=== PATIENT | male | born 1970 | race African-American/Black ===

== ENCOUNTER 2018-12-09 00:30 | Inpatient (IN) | payer SELFPAY ==
[2018-12-09] VITALS (27 sets, daily range): BP systolic 136–217; BP diastolic 61–108
[~2018-12-09] VITALS: Ht 177.8 cm; Wt 108.0 kg
[~2018-12-09 00:30] MED LIST: AMLO10TA8 PO; ASPI325T8 PO; ATOR40TA59 PO; CARV6.25 PO; GABA300C18 PO; HYDR12.575 PO; INSU100C4 SQ; INSU100I13 SQ; INSU100V13 SQ; INSU100V31 SQ; LISI-334 PO; LISI-338 PO; PRED50TA PO; SULF1TAB24 PO
[2018-12-09] MEDS ORDERED: MORPHINE SULFATE 2 MG/ML VIAL. IV PRN (00:45)
--- NOTE | 2018-12-09 00:48 | PHYS DOC ---
Past Medical History Past Medical History: Diabetes-Type II, Hypertension Past Surgical History: No Surgical History Alcohol Use: None Drug Use: None Adult General HPI HPI Patient is a 48 year old male presenting with fatigue for the last several months worse today went to local ER blood pressure was super high in the 230s for the most part was given pushes of IV hydralazine blood pressure remained elevated was transferred here for higher level of care Review of Systems Review of Systems Constitutional: Fatigue Eyes: Denies change in visual acuity, redness, or eye pain [] HENT: Denies nasal congestion or sore throat [] Respiratory: Mild shortness of breath GI: Denies abdominal pain, nausea, vomiting, bloody stools or diarrhea [] : Denies dysuria or hematuria [] Musculoskeletal: All other systems were reviewed and found to be within normal limits, except as documented in this note. Allergies Allergies Allergies Coded Allergies Type Severity Reaction Last Updated Verified No Known Drug Allergies 06/10/13 No Physical Exam Physical Exam Constitutional: Well developed, well nourished, no acute distress, non-toxic appearance. [] HENT: Normocephalic, atraumatic, bilateral external ears normal, oropharynx moist, no oral exudates, nose normal. [] Eyes: PERRLA, EOMI, conjunctiva normal, no discharge. [] Neck: Normal range of motion, no tenderness, supple, no stridor. [] Cardiovascular:Heart rate regular rhythm, no murmur [] Lungs & Thorax: Bilateral breath sounds clear to auscultation [] Abdomen: Bowel sounds normal, soft, no tenderness, no masses, no pulsatile masses. [] Skin: Warm, dry, no erythema, no rash. [] Back: No tenderness, no CVA tenderness. [] Extremities: No tenderness, no cyanosis, no clubbing, ROM intact, no edema. [] Neurologic: Alert and oriented X 3, normal motor function, normal sensory function, no focal deficits noted. [] Psychologic: Affect normal, judgement normal, mood normal. [] EKG EKG [] Radiology/Procedures Radiology/Procedures [] Course & Med Decision Making Course & Med Decision Making Pertinent Labs and Imaging studies reviewed. (See chart for details) []History of a prior stroke not on any medication he does not have follow-up who is referred from the local freestanding emergency department for higher level of care. Also patient wanted to come to [facility]. We are the closest facility that has that level of care, therefore accepted the patient in transfer ER to ER, BP in the 220s systolic for the paramedics patient is not stable for transfer to a further facility in my opinion. In summary this is a 48-year-old male with hypertension diabetes prior stroke last year which is untreated who was seen at an outside emergency Department freestanding here with blood pressures as high as 240's. He was given nitro paste clonidine hydralazine blood pressure remained elevated chest x-ray showed perihilar and infrahilar mild interstitial prominence minimal left basilar opacification and small left pleural effusion Labs at the outside facility showed a urinalysis with greater than 300 protein otherwise negative labs done at 10 PM on December 08 showed a sodium of 145 potassium of 3.8 chloride of 107 bicarbonate of 27 anion gap of 11 glucose of 92 albumin of 2.8 alkaline phosphatase of 74 calcium of 8.1 AST 19 catherine T12 BUN 41 creatinine 4.7 white blood cell count was 7.6 hemoglobin 10.7 platelets of 268 troponin less than 0.05 at 10:15 PM on December 08 BNP was 978 EKG interpreted by me from seeing the hospital recorded at 10:27 PM on December 08 showed a normal sinus rhythm with a rate of 80 nonspecific changes inferiorly but no acute ST elevation was noted urine drug screen was done and negative Patient be admitted to the service of Dr. Nixon. Place the patient on nitroglycerin drip as well as when necessary labetalol pushes for high blood pressure did order some Lasix as well as put in the routine consults typical for this problem a patient with ICU for careful monitoring. BP 220'S SEE NURSES NOTE FOR FULL RECORDS. Critical care time was 35 minutes exclusive of procedures. Dragon Disclaimer Dragon Disclaimer This electronic medical record was generated, in whole or in part, using a voice recognition dictation system. Departure Departure Impression: Primary Impression: Hypertensive emergency Disposition: 09 ADMITTED INPATIENT Admitting Physician: ABHISHEK Condition: GUARDED Referrals: NO PCP (PCP) GA SYKES MD Dec 09, 2018 00:48
[2018-12-09] MEDS ORDERED: FUROSEMIDE 40 MG/4 ML VIAL. IVP ONE (01:00)
[2018-12-09] MEDS ORDERED: POTASSIUM CHLORIDE 20 MEQ TABLET.ER. PO ONE (01:00)
[2018-12-09] MEDS ORDERED: NITROGLYCERIN PREMIX 250 ML IV ONE (01:00)
[2018-12-09] MEDS ORDERED: ASPIRIN CHEWABLE 81 MG TABLET. PO ONE (01:00)
[2018-12-09] MEDS: LABETALOL 20 MG/4 ML DISP.SYRIN. IVP PRN (01:25)
--- NOTE | 2018-12-09 02:30 | NUR ---
Patient admitted to room 112 via cart at 0210, accompanied by ED RN; ED RN stated she had increased Nitro gtt to 20MCG/MIN on the way to ICU. Patient alert/oriented x4, cooperative, and complaining of feeling hungry and he hadn't eaten since yesterday afternoon; explained NPO status for possible further testing after physicians assessment this am, patient verbalized understanding. Patient educated on ICU routine, Nursing call light, TV/Bed controls, Numeric pain scale, activity (BR), diet, non smoking campus, and POC. Dr Mujica (ED MD) called at 0220, notified patient's BP remains elevated with Nitro gtt at 20MCG/MIN, discussed changing antihypertensive to Cardene for better control, also notified him patient has not had any urine output since Lasix given in ED and discussed CXR results. Dr Mujica stated he would DC Nitro gtt and order Julian gtt--see orders. Also see Admission Information and Admission Assessment.
[2018-12-09] MEDS: NICOTINE 21MG PATCH. TD SCH ×2 (02:44→09:40)
[2018-12-09] MEDS ORDERED: GABA-585 PO (03:47)
--- NOTE | 2018-12-09 05:48 | RAD ---
PORTABLE CHEST 1V Clinical Indication: Shortness of breath Comparison: AP chest, October 24, 2017. Findings: The cardiomediastinal silhouette is normal. There is left basilar retrocardiac airspace disease. There is mild medial right basilar airspace disease. There is no pneumothorax. No pleural effusion is appreciated. No acute bone abnormality. IMPRESSION: Left basilar retrocardiac airspace disease. Electronically signed by: Ian Proctor MD (12/09/2018 5:44 AM) [facility]
[2018-12-09 06:47] LABS: CALCIUM 7.7 mg/dL (8.5-10.1); CREATININE 5.1 mg/dL (0.7-1.3); GFR 14.6; POTASSIUM 3.6 mmol/L (3.5-5.1)
--- NOTE | 2018-12-09 07:30 | NUR ---
Elevated Troponin 0.061 called by lab at 0701;Dr Tobias barnes, Dr Collado returned page, notified of consult, Troponin results, blood pressures with Cardene gtt at 15MG/HR, meds given in ED, telemetry SR 90's, and patient has not complained of any chest pain. No new orders at this time, will continues POC. Addendum: 12/09/18 at 0740 by ABELARDO RIVERA RN Amended: Links added.
[2018-12-09] MEDS: GABAPENTIN 100 MG CAPSULE. PO SCH ×2 (09:39→20:30)
[2018-12-09] MEDS: ASPIRIN 325 MG TABLET PO SCH (09:39)
[2018-12-09] MEDS: amLODIPine BESYLATE 10 MG TABLET PO SCH (09:40)
[2018-12-09] MEDS: CARVEDILOL 6.25 MG TABLET. PO SCH ×2 (09:40→17:22)
[2018-12-09 09:51] LABS: BILIRUBIN,URINE NEGATIVE (NEG); CLARITY,URINE CLOUDY; COLOR,URINE YELLOW; NITRITE,URINE NEGATIVE (NEG); PH,URINE 5.5; PROTEIN,URINE >=300 mg/dL (NEG-TRACE); UROBILINOGEN,URINE 0.2 mg/dL (0.2 mg/dL)
[2018-12-09 10:10] LABS: BACTERIA,URINE 0 /HPF (0-FEW); SQUAMOUS EPITHELIAL CELL,UR FEW /LPF
--- NOTE | 2018-12-09 10:10 | PDOC2 ---
CONSULT Date of Consult Date of Consult DATE: 12/09/18 TIME: 10:05 Reason for Consult Reason for Consult: RENAL FAILURE AND HTN Referring Physician Referring Physician: JEANA Identification/Chief Complaint Chief Complaint FATIGUE History of Present Illness Reason for Visit: THIS IS A 48 YR OLD WITH FATIGUE FOR SEVERAL MONTHS. ON EVALUATION HE IS NOTED TO HAVE HYPERTENSIVE URGENCY/EMERGENCY. HAS HX OF HTN AND DM II BUT STATES THAT HE HAS NOT BEEN TAKING ANY OF HIS MEDS. HIS CR WAS ALSO WNL IN OCTOBER OF LAST YEAR BUT HAS NOT SEEN ANYONE SINCE THEN. CR TODAY IS 5. DENIED ANY HX AND ANY PROBLEMS WITH EMPTYING HIS BLADDER Past Medical History Cardiovascular: HTN Endocrine: Diabetes Past Surgical History Past Surgical History: No pertinent history Social History No ALCOHOL: rare Drugs: Marijuana Lives: with Family Current Problem List Problem List Problems Medical Problems: (1) Hypertensive emergency Status: Acute Current Medications Current Medications Current Medications Morphine Sulfate (Morphine Sulfate) 2 mg PRN Q2HR PRN IV SEVERE PAIN 7-10; Start 12/09/18 at 00:45; Stop 12/10/18 at 00:44 Nitroglycerin/ Dextrose 250 ml @ 0 mls/hr 1X ONCE IV Last administered on 12/09/18at 01:39; Start 12/09/18 at 01:00; Stop 12/09/18 at 02:27; Status DC Labetalol HCl (Normodyne Iv Push) 20 mg PRN Q2HR PRN IVP ELEVATED BP, SEE COMMENTS Last administered on 12/09/18at 01:25; Start 12/09/18 at 00:45 Aspirin (Children'S Aspirin) 324 mg 1X ONCE PO Last administered on 12/09/18at 01:27; Start 12/09/18 at 01:00; Stop 12/09/18 at 01:01; Status DC Furosemide (Lasix) 40 mg 1X ONCE IVP Last administered on 12/09/18at 01:33; Start 12/09/18 at 01:00; Stop 12/09/18 at 01:01; Status DC Potassium Chloride (Klor-Con) 40 meq 1X ONCE PO Last administered on 12/09/18at 01:27; Start 12/09/18 at 01:00; Stop 12/09/18 at 01:01; Status DC Nicotine (Nicoderm Cq 21mg) 1 patch DAILY TD Last administered on 12/09/18at 09:40; Start 12/09/18 at 02:00 Nicardipine HCl 50 mg/Sodium Chloride 250 ml @ 25 mls/hr CONT PRN IV SEE I/O RECORD Last administered on 12/09/18at 06:47; Start 12/09/18 at 02:30 Amlodipine Besylate (Norvasc) 10 mg DAILY PO Last administered on 12/09/18 09:40; Start 12/09/18 at 09:00 Aspirin (Arjun Aspirin) 325 mg DAILY PO Last administered on 12/09/18 09:39; Start 12/09/18 at 09:00 Atorvastatin Calcium (Lipitor) 40 mg HS PO ; Start 12/09/18 at 21:00 Carvedilol (Coreg) 6.25 mg BIDWMEALS PO Last administered on 12/09/18 09:40; Start 12/09/18 at 09:00 Gabapentin (Neurontin) 100 mg BID PO Last administered on 12/09/18at 09:39; S tart 12/09/18 at 09:00 Insulin Glargine (Lantus) 20 units QHS SQ ; Start 12/09/18 at 21:00 Insulin Human Lispro (HumaLOG) 10 units TIDWMEALS SQ ; Start 12/09/18 at 12:00 Active Scripts Active Reported Gabapentin (Gabapentin) 100 Mg Capsule 100 Mg PO BID Novolog (Insulin Aspart) 100 Unit/1 Ml Cartridge 10 Unit SQ TIDAC Lantus Solostar (Insulin Glargine,Hum.rec.anlog) 100 Unit/1 Ml Insuln.pen 20 Unit SQ QHS Amlodipine Besylate 10 Mg Tablet 10 Mg PO DAILY Lisinopril 5 Mg Tablet 5 Mg PO DAILY Coreg (Carvedilol) 6.25 Mg Tablet 6.25 Mg PO BIDWMEALS Aspirin 325 Mg Tablet 325 Mg PO DAILY Atorvastatin Calcium 40 Mg Tablet 40 Mg PO HS Allergies Allergies: Coded Allergies: No Known Drug Allergies (Unverified , 06/10/13) ROS General: YES: Fatigue, Malaise, Appetite PSYCHOLOGICAL ROS: YES: Anxiety, Depression Eyes: Yes Blurry vision, Yes Decreased vision HEENT: YES: [place] Respiratory: YES: Cough Cardiovascular: yes Lt Headedness Gastrointestinal: Yes Nausea, Yes Constipation Genitourinary: YES Other (NOCTURIA) Musculoskeletal: Yes Muscular Weakness Neurological: Yes Weakness Skin: Yes Dry Skin Physical Exam General: Alert, Oriented X3, Cooperative, No acute distress HEENT: Atraumatic, PERRLA, EOMI, Mucous membr. moist/pink Lungs: Clear to auscultation, Normal air movement Heart: Regular rate, Normal S1, Normal S2 Abdomen: Normal bowel sounds, Soft, No tenderness Extremities: No clubbing, No cyanosis Skin: No breakdown Neuro: Normal speech, Sensation intact, Cranial nerves 3-12 NL Psych/Mental Status: Mental status NL, Mood NL MUSCULOSKELETAL: No joint tenderness, No deformity, No swelling Vitals VITALS Vital Signs Date Time Temp Pulse Resp B/P (MAP) Pulse Ox O2 Delivery O2 Flow Rate FiO2 12/09/18 09:40 92 163/79 12/09/18 09:00 22 94 Room Air 12/09/18 08:00 98.3 98.3 Labs Labs Laboratory Tests Test 12/09/18 01:22 12/09/18 06:32 Troponin I Quantitative 0.036 ng/mL (0.000-0.055) 0.061 ng/mL (0.000-0.055) Sodium Level 142 mmol/L (136-145) Potassium Level 3.6 mmol/L (3.5-5.1) Chloride Level 107 mmol/L (98-107) Carbon Dioxide Level 24 mmol/L (21-32) Anion Gap 11 (6-14) Blood Urea Nitrogen 47 mg/dL (8-26) Creatinine 5.1 mg/dL (0.7-1.3) Estimated GFR (Cockcroft-Gault) 14.6 Glucose Level 123 mg/dL (70-99) Calcium Level 7.7 mg/dL (8.5-10.1) Laboratory Tests Test 12/09/18 01:22 12/09/18 06:32 Troponin I Quantitative 0.036 ng/mL (0.000-0.055) 0.061 ng/mL (0.000-0.055) Sodium Level 142 mmol/L (136-145) Potassium Level 3.6 mmol/L (3.5-5.1) Chloride Level 107 mmol/L (98-107) Carbon Dioxide Level 24 mmol/L (21-32) Anion Gap 11 (6-14) Blood Urea Nitrogen 47 mg/dL (8-26) Creatinine 5.1 mg/dL (0.7-1.3) Estimated GFR (Cockcroft-Gault) 14.6 Glucose Level 123 mg/dL (70-99) Calcium Level 7.7 mg/dL (8.5-10.1) Assessment/Plan Assessment/Plan IMP RENAL FAILURE-SYEDA VS CKD HTN URGENCY NON COMPLIANCE DM II PLAN HYDRATION IV CARDENE START PO ANTIHYPERTENSIVES UA WITH MICRO-RULE OUT NEPHRITIS RENAL SONOGRAM ENC COMPLIANCE KENDY GOMEZ MD Dec 09, 2018 10:10
--- NOTE | 2018-12-09 12:30 | RAD ---
Indication: Renal failure TECHNIQUE: Grayscale, color Doppler images of the kidneys COMPARISON: None FINDINGS: The right kidney measures 10.8 x 6.7 x 5.1 cm without hydronephrosis. Left kidney measures 10.9 x 6.4 x 4.4 cm without hydronephrosis. Bilateral kidneys demonstrate increased parenchymal echogenicity. Bladder is within normal limits. IMPRESSION: 1. No hydronephrosis. 2. Findings of chronic medical renal disease. Electronically signed by: Dillon Peck DO (12/09/2018 12:27 PM) [facility]
--- NOTE | 2018-12-09 12:52 | PDOC1 ---
History and Physical Date of Admission Date of Admission DATE: 12/09/18 TIME: 12:49 Source Source: Chart review, Patient History of Present Illness History of Present Illness Mr. Garcia, is a 48 year old male admit with weakness with fatigue. he has been out of BP meds for 6 months, BP reading in Er was 230 systolic he had been to an urgent care center the day before, and sent to our ER for tr eatment in ER, was given pushes of IV hydralazine blood pressure re Past Medical History Cardiovascular: HTN Psych: No pertinent hx Rheumatologic: No pertinent hx Endocrine: Diabetes Past Surgical History Past Surgical History: No pertinent history Social History Smoke: No ALCOHOL: rare Drugs: Marijuana Current Problem List Problem List Problems Medical Problems: (1) Hypertensive emergency Status: Acute Current Medications Current Medications Current Medications Morphine Sulfate (Morphine Sulfate) 2 mg PRN Q2HR PRN IV SEVERE PAIN 7-10; Start 12/09/18 at 00:45; Stop 12/10/18 at 00:44 Nitroglycerin/ Dextrose 250 ml @ 0 mls/hr 1X ONCE IV Last administered on 12/09/18at 01:39; Start 12/09/18 at 01:00; Stop 12/09/18 at 02:27; Status DC Labetalol HCl (Normodyne Iv Push) 20 mg PRN Q2HR PRN IVP ELEVATED BP, SEE COMMENTS Last administered on 12/09/18at 01:25; Start 12/09/18 at 00:45 Aspirin (Children'S Aspirin) 324 mg 1X ONCE PO Last administered on 12/09/18at 01:27; Start 12/09/18 at 01:00; Stop 12/09/18 at 01:01; Status DC Furosemide (Lasix) 40 mg 1X ONCE IVP Last administered on 12/09/18at 01:33; Start 12/09/18 at 01:00; Stop 12/09/18 at 01:01; Status DC Potassium Chloride (Klor-Con) 40 meq 1X ONCE PO Last administered on 12/09/18at 01:27; Start 12/09/18 at 01:00; Stop 12/09/18 at 01:01; Status DC Nicotine (Nicoderm Cq 21mg) 1 patch DAILY TD Last administered on 12/09/18at 09:40; Start 12/09/18 at 02:00 Nicardipine HCl 50 mg/Sodium Chloride 250 ml @ 25 mls/hr CONT PRN IV SEE I/O RECORD Last administered on 12/09/18at 10:40; Start 12/09/18 at 02:30 Amlodipine Besylate (Norvasc) 10 mg DAILY PO Last administered on 12/09/18at 09:40; Start 12/09/18 at 09:00 Aspirin (Arjun Aspirin) 325 mg DAILY PO Last administered on 12/09/18at 09:39; Start 12/09/18 at 09:00 Atorvastatin Calcium (Lipitor) 40 mg HS PO ; Start 12/09/18 at 21:00 Carvedilol (Coreg) 6.25 mg BIDWMEALS PO Last administered on 12/09/18at 09:40; Start 12/09/18 at 09:00 Gabapentin (Neurontin) 100 mg BID PO Last administered on 12/09/18at 09:39; Start 12/09/18 at 09:00 Insulin Glargine (Lantus) 20 units QHS SQ ; Start 12/09/18 at 21:00 Insulin Human Lispro (HumaLOG) 10 units TIDWMEALS SQ ; Start 12/09/18 at 12:00 Active Scripts Active Reported Gabapentin (Gabapentin) 100 Mg Capsule 100 Mg PO BID Novolog (Insulin Aspart) 100 Unit/1 Ml Cartridge 10 Unit SQ TIDAC Lantus Solostar (Insulin Glargine,Hum.rec.anlog) 100 Unit/1 Ml Insuln.pen 20 Unit SQ QHS Amlodipine Besylate 10 Mg Tablet 10 Mg PO DAILY Lisinopril 5 Mg Tablet 5 Mg PO DAILY Coreg (Carvedilol) 6.25 Mg Tablet 6.25 Mg PO BIDWMEALS Aspirin 325 Mg Tablet 325 Mg PO DAILY Atorvastatin Calcium 40 Mg Tablet 40 Mg PO HS Allergies Allergies: Coded Allergies: No Known Drug Allergies (Unverified , 06/10/13) ROS General: No: Chills, Night Sweats, Fatigue, Malaise, Appetite, Other PSYCHOLOGICAL ROS: No: Anxiety, Behavioral Disorder, Concentration difficultie, Decreased libido, Depression, Disorientation, Hallucinations, Hostility, Irritablity, Memory difficulties, Mood Swings, Obsessive thoughts, Physical abuse, Sexual abuse, Sleep disturbances, Suicidal ideation, Other Eyes: No Blurry vision, No Decreased vision, No Double vision, No Dry eyes, No Excessive tearing, No Eye Pain, No Itchy Eyes, No Loss of vision, No Photophobia, No Scotomata, No Uses contacts, No Uses glasses, No Other HEENT: YES: [place] Respiratory: No: Cough, Hemoptysis, Orthopnea, Pleuritic Pain, Shortness of breath, SOB with excertion, Sputum Changes, Stridor, Tachypnea, Wheezing, Other Cardiovascular: No Chest Pain, No Palpitations, No Orthopnea, No Paroxysmal Noc. Dyspnea, No Edema, No Lt Headedness, No Other Gastrointestinal: Yes Nausea; No Vomiting, No Abdominal Pain, No Diarrhea, No Constipation, No Melena, No Hematochezia, No Other Genitourinary: No Dysuria, No Frequency, No Incontinence, No Hematuria, No Retention, No Discharge, No Urgency, No Pain, No Flank Pain, No Other, No , No , No , No , No , No , No Musculoskeletal: Yes Joint Stiffness; No Gait Disturbance, No Joint Pain, No Joint Swelling, No Muscle Pain, No Muscular Weakness, No Pain In:, No Swelling In:, No Other Neurological: No Behavorial Changes, No Bowel/Bladder ControlChng, No Confusion, No Dizziness, No Gait Disturbance, No Headaches, No Impaired Coord/balance, No Memory Loss, No Numbness/Tingling, No Seizures, No Speech Problems, No Tremors, No Visual Changes, No Weakness, No Other Skin: Yes Dry Skin; No Eczema, No Hair Changes, No Lumps, No Mole Changes, No Mottling, No Nail Changes, No Pruritus, No Rash, No Skin Lesion Changes, No Other, No Acne Physical Exam General: Alert, Cooperative, No acute distress, mild distress HEENT: PERRLA, EOMI Lungs: Clear to auscultation, Normal air movement Heart: S1S2, no gallops Abdomen: Normal bowel sounds, Soft Extremities: No cyanosis, Normal pulses, Other (+ edema) Skin: No breakdown, No significant lesion Neuro: Normal speech, Normal tone, Cranial nerves 3-12 NL Psych/Mental Status: Mood NL Vitals Vitals Vital Signs Date Time Temp Pulse Resp B/P (MAP) Pulse Ox O2 Delivery O2 Flow Rate FiO2 12/09/18 12:00 98.7 85 18 162/79 (106) 91 Nasal Cannula 2.0 98.7 Labs Labs Laboratory Tests Test 12/09/18 01:22 12/09/18 06:32 12/09/18 09:35 12/09/18 12:08 Troponin I Quantitative 0.036 ng/mL (0.000-0.055) 0.061 ng/mL (0.000-0.055) Sodium Level 142 mmol/L (136-145) Potassium Level 3.6 mmol/L (3.5-5.1) Chloride Level 107 mmol/L (98-107) Carbon Dioxide Level 24 mmol/L (21-32) Anion Gap 11 (6-14) Blood Urea Nitrogen 47 mg/dL (8-26) Creatinine 5.1 mg/dL (0.7-1.3) Estimated GFR (Cockcroft-Gault) 14.6 Glucose Level 123 mg/dL (70-99) Calcium Level 7.7 mg/dL (8.5-10.1) Urine Collection Type Unknown Urine Color Yellow Urine Clarity Cloudy Urine pH 5.5 Urine Specific Tyler 1.015 Urine Protein >=300 mg/dL (NEG-TRACE) Urine Glucose (UA) Negative mg/dL (NEG) Urine Ketones (Stick) Negative mg/dL (NEG) Urine Blood Small (NEG) Urine Nitrite Negative (NEG) Urine Bilirubin Negative (NEG) Urine Urobilinogen Dipstick 0.2 mg/dL (0.2 mg/dL) Urine Leukocyte Esterase Large (NEG) Urine RBC 3-5 /HPF (0-2) Urine WBC 11-20 /HPF (0-4) Urine Squamous Epithelial Cells Few /LPF Urine Bacteria 0 /HPF (0-FEW) Urine Random Total Protein 311.5 mg/dL (Not Establ.) Glucose (Fingerstick) 213 mg/dL (70-99) Laboratory Tests Test 12/09/18 01:22 12/09/18 06:32 12/09/18 09:35 12/09/18 12:08 Troponin I Quantitative 0.036 ng/mL (0.000-0.055) 0.061 ng/mL (0.000-0.055) Sodium Level 142 mmol/L (136-145) Potassium Level 3.6 mmol/L (3.5-5.1) Chloride Level 107 mmol/L (98-107) Carbon Dioxide Level 24 mmol/L (21-32) Anion Gap 11 (6-14) Blood Urea Nitrogen 47 mg/dL (8-26) Creatinine 5.1 mg/dL (0.7-1.3) Estimated GFR (Cockcroft-Gault) 14.6 Glucose Level 123 mg/dL (70-99) Calcium Level 7.7 mg/dL (8.5-10.1) Urine Collection Type Unknown Urine Color Yellow Urine Clarity Cloudy Urine pH 5.5 Urine Specific Tyler 1.015 Urine Protein >=300 mg/dL (NEG-TRACE) Urine Glucose (UA) Negative mg/dL (NEG) Urine Ketones (Stick) Negative mg/dL (NEG) Urine Blood Small (NEG) Urine Nitrite Negative (NEG) Urine Bilirubin Negative (NEG) Urine Urobilinogen Dipstick 0.2 mg/dL (0.2 mg/dL) Urine Leukocyte Esterase Large (NEG) Urine RBC 3-5 /HPF (0-2) Urine WBC 11-20 /HPF (0-4) Urine Squamous Epithelial Cells Few /LPF Urine Bacteria 0 /HPF (0-FEW) Urine Random Total Protein 311.5 mg/dL (Not Establ.) Glucose (Fingerstick) 213 mg/dL (70-99) VTE Prophylaxis Ordered VTE Prophylaxis Devices: No VTE Pharmacological Prophylaxi: Yes Assessment/Plan Assessment/Plan acute renal failure accelerated hypertension acute systolic CHF, new LE edema noncompliance meds, no meds 6 mos UBALDO JOYCE MD Dec 09, 2018 12:52
[2018-12-09] MEDS: INSULIN LISPRO 300 UNITS/3 ML INSULN.PEN. SQ SCH ×2 (13:15→17:00)
--- NOTE | 2018-12-09 15:34 | PDOC2 ---
CONSULT Date of Consult Date of Consult DATE: 12/09/18 TIME: 15:28 Reason for Consult Reason for Consult: Hypertensive emergency Referring Physician Referring Physician: Dr. De La Rosa Identification/Chief Complaint Chief Complaint Fatigue and weakness Source Source: Chart review, Patient History of Present Illness Reason for Visit: The patient is a 48-year-old male who reports 2-3 weeks of progressive weakness and fatigue. He was seen at an outpatient facility with a systolic pressure of 230. Patient has a history of hypertension, diabetes mellitus and a possible CVA. He has not taken medications for over 6 months. He was evaluated in the emergency room and found to have potassium of 3.6 and a creatinine of 5.1 with troponins of 0.036 and 0.061. Glucose is 123. He was admitted and started on a cardene drip which has significantly improved his blood pressure. He denied any chest pain. He is feeling better today. Past Medical History Cardiovascular: HTN CENTRAL NERVOUS SYSTEM: Other (possible previous TIA) Psych: No pertinent hx Rheumatologic: No pertinent hx Endocrine: Diabetes Past Surgical History Past Surgical History: No pertinent history Family History Family History: Hypertension Social History No ALCOHOL: rare Drugs: Marijuana Lives: with Family Current Problem List Problem List Problems Medical Problems: (1) Hypertensive emergency Status: Acute Current Medications Current Medications Current Medications Morphine Sulfate (Morphine Sulfate) 2 mg PRN Q2HR PRN IV SEVERE PAIN 7-10; Start 12/09/18 at 00:45; Stop 12/10/18 at 00:44 Nitroglycerin/ Dextrose 250 ml @ 0 mls/hr 1X ONCE IV Last administered on 12/09/18at 01:39; Start 12/09/18 at 01:00; Stop 12/09/18 at 02:27; Status DC Labetalol HCl (Normodyne Iv Push) 20 mg PRN Q2HR PRN IVP ELEVATED BP, SEE CO MMENTS Last administered on 12/09/18at 01:25; Start 12/09/18 at 00:45 Aspirin (Children'S Aspirin) 324 mg 1X ONCE PO Last administered on 12/09/18at 01:27; Start 12/09/18 at 01:00; Stop 12/09/18 at 01:01; Status DC Furosemide (Lasix) 40 mg 1X ONCE IVP Last administered on 12/09/18at 01:33; Start 12/09/18 at 01:00; Stop 12/09/18 at 01:01; Status DC Potassium Chloride (Klor-Con) 40 meq 1X ONCE PO Last administered on 12/09/18at 01:27; Start 12/09/18 at 01:00; Stop 12/09/18 at 01:01; Status DC Nicotine (Nicoderm Cq 21mg) 1 patch DAILY TD Last administered on 12/09/18at 09:40; Start 12/09/18 at 02:00 Nicardipine HCl 50 mg/Sodium Chloride 250 ml @ 25 mls/hr CONT PRN IV SEE I/O RECORD Last administered on 12/09/18at 14:44; Start 12/09/18 at 02:30 Amlodipine Besylate (Norvasc) 10 mg DAILY PO Last administered on 12/09/18 09:40; Start 12/09/18 at 09:00 Aspirin (Arjun Aspirin) 325 mg DAILY PO Last administered on 12/09/18at 09:39; Start 12/09/18 at 09:00 Atorvastatin Calcium (Lipitor) 40 mg HS PO ; Start 12/09/18 at 21:00 Carvedilol (Coreg) 6.25 mg BIDWMEALS PO Last administered on 12/09/18at 09:40; Start 12/09/18 at 09:00 Gabapentin (Neurontin) 100 mg BID PO Last administered on 12/09/18 09:39; Start 12/09/18 at 09:00 Insulin Glargine (Lantus) 20 units QHS SQ ; Start 12/09/18 at 21:00 Insulin Human Lispro (HumaLOG) 10 units TIDWMEALS SQ Last administered on 12/09/18at 13:15; Start 12/09/18 at 12:00 Heparin Sodium (Porcine) (Heparin Sodium) 5,000 unit Q12HR SQ ; Start 12/09/18 at 21:00 Active Scripts Active Reported Gabapentin (Gabapentin) 100 Mg Capsule 100 Mg PO BID Novolog (Insulin Aspart) 100 Unit/1 Ml Cartridge 10 Unit SQ TIDAC Lantus Solostar (Insulin Glargine,Hum.rec.anlog) 100 Unit/1 Ml Insuln.pen 20 Unit SQ QHS Amlodipine Besylate 10 Mg Tablet 10 Mg PO DAILY Lisinopril 5 Mg Tablet 5 Mg PO DAILY Coreg (Carvedilol) 6.25 Mg Tablet 6.25 Mg PO BIDWMEALS Aspirin 325 Mg Tablet 325 Mg PO DAILY Atorvastatin Calcium 40 Mg Tablet 40 Mg PO HS Allergies Allergies: Coded Allergies: No Known Drug Allergies (Unverified , 06/10/13) ROS General: YES: Fatigue, Malaise Physical Exam General: mild distress HEENT: Atraumatic Lungs: Clear to auscultation Heart: Regular rate Abdomen: Normal bowel sounds Vitals VITALS Vital Signs Date Time Temp Pulse Resp B/P (MAP) Pulse Ox O2 Delivery O2 Flow Rate FiO2 12/09/18 14:00 80 17 151/75 (100) 94 Nasal Cannula 2.0 12/09/18 12:00 98.7 98.7 Labs Labs Laboratory Tests Test 12/09/18 01:22 12/09/18 06:32 12/09/18 09:35 12/09/18 12:08 Troponin I Quantitative 0.036 ng/mL (0.000-0.055) 0.061 ng/mL (0.000-0.055) Sodium Level 142 mmol/L (136-145) Potassium Level 3.6 mmol/L (3.5-5.1) Chloride Level 107 mmol/L (98-107) Carbon Dioxide Level 24 mmol/L (21-32) Anion Gap 11 (6-14) Blood Urea Nitrogen 47 mg/dL (8-26) Creatinine 5.1 mg/dL (0.7-1.3) Estimated GFR (Cockcroft-Gault) 14.6 Glucose Level 123 mg/dL (70-99) Calcium Level 7.7 mg/dL (8.5-10.1) Urine Collection Type Unknown Urine Color Yellow Urine Clarity Cloudy Urine pH 5.5 Urine Specific [place] 1.015 Urine Protein >=300 mg/dL (NEG-TRACE) Urine Glucose (UA) Negative mg/dL (NEG) Urine Ketones (Stick) Negative mg/dL (NEG) Urine Blood Small (NEG) Urine Nitrite Negative (NEG) Urine Bilirubin Negative (NEG) Urine Urobilinogen Dipstick 0.2 mg/dL (0.2 mg/dL) Urine Leukocyte Esterase Large (NEG) Urine RBC 3-5 /HPF (0-2) Urine WBC 11-20 /HPF (0-4) Urine Squamous Epithelial Cells Few /LPF Urine Bacteria 0 /HPF (0-FEW) Urine Random Total Protein 311.5 mg/dL (Not Establ.) Glucose (Fingerstick) 213 mg/dL (70-99) Laboratory Tests Test 12/09/18 01:22 12/09/18 06:32 12/09/18 09:35 12/09/18 12:08 Troponin I Quantitative 0.036 ng/mL (0.000-0.055) 0.061 ng/mL (0.000-0.055) Sodium Level 142 mmol/L (136-145) Potassium Level 3.6 mmol/L (3.5-5.1) Chloride Level 107 mmol/L (98-107) Carbon Dioxide Level 24 mmol/L (21-32) Anion Gap 11 (6-14) Blood Urea Nitrogen 47 mg/dL (8-26) Creatinine 5.1 mg/dL (0.7-1.3) Estimated GFR (Cockcroft-Gault) 14.6 Glucose Level 123 mg/dL (70-99) Calcium Level 7.7 mg/dL (8.5-10.1) Urine Collection Type Unknown Urine Color Yellow Urine Clarity Cloudy Urine pH 5.5 Urine Specific [place] 1.015 Urine Protein >=300 mg/dL (NEG-TRACE) Urine Glucose (UA) Negative mg/dL (NEG) Urine Ketones (Stick) Negative mg/dL (NEG) Urine Blood Small (NEG) Urine Nitrite Negative (NEG) Urine Bilirubin Negative (NEG) Urine Urobilinogen Dipstick 0.2 mg/dL (0.2 mg/dL) Urine Leukocyte Esterase Large (NEG) Urine RBC 3-5 /HPF (0-2) Urine WBC 11-20 /HPF (0-4) Urine Squamous Epithelial Cells Few /LPF Urine Bacteria 0 /HPF (0-FEW) Urine Random Total Protein 311.5 mg/dL (Not Establ.) Glucose (Fingerstick) 213 mg/dL (70-99) Assessment/Plan Assessment/Plan 1. Hypertensive emergency. Patient has a history of hypertension but has been off his blood pressure medicines for at least 6 months. He is improved on a Cardene drip. For her medications have been started. We will check an echo to evaluate LV wall thickness in this setting. 2. Acute acute renal insufficiency. Creatinine of 5.1 with a potassium of 3.6. Patient is receiving fluids and is being evaluated by the renal service. 3. Minimally elevated troponins at 0.036 and 0.061. Consistent with demand ischemia and renal dysfunction. 4. Diabetes mellitus. Initial glucose of 123. As per the renal service. 5. Noncompliance. Thank you for allowing us to participate in the care of your patient. SULY JUAREZ MD Dec 09, 2018 15:34
--- NOTE | 2018-12-09 15:47 | NUR ---
Patient's oxygen saturation during sleep is dropping low to mid 80's. Oxygen has been applied to patient while sleeping. Patient is having periods of apnea during sleep and loud snoring. Patients position has been moved to side lying, and upright to help this issue however, these positions have not alleviated the snoring or the periods of apnea. With 2L nasal canula patient is maintaining oxygen saturations in the low 90's. Dr. De La Rosa has been notified and will continue to monitor. This nurse will continue to monitor.
[2018-12-09] MEDS: ATORVASTATIN CALCIUM 40 MG TABLET. PO SCH (20:30)
[2018-12-09] MEDS: HEPARIN for SUB-Q USE 5,000 UNIT/ML VIAL. SQ SCH (20:31)
[2018-12-09] MEDS: INSULIN GLARGINE 300 UNITS/3 ML INSULN.PEN. SQ SCH (20:32)
[2018-12-10] VITALS (12 sets, daily range): BP systolic 136–221; BP diastolic 61–120
[2018-12-10 08:28] LABS: BASO # 0.1 x10^3/uL (0.0-0.2); BASO % 2 % (0-3); EOS # 0.2 x10^3/uL (0.0-0.7); EOS % 2 % (0-3); HEMATOCRIT 30.7 % (39.0-53.0); HEMOGLOBIN 10.2 g/dL (13.0-17.5); LYMPH # 2.2 x10^3/uL (1.0-4.8); LYMPH % 32 % (24-48); MEAN CORPUSCULAR HEMOGLOBIN 28 pg (25-35); MEAN CORPUSCULAR HGB CONC 33 g/dL (31-37); MEAN CORPUSCULAR VOLUME 84 fL (79-100); MONO # 0.7 x10^3/uL (0.0-1.1); MONO % 10 % (0-9); NEUT # 3.8 x10^3/uL (1.8-7.7); NEUT % 54 % (31-73); PLATELET COUNT 221 x10^3/uL (140-400); RED BLOOD COUNT 3.68 x10^6/uL (4.30-5.70); RED CELL DISTRIBUTION WIDTH 14.1 % (11.5-14.5); WHITE BLOOD COUNT 6.9 x10^3/uL (4.0-11.0)
[2018-12-10] MEDS: GABAPENTIN 100 MG CAPSULE. PO SCH ×2 (08:34→20:39)
[2018-12-10] MEDS: NICOTINE 21MG PATCH. TD SCH (08:34)
[2018-12-10] MEDS: ASPIRIN 325 MG TABLET PO SCH (08:34)
[2018-12-10] MEDS: amLODIPine BESYLATE 10 MG TABLET PO SCH (08:35)
[2018-12-10] MEDS: CARVEDILOL 6.25 MG TABLET. PO SCH (08:35)
[2018-12-10] MEDS: INSULIN LISPRO 300 UNITS/3 ML INSULN.PEN. SQ SCH ×4 (08:44→17:00)
[2018-12-10] MEDS: HEPARIN for SUB-Q USE 5,000 UNIT/ML VIAL. SQ SCH ×2 (08:44→20:41)
[2018-12-10 08:48] LABS: ALBUMIN 2.5 g/dL (3.4-5.0); ALBUMIN/GLOBULIN RATIO 0.6 (1.0-1.7); CALCIUM 7.7 mg/dL (8.5-10.1); CREATININE 5.1 mg/dL (0.7-1.3); GFR 14.6; PHOSPHORUS 4.2 mg/dL (2.6-4.7); POTASSIUM 4.1 mmol/L (3.5-5.1); TOTAL BILIRUBIN 0.2 mg/dL (0.2-1.0); TOTAL PROTEIN 6.8 g/dL (6.4-8.2)
[2018-12-10] MEDS: LABETALOL 20 MG/4 ML DISP.SYRIN. IVP PRN (09:48)
--- NOTE | 2018-12-10 10:37 | PDOC ---
Renal-Progress Notes Subjective Notes Notes NO NEW COMPLAINTS History of Present Illness Hx of present illness NOTHING NEW, STABLE Vitals Vitals Vital Signs Date Time Temp Pulse Resp B/P (MAP) Pulse Ox O2 Delivery O2 Flow Rate FiO2 12/10/18 09:48 75 220/120 12/10/18 08:00 98.4 9 99 Nasal Cannula 2.0 98.4 Weight Weight [ ] I.O. Intake and Output Intake and Output 12/10/18 07:00 Intake Total 1269 ml Output Total 200 ml Balance 1069 ml Intake Oral 600 ml IV Total 669 ml Output Urine Total 200 ml # Voids 3 Labs Labs Laboratory Tests Test 12/09/18 12:08 12/09/18 17:23 12/09/18 19:43 12/10/18 08:00 Glucose (Fingerstick) 213 mg/dL (70-99) 68 mg/dL (70-99) 125 mg/dL (70-99) White Blood Count 6.9 x10^3/uL (4.0-11.0) Red Blood Count 3.68 x10^6/uL (4.30-5.70) Hemoglobin 10.2 g/dL (13.0-17.5) Hematocrit 30.7 % (39.0-53.0) Mean Corpuscular Volume 84 fL (79-100) Mean Corpuscular Hemoglobin 28 pg (25-35) Mean Corpuscular Hemoglobin Concent 33 g/dL (31-37) Red Cell Distribution Width 14.1 % (11.5-14.5) Platelet Count 221 x10^3/uL (140-400) Neutrophils (%) (Auto) 54 % (31-73) Lymphocytes (%) (Auto) 32 % (24-48) Monocytes (%) (Auto) 10 % (0-9) Eosinophils (%) (Auto) 2 % (0-3) Basophils (%) (Auto) 2 % (0-3) Neutrophils # (Auto) 3.8 x10^3/uL (1.8-7.7) Lymphocytes # (Auto) 2.2 x10^3/uL (1.0-4.8) Monocytes # (Auto) 0.7 x10^3/uL (0.0-1.1) Eosinophils # (Auto) 0.2 x10^3/uL (0.0-0.7) Basophils # (Auto) 0.1 x10^3/uL (0.0-0.2) Sodium Level 141 mmol/L (136-145) Potassium Level 4.1 mmol/L (3.5-5.1) Chloride Level 106 mmol/L (98-107) Carbon Dioxide Level 26 mmol/L (21-32) Anion Gap 9 (6-14) Blood Urea Nitrogen 50 mg/dL (8-26) Creatinine 5.1 mg/dL (0.7-1.3) Estimated GFR (Cockcroft-Gault) 14.6 BUN/Creatinine Ratio 10 (6-20) Glucose Level 134 mg/dL (70-99) Calcium Level 7.7 mg/dL (8.5-10.1) Phosphorus Level 4.2 mg/dL (2.6-4.7) Magnesium Level 2.0 mg/dL (1.8-2.4) Total Bilirubin 0.2 mg/dL (0.2-1.0) Aspartate Amino Transf (AST/SGOT) 13 U/L (15-37) Alanine Aminotransferase (ALT/SGPT) 10 U/L (16-63) Alkaline Phosphatase 79 U/L (46-116) Total Protein 6.8 g/dL (6.4-8.2) Albumin 2.5 g/dL (3.4-5.0) Albumin/Globulin Ratio 0.6 (1.0-1.7) Test 12/10/18 08:43 Glucose (Fingerstick) 130 mg/dL (70-99) Review of Systems Constitutional: yes: malaise, weakness, alert, oriented Ears/Nose/Throat: Yes: no symptom reported Eyes: Yes: no symptom reported Cardiovascular: Yes no symptom reported Gastrointestional: Yes: no symptom reported Genitourinary: Yes: no symptom reported Musculoskeletal: Yes: muscle stiffness Skin: Yes no symptom reported Endocrine: Yes: no symptom reported Physical Exam General Appearance: no apparent distress Skin: warm Respiratory: bilateral CTA Heart: S1S2 Abdomen: soft, bowel sounds present Genitourinary: bladder flat Extremities: pulses present Neurology: alert, oriented Assessment Assessment IMP RENAL FAILURE-SYEDA VS CKD HTN URGENCY NON COMPLIANCE DM II UTI PLAN ADD BETA EFREN HYDRATION IV CARDENE RENAL SONOGRAM NEG EXCEPT CMRD ANTIBIOTICS ENC COMPLIANCE START 24 HR URINE STUDY GOMEZ,KENDY S MD Dec 10, 2018 10:37
--- NOTE | 2018-12-10 11:23 | PDOC ---
CARDIO Progress Notes Date and Time Date of Service 12/10/18 Time of Evaluation 1110 Subjective Subjective: No Chest Pain, No shortness of breath Vitals Vitals Vital Signs Date Time Temp Pulse Resp B/P (MAP) Pulse Ox O2 Delivery O2 Flow Rate FiO2 12/10/18 09:48 75 220/120 12/10/18 08:00 98.4 9 99 Nasal Cannula 2.0 98.4 Weight Weight [ ] Input and Output Intake and Output Intake and Output 12/10/18 06:59 Intake Total 1269 ml Output Total 200 ml Balance 1069 ml Intake Oral 600 ml IV Total 669 ml Output Urine Total 200 ml # Voids 3 Laboratory Labs Laboratory Tests Test 12/09/18 12:08 12/09/18 17:23 12/09/18 19:43 12/10/18 08:00 Glucose (Fingerstick) 213 mg/dL (70-99) 68 mg/dL (70-99) 125 mg/dL (70-99) White Blood Count 6.9 x10^3/uL (4.0-11.0) Red Blood Count 3.68 x10^6/uL (4.30-5.70) Hemoglobin 10.2 g/dL (13.0-17.5) Hematocrit 30.7 % (39.0-53.0) Mean Corpuscular Volume 84 fL (79-100) Mean Corpuscular Hemoglobin 28 pg (25-35) Mean Corpuscular Hemoglobin Concent 33 g/dL (31-37) Red Cell Distribution Width 14.1 % (11.5-14.5) Platelet Count 221 x10^3/uL (140-400) Neutrophils (%) (Auto) 54 % (31-73) Lymphocytes (%) (Auto) 32 % (24-48) Monocytes (%) (Auto) 10 % (0-9) Eosinophils (%) (Auto) 2 % (0-3) Basophils (%) (Auto) 2 % (0-3) Neutrophils # (Auto) 3.8 x10^3/uL (1.8-7.7) Lymphocytes # (Auto) 2.2 x10^3/uL (1.0-4.8) Monocytes # (Auto) 0.7 x10^3/uL (0.0-1.1) Eosinophils # (Auto) 0.2 x10^3/uL (0.0-0.7) Basophils # (Auto) 0.1 x10^3/uL (0.0-0.2) Sodium Level 141 mmol/L (136-145) Potassium Level 4.1 mmol/L (3.5-5.1) Chloride Level 106 mmol/L (98-107) Carbon Dioxide Level 26 mmol/L (21-32) Anion Gap 9 (6-14) Blood Urea Nitrogen 50 mg/dL (8-26) Creatinine 5.1 mg/dL (0.7-1.3) Estimated GFR (Cockcroft-Gault) 14.6 BUN/Creatinine Ratio 10 (6-20) Glucose Level 134 mg/dL (70-99) Calcium Level 7.7 mg/dL (8.5-10.1) Phosphorus Level 4.2 mg/dL (2.6-4.7) Magnesium Level 2.0 mg/dL (1.8-2.4) Total Bilirubin 0.2 mg/dL (0.2-1.0) Aspartate Amino Transf (AST/SGOT) 13 U/L (15-37) Alanine Aminotransferase (ALT/SGPT) 10 U/L (16-63) Alkaline Phosphatase 79 U/L (46-116) Total Protein 6.8 g/dL (6.4-8.2) Albumin 2.5 g/dL (3.4-5.0) Albumin/Globulin Ratio 0.6 (1.0-1.7) Test 12/10/18 08:43 Glucose (Fingerstick) 130 mg/dL (70-99) Review of Systems Constitutional: yes: malaise, weakness, alert, oriented Ears/Nose/Throat: Yes: no symptom reported Eyes: Yes: no symptom reported Cardiovascular: Yes no symptom reported Gastrointestional: Yes: no symptom reported Genitourinary: Yes: no symptom reported Musculoskeletal: Yes: muscle stiffness Skin: Yes no symptom reported Endocrine: Yes: no symptom reported Physical Exam HEENT: Neck Supple W Full Motion Chest: Symmetric LUNGS: Clear to Auscultation Heart: S1S2, RRR Abdomen: Soft N/T Extremities: No Edema Neurology: alert, oriented, follow commands Assessment Assessment 1. Malignant hypertension; off Cardene, remains labile. 2. SYEDA vs CKD 3. Mild troponin elevation; highest 0.061. most probably type II, demand ischemia secondary to above. 4. Diabetes, II 5. Hyperlipidemia; statin 6. Tobaccoism; discussed/encouraged cessation 7. [place] 8. Noncompliance; has not taken BP meds in > 6 month. 9. UTI Recommendations Echo to assess LV systolic function No ACEi with SYEDA Continue Norvasc. BB added. Consider converting to coreg in BP remains labile. Hydralazine PRN Follow nephrology recs Discussed/encouraged compliance ALEXANDRE MELARA APRN Dec 10, 2018 11:23
--- NOTE | 2018-12-10 15:41 | NUR ---
SS following for discharge planning. SS reviewed pt chart. Pt is self pay pt. HCFS following for self pay status. Pt is from home and is currently requiring oxygen. No discharge needs noted at this time. SS will continue to follow for discharge planning.
--- NOTE | 2018-12-10 16:13 | CARD ---
MR#: [id number] Date of Study: 12/10/2018 Ordering Physician: SULY MIKE, Referring Physician: MIGUEL HILLS, Tech: Jessica Dyson APPROVED REPORT EXAM: Two-dimensional and M-mode echocardiogram with Doppler and color Doppler. Other Information Quality : GoodHR: 75bpm INDICATION Hypertension/HCVD 2D DIMENSIONS RVDd2.9 (2.9-3.5cm)Left Atrium(2D)4.9 (1.6-4.0cm) IVSd1.9 (0.7-1.1cm)Aortic Root(2D)3.3 (2.0-3.7cm) LVDd5.4 (3.9-5.9cm)LVOT Diameter2.3 (1.8-2.4cm) PWd1.4 (0.7-1.1cm)LVDs3.9 (2.5-4.0cm) FS (%) 27.5 %SV74.9 ml LVEF(%)52.9 (>50%) Aortic Valve AoV Peak Maged.116.9cm/sAoV VTI27.1cm AO Peak GR.5.5mmHgLVOT VTI 19.66cm AO Mean GR.4mmHg Mitral Valve MV E Klfgvcov62.7cm/sMV DECEL LVAE133ig MV A Lurzfqtl55.1cm/sE/A Ratio1.1 TDI Lateral E' P. V7.34cm/sMedial E' P. V5.15cm/s E/Lateral E'12.6E/Medial E'18.0 Tricuspid Valve TR P. Rgoeixdi455sj/sRAP [id number] TR Peak Gr.[id number] Pulmonary Vein S1 Pwjtcrmm79.9cm/sS2 Qktzbdem97.42cm/s D2 Ksncydsu02.4cm/sPVa [id number] LEFT VENTRICLE The left ventricle is normal size. There is mild to moderate concentric left ventricular hypertrophy. The left ventricular systolic function is normal and the ejection fraction is within normal range. T he Ejection Fraction is 50-55%. There is normal LV segmental wall motion. Transmitral Doppler flow pa ttern is Grade II-pseudonormal filling dynamics. RIGHT VENTRICLE The right ventricle is normal size. There is normal right ventricular wall thickness. The right ventr icular systolic function is normal. ATRIA The left atrium is mildly dilated. The right atrium is mildly dilated. The interatrial septum is inta ct with no evidence for an atrial septal defect or patent foramen ovale as noted on 2-D or Doppler im aging. AORTIC VALVE The aortic valve is normal in structure and function. Doppler and Color Flow revealed no significant aortic regurgitation. There is no significant aortic valvular stenosis. MITRAL VALVE The mitral valve is thickened but opens well. There is no evidence of mitral valve prolapse. There is no mitral valve stenosis. Doppler and Color-flow revealed trace mitral regurgitation. TRICUSPID VALVE The tricuspid valve is normal in structure and function. Doppler and Color Flow revealed trace tricus pid regurgitation with an estimated PAP of 32 mmHg. There is no tricuspid valve stenosis. PULMONIC VALVE The pulmonic valve is not well visualized. Doppler and Color Flow revealed no pulmonic valvular regur gitation. GREAT VESSELS The aortic root is normal in size. The IVC is dilated and collapses >50% with inspiration. PERICARDIAL EFFUSION There is a trace pericardial effusion with no hemodynamic significance. Critical Notification Critical Value: No <Conclusion> The left ventricle is normal size. The left ventricular systolic function is normal and the ejection fraction is within normal range. The Ejection Fraction is 50-55%. There is mild to moderate concentric left ventricular hypertrophy. There is no significant aortic valvular stenosis. Doppler and Color Flow revealed no significant aortic regurgitation. Doppler and Color-flow revealed trace mitral regurgitation. Doppler and Color Flow revealed trace tricuspid regurgitation with an estimated PAP of 32 mmHg. There is a trace pericardial effusion with no hemodynamic significance. Signed by : Suly Mike MD Electronically Approved : 12/10/2018 16:12:58
--- NOTE | 2018-12-10 16:29 | PDOC ---
PROGRESS NOTES Chief Complaint Chief Complaint acute renal failure,, atn accelerated hypertension acute systolic CHF, new LE edema noncompliance meds, severe malnutritino weakness and debility and fatigue History of Present Illness History of Present Illness on cardene gtt, very tired because he feels better, breathing better check TSH cont PO meds, try out of ICU when wean cardene gtt Vitals Vitals Vital Signs Date Time Temp Pulse Resp B/P (MAP) Pulse Ox O2 Delivery O2 Flow Rate FiO2 12/10/18 14:00 72 20 149/76 (100) 94 Nasal Cannula 12/10/18 13:00 2.0 12/10/18 12:00 98.5 98.5 Physical Exam General: mild distress Heart: Regular rate Lungs: Clear, Wheezing Abdomen: Normal bowel sounds Extremities: No cyanosis, Normal pulses, Other (+ edema) Skin: No breakdown, No significant lesion Labs LABS Laboratory Tests Test 12/09/18 17:23 12/09/18 19:43 12/10/18 08:00 12/10/18 08:43 Glucose (Fingerstick) 68 mg/dL (70-99) 125 mg/dL (70-99) 130 mg/dL (70-99) White Blood Count 6.9 x10^3/uL (4.0-11.0) Red Blood Count 3.68 x10^6/uL (4.30-5.70) Hemoglobin 10.2 g/dL (13.0-17.5) Hematocrit 30.7 % (39.0-53.0) Mean Corpuscular Volume 84 fL (79-100) Mean Corpuscular Hemoglobin 28 pg (25-35) Mean Corpuscular Hemoglobin Concent 33 g/dL (31-37) Red Cell Distribution Width 14.1 % (11.5-14.5) Platelet Count 221 x10^3/uL (140-400) Neutrophils (%) (Auto) 54 % (31-73) Lymphocytes (%) (Auto) 32 % (24-48) Monocytes (%) (Auto) 10 % (0-9) Eosinophils (%) (Auto) 2 % (0-3) Basophils (%) (Auto) 2 % (0-3) Neutrophils # (Auto) 3.8 x10^3/uL (1.8-7.7) Lymphocytes # (Auto) 2.2 x10^3/uL (1.0-4.8) Monocytes # (Auto) 0.7 x10^3/uL (0.0-1.1) Eosinophils # (Auto) 0.2 x10^3/uL (0.0-0.7) Basophils # (Auto) 0.1 x10^3/uL (0.0-0.2) Sodium Level 141 mmol/L (136-145) Potassium Level 4.1 mmol/L (3.5-5.1) Chloride Level 106 mmol/L (98-107) Carbon Dioxide Level 26 mmol/L (21-32) Anion Gap 9 (6-14) Blood Urea Nitrogen 50 mg/dL (8-26) Creatinine 5.1 mg/dL (0.7-1.3) Estimated GFR (Cockcroft-Gault) 14.6 BUN/Creatinine Ratio 10 (6-20) Glucose Level 134 mg/dL (70-99) Calcium Level 7.7 mg/dL (8.5-10.1) Phosphorus Level 4.2 mg/dL (2.6-4.7) Magnesium Level 2.0 mg/dL (1.8-2.4) Total Bilirubin 0.2 mg/dL (0.2-1.0) Aspartate Amino Transf (AST/SGOT) 13 U/L (15-37) Alanine Aminotransferase (ALT/SGPT) 10 U/L (16-63) Alkaline Phosphatase 79 U/L (46-116) Total Protein 6.8 g/dL (6.4-8.2) Albumin 2.5 g/dL (3.4-5.0) Albumin/Globulin Ratio 0.6 (1.0-1.7) Test 12/10/18 14:30 Glucose (Fingerstick) 157 mg/dL (70-99) Assessment and Plan Assessmemt and Plan Problems Medical Problems: (1) Hypertensive emergency Status: Acute Comment Review of Relevant I have reviewed the following items ish (where applicable) has been applied. Labs Laboratory Tests Test 12/09/18 01:22 12/09/18 02:30 12/09/18 06:32 12/09/18 09:35 Troponin I Quantitative 0.036 ng/mL (0.000-0.055) 0.061 ng/mL (0.000-0.055) Nasal Screen MRSA (PCR) Negative (Negative) Sodium Level 142 mmol/L (136-145) Potassium Level 3.6 mmol/L (3.5-5.1) Chloride Level 107 mmol/L (98-107) Carbon Dioxide Level 24 mmol/L (21-32) Anion Gap 11 (6-14) Blood Urea Nitrogen 47 mg/dL (8-26) Creatinine 5.1 mg/dL (0.7-1.3) Estimated GFR (Cockcroft-Gault) 14.6 Glucose Level 123 mg/dL (70-99) Calcium Level 7.7 mg/dL (8.5-10.1) Urine Collection Type Unknown Urine Color Yellow Urine Clarity Cloudy Urine pH 5.5 Urine Specific [place] 1.015 Urine Protein >=300 mg/dL (NEG-TRACE) Urine Glucose (UA) Negative mg/dL (NEG) Urine Ketones (Stick) Negative mg/dL (NEG) Urine Blood Small (NEG) Urine Nitrite Negative (NEG) Urine Bilirubin Negative (NEG) Urine Urobilinogen Dipstick 0.2 mg/dL (0.2 mg/dL) Urine Leukocyte Esterase Large (NEG) Urine RBC 3-5 /HPF (0-2) Urine WBC 11-20 /HPF (0-4) Urine Squamous Epithelial Cells Few /LPF Urine Bacteria 0 /HPF (0-FEW) Urine Random Total Protein 311.5 mg/dL (Not Establ.) Test 12/09/18 12:08 12/09/18 17:23 12/09/18 19:43 12/10/18 08:00 Glucose (Fingerstick) 213 mg/dL (70-99) 68 mg/dL (70-99) 125 mg/dL (70-99) White Blood Count 6.9 x10^3/uL (4.0-11.0) Red Blood Count 3.68 x10^6/uL (4.30-5.70) Hemoglobin 10.2 g/dL (13.0-17.5) Hematocrit 30.7 % (39.0-53.0) Mean Corpuscular Volume 84 fL (79-100) Mean Corpuscular Hemoglobin 28 pg (25-35) Mean Corpuscular Hemoglobin Concent 33 g/dL (31-37) Red Cell Distribution Width 14.1 % (11.5-14.5) Platelet Count 221 x10^3/uL (140-400) Neutrophils (%) (Auto) 54 % (31-73) Lymphocytes (%) (Auto) 32 % (24-48) Monocytes (%) (Auto) 10 % (0-9) Eosinophils (%) (Auto) 2 % (0-3) Basophils (%) (Auto) 2 % (0-3) Neutrophils # (Auto) 3.8 x10^3/uL (1.8-7.7) Lymphocytes # (Auto) 2.2 x10^3/uL (1.0-4.8) Monocytes # (Auto) 0.7 x10^3/uL (0.0-1.1) Eosinophils # (Auto) 0.2 x10^3/uL (0.0-0.7) Basophils # (Auto) 0.1 x10^3/uL (0.0-0.2) Sodium Level 141 mmol/L (136-145) Potassium Level 4.1 mmol/L (3.5-5.1) Chloride Level 106 mmol/L (98-107) Carbon Dioxide Level 26 mmol/L (21-32) Anion Gap 9 (6-14) Blood Urea Nitrogen 50 mg/dL (8-26) Creatinine 5.1 mg/dL (0.7-1.3) Estimated GFR (Cockcroft-Gault) 14.6 BUN/Creatinine Ratio 10 (6-20) Glucose Level 134 mg/dL (70-99) Calcium Level 7.7 mg/dL (8.5-10.1) Phosphorus Level 4.2 mg/dL (2.6-4.7) Magnesium Level 2.0 mg/dL (1.8-2.4) Total Bilirubin 0.2 mg/dL (0.2-1.0) Aspartate Amino Transf (AST/SGOT) 13 U/L (15-37) Alanine Aminotransferase (ALT/SGPT) 10 U/L (16-63) Alkaline Phosphatase 79 U/L (46-116) Total Protein 6.8 g/dL (6.4-8.2) Albumin 2.5 g/dL (3.4-5.0) Albumin/Globulin Ratio 0.6 (1.0-1.7) Test 12/10/18 08:43 12/10/18 14:30 Glucose (Fingerstick) 130 mg/dL (70-99) 157 mg/dL (70-99) Laboratory Tests Test 12/09/18 17:23 12/09/18 19:43 12/10/18 08:00 12/10/18 08:43 Glucose (Fingerstick) 68 mg/dL (70-99) 125 mg/dL (70-99) 130 mg/dL (70-99) White Blood Count 6.9 x10^3/uL (4.0-11.0) Red Blood Count 3.68 x10^6/uL (4.30-5.70) Hemoglobin 10.2 g/dL (13.0-17.5) Hematocrit 30.7 % (39.0-53.0) Mean Corpuscular Volume 84 fL (79-100) Mean Corpuscular Hemoglobin 28 pg (25-35) Mean Corpuscular Hemoglobin Concent 33 g/dL (31-37) Red Cell Distribution Width 14.1 % (11.5-14.5) Platelet Count 221 x10^3/uL (140-400) Neutrophils (%) (Auto) 54 % (31-73) Lymphocytes (%) (Auto) 32 % (24-48) Monocytes (%) (Auto) 10 % (0-9) Eosinophils (%) (Auto) 2 % (0-3) Basophils (%) (Auto) 2 % (0-3) Neutrophils # (Auto) 3.8 x10^3/uL (1.8-7.7) Lymphocytes # (Auto) 2.2 x10^3/uL (1.0-4.8) Monocytes # (Auto) 0.7 x10^3/uL (0.0-1.1) Eosinophils # (Auto) 0.2 x10^3/uL (0.0-0.7) Basophils # (Auto) 0.1 x10^3/uL (0.0-0.2) Sodium Level 141 mmol/L (136-145) Potassium Level 4.1 mmol/L (3.5-5.1) Chloride Level 106 mmol/L (98-107) Carbon Dioxide Level 26 mmol/L (21-32) Anion Gap 9 (6-14) Blood Urea Nitrogen 50 mg/dL (8-26) Creatinine 5.1 mg/dL (0.7-1.3) Estimated GFR (Cockcroft-Gault) 14.6 BUN/Creatinine Ratio 10 (6-20) Glucose Level 134 mg/dL (70-99) Calcium Level 7.7 mg/dL (8.5-10.1) Phosphorus Level 4.2 mg/dL (2.6-4.7) Magnesium Level 2.0 mg/dL (1.8-2.4) Total Bilirubin 0.2 mg/dL (0.2-1.0) Aspartate Amino Transf (AST/SGOT) 13 U/L (15-37) Alanine Aminotransferase (ALT/SGPT) 10 U/L (16-63) Alkaline Phosphatase 79 U/L (46-116) Total Protein 6.8 g/dL (6.4-8.2) Albumin 2.5 g/dL (3.4-5.0) Albumin/Globulin Ratio 0.6 (1.0-1.7) Test 12/10/18 14:30 Glucose (Fingerstick) 157 mg/dL (70-99) Medications Current Medications Morphine Sulfate (Morphine Sulfate) 2 mg PRN Q2HR PRN IV SEVERE PAIN 7-10; Start 12/09/18 at 00:45; Stop 12/10/18 at 00:44; Status DC Nitroglycerin/ Dextrose 250 ml @ 0 mls/hr 1X ONCE IV Last administered on 12/09/18at 01:39; Start 12/09/18 at 01:00; Stop 12/09/18 at 02:27; Status DC Labetalol HCl (Normodyne Iv Push) 20 mg PRN Q2HR PRN IVP ELEVATED BP, SEE COMMENTS Last administered on 12/10/18at 09:48; Start 12/09/18 at 00:45 Aspirin (Children'S Aspirin) 324 mg 1X ONCE PO Last administered on 12/09/18at 01:27; Start 12/09/18 at 01:00; Stop 12/09/18 at 01:01; Status DC Furosemide (Lasix) 40 mg 1X ONCE IVP Last administered on 12/09/18at 01:33; Start 12/09/18 at 01:00; Stop 12/09/18 at 01:01; Status DC Potassium Chloride (Klor-Con) 40 meq 1X ONCE PO Last administered on 12/09/18 01:27; Start 12/09/18 at 01:00; Stop 12/09/18 at 01:01; Status DC Nicotine (Nicoderm Cq 21mg) 1 patch DAILY TD Last administered on 12/10/18 08:34; Start 12/09/18 at 02:00 Nicardipine HCl 50 mg/Sodium Chloride 250 ml @ 25 mls/hr CONT PRN IV SEE I/O RECORD Last administered on 12/09/18at 14:44; Start 12/09/18 at 02:30 Amlodipine Besylate (Norvasc) 10 mg DAILY PO Last administered on 12/10/18 08:35; Start 12/09/18 at 09:00 Aspirin (Arjun Aspirin) 325 mg DAILY PO Last administered on 12/10/18 08:34; Start 12/09/18 at 09:00 Atorvastatin Calcium (Lipitor) 40 mg HS PO Last administered on 12/09/18 20:30; Start 12/09/18 at 21:00 Carvedilol (Coreg) 6.25 mg BIDWMEALS PO Last administered on 12/10/18 08:35; Start 12/09/18 at 09:00; Stop 12/10/18 at 10:42; Status DC Gabapentin (Neurontin) 100 mg BID PO Last administered on 12/10/18 08:34; Start 12/09/18 at 09:00 Insulin Glargine (Lantus) 20 units QHS SQ Last administered on 12/09/18at 20:32; Start 12/09/18 at 21:00 Insulin Human Lispro (HumaLOG) 10 units TIDWMEALS SQ Last administered on 12/10/18 14:31; Start 12/09/18 at 12:00 Heparin Sodium (Porcine) (Heparin Sodium) 5,000 unit Q12HR SQ Last administered on 12/10/18 08:44; Start 12/09/18 at 21:00 Metoprolol Tartrate (Lopressor) 50 mg BID PO ; Start 12/10/18 at 21:00 Hydralazine HCl (Apresoline Inj) 10 mg PRN Q4HRS PRN IVP ELEVATED BP, SEE COMMENTS; Start 12/10/18 at 11:30 Insulin Human Lispro (HumaLOG) 0-9 UNITS TIDWMEALS SQ ; Start 12/10/18 at 17:00 Dextrose (Dextrose 50%-Water Syringe) 12.5 gm PRN Q15MIN PRN IV SEE COMMENTS; Start 12/10/18 at 14:45 Active Scripts Active Reported Gabapentin (Gabapentin) 100 Mg Capsule 100 Mg PO BID Novolog (Insulin Aspart) 100 Unit/1 Ml Cartridge 10 Unit SQ TIDAC Lantus Solostar (Insulin Glargine,Hum.rec.anlog) 100 Unit/1 Ml Insuln.pen 20 Unit SQ QHS Amlodipine Besylate 10 Mg Tablet 10 Mg PO DAILY Lisinopril 5 Mg Tablet 5 Mg PO DAILY Coreg (Carvedilol) 6.25 Mg Tablet 6.25 Mg PO BIDWMEALS Aspirin 325 Mg Tablet 325 Mg PO DAILY Atorvastatin Calcium 40 Mg Tablet 40 Mg PO HS Vitals/I & O Vital Sign - Last 24 Hours 12/09/18 12/09/18 12/09/18 12/09/18 17:22 20:00 20:00 23:59 Temp 98.5 98.1 98.5 98.1 Pulse 77 79 70 Resp 24 24 B/P (MAP) 144/69 155/93 (113) 142/89 (106) Pulse Ox 93 99 O2 Delivery Nasal Cannula Room Air Nasal Cannula O2 Flow Rate 2.0 2.0 12/10/18 12/10/18 12/10/18 12/10/18 04:00 08:00 08:00 08:35 Temp 98.9 98.4 98.9 98.4 Pulse 73 69 73 Resp 17 9 B/P (MAP) 195/97 (129) 187/109 (135) 187/109 Pulse Ox 99 99 O2 Delivery Nasal Cannula Room Air Nasal Cannula O2 Flow Rate 2.0 2.0 2.0 12/10/18 12/10/18 12/10/18 12/10/18 08:35 09:00 09:48 10:00 Pulse 73 75 70 Resp 20 B/P (MAP) 187/109 221/120 (153) 220/120 188/109 (135) Pulse Ox 100 O2 Delivery Nasal Cannula O2 Flow Rate 2.0 12/10/18 12/10/18 12/10/18 12/10/18 11:00 12:00 13:00 14:00 Temp 98.5 98.5 Pulse 70 68 70 72 Resp 16 35 47 20 B/P (MAP) 186/111 (136) 167/100 (122) 136/77 (96) 149/76 (100) Pulse Ox 99 94 97 94 O2 Delivery Nasal Cannula Nasal Cannula Nasal Cannula Nasal Cannula O2 Flow Rate 2.0 2.0 2.0 Intake and Output 12/09/18 12/09/18 12/10/18 15:00 23:00 07:00 Intake Total 1169 ml 100 ml Output Total 200 ml Balance -200 ml 1169 ml 100 ml UBALDO JOYCE MD Dec 10, 2018 16:29
[2018-12-10] MEDS: hydrALAZINE 20 MG/ML VIAL. IVP PRN ×2 (16:59→20:39)
[2018-12-10] MEDS ORDERED: PSYLLIUM HUSK (SUGAR FREE) 1 PKT PACKET PO PRN (20:15)
[2018-12-10] MEDS ORDERED: POLYETHYLENE GLYCOL 3350 17 GM PACKET. PO PRN (20:15)
[2018-12-10] MEDS: PSYLLIUM HUSK (SUGAR FREE) 1 PKT PACKET PO SCH (20:38)
[2018-12-10] MEDS: ATORVASTATIN CALCIUM 40 MG TABLET. PO SCH (20:38)
[2018-12-10] MEDS: POLYETHYLENE GLYCOL 3350 17 GM PACKET. PO SCH (20:38)
[2018-12-10] MEDS: METOPROLOL TART IMMED RELEASE 50 MG TABLET. PO SCH (20:39)
[2018-12-10] MEDS: INSULIN GLARGINE 300 UNITS/3 ML INSULN.PEN. SQ SCH (20:51)
[2018-12-11] VITALS (8 sets, daily range): BP systolic 140–184; BP diastolic 63–97
[2018-12-11 05:01] LABS: HEMATOCRIT 30.4 % (39.0-53.0); HEMOGLOBIN 10.2 g/dL (13.0-17.5); RED BLOOD COUNT 3.66 x10^6/uL (4.30-5.70); RED CELL DISTRIBUTION WIDTH 14.5 % (11.5-14.5); WHITE BLOOD COUNT 8.1 x10^3/uL (4.0-11.0)
[2018-12-11 05:30] LABS: CALCIUM 7.5 mg/dL (8.5-10.1); GFR 14.9; POTASSIUM 4.2 mmol/L (3.5-5.1)
[2018-12-11] MEDS: INSULIN LISPRO 300 UNITS/3 ML INSULN.PEN. SQ SCH ×6 (08:00→17:28)
[2018-12-11] MEDS: NICOTINE 21MG PATCH. TD SCH (08:19)
[2018-12-11] MEDS: METOPROLOL TART IMMED RELEASE 50 MG TABLET. PO SCH (08:19)
[2018-12-11] MEDS: amLODIPine BESYLATE 10 MG TABLET PO SCH (08:19)
[2018-12-11] MEDS: GABAPENTIN 100 MG CAPSULE. PO SCH ×2 (08:19→21:03)
[2018-12-11] MEDS: POLYETHYLENE GLYCOL 3350 17 GM PACKET. PO SCH (08:20)
[2018-12-11] MEDS: HEPARIN for SUB-Q USE 5,000 UNIT/ML VIAL. SQ SCH ×2 (08:21→21:04)
[2018-12-11] MEDS: hydrALAZINE 20 MG/ML VIAL. IVP PRN (08:23)
[2018-12-11] MEDS: ASPIRIN 325 MG TABLET PO SCH (08:24)
--- NOTE | 2018-12-11 09:03 | PDOC ---
CARDIO Progress Notes Date and Time Date of Service 12/11/18 Time of Evaluation 0840 Subjective Subjective: No Chest Pain, No shortness of breath Vitals Vitals Vital Signs Date Time Temp Pulse Resp B/P (MAP) Pulse Ox O2 Delivery O2 Flow Rate FiO2 12/11/18 08:23 184/94 12/11/18 08:19 79 12/11/18 04:00 99.0 26 94 Room Air 99.0 12/10/18 13:00 2.0 Weight Weight [ ] Input and Output Intake and Output Intake and Output 12/11/18 06:59 Intake Total 271.8 ml Output Total 200 ml Balance 71.8 ml Intake Oral 250 ml IV Total 21.8 ml Output Urine Total 200 ml # Voids 2 Laboratory Labs Laboratory Tests Test 12/10/18 14:30 12/10/18 17:33 12/10/18 20:47 12/11/18 04:30 Glucose (Fingerstick) 157 mg/dL (70-99) 80 mg/dL (70-99) 183 mg/dL (70-99) White Blood Count 8.1 x10^3/uL (4.0-11.0) Red Blood Count 3.66 x10^6/uL (4.30-5.70) Hemoglobin 10.2 g/dL (13.0-17.5) Hematocrit 30.4 % (39.0-53.0) Mean Corpuscular Volume 83 fL (79-100) Mean Corpuscular Hemoglobin 28 pg (25-35) Mean Corpuscular Hemoglobin Concent 34 g/dL (31-37) Red Cell Distribution Width 14.5 % (11.5-14.5) Platelet Count 222 x10^3/uL (140-400) Sodium Level 141 mmol/L (136-145) Potassium Level 4.2 mmol/L (3.5-5.1) Chloride Level 105 mmol/L (98-107) Carbon Dioxide Level 25 mmol/L (21-32) Anion Gap 11 (6-14) Blood Urea Nitrogen 53 mg/dL (8-26) Creatinine 5.0 mg/dL (0.7-1.3) Estimated GFR (Cockcroft-Gault) 14.9 Glucose Level 124 mg/dL (70-99) Calcium Level 7.5 mg/dL (8.5-10.1) Test 12/11/18 08:18 Glucose (Fingerstick) 74 mg/dL (70-99) Review of Systems Constitutional: yes: malaise, weakness, alert, oriented Ears/Nose/Throat: Yes: no symptom reported Eyes: Yes: no symptom reported Cardiovascular: Yes no symptom reported Gastrointestional: Yes: no symptom reported Genitourinary: Yes: no symptom reported Musculoskeletal: Yes: muscle stiffness Skin: Yes no symptom reported Endocrine: Yes: no symptom reported Physical Exam HEENT: Neck Supple W Full Motion Chest: Symmetric LUNGS: Clear to Auscultation Heart: S1S2, RRR Abdomen: Soft N/T Extremities: No Edema Neurology: alert, oriented, follow commands Assessment Assessment 1. Malignant hypertension; remains labile. 2. SYEDA vs CKD 3. Mild troponin elevation; highest 0.061. most probably type II, demand ischemia secondary to above. Echo showed LVEF 50-55%. 4. Diabetes, II 5. Hyperlipidemia; statin 6. Tobaccoism; discussed/encouraged cessation 7. [place] 8. Noncompliance; has not taken BP meds in > 6 month. 9. UTI Recommendations No ACEi with SYEDA Continue Norvasc. Convert metoprolol to coreg for better BP control Add scheduled hydralazine Follow nephrology recs Reinforced medical compliance ALEXANDRE MELARA APRN Dec 11, 2018 09:03
--- NOTE | 2018-12-11 11:47 | PDOC ---
Renal-Progress Notes Subjective Notes Notes STABLE History of Present Illness Hx of present illness NO NEW COMPLAINTS Vitals Vitals Vital Signs Date Time Temp Pulse Resp B/P (MAP) Pulse Ox O2 Delivery O2 Flow Rate FiO2 12/11/18 10:17 155/79 12/11/18 10:00 72 17 97 Room Air 12/11/18 08:00 98.5 98.5 12/10/18 13:00 2.0 Weight Weight [ ] I.O. Intake and Output Intake and Output 12/11/18 06:59 Intake Total 271.8 ml Output Total 200 ml Balance 71.8 ml Intake Oral 250 ml IV Total 21.8 ml Output Urine Total 200 ml # Voids 2 Labs Labs Laboratory Tests Test 12/10/18 14:30 12/10/18 17:33 12/10/18 20:47 12/11/18 04:30 Glucose (Fingerstick) 157 mg/dL (70-99) 80 mg/dL (70-99) 183 mg/dL (70-99) White Blood Count 8.1 x10^3/uL (4.0-11.0) Red Blood Count 3.66 x10^6/uL (4.30-5.70) Hemoglobin 10.2 g/dL (13.0-17.5) Hematocrit 30.4 % (39.0-53.0) Mean Corpuscular Volume 83 fL (79-100) Mean Corpuscular Hemoglobin 28 pg (25-35) Mean Corpuscular Hemoglobin Concent 34 g/dL (31-37) Red Cell Distribution Width 14.5 % (11.5-14.5) Platelet Count 222 x10^3/uL (140-400) Sodium Level 141 mmol/L (136-145) Potassium Level 4.2 mmol/L (3.5-5.1) Chloride Level 105 mmol/L (98-107) Carbon Dioxide Level 25 mmol/L (21-32) Anion Gap 11 (6-14) Blood Urea Nitrogen 53 mg/dL (8-26) Creatinine 5.0 mg/dL (0.7-1.3) Estimated GFR (Cockcroft-Gault) 14.9 Glucose Level 124 mg/dL (70-99) Calcium Level 7.5 mg/dL (8.5-10.1) Test 7/23/19 08:18 Glucose (Fingerstick) 74 mg/dL (70-99) Review of Systems Constitutional: yes: malaise, weakness, alert, oriented Ears/Nose/Throat: Yes: no symptom reported Eyes: Yes: no symptom reported Cardiovascular: Yes no symptom reported Gastrointestional: Yes: no symptom reported Genitourinary: Yes: no symptom reported Musculoskeletal: Yes: muscle stiffness Skin: Yes no symptom reported Endocrine: Yes: no symptom reported Physical Exam General Appearance: no apparent distress Skin: warm Respiratory: bilateral CTA Heart: S1S2 Abdomen: soft, bowel sounds present Genitourinary: bladder flat Extremities: pulses present Neurology: alert, oriented, follow commands Assessment Assessment IMP RENAL FAILURE-SYEDA VS CKD-MOST LIKELY CKD-CR OF 5.0 HTN URGENCY-BETTER NON COMPLIANCE DM II UTI PLAN HYDRATION RENAL SONOGRAM NEG EXCEPT CMRD ANTIBIOTICS ENC COMPLIANCE 24 HR URINE STUDY PENDING KENDY GOMEZ MD Dec 11, 2018 11:47
[2018-12-11] MEDS: cefTRIAXone IV Push 1 GM VIAL. IVP SCH (13:54)
--- NOTE | 2018-12-11 16:51 | PDOC ---
PROGRESS NOTES Chief Complaint Chief Complaint acute renal failure, atn or CKD accelerated hypertension acute systolic CHF, new LE edema noncompliance meds, severe malnutrition weakness and debility and fatigue History of Present Illness History of Present Illness now off cardene gtt, was up all night, check TSH cont PO meds, transfer out of [facility] here, had many questions getting 24 hour urine, CKD likely Vitals Vitals Vital Signs Date Time Temp Pulse Resp B/P (MAP) Pulse Ox O2 Delivery O2 Flow Rate FiO2 12/11/18 16:25 Room Air 12/11/18 15:35 97.6 70 163/92 (115) 95 97.6 12/11/18 11:39 31 12/10/18 13:00 2.0 Physical Exam General: Alert, Oriented X3, Cooperative, No acute distress Heart: Regular rate, No murmurs Lungs: Clear, Wheezing Abdomen: Normal bowel sounds Extremities: No cyanosis, Normal pulses, Other (+ edema) Skin: No breakdown, No significant lesion Labs LABS Laboratory Tests Test 12/10/18 17:33 12/10/18 20:47 12/11/18 04:30 12/11/18 08:18 Glucose (Fingerstick) 80 mg/dL (70-99) 183 mg/dL (70-99) 74 mg/dL (70-99) White Blood Count 8.1 x10^3/uL (4.0-11.0) Red Blood Count 3.66 x10^6/uL (4.30-5.70) Hemoglobin 10.2 g/dL (13.0-17.5) Hematocrit 30.4 % (39.0-53.0) Mean Corpuscular Volume 83 fL (79-100) Mean Corpuscular Hemoglobin 28 pg (25-35) Mean Corpuscular Hemoglobin Concent 34 g/dL (31-37) Red Cell Distribution Width 14.5 % (11.5-14.5) Platelet Count 222 x10^3/uL (140-400) Sodium Level 141 mmol/L (136-145) Potassium Level 4.2 mmol/L (3.5-5.1) Chloride Level 105 mmol/L (98-107) Carbon Dioxide Level 25 mmol/L (21-32) Anion Gap 11 (6-14) Blood Urea Nitrogen 53 mg/dL (8-26) Creatinine 5.0 mg/dL (0.7-1.3) Estimated GFR (Cockcroft-Gault) 14.9 Glucose Level 124 mg/dL (70-99) Calcium Level 7.5 mg/dL (8.5-10.1) Test 12/11/18 12:10 Glucose (Fingerstick) 79 mg/dL (70-99) Review of Systems Review of Systems no nv.d Assessment and Plan Assessmemt and Plan Problems Medical Problems: (1) Hypertensive emergency Status: Acute Comment Review of Relevant I have reviewed the following items ish (where applicable) has been applied. Labs Laboratory Tests Test 12/09/18 17:23 12/09/18 19:43 12/10/18 08:00 12/10/18 08:43 Glucose (Fingerstick) 68 mg/dL (70-99) 125 mg/dL (70-99) 130 mg/dL (70-99) White Blood Count 6.9 x10^3/uL (4.0-11.0) Red Blood Count 3.68 x10^6/uL (4.30-5.70) Hemoglobin 10.2 g/dL (13.0-17.5) Hematocrit 30.7 % (39.0-53.0) Mean Corpuscular Volume 84 fL (79-100) Mean Corpuscular Hemoglobin 28 pg (25-35) Mean Corpuscular Hemoglobin Concent 33 g/dL (31-37) Red Cell Distribution Width 14.1 % (11.5-14.5) Platelet Count 221 x10^3/uL (140-400) Neutrophils (%) (Auto) 54 % (31-73) Lymphocytes (%) (Auto) 32 % (24-48) Monocytes (%) (Auto) 10 % (0-9) Eosinophils (%) (Auto) 2 % (0-3) Basophils (%) (Auto) 2 % (0-3) Neutrophils # (Auto) 3.8 x10^3/uL (1.8-7.7) Lymphocytes # (Auto) 2.2 x10^3/uL (1.0-4.8) Monocytes # (Auto) 0.7 x10^3/uL (0.0-1.1) Eosinophils # (Auto) 0.2 x10^3/uL (0.0-0.7) Basophils # (Auto) 0.1 x10^3/uL (0.0-0.2) Sodium Level 141 mmol/L (136-145) Potassium Level 4.1 mmol/L (3.5-5.1) Chloride Level 106 mmol/L (98-107) Carbon Dioxide Level 26 mmol/L (21-32) Anion Gap 9 (6-14) Blood Urea Nitrogen 50 mg/dL (8-26) Creatinine 5.1 mg/dL (0.7-1.3) Estimated GFR (Cockcroft-Gault) 14.6 BUN/Creatinine Ratio 10 (6-20) Glucose Level 134 mg/dL (70-99) Calcium Level 7.7 mg/dL (8.5-10.1) Phosphorus Level 4.2 mg/dL (2.6-4.7) Magnesium Level 2.0 mg/dL (1.8-2.4) Total Bilirubin 0.2 mg/dL (0.2-1.0) Aspartate Amino Transf (AST/SGOT) 13 U/L (15-37) Alanine Aminotransferase (ALT/SGPT) 10 U/L (16-63) Alkaline Phosphatase 79 U/L (46-116) Total Protein 6.8 g/dL (6.4-8.2) Albumin 2.5 g/dL (3.4-5.0) Albumin/Globulin Ratio 0.6 (1.0-1.7) Test 12/10/18 14:30 12/10/18 17:33 12/10/18 20:47 12/11/18 04:30 Glucose (Fingerstick) 157 mg/dL (70-99) 80 mg/dL (70-99) 183 mg/dL (70-99) White Blood Count 8.1 x10^3/uL (4.0-11.0) Red Blood Count 3.66 x10^6/uL (4.30-5.70) Hemoglobin 10.2 g/dL (13.0-17.5) Hematocrit 30.4 % (39.0-53.0) Mean Corpuscular Volume 83 fL (79-100) Mean Corpuscular Hemoglobin 28 pg (25-35) Mean Corpuscular Hemoglobin Concent 34 g/dL (31-37) Red Cell Distribution Width 14.5 % (11.5-14.5) Platelet Count 222 x10^3/uL (140-400) Sodium Level 141 mmol/L (136-145) Potassium Level 4.2 mmol/L (3.5-5.1) Chloride Level 105 mmol/L (98-107) Carbon Dioxide Level 25 mmol/L (21-32) Anion Gap 11 (6-14) Blood Urea Nitrogen 53 mg/dL (8-26) Creatinine 5.0 mg/dL (0.7-1.3) Estimated GFR (Cockcroft-Gault) 14.9 Glucose Level 124 mg/dL (70-99) Calcium Level 7.5 mg/dL (8.5-10.1) Test 12/11/18 08:18 12/11/18 12:10 Glucose (Fingerstick) 74 mg/dL (70-99) 79 mg/dL (70-99) Laboratory Tests Test 12/10/18 17:33 12/10/18 20:47 12/11/18 04:30 12/11/18 08:18 Glucose (Fingerstick) 80 mg/dL (70-99) 183 mg/dL (70-99) 74 mg/dL (70-99) White Blood Count 8.1 x10^3/uL (4.0-11.0) Red Blood Count 3.66 x10^6/uL (4.30-5.70) Hemoglobin 10.2 g/dL (13.0-17.5) Hematocrit 30.4 % (39.0-53.0) Mean Corpuscular Volume 83 fL (79-100) Mean Corpuscular Hemoglobin 28 pg (25-35) Mean Corpuscular Hemoglobin Concent 34 g/dL (31-37) Red Cell Distribution Width 14.5 % (11.5-14.5) Platelet Count 222 x10^3/uL (140-400) Sodium Level 141 mmol/L (136-145) Potassium Level 4.2 mmol/L (3.5-5.1) Chloride Level 105 mmol/L (98-107) Carbon Dioxide Level 25 mmol/L (21-32) Anion Gap 11 (6-14) Blood Urea Nitrogen 53 mg/dL (8-26) Creatinine 5.0 mg/dL (0.7-1.3) Estimated GFR (Cockcroft-Gault) 14.9 Glucose Level 124 mg/dL (70-99) Calcium Level 7.5 mg/dL (8.5-10.1) Test 12/11/18 12:10 Glucose (Fingerstick) 79 mg/dL (70-99) Medications Current Medications Morphine Sulfate (Morphine Sulfate) 2 mg PRN Q2HR PRN IV SEVERE PAIN 7-10; Start 12/09/18 at 00:45; Stop 12/10/18 at 00:44; Status DC Nitroglycerin/ Dextrose 250 ml @ 0 mls/hr 1X ONCE IV Last administered on 12/09/18at 01:39; Start 12/09/18 at 01:00; Stop 12/09/18 at 02:27; Status DC Labetalol HCl (Normodyne Iv Push) 20 mg PRN Q2HR PRN IVP ELEVATED BP, SEE COMMENTS Last administered on 12/10/18at 09:48; Start 12/09/18 at 00:45 Aspirin (Children'S Aspirin) 324 mg 1X ONCE PO Last administered on 12/09/18at 01:27; Start 12/09/18 at 01:00; Stop 12/09/18 at 01:01; Status DC Furosemide (Lasix) 40 mg 1X ONCE IVP Last administered on 12/09/18at 01:33; Start 12/09/18 at 01:00; Stop 12/09/18 at 01:01; Status DC Potassium Chloride (Klor-Con) 40 meq 1X ONCE PO Last administered on 12/09/18at 01:27; Start 12/09/18 at 01:00; Stop 12/09/18 at 01:01; Status DC Nicotine (Nicoderm Cq 21mg) 1 patch DAILY TD Last administered on 12/11/18at 08:19; Start 12/09/18 at 02:00 Nicardipine HCl 50 mg/Sodium Chloride 250 ml @ 25 mls/hr CONT PRN IV SEE I/O RECORD Last administered on 12/09/18at 14:44; Start 12/09/18 at 02:30 Amlodipine Besylate (Norvasc) 10 mg DAILY PO Last administered on 12/11/18at 08:19; Start 12/09/18 at 09:00 Aspirin (Arjun Aspirin) 325 mg DAILY PO Last administered on 12/11/18at 08:24; Start 12/09/18 at 09:00 Atorvastatin Calcium (Lipitor) 40 mg HS PO Last administered on 12/10/18 20:38; Start 12/09/18 at 21:00 Carvedilol (Coreg) 6.25 mg BIDWMEALS PO Last administered on 12/10/18at 08:35; Start 12/09/18 at 09:00; Stop 12/10/18 at 10:42; Status DC Gabapentin (Neurontin) 100 mg BID PO Last administered on 12/11/18 08:19; St art 12/09/18 at 09:00 Insulin Glargine (Lantus) 20 units QHS SQ Last administered on 12/10/18 20:51; Start 12/09/18 at 21:00 Insulin Human Lispro (HumaLOG) 10 units TIDWMEALS SQ Last administered on 12/10/18at 14:31; Start 12/09/18 at 12:00 Heparin Sodium (Porcine) (Heparin Sodium) 5,000 unit Q12HR SQ Last administered on 12/11/18 08:21; Start 12/09/18 at 21:00 Metoprolol Tartrate (Lopressor) 50 mg BID PO Last administered on 12/11/18 08:19; Start 12/10/18 at 21:00; Stop 12/11/18 at 09:01; Status DC Hydralazine HCl (Apresoline Inj) 10 mg PRN Q4HRS PRN IVP ELEVATED BP, SEE COMMENTS Last administered on 12/11/18at 08:23; Start 12/10/18 at 11:30 Insulin Human Lispro (HumaLOG) 0-9 UNITS TIDWMEALS SQ ; Start 12/10/18 at 17:00 Dextrose (Dextrose 50%-Water Syringe) 12.5 gm PRN Q15MIN PRN IV SEE COMMENTS; Start 12/10/18 at 14:45 Polyethylene Glycol (miraLAX PACKET) 17 gm DAILY PO Last administered on 12/11/18at 08:20; Start 12/10/18 at 20:30 Psyllium Hydrophilic Mucilloid (Metamucil Fiber Packet) 1 pkt QHS PO Last administered on 12/10/18at 20:38; Start 12/10/18 at 21:00 Polyethylene Glycol (miraLAX PACKET) 17 gm PRN BID PRN PO CONSTIPATION, 2nd CHOICE; Start 12/10/18 at 20:15; Status Cancel Psyllium Hydrophilic Mucilloid (Metamucil Fiber Packet) 1 pkt PRN DAILY PRN PO CONSTIPATION, 1st CHOICE; Start 12/10/18 at 20:15; Status Cancel Carvedilol (Coreg) 12.5 mg BIDWMEALS PO ; Start 12/11/18 at 17:00 Hydralazine HCl (Apresoline) 50 mg BID PO Last administered on 12/11/18at 10:17; Start 12/11/18 at 09:00 Ceftriaxone Sodium (Rocephin) 1 gm Q24H IVP Last administered on 12/11/18at 13:54; Start 12/11/18 at 14:00 Active Scripts Active Reported Gabapentin (Gabapentin) 100 Mg Capsule 100 Mg PO BID Novolog (Insulin Aspart) 100 Unit/1 Ml Cartridge 10 Unit SQ TIDAC Lantus Solostar (Insulin Glargine,Hum.rec.anlog) 100 Unit/1 Ml Insuln.pen 20 Unit SQ QHS Amlodipine Besylate 10 Mg Tablet 10 Mg PO DAILY Lisinopril 5 Mg Tablet 5 Mg PO DAILY Coreg (Carvedilol) 6.25 Mg Tablet 6.25 Mg PO BIDWMEALS Aspirin 325 Mg Tablet 325 Mg PO DAILY Atorvastatin Calcium 40 Mg Tablet 40 Mg PO HS Vitals/I & O Vital Sign - Last 24 Hours 12/10/18 12/10/18 12/10/18 12/10/18 16:59 17:00 20:00 20:00 Temp 98.2 98.2 Pulse 74 82 Resp 18 B/P (MAP) 162/76 162/76 (104) 169/87 (114) Pulse Ox 94 97 O2 Delivery Room Air Room Air Room Air 12/10/18 12/10/18 12/11/18 12/11/18 20:39 20:39 00:00 04:00 Temp 98.5 99.0 98.5 99.0 Pulse 74 74 82 83 Resp 26 B/P (MAP) 159/72 162/76 172/84 (113) 183/97 (125) Pulse Ox 97 94 O2 Delivery Room Air Room Air 7/23/19 7/23/19 7/23/19 7/23/19 08:00 08:00 08:19 08:19 Temp 98.5 98.5 Pulse 78 79 79 Resp 19 B/P (MAP) 184/94 (124) 184/94 Pulse Ox 100 O2 Delivery Room Air Room Air 12/11/18 12/11/18 12/11/18 12/11/18 08:23 10:00 10:17 11:39 Temp 98.2 98.2 Pulse 72 88 Resp 17 31 B/P (MAP) 184/94 155/79 (104) 155/79 140/63 (88) Pulse Ox 97 100 O2 Delivery Room Air Room Air 12/11/18 12/11/18 15:35 16:25 Temp 97.6 97.6 Pulse 70 B/P (MAP) 163/92 (115) Pulse Ox 95 O2 Delivery Room Air Room Air Intake and Output 12/10/18 12/10/18 12/11/18 15:00 23:00 07:00 Intake Total 21.8 ml 250 ml Output Total 200 ml Balance -178.2 ml 250 ml UBALDO JOYCE MD Dec 11, 2018 16:51
[2018-12-11] MEDS: CARVEDILOL 12.5 MG TABLET. PO SCH (17:25)
[2018-12-11] MEDS: INSULIN GLARGINE 300 UNITS/3 ML INSULN.PEN. SQ SCH (21:00)
[2018-12-11] MEDS: ATORVASTATIN CALCIUM 40 MG TABLET. PO SCH (21:03)
[2018-12-11] MEDS: PSYLLIUM HUSK (SUGAR FREE) 1 PKT PACKET PO SCH (21:05)
[2018-12-12] VITALS (13 sets, daily range): BP systolic 140–170; BP diastolic 78–100
[2018-12-12 05:31] LABS: BASO # 0.1 x10^3/uL (0.0-0.2); BASO % 1 % (0-3); EOS # 0.2 x10^3/uL (0.0-0.7); EOS % 3 % (0-3); HEMATOCRIT 27.9 % (39.0-53.0); HEMOGLOBIN 9.3 g/dL (13.0-17.5); LYMPH % 26 % (24-48); MEAN CORPUSCULAR HEMOGLOBIN 28 pg (25-35); MEAN CORPUSCULAR HGB CONC 33 g/dL (31-37); MEAN CORPUSCULAR VOLUME 84 fL (79-100); MONO # 0.7 x10^3/uL (0.0-1.1); MONO % 10 % (0-9); NEUT # 4.5 x10^3/uL (1.8-7.7); NEUT % 61 % (31-73); PLATELET COUNT 201 x10^3/uL (140-400); RED BLOOD COUNT 3.34 x10^6/uL (4.30-5.70); RED CELL DISTRIBUTION WIDTH 14.3 % (11.5-14.5); WHITE BLOOD COUNT 7.5 x10^3/uL (4.0-11.0)
[2018-12-12 05:55] LABS: ALBUMIN 2.3 g/dL (3.4-5.0); ALBUMIN/GLOBULIN RATIO 0.6 (1.0-1.7); CALCIUM 7.6 mg/dL (8.5-10.1); CREATININE 5.4 mg/dL (0.7-1.3); GFR 13.7; POTASSIUM 4.7 mmol/L (3.5-5.1); TOTAL BILIRUBIN 0.1 mg/dL (0.2-1.0); TOTAL PROTEIN 6.3 g/dL (6.4-8.2)
[2018-12-12] MEDS: INSULIN LISPRO 300 UNITS/3 ML INSULN.PEN. SQ SCH ×6 (08:00→17:00)
[2018-12-12] MEDS: GABAPENTIN 100 MG CAPSULE. PO SCH (08:41)
[2018-12-12] MEDS: ASPIRIN 325 MG TABLET PO SCH (08:41)
[2018-12-12] MEDS: amLODIPine BESYLATE 10 MG TABLET PO SCH (08:42)
[2018-12-12] MEDS: CARVEDILOL 12.5 MG TABLET. PO SCH ×2 (08:42→17:32)
[2018-12-12] MEDS: NICOTINE 21MG PATCH. TD SCH (08:43)
[2018-12-12] MEDS: POLYETHYLENE GLYCOL 3350 17 GM PACKET. PO SCH (08:44)
[2018-12-12] MEDS: HEPARIN for SUB-Q USE 5,000 UNIT/ML VIAL. SQ SCH ×2 (08:51→21:04)
--- NOTE | 2018-12-12 09:12 | NUR ---
SS following up with discharge planning. [facility]CF[facility] following for self pay status. Pt is currently on room air. No discharge needs noted at this time. SS will continue to follow for discharge planning.
--- NOTE | 2018-12-12 09:54 | PDOC ---
Renal-Progress Notes Subjective Notes Notes TIRED History of Present Illness Hx of present illness NO IMPROVEMENT Vitals Vitals Vital Signs Date Time Temp Pulse Resp B/P (MAP) Pulse Ox O2 Delivery O2 Flow Rate FiO2 12/12/18 08:42 71 155/83 12/12/18 08:00 Room Air 12/12/18 07:00 97.6 14 98 97.6 Weight Weight [ ] I.O. Intake and Output Intake and Output 12/12/18 06:59 Intake Total 1220 ml Balance 1220 ml Intake Oral 1220 ml # Voids 5 # Bowel Movements 2 Labs Labs Laboratory Tests Test 12/11/18 12:10 12/11/18 17:23 12/11/18 20:34 12/12/18 04:30 Glucose (Fingerstick) 79 mg/dL (70-99) 119 mg/dL (70-99) 80 mg/dL (70-99) White Blood Count 7.5 x10^3/uL (4.0-11.0) Red Blood Count 3.34 x10^6/uL (4.30-5.70) Hemoglobin 9.3 g/dL (13.0-17.5) Hematocrit 27.9 % (39.0-53.0) Mean Corpuscular Volume 84 fL (79-100) Mean Corpuscular Hemoglobin 28 pg (25-35) Mean Corpuscular Hemoglobin Concent 33 g/dL (31-37) Red Cell Distribution Width 14.3 % (11.5-14.5) Platelet Count 201 x10^3/uL (140-400) Neutrophils (%) (Auto) 61 % (31-73) Lymphocytes (%) (Auto) 26 % (24-48) Monocytes (%) (Auto) 10 % (0-9) Eosinophils (%) (Auto) 3 % (0-3) Basophils (%) (Auto) 1 % (0-3) Neutrophils # (Auto) 4.5 x10^3/uL (1.8-7.7) Lymphocytes # (Auto) 2.0 x10^3/uL (1.0-4.8) Monocytes # (Auto) 0.7 x10^3/uL (0.0-1.1) Eosinophils # (Auto) 0.2 x10^3/uL (0.0-0.7) Basophils # (Auto) 0.1 x10^3/uL (0.0-0.2) Sodium Level 140 mmol/L (136-145) Potassium Level 4.7 mmol/L (3.5-5.1) Chloride Level 106 mmol/L (98-107) Carbon Dioxide Level 24 mmol/L (21-32) Anion Gap 10 (6-14) Blood Urea Nitrogen 62 mg/dL (8-26) Creatinine 5.4 mg/dL (0.7-1.3) Estimated GFR (Cockcroft-Gault) 13.7 BUN/Creatinine Ratio 11 (6-20) Glucose Level 112 mg/dL (70-99) Calcium Level 7.6 mg/dL (8.5-10.1) Total Bilirubin 0.1 mg/dL (0.2-1.0) Aspartate Amino Transf (AST/SGOT) 16 U/L (15-37) Alanine Aminotransferase (ALT/SGPT) 13 U/L (16-63) Alkaline Phosphatase 83 U/L (46-116) Total Protein 6.3 g/dL (6.4-8.2) Albumin 2.3 g/dL (3.4-5.0) Albumin/Globulin Ratio 0.6 (1.0-1.7) Test 12/12/18 07:41 Glucose (Fingerstick) 150 mg/dL (70-99) Micro Micro Microbiology 12/09/18 Urine Culture - Final, Complete 12/09/18 Urine Culture Result 1 (REESE) - Final, Complete Review of Systems Constitutional: yes: malaise, weakness, alert, oriented Ears/Nose/Throat: Yes: no symptom reported Eyes: Yes: no symptom reported Cardiovascular: Yes no symptom reported Gastrointestional: Yes: no symptom reported Genitourinary: Yes: no symptom reported Musculoskeletal: Yes: muscle stiffness Skin: Yes no symptom reported Endocrine: Yes: no symptom reported Physical Exam General Appearance: no apparent distress Skin: warm Respiratory: bilateral CTA Heart: S1S2 Abdomen: soft, bowel sounds present Genitourinary: bladder flat Extremities: pulses present Neurology: alert, oriented, follow commands Assessment Assessment IMP ESRD HTN URGENCY-BETTER NON COMPLIANCE DM II UTI PLAN HYDRATION START ROSALINA-I RENAL SONOGRAM NEG EXCEPT CMRD ANTIBIOTICS ENC COMPLIANCE WILL HAVE IR PLACED TUNNELED HD CATHETER CASE D/W SW TO SET UP OP HD AND TO INITIATE PROCESS FOR COVERAGE KENDY GOMEZ MD Dec 12, 2018 09:54
[2018-12-12] MEDS ORDERED: LISINOPRIL 10 MG TABLET PO SCH (10:30)
[2018-12-12 11:02] LABS: PROTHROMBIN TIME PATIENT 12.8 SEC (11.7-14.0)
--- NOTE | 2018-12-12 12:04 | PDOC ---
CARDIO Progress Notes Date and Time Date of Service 12/12/18 Time of Evaluation 1110 Subjective Subjective: No Chest Pain, No shortness of breath Vitals Vitals Vital Signs Date Time Temp Pulse Resp B/P (MAP) Pulse Ox O2 Delivery O2 Flow Rate FiO2 12/12/18 11:00 98.3 71 14 149/83 (105) Room Air 95.0 98.3 12/12/18 07:00 98 Weight Weight [ ] Input and Output Intake and Output Intake and Output 12/12/18 06:59 Intake Total 1220 ml Balance 1220 ml Intake Oral 1220 ml # Voids 5 # Bowel Movements 2 Laboratory Labs Laboratory Tests Test 12/11/18 12:10 12/11/18 17:23 12/11/18 20:34 12/12/18 04:30 Glucose (Fingerstick) 79 mg/dL (70-99) 119 mg/dL (70-99) 80 mg/dL (70-99) White Blood Count 7.5 x10^3/uL (4.0-11.0) Red Blood Count 3.34 x10^6/uL (4.30-5.70) Hemoglobin 9.3 g/dL (13.0-17.5) Hematocrit 27.9 % (39.0-53.0) Mean Corpuscular Volume 84 fL (79-100) Mean Corpuscular Hemoglobin 28 pg (25-35) Mean Corpuscular Hemoglobin Concent 33 g/dL (31-37) Red Cell Distribution Width 14.3 % (11.5-14.5) Platelet Count 201 x10^3/uL (140-400) Neutrophils (%) (Auto) 61 % (31-73) Lymphocytes (%) (Auto) 26 % (24-48) Monocytes (%) (Auto) 10 % (0-9) Eosinophils (%) (Auto) 3 % (0-3) Basophils (%) (Auto) 1 % (0-3) Neutrophils # (Auto) 4.5 x10^3/uL (1.8-7.7) Lymphocytes # (Auto) 2.0 x10^3/uL (1.0-4.8) Monocytes # (Auto) 0.7 x10^3/uL (0.0-1.1) Eosinophils # (Auto) 0.2 x10^3/uL (0.0-0.7) Basophils # (Auto) 0.1 x10^3/uL (0.0-0.2) Prothrombin Time 12.8 SEC (11.7-14.0) Prothromb Time International Ratio 1.0 (0.8-1.1) Sodium Level 140 mmol/L (136-145) Potassium Level 4.7 mmol/L (3.5-5.1) Chloride Level 106 mmol/L (98-107) Carbon Dioxide Level 24 mmol/L (21-32) Anion Gap 10 (6-14) Blood Urea Nitrogen 62 mg/dL (8-26) Creatinine 5.4 mg/dL (0.7-1.3) Estimated GFR (Cockcroft-Gault) 13.7 BUN/Creatinine Ratio 11 (6-20) Glucose Level 112 mg/dL (70-99) Calcium Level 7.6 mg/dL (8.5-10.1) Total Bilirubin 0.1 mg/dL (0.2-1.0) Aspartate Amino Transf (AST/SGOT) 16 U/L (15-37) Alanine Aminotransferase (ALT/SGPT) 13 U/L (16-63) Alkaline Phosphatase 83 U/L (46-116) Total Protein 6.3 g/dL (6.4-8.2) Albumin 2.3 g/dL (3.4-5.0) Albumin/Globulin Ratio 0.6 (1.0-1.7) Test 12/12/18 07:41 Glucose (Fingerstick) 150 mg/dL (70-99) Microbiology Micro Microbiology 12/09/18 Urine Culture - Final, Complete 12/09/18 Urine Culture Result 1 (REESE) - Final, Complete Review of Systems Constitutional: yes: malaise, weakness, alert, oriented Ears/Nose/Throat: Yes: no symptom reported Eyes: Yes: no symptom reported Cardiovascular: Yes no symptom reported Gastrointestional: Yes: no symptom reported Genitourinary: Yes: no symptom reported Musculoskeletal: Yes: muscle stiffness Skin: Yes no symptom reported Endocrine: Yes: no symptom reported Physical Exam HEENT: Neck Supple W Full Motion Chest: Symmetric LUNGS: Clear to Auscultation Heart: S1S2, RRR Abdomen: Soft N/T Extremities: No Edema Neurology: alert, oriented, follow commands Assessment Assessment 1. Malignant hypertension; better controlled 2. SYEDA on CKD, now ESRD. To start HD today 3. Mild troponin elevation; highest 0.061. most probably type II, demand ischemia secondary to above. Echo showed LVEF 50-55%. 4. Diabetes, II 5. Hyperlipidemia; statin 6. Tobaccoism; discussed/encouraged cessation 7. [place] 8. Noncompliance; has not taken BP meds in > 6 month. 9. UTI Recommendations ACEi aded Continue Norvasc. Increase coreg Fluid management as per renal Reinforced medical compliance ALEXANDRE MELARA APRN Dec 12, 2018 12:04
[2018-12-12] MEDS ORDERED: CARVEDILOL 12.5 MG TABLET. PO ONE (12:15)
[2018-12-12] MEDS: DEXTROSE 50% 25 GM / 50ML DISP.SYRIN. IV PRN (13:49)
[2018-12-12] MEDS: cefTRIAXone IV Push 1 GM VIAL. IVP SCH (13:58)
--- NOTE | 2018-12-12 14:35 | PDOC ---
[facility] [facility] PROGRESS NOTE Chief Complaint Chief Complaint accelerated hypertension acute systolic CHF, new LE edema noncompliance meds, severe malnutrition weakness and debility and fatigue acute renal failure, atn or CKD History of Present Illness History of Present Illness 12/12/18 Pt seen and examined Plan is to go ahead and start HD DW RN Vitals/I&O Vitals/I&O: Vital Signs Date Time Temp Pulse Resp B/P (MAP) Pulse Ox O2 Delivery O2 Flow Rate FiO2 12/12/18 13:50 71 149/83 12/12/18 11:00 98.3 14 Room Air 95.0 98.3 12/12/18 07:00 98 I & O 12/11/18 12/11/18 12/12/18 14:59 22:59 06:59 Intake Total 180 ml 1040 ml Balance 180 ml 1040 ml Physical Exam General: Alert, Oriented X3, Cooperative, No acute distress Heart: Regular rate, No murmurs Lungs: Clear, Wheezing Abdomen: Normal bowel sounds Extremities: No cyanosis, Normal pulses, Other (+ edema) Skin: No breakdown, No significant lesion Labs Labs: Laboratory Tests Test 12/11/18 17:23 12/11/18 20:34 12/12/18 04:30 12/12/18 07:41 Glucose (Fingerstick) 119 mg/dL (70-99) 80 mg/dL (70-99) 150 mg/dL (70-99) White Blood Count 7.5 x10^3/uL (4.0-11.0) Red Blood Count 3.34 x10^6/uL (4.30-5.70) Hemoglobin 9.3 g/dL (13.0-17.5) Hematocrit 27.9 % (39.0-53.0) Mean Corpuscular Volume 84 fL (79-100) Mean Corpuscular Hemoglobin 28 pg (25-35) Mean Corpuscular Hemoglobin Concent 33 g/dL (31-37) Red Cell Distribution Width 14.3 % (11.5-14.5) Platelet Count 201 x10^3/uL (140-400) Neutrophils (%) (Auto) 61 % (31-73) Lymphocytes (%) (Auto) 26 % (24-48) Monocytes (%) (Auto) 10 % (0-9) Eosinophils (%) (Auto) 3 % (0-3) Basophils (%) (Auto) 1 % (0-3) Neutrophils # (Auto) 4.5 x10^3/uL (1.8-7.7) Lymphocytes # (Auto) 2.0 x10^3/uL (1.0-4.8) Monocytes # (Auto) 0.7 x10^3/uL (0.0-1.1) Eosinophils # (Auto) 0.2 x10^3/uL (0.0-0.7) Basophils # (Auto) 0.1 x10^3/uL (0.0-0.2) Prothrombin Time 12.8 SEC (11.7-14.0) Prothromb Time International Ratio 1.0 (0.8-1.1) Sodium Level 140 mmol/L (136-145) Potassium Level 4.7 mmol/L (3.5-5.1) Chloride Level 106 mmol/L (98-107) Carbon Dioxide Level 24 mmol/L (21-32) Anion Gap 10 (6-14) Blood Urea Nitrogen 62 mg/dL (8-26) Creatinine 5.4 mg/dL (0.7-1.3) Estimated GFR (Cockcroft-Gault) 13.7 BUN/Creatinine Ratio 11 (6-20) Glucose Level 112 mg/dL (70-99) Calcium Level 7.6 mg/dL (8.5-10.1) Total Bilirubin 0.1 mg/dL (0.2-1.0) Aspartate Amino Transf (AST/SGOT) 16 U/L (15-37) Alanine Aminotransferase (ALT/SGPT) 13 U/L (16-63) Alkaline Phosphatase 83 U/L (46-116) Total Protein 6.3 g/dL (6.4-8.2) Albumin 2.3 g/dL (3.4-5.0) Albumin/Globulin Ratio 0.6 (1.0-1.7) Test 12/12/18 11:49 12/12/18 12:10 Glucose (Fingerstick) 64 mg/dL (70-99) Hepatitis B Surface Antigen Nonreactive (Nonreactive) Hepatitis B Surface Antibody Nonreactive Hepatitis B Core Total Antibody Nonreactive (Nonreactive) Review of Systems Review of Systems: CO fatigue denies weakness Assessment and Plan Assessmemt and Plan Problems Medical Problems: (1) Hypertensive emergency Status: Acute New ESRD Plan Going for HD Catheter today Cardiac monitir HD to start soon Labs Antihypertensives PTOT DVT proph Appreciate subspecialist input. Comment Review of Relevant I have reviewed the following items ish (where applicable) has been applied. Medications: Current Medications Medications (Trade) Dose Ordered Sig/Greta Route PRN Reason Start Time Stop Time Status Last Admin Dose Admin Carvedilol (Coreg) 12.5 mg BIDWMEALS PO 12/11/18 17:00 12/12/18 12:00 DC 12/12/18 08:42 Lisinopril (Prinivil) 10 mg DAILY PO 12/12/18 10:30 12/12/18 13:50 Carvedilol (Coreg) 12.5 mg 1X ONCE PO 12/12/18 12:15 12/12/18 12:16 DC 12/12/18 13:50 MARLO MERINO III DO Dec 12, 2018 14:35
[2018-12-12] MEDS ORDERED: LIDOCAINE 1%/EPI 1:100,000 20 ML VIAL. ONE (15:45)
[2018-12-12] MEDS ORDERED: fentaNYL PF VIAL 100 MCG/2 ML VIAL ONE (15:50)
[2018-12-12] MEDS ORDERED: MIDAZOLAM HCL/PF 2 MG/2 ML VIAL. ONE (15:50)
[2018-12-12] MEDS ORDERED: LIDOCAINE 1%/EPI 1:100,000 20 ML VIAL. IJ ONE (16:00)
[2018-12-12] MEDS ORDERED: fentaNYL PF VIAL 100 MCG/2 ML VIAL IV ONE (16:00)
[2018-12-12] MEDS ORDERED: HEPARIN for IV BOLUS 10,000 UNIT/10 ML VIAL. INT CAT ONE (16:00)
[2018-12-12] MEDS ORDERED: MIDAZOLAM HCL/PF 2 MG/2 ML VIAL. IV ONE (16:00)
--- NOTE | 2018-12-12 16:00 | NUR ---
Pt's son and at bedside. Pt up in chair. Son is currently laying in pt bed. Upon entering the room, staff noticed the patient bed with son in it to be raised to it's highest level. Pt family and pt educated on safety and staff asked son if he were to lay in the bed that he would keep it in the lowest and safest level. All verbally agreed and understood.
[2018-12-12 18:09] LABS: TOTAL SERUM CREATININE 4.95 mg/dL (0.76-1.27); TOTAL URINE CREATININE 143.2 mg/dL (Not Estab.)
[2018-12-12] MEDS: PSYLLIUM HUSK (SUGAR FREE) 1 PKT PACKET PO SCH (21:00)
[2018-12-12] MEDS: ATORVASTATIN CALCIUM 40 MG TABLET. PO SCH (21:02)
[2018-12-12] MEDS: GABAPENTIN 300 MG CAPSULE. PO SCH (21:02)
[2018-12-12] MEDS: INSULIN GLARGINE 300 UNITS/3 ML INSULN.PEN. SQ SCH (21:05)
--- NOTE | 2018-12-12 22:00 | NUR ---
Reviewed Sofi FLOYD charting and assessments, agree and approve.
[2018-12-12 23:09] LABS: HEMOGLOBIN A1C 6.1 % (4.8-5.6)
[2018-12-13 03:00] VITALS: BP 156/78
[2018-12-13 04:00] LABS: HEMATOCRIT 26.3 % (39.0-53.0); HEMOGLOBIN 8.9 g/dL (13.0-17.5); RED BLOOD COUNT 3.17 x10^6/uL (4.30-5.70); RED CELL DISTRIBUTION WIDTH 14.2 % (11.5-14.5); WHITE BLOOD COUNT 7.2 x10^3/uL (4.0-11.0)
[2018-12-13 04:33] LABS: ALBUMIN 2.3 g/dL (3.4-5.0); ALK PHOS 79 U/L (46-116); ALT (SGPT) 13 U/L (16-63); ANION GAP 10 (6-14); AST (SGOT) 17 U/L (15-37); BLOOD UREA NITROGEN 69 mg/dL (8-26); CALCIUM 7.8 mg/dL (8.5-10.1); CARBON DIOXIDE 25 mmol/L (21-32); CHLORIDE 106 mmol/L (98-107); CREATININE 5.3 mg/dL (0.7-1.3); DIRECT BILIRUBIN < 0.1 mg/dL (0.0-0.2); GLUCOSE 68 mg/dL (70-99); POTASSIUM 4.3 mmol/L (3.5-5.1); SODIUM 141 mmol/L (136-145); TOTAL BILIRUBIN 0.2 mg/dL (0.2-1.0); TOTAL PROTEIN 6.3 g/dL (6.4-8.2)
[2018-12-13 07:00] VITALS: BP 146/77
[2018-12-13] MEDS: INSULIN LISPRO 300 UNITS/3 ML INSULN.PEN. SQ SCH ×6 (08:00→17:46)
[2018-12-13] MEDS: DEXTROSE 50% 25 GM / 50ML DISP.SYRIN. IV PRN (08:29)
[2018-12-13] MEDS: NICOTINE 21MG PATCH. TD SCH (08:33)
[2018-12-13] MEDS: HEPARIN for SUB-Q USE 5,000 UNIT/ML VIAL. SQ SCH ×2 (09:00→22:08)
[2018-12-13] MEDS: POLYETHYLENE GLYCOL 3350 17 GM PACKET. PO SCH (09:00)
--- NOTE | 2018-12-13 09:02 | NUR ---
patient left for dialysis at approx 0900
[2018-12-13] MEDS ORDERED: IV NORMAL SALINE 1000ML BAG 1,000 ML IV PRN ×2 (10:12)
[2018-12-13] MEDS ORDERED: diphenhydrAMINE 50 MG/ML VIAL IV PRN ×2 (10:15)
[2018-12-13] MEDS ORDERED: DIALYSIS PATIENT. MC PRN (10:15)
--- NOTE | 2018-12-13 12:03 | PDOC ---
[employer] PROGRESS NOTE Chief Complaint Chief Complaint New ESRD now on first HD today accelerated hypertension acute systolic CHF, new LE edema noncompliance meds, severe malnutrition weakness and debility and fatigue acute renal failure, atn or CKD History of Present Illness History of Present Illness 12/12/18 Pt seen and examined Plan is to go ahead and start HD [facility] 12/13 Pt is seen and examined on HD Awaiting chair time before we can dc [facility] Vitals/I&O Vitals/I&O: Vital Signs Date Time Temp Pulse Resp B/P (MAP) Pulse Ox O2 Delivery O2 Flow Rate FiO2 12/13/18 07:00 97.8 72 14 146/77 (100) 97 Room Air 97.8 12/12/18 17:25 2.0 I & O 12/12/18 12/12/18 12/13/18 15:00 23:00 07:00 Intake Total 118 ml 240 ml 150 ml Output Total 800 ml 300 ml Balance 118 ml -560 ml -150 ml Physical Exam General: Alert, Oriented X3, Cooperative, No acute distress Heart: Regular rate, No murmurs Lungs: Clear, Wheezing Abdomen: Normal bowel sounds Extremities: No cyanosis, Normal pulses, Other (+ edema) Skin: No breakdown, No significant lesion Labs Labs: Laboratory Tests Test 12/12/18 12:10 12/12/18 17:30 12/12/18 20:55 12/13/18 03:45 Hepatitis B Surface Antigen Nonreactive (Nonreactive) Hepatitis B Surface Antibody Nonreactive Hepatitis B Core Total Antibody Nonreactive (Nonreactive) Glucose (Fingerstick) 108 mg/dL (70-99) 195 mg/dL (70-99) White Blood Count 7.2 x10^3/uL (4.0-11.0) Red Blood Count 3.17 x10^6/uL (4.30-5.70) Hemoglobin 8.9 g/dL (13.0-17.5) Hematocrit 26.3 % (39.0-53.0) Mean Corpuscular Volume 83 fL (79-100) Mean Corpuscular Hemoglobin 28 pg (25-35) Mean Corpuscular Hemoglobin Concent 34 g/dL (31-37) Red Cell Distribution Width 14.2 % (11.5-14.5) Platelet Count 203 x10^3/uL (140-400) Sodium Level 141 mmol/L (136-145) Potassium Level 4.3 mmol/L (3.5-5.1) Chloride Level 106 mmol/L (98-107) Carbon Dioxide Level 25 mmol/L (21-32) Anion Gap 10 (6-14) Blood Urea Nitrogen 69 mg/dL (8-26) Creatinine 5.3 mg/dL (0.7-1.3) Estimated GFR (Cockcroft-Gault) 14.0 Glucose Level 68 mg/dL (70-99) Calcium Level 7.8 mg/dL (8.5-10.1) Total Bilirubin 0.2 mg/dL (0.2-1.0) Direct Bilirubin < 0.1 mg/dL (0.0-0.2) Aspartate Amino Transf (AST/SGOT) 17 U/L (15-37) Alanine Aminotransferase (ALT/SGPT) 13 U/L (16-63) Alkaline Phosphatase 79 U/L (46-116) Total Protein 6.3 g/dL (6.4-8.2) Albumin 2.3 g/dL (3.4-5.0) Test 12/13/18 07:17 12/13/18 08:57 Glucose (Fingerstick) 60 mg/dL (70-99) 114 mg/dL (70-99) Review of Systems Review of Systems: CO fatigue Denies fever or chills Assessment and Plan Assessmemt and Plan Problems Medical Problems: (1) Hypertensive emergency Status: Acute New ESRD now on first HD today accelerated hypertension acute systolic CHF, new LE edema noncompliance meds, severe malnutrition weakness and debility and fatigue acute renal failure, atn or CKD 12/13 Plan Continue HD awaiting chair time DVT prophylaxis Full code Home meds Cardiac monitoring Labs PT and OT Total time 31 minutes Comment Review of Relevant I have reviewed the following items ish (where applicable) has been applied. Medications: Current Medications Medications (Trade) Dose Ordered Sig/Greta Route PRN Reason Start Time Stop Time Status Last Admin Dose Admin Carvedilol (Coreg) 25 mg BIDWMEALS PO 12/12/18 17:00 12/12/18 17:32 Carvedilol (Coreg) 12.5 mg 1X ONCE PO 12/12/18 12:15 12/12/18 12:16 DC 7/24/19 13:50 Midazolam HCl (Versed) 2 mg 1X ONCE IV 12/12/18 16:00 12/12/18 16:01 DC 12/12/18 16:10 Fentanyl Citrate (Fentanyl 2ml Vial) 100 mcg 1X ONCE IV 12/12/18 16:00 12/12/18 16:01 DC 12/12/18 16:10 Lidocaine/ Epinephrine (LIDOCAINE 1%-EPI 1:100,000 Multi-Dose) 20 ml 1X ONCE IJ 12/12/18 16:00 12/12/18 16:01 DC 12/12/18 16:09 Cefazolin Sodium/ Dextrose 50 ml @ 100 mls/hr 1X ONCE IV 12/12/18 16:00 12/12/18 16:29 DC 12/12/18 16:11 Gabapentin (Neurontin) 300 mg BID PO 12/12/18 21:00 12/12/18 21:02 MARLO MERINO III DO Dec 13, 2018 12:03
[2018-12-13] MEDS: CARVEDILOL 12.5 MG TABLET. PO SCH ×2 (12:21→17:41)
--- NOTE | 2018-12-13 12:21 | PDOC ---
Renal-Progress Notes Subjective Notes Notes NO NEW COMPLAINTS History of Present Illness Hx of present illness STABLE Vitals Vitals Vital Signs Date Time Temp Pulse Resp B/P (MAP) Pulse Ox O2 Delivery O2 Flow Rate FiO2 12/13/18 07:00 97.8 72 14 146/77 (100) 97 Room Air 97.8 12/12/18 17:25 2.0 Weight Weight [ ] I.O. Intake and Output Intake and Output 12/13/18 07:00 Intake Total 508 ml Output Total 1100 ml Balance -592 ml Intake Oral 508 ml Output Urine Total 1100 ml # Voids 2 Labs Labs Laboratory Tests Test 12/12/18 17:30 12/12/18 20:55 12/13/18 03:45 12/13/18 07:17 Glucose (Fingerstick) 108 mg/dL (70-99) 195 mg/dL (70-99) 60 mg/dL (70-99) White Blood Count 7.2 x10^3/uL (4.0-11.0) Red Blood Count 3.17 x10^6/uL (4.30-5.70) Hemoglobin 8.9 g/dL (13.0-17.5) Hematocrit 26.3 % (39.0-53.0) Mean Corpuscular Volume 83 fL (79-100) Mean Corpuscular Hemoglobin 28 pg (25-35) Mean Corpuscular Hemoglobin Concent 34 g/dL (31-37) Red Cell Distribution Width 14.2 % (11.5-14.5) Platelet Count 203 x10^3/uL (140-400) Sodium Level 141 mmol/L (136-145) Potassium Level 4.3 mmol/L (3.5-5.1) Chloride Level 106 mmol/L (98-107) Carbon Dioxide Level 25 mmol/L (21-32) Anion Gap 10 (6-14) Blood Urea Nitrogen 69 mg/dL (8-26) Creatinine 5.3 mg/dL (0.7-1.3) Estimated GFR (Cockcroft-Gault) 14.0 Glucose Level 68 mg/dL (70-99) Calcium Level 7.8 mg/dL (8.5-10.1) Total Bilirubin 0.2 mg/dL (0.2-1.0) Direct Bilirubin < 0.1 mg/dL (0.0-0.2) Aspartate Amino Transf (AST/SGOT) 17 U/L (15-37) Alanine Aminotransferase (ALT/SGPT) 13 U/L (16-63) Alkaline Phosphatase 79 U/L (46-116) Total Protein 6.3 g/dL (6.4-8.2) Albumin 2.3 g/dL (3.4-5.0) Test 12/13/18 08:57 Glucose (Fingerstick) 114 mg/dL (70-99) Micro Micro Microbiology 12/09/18 Urine Culture - Final, Complete 12/09/18 Urine Culture Result 1 (REESE) - Final, Complete Review of Systems Constitutional: yes: malaise, weakness, alert, oriented Ears/Nose/Throat: Yes: no symptom reported Eyes: Yes: no symptom reported Cardiovascular: Yes no symptom reported Gastrointestional: Yes: no symptom reported Genitourinary: Yes: no symptom reported Musculoskeletal: Yes: muscle stiffness Skin: Yes no symptom reported Endocrine: Yes: no symptom reported Physical Exam General Appearance: no apparent distress Skin: warm Respiratory: bilateral CTA Heart: S1S2 Abdomen: soft, bowel sounds present Genitourinary: bladder flat Extremities: pulses present Neurology: alert, oriented, follow commands Assessment Assessment IMP ESRD HTN URGENCY-BETTER NON COMPLIANCE DM II UTI UREMIA MALNUTRITION PROTEINURIA PLAN STOP IVF'S INCREASE ROSALINA-I RENAL SONOGRAM NEG EXCEPT CMRD ANTIBIOTICS ENC COMPLIANCE HD TODAY UF MINIMAL CASE D/W SW TO SET UP OP HD AND TO INITIATE PROCESS FOR COVERAGE KENDY GOMEZ MD Dec 13, 2018 12:21
[2018-12-13] MEDS: amLODIPine BESYLATE 10 MG TABLET PO SCH (12:23)
[2018-12-13 13:00] VITALS: BP 177/97
--- NOTE | 2018-12-13 13:44 | RAD ---
Procedure: Tunneled hemodialysis catheter placement 12/13/2018 1:39 PM Clinical Indication: ESRD needs dialysis access Sterility: All elements of maximal sterile barrier technique including the use of a cap, mask, sterile gown, sterile gloves, large sterile sheet, appropriate hand hygiene, and 2% chlorhexidine for cutaneous antisepsis (or acceptable alternative antiseptic per current guidelines) were followed for this procedure. Consent: The procedure was explained in its entirety to the patient or the patients designated sales representative womens health by a member of the treatment team, including a discussion of the risks, benefits and commonly accepted alternatives to the procedure, as well as the expected consequences of no therapy whatsoever. Discussion of the risks included, but was not limited to, those that are most frequent and those that are rare but possibly severe or life-threatening, as well as the possibility of unforeseen complications. Technique and Findings: Following informed consent, a timeout procedure was performed. The patient was prepped and draped in the usual sterile fashion. Ultrasound interrogation of the right neck revealed patency and compressibility of the right internal jugular vein. A 21-gauge micropuncture was then used to gain access to this vein under ultrasound guidance. A hard copy ultrasound image was recorded. The needle was exchanged over a wire for a 4 Mongolian sheath which was used to guide an guidewire into the IVC. The skin over the right anterior chest wall was copiously anesthetized with 1% Lidocaine and a small dermatotomy was made. A 23 cm tipped cuff palindrome tunneled hemodialysis catheter was then tunneled subcutaneously towards the neck dermatotomy and deployed through a large caliber peel-away sheath under fluoroscopic guidance such that the distal tip resided in the mid right atrium. Manual flow rates were assessed and found to be within normal limits. The final position of the catheter was confirmed by fluoroscopy, with tip at the proximal right atrium with the patient supine. The catheter was then flushed, packed with Heparin, capped, and sutured to the skin. The neck dermatotomy was closed with Dermabond. No immediate complications were identified. Sedation: Conscious sedation was administered for 25 minutes. The patient was monitored by a qualified independent observer throughout the time of sedation. Please refer to the medical record for exact doses of medications utilized to achieve moderate sedation. Fluoroscopy time: 0.4 Minutes Dose area product: 2 Gycm2 Impression: Tunneled hemodialysis catheter placement as described
[2018-12-13] MEDS: GABAPENTIN 300 MG CAPSULE. PO SCH ×2 (14:19→22:16)
[2018-12-13] MEDS: ASPIRIN 325 MG TABLET PO SCH (14:19)
[2018-12-13] MEDS: cefTRIAXone IV Push 1 GM VIAL. IVP SCH (14:23)
[2018-12-13 15:00] VITALS: BP 154/73
--- NOTE | 2018-12-13 16:17 | PDOC ---
CARDIO Progress Notes Date and Time Date of Service 12/13/2018 Time of Evaluation 1600 Subjective Subjective: No Chest Pain, No shortness of breath, No Palpitations Vitals Vitals Vital Signs Date Time Temp Pulse Resp B/P (MAP) Pulse Ox O2 Delivery O2 Flow Rate FiO2 12/13/18 15:00 97.5 82 16 154/73 (100) 97 Room Air 97.5 12/12/18 17:25 2.0 Weight Weight [ ] Input and Output Intake and Output Intake and Output 12/13/18 07:00 Intake Total 508 ml Output Total 1100 ml Balance -592 ml Intake Oral 508 ml Output Urine Total 1100 ml # Voids 2 Laboratory Labs Laboratory Tests Test 12/12/18 17:30 12/12/18 20:55 12/13/18 03:45 12/13/18 07:17 Glucose (Fingerstick) 108 mg/dL (70-99) 195 mg/dL (70-99) 60 mg/dL (70-99) White Blood Count 7.2 x10^3/uL (4.0-11.0) Red Blood Count 3.17 x10^6/uL (4.30-5.70) Hemoglobin 8.9 g/dL (13.0-17.5) Hematocrit 26.3 % (39.0-53.0) Mean Corpuscular Volume 83 fL (79-100) Mean Corpuscular Hemoglobin 28 pg (25-35) Mean Corpuscular Hemoglobin Concent 34 g/dL (31-37) Red Cell Distribution Width 14.2 % (11.5-14.5) Platelet Count 203 x10^3/uL (140-400) Sodium Level 141 mmol/L (136-145) Potassium Level 4.3 mmol/L (3.5-5.1) Chloride Level 106 mmol/L (98-107) Carbon Dioxide Level 25 mmol/L (21-32) Anion Gap 10 (6-14) Blood Urea Nitrogen 69 mg/dL (8-26) Creatinine 5.3 mg/dL (0.7-1.3) Estimated GFR (Cockcroft-Gault) 14.0 Glucose Level 68 mg/dL (70-99) Calcium Level 7.8 mg/dL (8.5-10.1) Total Bilirubin 0.2 mg/dL (0.2-1.0) Direct Bilirubin < 0.1 mg/dL (0.0-0.2) Aspartate Amino Transf (AST/SGOT) 17 U/L (15-37) Alanine Aminotransferase (ALT/SGPT) 13 U/L (16-63) Alkaline Phosphatase 79 U/L (46-116) Total Protein 6.3 g/dL (6.4-8.2) Albumin 2.3 g/dL (3.4-5.0) Test 12/13/18 08:57 Glucose (Fingerstick) 114 mg/dL (70-99) Microbiology Micro Microbiology 12/09/18 Urine Culture - Final, Complete 12/09/18 Urine Culture Result 1 (REESE) - Final, Complete Review of Systems Constitutional: yes: malaise, weakness, alert, oriented Ears/Nose/Throat: Yes: no symptom reported Eyes: Yes: no symptom reported Cardiovascular: Yes no symptom reported Gastrointestional: Yes: no symptom reported Genitourinary: Yes: no symptom reported Musculoskeletal: Yes: muscle stiffness Skin: Yes no symptom reported Endocrine: Yes: no symptom reported Physical Exam HEENT: Neck Supple W Full Motion Chest: Symmetric LUNGS: Clear to Auscultation Heart: S1S2, RRR (SR) Abdomen: Soft N/T Extremities: Other (trace LE edema) Neurology: alert, oriented, follow commands Assessment Assessment 1. Malignant hypertension: improving 2. New ESRD 3. Mild troponin elevation; highest 0.061. most probably type II, demand ischemia secondary to above. Echo showed LVEF 50-55%. 4. Diabetes, II 5. Hyperlipidemia; statin 6. Tobaccoism; discussed/encouraged cessation 7. [place] 8. Noncompliance; has not taken BP meds in > 6 month. 9. UTI Recommendations 1. Continue with BP regimen. uptitrate per BP trend 2. Reinforced medical compliance 3. Smoking cessation 4. Follow up in office and will consider for outpt stress test SAHRON ALMAZAN APRN Dec 13, 2018 16:17
--- NOTE | 2018-12-13 16:44 | NUR ---
SS following up with discharge planning. SS phoned and faxed referral for outpatient dialysis to [facility]missions, ; fax [phone]. SS will continue to follow for discharge planning.
[2018-12-13 19:42] VITALS: BP 133/76
[2018-12-13] MEDS: PSYLLIUM HUSK (SUGAR FREE) 1 PKT PACKET PO SCH (22:05)
[2018-12-13] MEDS: ATORVASTATIN CALCIUM 40 MG TABLET. PO SCH (22:05)
[2018-12-13] MEDS: LACTOBACILLUS RHAMNOSUS GG 1 CAPSULE. PO SCH (22:05)
[2018-12-13] MEDS: INSULIN GLARGINE 300 UNITS/3 ML INSULN.PEN. SQ SCH (22:07)
[2018-12-13 22:32] VITALS: BP 157/85
[2018-12-13] MEDS: BISACODYL 5 MG TABLET.DR. PO PRN (23:29)
[2018-12-14 03:55] VITALS: BP 129/72
[2018-12-14 05:12] LABS: BASO # 0.1 x10^3/uL (0.0-0.2); BASO % 1 % (0-3); EOS # 0.2 x10^3/uL (0.0-0.7); EOS % 2 % (0-3); HEMOGLOBIN 9.1 g/dL (13.0-17.5); LYMPH # 2.1 x10^3/uL (1.0-4.8); LYMPH % 29 % (24-48); MEAN CORPUSCULAR HEMOGLOBIN 28 pg (25-35); MEAN CORPUSCULAR HGB CONC 34 g/dL (31-37); MEAN CORPUSCULAR VOLUME 83 fL (79-100); MONO # 0.6 x10^3/uL (0.0-1.1); MONO % 8 % (0-9); NEUT # 4.3 x10^3/uL (1.8-7.7); NEUT % 59 % (31-73); PLATELET COUNT 207 x10^3/uL (140-400); RED BLOOD COUNT 3.25 x10^6/uL (4.30-5.70); RED CELL DISTRIBUTION WIDTH 14.1 % (11.5-14.5); WHITE BLOOD COUNT 7.3 x10^3/uL (4.0-11.0)
[2018-12-14 05:35] LABS: CALCIUM 7.7 mg/dL (8.5-10.1); CREATININE 4.5 mg/dL (0.7-1.3); GFR 16.9; POTASSIUM 4.2 mmol/L (3.5-5.1)
[2018-12-14 07:00] VITALS: BP 148/82
[2018-12-14] MEDS: INSULIN LISPRO 300 UNITS/3 ML INSULN.PEN. SQ SCH ×6 (08:00→17:59)
[2018-12-14] MEDS ORDERED: DIALYSIS PATIENT. MC PRN (09:45)
[2018-12-14] MEDS ORDERED: diphenhydrAMINE 50 MG/ML VIAL IV PRN ×2 (09:45)
[2018-12-14] MEDS ORDERED: IV NORMAL SALINE 1000ML BAG 1,000 ML IV PRN ×2 (09:45)
[2018-12-14] MEDS ORDERED: ACETAMINOPHEN 500 MG TABLET PO PRN (09:45)
--- NOTE | 2018-12-14 11:26 | PDOC ---
[employer] PROGRESS NOTE Chief Complaint Chief Complaint New ESRD now on first HD today Accelerated hypertension Acute systolic CHF New LE edema Noncompliance meds Severe malnutrition Weakness and debility and fatigue Acute renal failure, atn or CKD History of Present Illness History of Present Illness 12/12/18 Pt seen and examined Plan is to go ahead and start HD [facility] 12/13 Pt is seen and examined on HD Awaiting chair time before we can dc [facility] 12/14 Pt is seen and examined on HD Awaiting chair time before dc [facility] Vitals/I&O Vitals/I&O: Vital Signs Date Time Temp Pulse Resp B/P (MAP) Pulse Ox O2 Delivery O2 Flow Rate FiO2 12/14/18 07:00 98.1 78 20 148/82 (104) 91 Room Air 98.1 I & O 12/13/18 12/13/18 12/14/18 14:59 22:59 06:59 Intake Total 327 ml 0 ml Output Total 250 ml 200 ml Balance 77 ml -200 ml Physical Exam General: Alert, Oriented X3, Cooperative, No acute distress Heart: Regular rate, No murmurs Lungs: Clear, Wheezing Abdomen: Normal bowel sounds Extremities: No cyanosis, Normal pulses, Other (+ edema) Skin: No breakdown, No significant lesion Labs Labs: Laboratory Tests Test 12/13/18 17:37 12/13/18 20:41 12/14/18 04:30 12/14/18 08:05 Glucose (Fingerstick) 185 mg/dL (70-99) 173 mg/dL (70-99) 106 mg/dL (70-99) White Blood Count 7.3 x10^3/uL (4.0-11.0) Red Blood Count 3.25 x10^6/uL (4.30-5.70) Hemoglobin 9.1 g/dL (13.0-17.5) Hematocrit 27.0 % (39.0-53.0) Mean Corpuscular Volume 83 fL (79-100) Mean Corpuscular Hemoglobin 28 pg (25-35) Mean Corpuscular Hemoglobin Concent 34 g/dL (31-37) Red Cell Distribution Width 14.1 % (11.5-14.5) Platelet Count 207 x10^3/uL (140-400) Neutrophils (%) (Auto) 59 % (31-73) Lymphocytes (%) (Auto) 29 % (24-48) Monocytes (%) (Auto) 8 % (0-9) Eosinophils (%) (Auto) 2 % (0-3) Basophils (%) (Auto) 1 % (0-3) Neutrophils # (Auto) 4.3 x10^3/uL (1.8-7.7) Lymphocytes # (Auto) 2.1 x10^3/uL (1.0-4.8) Monocytes # (Auto) 0.6 x10^3/uL (0.0-1.1) Eosinophils # (Auto) 0.2 x10^3/uL (0.0-0.7) Basophils # (Auto) 0.1 x10^3/uL (0.0-0.2) Sodium Level 139 mmol/L (136-145) Potassium Level 4.2 mmol/L (3.5-5.1) Chloride Level 103 mmol/L (98-107) Carbon Dioxide Level 29 mmol/L (21-32) Anion Gap 7 (6-14) Blood Urea Nitrogen 53 mg/dL (8-26) Creatinine 4.5 mg/dL (0.7-1.3) Estimated GFR (Cockcroft-Gault) 16.9 Glucose Level 149 mg/dL (70-99) Calcium Level 7.7 mg/dL (8.5-10.1) Review of Systems Review of Systems: 12/14 CO weakness CO hunger Assessment and Plan Assessmemt and Plan Problems Medical Problems: (1) Hypertensive emergency Status: Acute 12/14 Assessment New ESRD now on first HD today Accelerated hypertension Acute systolic CHF New LE edema Noncompliance meds Severe malnutrition Weakness and debility and fatigue Acute renal failure, atn or CKD Plan Continue dialysis Awaiting chair time Discharge when okay with Dr. Glover DVT prophylaxis PTOT Meds Comment Review of Relevant I have reviewed the following items ish (where applicable) has been applied. Medications: Current Medications Medications (Trade) Dose Ordered Sig/Greta Route PRN Reason Start Time Stop Time Status Last Admin Dose Admin Lactobacillus Rhamnosus (Culturelle) 1 cap BID PO 12/13/18 21:00 12/13/18 22:05 Bisacodyl (Dulcolax Tab) 5 mg PRN DAILY PRN PO CONSTIPATION 12/13/18 23:15 12/13/18 23:29 MRALO MERINO III DO Dec 14, 2018 11:26
--- NOTE | 2018-12-14 12:16 | PDOC ---
Renal-Progress Notes Subjective Notes Notes NO NEW COMPLAINTS History of Present Illness Hx of present illness STABLE Vitals Vitals Vital Signs Date Time Temp Pulse Resp B/P (MAP) Pulse Ox O2 Delivery O2 Flow Rate FiO2 12/14/18 07:00 98.1 78 20 148/82 (104) 91 Room Air 98.1 Weight Weight [ ] I.O. Intake and Output Intake and Output 12/14/18 06:59 Intake Total 327 ml Output Total 450 ml Balance -123 ml Intake Oral 327 ml Output Urine Total 450 ml Labs Labs Laboratory Tests Test 12/13/18 17:37 12/13/18 20:41 12/14/18 04:30 12/14/18 08:05 Glucose (Fingerstick) 185 mg/dL (70-99) 173 mg/dL (70-99) 106 mg/dL (70-99) White Blood Count 7.3 x10^3/uL (4.0-11.0) Red Blood Count 3.25 x10^6/uL (4.30-5.70) Hemoglobin 9.1 g/dL (13.0-17.5) Hematocrit 27.0 % (39.0-53.0) Mean Corpuscular Volume 83 fL (79-100) Mean Corpuscular Hemoglobin 28 pg (25-35) Mean Corpuscular Hemoglobin Concent 34 g/dL (31-37) Red Cell Distribution Width 14.1 % (11.5-14.5) Platelet Count 207 x10^3/uL (140-400) Neutrophils (%) (Auto) 59 % (31-73) Lymphocytes (%) (Auto) 29 % (24-48) Monocytes (%) (Auto) 8 % (0-9) Eosinophils (%) (Auto) 2 % (0-3) Basophils (%) (Auto) 1 % (0-3) Neutrophils # (Auto) 4.3 x10^3/uL (1.8-7.7) Lymphocytes # (Auto) 2.1 x10^3/uL (1.0-4.8) Monocytes # (Auto) 0.6 x10^3/uL (0.0-1.1) Eosinophils # (Auto) 0.2 x10^3/uL (0.0-0.7) Basophils # (Auto) 0.1 x10^3/uL (0.0-0.2) Sodium Level 139 mmol/L (136-145) Potassium Level 4.2 mmol/L (3.5-5.1) Chloride Level 103 mmol/L (98-107) Carbon Dioxide Level 29 mmol/L (21-32) Anion Gap 7 (6-14) Blood Urea Nitrogen 53 mg/dL (8-26) Creatinine 4.5 mg/dL (0.7-1.3) Estimated GFR (Cockcroft-Gault) 16.9 Glucose Level 149 mg/dL (70-99) Calcium Level 7.7 mg/dL (8.5-10.1) Micro Micro Microbiology 12/09/18 Urine Culture - Final, Complete 12/09/18 Urine Culture Result 1 (REESE) - Final, Complete Review of Systems Constitutional: yes: malaise, weakness, alert, oriented Ears/Nose/Throat: Yes: no symptom reported Eyes: Yes: no symptom reported Cardiovascular: Yes no symptom reported Gastrointestional: Yes: no symptom reported Genitourinary: Yes: no symptom reported Musculoskeletal: Yes: muscle stiffness Skin: Yes no symptom reported Endocrine: Yes: no symptom reported Physical Exam General Appearance: no apparent distress Skin: warm Respiratory: bilateral CTA Heart: S1S2 Abdomen: soft, bowel sounds present Genitourinary: bladder flat Extremities: pulses present Neurology: alert, oriented, follow commands Assessment Assessment IMP ESRD HTN URGENCY-BETTER NON COMPLIANCE DM II UTI UREMIA MALNUTRITION PROTEINURIA PLAN HD TODAY UF TO DW-MIN INCREASE ROSALINA-I RENAL SONOGRAM NEG EXCEPT CMRD ANTIBIOTICS ENC COMPLIANCE CASE D/W SW TO SET UP OP HD AND TO INITIATE PROCESS FOR COVERAGE KENDY GOMEZ MD Dec 14, 2018 12:16
--- NOTE | 2018-12-14 12:42 | NUR ---
SS following up with discharge planning. SS contacted [facility]missions for update on pt chair time. [facility] confirmed receipt of the referral and reported that there team was reviewing records and would contact SS with an update.
[2018-12-14 12:45] VITALS: BP 169/94
[2018-12-14] MEDS: POLYETHYLENE GLYCOL 3350 17 GM PACKET. PO SCH (12:54)
[2018-12-14] MEDS: NICOTINE 21MG PATCH. TD SCH (12:55)
[2018-12-14] MEDS: LISINOPRIL 20 MG TABLET PO SCH (12:55)
[2018-12-14] MEDS: GABAPENTIN 300 MG CAPSULE. PO SCH ×2 (12:56→21:16)
[2018-12-14] MEDS: ASPIRIN 325 MG TABLET PO SCH (12:56)
[2018-12-14] MEDS: amLODIPine BESYLATE 10 MG TABLET PO SCH (12:56)
[2018-12-14] MEDS: LACTOBACILLUS RHAMNOSUS GG 1 CAPSULE. PO SCH ×2 (12:56→21:16)
[2018-12-14] MEDS: CARVEDILOL 12.5 MG TABLET. PO SCH ×2 (12:57→17:50)
[2018-12-14] MEDS: HEPARIN for SUB-Q USE 5,000 UNIT/ML VIAL. SQ SCH ×2 (13:03→21:21)
[2018-12-14 15:00] VITALS: BP 155/81
[2018-12-14] MEDS: cefTRIAXone IV Push 1 GM VIAL. IVP SCH (17:49)
[2018-12-14 19:00] VITALS: BP 149/81
[2018-12-14] MEDS: INSULIN GLARGINE 300 UNITS/3 ML INSULN.PEN. SQ SCH (21:00)
[2018-12-14] MEDS: PSYLLIUM HUSK (SUGAR FREE) 1 PKT PACKET PO SCH (21:16)
[2018-12-14] MEDS: ATORVASTATIN CALCIUM 40 MG TABLET. PO SCH (21:16)
[2018-12-14 22:43] VITALS: BP 141/75
[2018-12-15 06:40] LABS: BASO # 0.1 x10^3/uL (0.0-0.2); BASO % 1 % (0-3); EOS # 0.2 x10^3/uL (0.0-0.7); EOS % 2 % (0-3); HEMATOCRIT 26.9 % (39.0-53.0); HEMOGLOBIN 9.1 g/dL (13.0-17.5); LYMPH # 2.1 x10^3/uL (1.0-4.8); LYMPH % 27 % (24-48); MEAN CORPUSCULAR HEMOGLOBIN 28 pg (25-35); MEAN CORPUSCULAR HGB CONC 34 g/dL (31-37); MEAN CORPUSCULAR VOLUME 83 fL (79-100); MONO # 0.7 x10^3/uL (0.0-1.1); MONO % 9 % (0-9); NEUT # 4.7 x10^3/uL (1.8-7.7); NEUT % 61 % (31-73); PLATELET COUNT 204 x10^3/uL (140-400); RED BLOOD COUNT 3.23 x10^6/uL (4.30-5.70); WHITE BLOOD COUNT 7.7 x10^3/uL (4.0-11.0)
[2018-12-15 06:57] LABS: CALCIUM 7.9 mg/dL (8.5-10.1); GFR 19.3; POTASSIUM 4.4 mmol/L (3.5-5.1)
[2018-12-15 07:00] VITALS: BP 163/91
[2018-12-15] MEDS: INSULIN LISPRO 300 UNITS/3 ML INSULN.PEN. SQ SCH ×6 (08:00→17:00)
[2018-12-15] MEDS: ASPIRIN 325 MG TABLET PO SCH (08:54)
[2018-12-15] MEDS: GABAPENTIN 300 MG CAPSULE. PO SCH ×2 (08:55→21:38)
[2018-12-15] MEDS: LACTOBACILLUS RHAMNOSUS GG 1 CAPSULE. PO SCH ×2 (08:55→21:39)
[2018-12-15] MEDS: CARVEDILOL 12.5 MG TABLET. PO SCH ×2 (08:56→17:10)
[2018-12-15] MEDS: LISINOPRIL 20 MG TABLET PO SCH (08:56)
[2018-12-15] MEDS: POLYETHYLENE GLYCOL 3350 17 GM PACKET. PO SCH (08:57)
[2018-12-15] MEDS: NICOTINE 21MG PATCH. TD SCH (08:57)
[2018-12-15] MEDS: amLODIPine BESYLATE 10 MG TABLET PO SCH (08:57)
[2018-12-15] MEDS: HEPARIN for SUB-Q USE 5,000 UNIT/ML VIAL. SQ SCH ×2 (09:10→21:56)
[2018-12-15 11:00] VITALS: BP 131/78
--- NOTE | 2018-12-15 12:25 | PDOC ---
[employer] PROGRESS NOTE Chief Complaint Chief Complaint New ESRD now on first HD today Accelerated hypertension Acute systolic CHF New LE edema Noncompliance meds Severe malnutrition Weakness and debility and fatigue Acute renal failure, atn or CKD History of Present Illness History of Present Illness 12/15/18 Pt seen and examined Resting with NAD Awaiting chair time before dc [facility] 12/14/18 Pt is seen and examined on HD Awaiting chair time before dc [facility] 12/13/18 Pt is seen and examined on HD Awaiting chair time before we can dc [place] 12/12/18 Pt seen and examined Plan is to go ahead and start HD [facility] Vitals/I&O Vitals/I&O: Vital Signs Date Time Temp Pulse Resp B/P (MAP) Pulse Ox O2 Delivery O2 Flow Rate FiO2 12/15/18 11:00 97.8 71 16 131/78 (95) 98 Room Air 97.8 12/14/18 08:00 2.0 I & O 12/14/18 12/14/18 12/15/18 15:00 23:00 07:00 Intake Total 180 ml Output Total 1000 ml Balance 180 ml -1000 ml Physical Exam General: Alert, Oriented X3, Cooperative, No acute distress Heart: Regular rate, No murmurs Lungs: Clear Abdomen: Normal bowel sounds, No tenderness Extremities: No cyanosis, Normal pulses, Other (+ edema) Skin: No breakdown, No significant lesion Labs Labs: Laboratory Tests Test 12/14/18 12:48 12/14/18 17:23 12/14/18 20:28 12/15/18 05:36 Glucose (Fingerstick) 104 mg/dL (70-99) 215 mg/dL (70-99) 98 mg/dL (70-99) White Blood Count 7.7 x10^3/uL (4.0-11.0) Red Blood Count 3.23 x10^6/uL (4.30-5.70) Hemoglobin 9.1 g/dL (13.0-17.5) Hematocrit 26.9 % (39.0-53.0) Mean Corpuscular Volume 83 fL (79-100) Mean Corpuscular Hemoglobin 28 pg (25-35) Mean Corpuscular Hemoglobin Concent 34 g/dL (31-37) Red Cell Distribution Width 14.0 % (11.5-14.5) Platelet Count 204 x10^3/uL (140-400) Neutrophils (%) (Auto) 61 % (31-73) Lymphocytes (%) (Auto) 27 % (24-48) Monocytes (%) (Auto) 9 % (0-9) Eosinophils (%) (Auto) 2 % (0-3) Basophils (%) (Auto) 1 % (0-3) Neutrophils # (Auto) 4.7 x10^3/uL (1.8-7.7) Lymphocytes # (Auto) 2.1 x10^3/uL (1.0-4.8) Monocytes # (Auto) 0.7 x10^3/uL (0.0-1.1) Eosinophils # (Auto) 0.2 x10^3/uL (0.0-0.7) Basophils # (Auto) 0.1 x10^3/uL (0.0-0.2) Sodium Level 139 mmol/L (136-145) Potassium Level 4.4 mmol/L (3.5-5.1) Chloride Level 103 mmol/L (98-107) Carbon Dioxide Level 31 mmol/L (21-32) Anion Gap 5 (6-14) Blood Urea Nitrogen 44 mg/dL (8-26) Creatinine 4.0 mg/dL (0.7-1.3) Estimated GFR (Cockcroft-Gault) 19.3 Glucose Level 181 mg/dL (70-99) Calcium Level 7.9 mg/dL (8.5-10.1) Test 12/15/18 07:28 12/15/18 11:47 Glucose (Fingerstick) 170 mg/dL (70-99) 182 mg/dL (70-99) Review of Systems Review of Systems: Unable to obtain Assessment and Plan Assessmemt and Plan Problems Medical Problems: (1) Hypertensive emergency Status: Acute 12/15/18 Assessment New ESRD now on first HD today Accelerated hypertension Acute systolic CHF New LE edema Noncompliance meds Severe malnutrition Weakness and debility and fatigue Acute renal failure, atn or CKD Plan Cardiac monitoring HD Home meds Full code DVT prophylaxis Comment Review of Relevant I have reviewed the following items ish (where applicable) has been applied. MARLO MERINO III DO Dec 15, 2018 12:25
[2018-12-15] MEDS: cefTRIAXone IV Push 1 GM VIAL. IVP SCH (14:07)
[2018-12-15 15:00] VITALS: BP 124/68
[2018-12-15 19:00] VITALS: BP 145/78
[2018-12-15] MEDS: ATORVASTATIN CALCIUM 40 MG TABLET. PO SCH (21:38)
[2018-12-15] MEDS: BISACODYL 5 MG TABLET.DR. PO PRN (21:39)
[2018-12-15] MEDS: PSYLLIUM HUSK (SUGAR FREE) 1 PKT PACKET PO SCH (21:40)
[2018-12-15] MEDS: INSULIN GLARGINE 300 UNITS/3 ML INSULN.PEN. SQ SCH (21:57)
[2018-12-15 22:47] VITALS: BP 160/85
[2018-12-16 03:00] VITALS: BP 153/86
[2018-12-16 05:21] LABS: BASO # 0.1 x10^3/uL (0.0-0.2); BASO % 1 % (0-3); EOS # 0.2 x10^3/uL (0.0-0.7); EOS % 2 % (0-3); HEMATOCRIT 27.4 % (39.0-53.0); HEMOGLOBIN 9.3 g/dL (13.0-17.5); LYMPH # 1.9 x10^3/uL (1.0-4.8); LYMPH % 23 % (24-48); MEAN CORPUSCULAR HEMOGLOBIN 28 pg (25-35); MEAN CORPUSCULAR HGB CONC 34 g/dL (31-37); MEAN CORPUSCULAR VOLUME 83 fL (79-100); MONO # 0.8 x10^3/uL (0.0-1.1); MONO % 9 % (0-9); NEUT # 5.5 x10^3/uL (1.8-7.7); NEUT % 65 % (31-73); PLATELET COUNT 221 x10^3/uL (140-400); RED BLOOD COUNT 3.29 x10^6/uL (4.30-5.70); RED CELL DISTRIBUTION WIDTH 13.9 % (11.5-14.5); WHITE BLOOD COUNT 8.5 x10^3/uL (4.0-11.0)
[2018-12-16 05:45] LABS: CREATININE 4.4 mg/dL (0.7-1.3); GFR 17.3; POTASSIUM 4.3 mmol/L (3.5-5.1)
[2018-12-16 07:00] VITALS: BP 172/93
[2018-12-16] MEDS: GABAPENTIN 300 MG CAPSULE. PO SCH ×2 (07:56→22:00)
[2018-12-16] MEDS: LACTOBACILLUS RHAMNOSUS GG 1 CAPSULE. PO SCH ×2 (07:57→22:00)
[2018-12-16] MEDS: LISINOPRIL 20 MG TABLET PO SCH (07:58)
[2018-12-16] MEDS: NICOTINE 21MG PATCH. TD SCH (07:58)
[2018-12-16] MEDS: amLODIPine BESYLATE 10 MG TABLET PO SCH (07:58)
[2018-12-16] MEDS: ASPIRIN 325 MG TABLET PO SCH (07:58)
[2018-12-16] MEDS: POLYETHYLENE GLYCOL 3350 17 GM PACKET. PO SCH (07:59)
[2018-12-16] MEDS: CARVEDILOL 12.5 MG TABLET. PO SCH ×2 (07:59→17:16)
[2018-12-16] MEDS: INSULIN LISPRO 300 UNITS/3 ML INSULN.PEN. SQ SCH ×6 (08:00→17:00)
[2018-12-16] MEDS: HEPARIN for SUB-Q USE 5,000 UNIT/ML VIAL. SQ SCH ×2 (08:05→22:11)
[2018-12-16] MEDS ORDERED: CEFDINIR 300 MG CAPSULE PO SCH (09:00)
[2018-12-16 11:00] VITALS: BP 131/73
--- NOTE | 2018-12-16 13:20 | PDOC ---
SUBJECTIVE ROS Stable, No complaints OBJECTIVE Vital Signs Vital Signs Date Time Temp Pulse Resp B/P (MAP) Pulse Ox O2 Delivery O2 Flow Rate FiO2 12/16/18 11:00 97.9 68 14 131/73 (92) 98 Room Air 97.9 I & 0 Intake and Output 12/16/18 06:59 Intake Total 220 ml Output Total 750 ml Balance -530 ml Intake Oral 220 ml Output Urine Total 750 ml PHYSICAL EXAM Physical Exam General Appearance: no apparent distress Skin: warm Respiratory: bilateral CTA Heart: S1S2 Abdomen: soft, bowel sounds present Genitourinary: bladder flat Extremities: pulses present Neurology: alert, oriented, follow commands DIAGNOSIS/ASSESSMENT Assessment & Plan New Onset ESRD- initiated on HD last week Renal US cw Chr Med disease HD x 1 On Monday , Good UOP Dialysis Tomorrow , No indication today Access - Tunneled HDC HTN URGENCY-BETTER DM II UTI PROTEINURIA Awaiting OP Chair time COMMENT/RELEVANT DATA Meds Current Medications Medications (Trade) Dose Ordered Sig/Greta Start Time Stop Time Status Last Admin Dose Admin Acetaminophen (Tylenol) 500 mg 1X PRN PRN 12/14/18 09:45 12/15/18 09:44 DC Amlodipine Besylate (Norvasc) 10 mg DAILY 12/09/18 09:00 12/16/18 07:58 10 MG Aspirin (Arjun Aspirin) 325 mg DAILY 12/09/18 09:00 12/16/18 07:58 325 MG Aspirin (Children'S Aspirin) 324 mg 1X ONCE 12/09/18 01:00 12/09/18 01:01 DC 12/09/18 01:27 324 MG Atorvastatin Calcium (Lipitor) 40 mg HS 12/09/18 21:00 12/15/18 21:38 40 MG Bisacodyl (Dulcolax Tab) 5 mg PRN DAILY PRN 12/13/18 23:15 12/15/18 21:39 5 MG Carvedilol (Coreg) 12.5 mg 1X ONCE 12/12/18 12:15 12/12/18 12:16 DC 12/12/18 13:50 12.5 MG Cefazolin Sodium/ Dextrose 50 ml @ 100 mls/hr 1X ONCE 12/12/18 16:00 12/12/18 16:29 DC 12/12/18 16:11 100 MLS/HR Cefdinir (Omnicef) 300 mg BID 12/16/18 09:00 12/16/18 07:57 300 MG Ceftriaxone Sodium (Rocephin) 1 gm Q24H 12/11/18 14:00 12/15/18 15:41 DC 12/15/18 14:07 1 GM Dextrose (Dextrose 50%-Water Syringe) 12.5 gm PRN Q15MIN PRN 12/10/18 14:45 12/13/18 08:29 12.5 GM Diphenhydramine HCl (Benadryl) 25 mg 1X PRN PRN 12/14/18 09:45 12/15/18 09:44 DC Fentanyl Citrate (Fentanyl 2ml Vial) 100 mcg 1X ONCE 12/12/18 16:00 12/12/18 16:01 DC 12/12/18 16:10 100 MCG Furosemide (Lasix) 40 mg 1X ONCE 12/09/18 01:00 12/09/18 01:01 DC 12/09/18 01:33 40 MG Gabapentin (Neurontin) 300 mg BID 12/12/18 21:00 12/16/18 07:56 300 MG Heparin Sodium (Porcine) (Heparin Sodium) 2,600 unit 1X ONCE 12/12/18 16:00 12/12/18 16:01 Cancel Hydralazine HCl (Apresoline Inj) 10 mg PRN Q4HRS PRN 12/10/18 11:30 12/11/18 08:23 10 MG Hydralazine HCl (Apresoline) 50 mg BID 12/11/18 09:00 12/16/18 07:57 50 MG Info (PHARMACY MONITORING -- do not chart) 1 each PRN DAILY PRN 12/14/18 09:45 Insulin Glargine (Lantus) 20 units QHS 12/09/18 21:00 12/15/18 21:57 20 UNITS Insulin Human Lispro (HumaLOG) 0-9 UNITS TIDWMEALS 12/10/18 17:00 12/16/18 12:21 4 UNITS Labetalol HCl (Normodyne Iv Push) 20 mg PRN Q2HR PRN 12/09/18 00:45 12/10/18 09:48 20 MG Lactobacillus Rhamnosus (Culturelle) 1 cap BID 12/13/18 21:00 12/16/18 07:57 1 CAP Lidocaine/ Epinephrine (LIDOCAINE 1%-EPI 1:100,000 Multi-Dose) 20 ml 1X ONCE 12/12/18 16:00 12/12/18 16:01 DC 12/12/18 16:09 12 ML Lisinopril (Prinivil) 20 mg DAILY 12/14/18 09:00 12/16/18 07:58 20 MG Metoprolol Tartrate (Lopressor) 50 mg BID 12/10/18 21:00 12/11/18 09:01 DC 12/11/18 08:19 50 MG Midazolam HCl (Versed) 2 mg 1X ONCE 12/12/18 16:00 12/12/18 16:01 DC 12/12/18 16:10 2 MG Morphine Sulfate (Morphine Sulfate) 2 mg PRN Q2HR PRN 12/09/18 00:45 12/10/18 00:44 DC Nicardipine HCl 50 mg/Sodium Chloride 250 ml @ 25 mls/hr CONT PRN 12/09/18 02:30 12/09/18 14:44 45 MLS/HR Nicotine (Nicoderm Cq 21mg) 1 patch DAILY 12/09/18 02:00 12/16/18 07:58 1 PATCH Nitroglycerin/ Dextrose 250 ml @ 0 mls/hr 1X ONCE 12/09/18 01:00 12/09/18 02:27 DC 12/09/18 01:39 1.5 MLS/HR Polyethylene Glycol (miraLAX PACKET) 17 gm PRN BID PRN 12/10/18 20:15 Cancel Potassium Chloride (Klor-Con) 40 meq 1X ONCE 12/09/18 01:00 12/09/18 01:01 DC 12/09/18 01:27 40 MEQ Psyllium Hydrophilic Mucilloid (Metamucil Fiber Packet) 1 pkt PRN DAILY PRN 12/10/18 20:15 Cancel Sodium Chloride 1,000 ml @ 400 mls/hr Q2H30M PRN 12/14/18 09:45 12/14/18 21:44 DC Lab Laboratory Tests Test 12/15/18 16:51 12/15/18 20:38 12/16/18 04:20 12/16/18 07:43 Glucose (Fingerstick) 81 mg/dL (70-99) 156 mg/dL (70-99) 82 mg/dL (70-99) White Blood Count 8.5 x10^3/uL (4.0-11.0) Red Blood Count 3.29 x10^6/uL (4.30-5.70) Hemoglobin 9.3 g/dL (13.0-17.5) Hematocrit 27.4 % (39.0-53.0) Mean Corpuscular Volume 83 fL (79-100) Mean Corpuscular Hemoglobin 28 pg (25-35) Mean Corpuscular Hemoglobin Concent 34 g/dL (31-37) Red Cell Distribution Width 13.9 % (11.5-14.5) Platelet Count 221 x10^3/uL (140-400) Neutrophils (%) (Auto) 65 % (31-73) Lymphocytes (%) (Auto) 23 % (24-48) Monocytes (%) (Auto) 9 % (0-9) Eosinophils (%) (Auto) 2 % (0-3) Basophils (%) (Auto) 1 % (0-3) Neutrophils # (Auto) 5.5 x10^3/uL (1.8-7.7) Lymphocytes # (Auto) 1.9 x10^3/uL (1.0-4.8) Monocytes # (Auto) 0.8 x10^3/uL (0.0-1.1) Eosinophils # (Auto) 0.2 x10^3/uL (0.0-0.7) Basophils # (Auto) 0.1 x10^3/uL (0.0-0.2) Sodium Level 144 mmol/L (136-145) Potassium Level 4.3 mmol/L (3.5-5.1) Chloride Level 106 mmol/L (98-107) Carbon Dioxide Level 30 mmol/L (21-32) Anion Gap 8 (6-14) Blood Urea Nitrogen 62 mg/dL (8-26) Creatinine 4.4 mg/dL (0.7-1.3) Estimated GFR (Cockcroft-Gault) 17.3 Glucose Level 101 mg/dL (70-99) Calcium Level 8.0 mg/dL (8.5-10.1) Test 12/16/18 11:57 Glucose (Fingerstick) 169 mg/dL (70-99) Results All relevant outside records, renal labs, imaging studies, telemetry/EKG's were reviewed. SOCO JACOBS MD Dec 16, 2018 13:20
--- NOTE | 2018-12-16 14:43 | PDOC ---
[employer] PROGRESS NOTE Chief Complaint Chief Complaint New ESRD now on first HD today Accelerated hypertension Acute systolic CHF New LE edema Noncompliance meds Severe malnutrition Weakness and debility and fatigue Acute renal failure, atn or CKD History of Present Illness History of Present Illness 12/16/18 Pt seen and examined at bedside QUE RN Awaiting chair time before dc 12/15/18 Pt seen and examined Resting with NAD Awaiting chair time before dc QUE RN 12/14/18 Pt is seen and examined on HD Awaiting chair time before dc QUE RN 12/13/18 Pt is seen and examined on HD Awaiting chair time before we can dc QUE RN 12/12/18 Pt seen and examined Plan is to go ahead and start HD QUE GILES Vitals/I&O Vitals/I&O: Vital Signs Date Time Temp Pulse Resp B/P (MAP) Pulse Ox O2 Delivery O2 Flow Rate FiO2 12/16/18 11:00 97.9 68 14 131/73 (92) 98 Room Air 97.9 I & O 12/15/18 12/15/18 12/16/18 15:00 23:00 07:00 Intake Total 220 ml Output Total 0 ml 750 ml Balance 0 ml -530 ml Physical Exam General: Alert, Oriented X3, Cooperative, No acute distress Heart: Regular rate, No murmurs Lungs: Clear Abdomen: Normal bowel sounds, No tenderness Extremities: No cyanosis, Normal pulses, Other (+ edema) Skin: No breakdown, No significant lesion Labs Labs: Laboratory Tests Test 12/15/18 16:51 12/15/18 20:38 12/16/18 04:20 12/16/18 07:43 Glucose (Fingerstick) 81 mg/dL (70-99) 156 mg/dL (70-99) 82 mg/dL (70-99) White Blood Count 8.5 x10^3/uL (4.0-11.0) Red Blood Count 3.29 x10^6/uL (4.30-5.70) Hemoglobin 9.3 g/dL (13.0-17.5) Hematocrit 27.4 % (39.0-53.0) Mean Corpuscular Volume 83 fL (79-100) Mean Corpuscular Hemoglobin 28 pg (25-35) Mean Corpuscular Hemoglobin Concent 34 g/dL (31-37) Red Cell Distribution Width 13.9 % (11.5-14.5) Platelet Count 221 x10^3/uL (140-400) Neutrophils (%) (Auto) 65 % (31-73) Lymphocytes (%) (Auto) 23 % (24-48) Monocytes (%) (Auto) 9 % (0-9) Eosinophils (%) (Auto) 2 % (0-3) Basophils (%) (Auto) 1 % (0-3) Neutrophils # (Auto) 5.5 x10^3/uL (1.8-7.7) Lymphocytes # (Auto) 1.9 x10^3/uL (1.0-4.8) Monocytes # (Auto) 0.8 x10^3/uL (0.0-1.1) Eosinophils # (Auto) 0.2 x10^3/uL (0.0-0.7) Basophils # (Auto) 0.1 x10^3/uL (0.0-0.2) Sodium Level 144 mmol/L (136-145) Potassium Level 4.3 mmol/L (3.5-5.1) Chloride Level 106 mmol/L (98-107) Carbon Dioxide Level 30 mmol/L (21-32) Anion Gap 8 (6-14) Blood Urea Nitrogen 62 mg/dL (8-26) Creatinine 4.4 mg/dL (0.7-1.3) Estimated GFR (Cockcroft-Gault) 17.3 Glucose Level 101 mg/dL (70-99) Calcium Level 8.0 mg/dL (8.5-10.1) Test 12/16/18 11:57 Glucose (Fingerstick) 169 mg/dL (70-99) Review of Systems Review of Systems: CO fatigue Denies pain Assessment and Plan Assessmemt and Plan Problems Medical Problems: (1) Hypertensive emergency Status: Acute 12/16/18 Assessment New ESRD now on first HD today Accelerated hypertension Acute systolic CHF New LE edema Noncompliance meds Severe malnutrition Weakness and debility and fatigue Acute renal failure, atn or CKD Plan HD Home meds Full code Cardiac monitoring Awaiting chair time Comment Review of Relevant I have reviewed the following items ish (where applicable) has been applied. Medications: Current Medications Medications (Trade) Dose Ordered Sig/Greta Route PRN Reason Start Time Stop Time Status Last Admin Dose Admin Cefdinir (Omnicef) 300 mg BID PO 12/16/18 09:00 12/16/18 07:57 MARLO MERINO III DO Dec 16, 2018 14:43
[2018-12-16 15:00] VITALS: BP 131/73
[2018-12-16 19:40] VITALS: BP 151/76
[2018-12-16] MEDS: ATORVASTATIN CALCIUM 40 MG TABLET. PO SCH (22:01)
[2018-12-16] MEDS: PSYLLIUM HUSK (SUGAR FREE) 1 PKT PACKET PO SCH (22:01)
[2018-12-16] MEDS: INSULIN GLARGINE 300 UNITS/3 ML INSULN.PEN. SQ SCH (22:12)
[2018-12-16 23:15] VITALS: BP 155/86
[2018-12-17 03:25] VITALS: BP 152/79
[2018-12-17 07:00] VITALS: BP 146/78
[2018-12-17 07:37] LABS: BASO # 0.1 x10^3/uL (0.0-0.2); BASO % 1 % (0-3); EOS # 0.2 x10^3/uL (0.0-0.7); EOS % 2 % (0-3); HEMATOCRIT 29.1 % (39.0-53.0); HEMOGLOBIN 9.7 g/dL (13.0-17.5); LYMPH # 2.1 x10^3/uL (1.0-4.8); LYMPH % 24 % (24-48); MEAN CORPUSCULAR HEMOGLOBIN 28 pg (25-35); MEAN CORPUSCULAR HGB CONC 33 g/dL (31-37); MEAN CORPUSCULAR VOLUME 83 fL (79-100); MONO # 0.7 x10^3/uL (0.0-1.1); MONO % 8 % (0-9); NEUT # 5.5 x10^3/uL (1.8-7.7); NEUT % 64 % (31-73); PLATELET COUNT 247 x10^3/uL (140-400); RED CELL DISTRIBUTION WIDTH 13.8 % (11.5-14.5); WHITE BLOOD COUNT 8.6 x10^3/uL (4.0-11.0)
[2018-12-17 07:55] LABS: CALCIUM 8.3 mg/dL (8.5-10.1); CREATININE 4.6 mg/dL (0.7-1.3); GFR 16.4; POTASSIUM 4.3 mmol/L (3.5-5.1)
[2018-12-17] MEDS: INSULIN LISPRO 300 UNITS/3 ML INSULN.PEN. SQ SCH ×6 (08:00→17:00)
[2018-12-17] MEDS: CARVEDILOL 12.5 MG TABLET. PO SCH ×3 (08:00→17:47)
[2018-12-17] MEDS: GABAPENTIN 300 MG CAPSULE. PO SCH ×3 (09:00→21:10)
[2018-12-17] MEDS: LISINOPRIL 20 MG TABLET PO SCH ×2 (09:00→09:11)
[2018-12-17] MEDS: amLODIPine BESYLATE 10 MG TABLET PO SCH ×2 (09:00→09:11)
[2018-12-17] MEDS: ASPIRIN 325 MG TABLET PO SCH ×2 (09:00→09:11)
[2018-12-17] MEDS: LACTOBACILLUS RHAMNOSUS GG 1 CAPSULE. PO SCH ×3 (09:00→21:10)
[2018-12-17] MEDS: NICOTINE 21MG PATCH. TD SCH (09:11)
[2018-12-17] MEDS: POLYETHYLENE GLYCOL 3350 17 GM PACKET. PO SCH (09:11)
[2018-12-17] MEDS: HEPARIN for SUB-Q USE 5,000 UNIT/ML VIAL. SQ SCH ×2 (09:19→21:33)
--- NOTE | 2018-12-17 10:20 | NUR ---
SS following up with discharge planning. SS completed uninsurability questionnaire with pt and phoned and faxed questionnaire and flow sheets to [facility], [phone]; fax [phone]. [facility] contacted SS and notified SS that they have a tentative chair time scheduled at [facility] M,W,F third shift. [facility] reported that they would notify SS once confirmed.
[2018-12-17 11:00] VITALS: BP 150/77
[2018-12-17] MEDS ORDERED: IV NORMAL SALINE 1000ML BAG 1,000 ML IV PRN ×2 (12:18)
[2018-12-17] MEDS ORDERED: DIALYSIS PATIENT. MC PRN ×2 (12:30)
--- NOTE | 2018-12-17 13:51 | PDOC ---
SUBJECTIVE ROS Stable, No complaints OBJECTIVE Vital Signs Vital Signs Date Time Temp Pulse Resp B/P (MAP) Pulse Ox O2 Delivery O2 Flow Rate FiO2 12/17/18 11:00 99.0 92 14 150/77 (101) Room Air 94.0 99.0 12/17/18 07:00 91 I & 0 Intake and Output 12/17/18 07:00 Intake Total 300 ml Output Total 775 ml Balance -475 ml Intake Oral 300 ml Output Urine Total 775 ml PHYSICAL EXAM Physical Exam General Appearance: no apparent distress Skin: warm Respiratory: bilateral CTA Heart: S1S2 Abdomen: soft, bowel sounds present Genitourinary: bladder flat Extremities: pulses present Neurology: alert, oriented, follow commands DIAGNOSIS/ASSESSMENT Assessment & Plan New Onset ESRD- initiated on HD last week Renal US cw Chr Med disease HD x 1 On Monday , Good UOP Seen on HD today, tolerating well, continue as ordered, [facility] Access - Tunneled HDC , awaiting chair time HTN Urgency- better Anticipate improvement with HD/UF DM II-Per primary UTI COMMENT/RELEVANT DATA Meds Current Medications Medications (Trade) Dose Ordered Sig/Greta Start Time Stop Time Status Last Admin Dose Admin Acetaminophen (Tylenol) 500 mg 1X PRN PRN 12/14/18 09:45 12/15/18 09:44 DC Amlodipine Besylate (Norvasc) 10 mg DAILY 12/09/18 09:00 12/17/18 09:11 10 MG Aspirin (Arjun Aspirin) 325 mg DAILY 12/09/18 09:00 12/17/18 09:11 325 MG Aspirin (Children'S Aspirin) 324 mg 1X ONCE 12/09/18 01:00 12/09/18 01:01 DC 12/09/18 01:27 324 MG Atorvastatin Calcium (Lipitor) 40 mg HS 12/09/18 21:00 12/16/18 22:01 40 MG Bisacodyl (Dulcolax Tab) 5 mg PRN DAILY PRN 12/13/18 23:15 12/15/18 21:39 5 MG Carvedilol (Coreg) 12.5 mg 1X ONCE 12/12/18 12:15 12/12/18 12:16 DC 12/12/18 13:50 12.5 MG Cefazolin Sodium/ Dextrose 50 ml @ 100 mls/hr 1X ONCE 12/12/18 16:00 12/12/18 16:29 DC 12/12/18 16:11 100 MLS/HR Cefdinir (Omnicef) 300 mg BID 12/16/18 09:00 12/16/18 16:01 DC 12/16/18 07:57 300 MG Ceftriaxone Sodium (Rocephin) 1 gm Q24H 12/11/18 14:00 12/15/18 15:41 DC 12/15/18 14:07 1 GM Dextrose (Dextrose 50%-Water Syringe) 12.5 gm PRN Q15MIN PRN 12/10/18 14:45 12/13/18 08:29 12.5 GM Diphenhydramine HCl (Benadryl) 25 mg 1X PRN PRN 12/14/18 09:45 12/15/18 09:44 DC Fentanyl Citrate (Fentanyl 2ml Vial) 100 mcg 1X ONCE 12/12/18 16:00 12/12/18 16:01 DC 12/12/18 16:10 100 MCG Furosemide (Lasix) 40 mg 1X ONCE 12/09/18 01:00 12/09/18 01:01 DC 12/09/18 01:33 40 MG Gabapentin (Neurontin) 300 mg BID 12/12/18 21:00 12/17/18 09:11 300 MG Heparin Sodium (Porcine) (Heparin Sodium) 2,600 unit 1X ONCE 12/12/18 16:00 12/12/18 16:01 Cancel Hydralazine HCl (Apresoline Inj) 10 mg PRN Q4HRS PRN 12/10/18 11:30 12/11/18 08:23 10 MG Hydralazine HCl (Apresoline) 50 mg BID 12/11/18 09:00 12/17/18 09:11 50 MG Info (PHARMACY MONITORING -- do not chart) 1 each PRN DAILY PRN 12/17/18 12:30 Insulin Glargine (Lantus) 20 units QHS 12/09/18 21:00 12/16/18 22:12 20 UNITS Insulin Human Lispro (HumaLOG) 0-9 UNITS TIDWMEALS 12/10/18 17:00 12/16/18 12:21 4 UNITS Labetalol HCl (Normodyne Iv Push) 20 mg PRN Q2HR PRN 12/09/18 00:45 12/10/18 09:48 20 MG Lactobacillus Rhamnosus (Culturelle) 1 cap BID 12/13/18 21:00 12/17/18 09:10 1 CAP Lidocaine/ Epinephrine (LIDOCAINE 1%-EPI 1:100,000 Multi-Dose) 20 ml 1X ONCE 12/12/18 16:00 12/12/18 16:01 DC 12/12/18 16:09 12 ML Lisinopril (Prinivil) 20 mg DAILY 12/14/18 09:00 12/17/18 09:11 20 MG Metoprolol Tartrate (Lopressor) 50 mg BID 12/10/18 21:00 12/11/18 09:01 DC 12/11/18 08:19 50 MG Midazolam HCl (Versed) 2 mg 1X ONCE 12/12/18 16:00 12/12/18 16:01 DC 12/12/18 16:10 2 MG Morphine Sulfate (Morphine Sulfate) 2 mg PRN Q2HR PRN 12/09/18 00:45 12/10/18 00:44 DC Nicardipine HCl 50 mg/Sodium Chloride 250 ml @ 25 mls/hr CONT PRN 12/09/18 02:30 12/09/18 14:44 45 MLS/HR Nicotine (Nicoderm Cq 21mg) 1 patch DAILY 12/09/18 02:00 12/17/18 09:11 1 PATCH Nitroglycerin/ Dextrose 250 ml @ 0 mls/hr 1X ONCE 12/09/18 01:00 12/09/18 02:27 DC 12/09/18 01:39 1.5 MLS/HR Polyethylene Glycol (miraLAX PACKET) 17 gm PRN BID PRN 12/10/18 20:15 Cancel Potassium Chloride (Klor-Con) 40 meq 1X ONCE 12/09/18 01:00 12/09/18 01:01 DC 12/09/18 01:27 40 MEQ Psyllium Hydrophilic Mucilloid (Metamucil Fiber Packet) 1 pkt PRN DAILY PRN 12/10/18 20:15 Cancel Sodium Chloride 1,000 ml @ 400 mls/hr Q2H30M PRN 12/17/18 12:18 12/18/18 00:17 Lab Laboratory Tests Test 12/16/18 17:15 12/16/18 21:01 12/17/18 06:17 12/17/18 07:33 Glucose (Fingerstick) 69 mg/dL (70-99) 187 mg/dL (70-99) 135 mg/dL (70-99) White Blood Count 8.6 x10^3/uL (4.0-11.0) Red Blood Count 3.50 x10^6/uL (4.30-5.70) Hemoglobin 9.7 g/dL (13.0-17.5) Hematocrit 29.1 % (39.0-53.0) Mean Corpuscular Volume 83 fL (79-100) Mean Corpuscular Hemoglobin 28 pg (25-35) Mean Corpuscular Hemoglobin Concent 33 g/dL (31-37) Red Cell Distribution Width 13.8 % (11.5-14.5) Platelet Count 247 x10^3/uL (140-400) Neutrophils (%) (Auto) 64 % (31-73) Lymphocytes (%) (Auto) 24 % (24-48) Monocytes (%) (Auto) 8 % (0-9) Eosinophils (%) (Auto) 2 % (0-3) Basophils (%) (Auto) 1 % (0-3) Neutrophils # (Auto) 5.5 x10^3/uL (1.8-7.7) Lymphocytes # (Auto) 2.1 x10^3/uL (1.0-4.8) Monocytes # (Auto) 0.7 x10^3/uL (0.0-1.1) Eosinophils # (Auto) 0.2 x10^3/uL (0.0-0.7) Basophils # (Auto) 0.1 x10^3/uL (0.0-0.2) Sodium Level 144 mmol/L (136-145) Potassium Level 4.3 mmol/L (3.5-5.1) Chloride Level 106 mmol/L (98-107) Carbon Dioxide Level 28 mmol/L (21-32) Anion Gap 10 (6-14) Blood Urea Nitrogen 69 mg/dL (8-26) Creatinine 4.6 mg/dL (0.7-1.3) Estimated GFR (Cockcroft-Gault) 16.4 Glucose Level 135 mg/dL (70-99) Calcium Level 8.3 mg/dL (8.5-10.1) Test 12/17/18 12:02 Glucose (Fingerstick) 126 mg/dL (70-99) Results All relevant outside records, renal labs, imaging studies, telemetry/EKG's were reviewed. SOCO JACOBS MD Dec 17, 2018 13:51
--- NOTE | 2018-12-17 15:50 | NUR ---
Transfer: Patient currently in dialysis. Report called to [address] [place] [address] ext. [phone]. Report called to Leandra at [phone]. Patients room packed and belongings moved to new room. Chart with patient in dialysis
[2018-12-17 17:30] VITALS: BP 174/91
[2018-12-17 19:00] VITALS: BP 178/107
[2018-12-17] MEDS: PSYLLIUM HUSK (SUGAR FREE) 1 PKT PACKET PO SCH (21:00)
[2018-12-17] MEDS: ATORVASTATIN CALCIUM 40 MG TABLET. PO SCH (21:16)
[2018-12-17] MEDS: INSULIN GLARGINE 300 UNITS/3 ML INSULN.PEN. SQ SCH (21:34)
[2018-12-17] MEDS: hydrALAZINE 20 MG/ML VIAL. IVP PRN (22:38)
[2018-12-17 23:00] VITALS: BP 181/101
[2018-12-18 03:00] VITALS: BP 158/90
[2018-12-18 07:00] VITALS: BP 145/77
[2018-12-18] MEDS: INSULIN LISPRO 300 UNITS/3 ML INSULN.PEN. SQ SCH ×6 (08:00→17:24)
[2018-12-18 08:36] LABS: BASO # 0.1 x10^3/uL (0.0-0.2); BASO % 1 % (0-3); EOS # 0.1 x10^3/uL (0.0-0.7); EOS % 2 % (0-3); HEMATOCRIT 26.8 % (39.0-53.0); LYMPH % 27 % (24-48); MEAN CORPUSCULAR HEMOGLOBIN 28 pg (25-35); MEAN CORPUSCULAR HGB CONC 34 g/dL (31-37); MEAN CORPUSCULAR VOLUME 83 fL (79-100); MONO # 0.8 x10^3/uL (0.0-1.1); MONO % 11 % (0-9); NEUT # 4.3 x10^3/uL (1.8-7.7); NEUT % 59 % (31-73); PLATELET COUNT 223 x10^3/uL (140-400); RED BLOOD COUNT 3.23 x10^6/uL (4.30-5.70); WHITE BLOOD COUNT 7.4 x10^3/uL (4.0-11.0)
[2018-12-18 08:44] LABS: CALCIUM 7.8 mg/dL (8.5-10.1); CREATININE 3.7 mg/dL (0.7-1.3); GFR 21.1; POTASSIUM 4.4 mmol/L (3.5-5.1)
[2018-12-18] MEDS: LACTOBACILLUS RHAMNOSUS GG 1 CAPSULE. PO SCH ×2 (09:25→21:03)
[2018-12-18] MEDS: ASPIRIN 325 MG TABLET PO SCH (09:25)
[2018-12-18] MEDS: CARVEDILOL 12.5 MG TABLET. PO SCH ×2 (09:26→17:21)
[2018-12-18] MEDS: GABAPENTIN 300 MG CAPSULE. PO SCH ×2 (09:26→21:03)
[2018-12-18] MEDS: LISINOPRIL 20 MG TABLET PO SCH (09:27)
[2018-12-18] MEDS: POLYETHYLENE GLYCOL 3350 17 GM PACKET. PO SCH (09:28)
[2018-12-18] MEDS: amLODIPine BESYLATE 10 MG TABLET PO SCH (09:28)
[2018-12-18] MEDS: HEPARIN for SUB-Q USE 5,000 UNIT/ML VIAL. SQ SCH ×2 (09:34→21:10)
[2018-12-18] MEDS: NICOTINE 21MG PATCH. TD SCH (09:36)
[2018-12-18] MEDS ORDERED: ONDANSETRON PF 4 MG/2 ML VIAL. IV PRN (10:30)
[2018-12-18] MEDS ORDERED: ACETAMINOPHEN/CODEINE 300/30MG TABLET. PO PRN (10:30)
[2018-12-18] MEDS ORDERED: ACETAMINOPHEN 500 MG TABLET PO PRN (10:30)
[2018-12-18] MEDS ORDERED: diphenhydrAMINE HCL 25 MG CAPSULE PO PRN (10:30)
[2018-12-18] MEDS ORDERED: CARV12.511 PO (10:34)
[2018-12-18] MEDS ORDERED: LISI-334 PO (10:34)
[2018-12-18] MEDS ORDERED: AMLO10TA8 PO (10:34)
[2018-12-18] MEDS ORDERED: Nicotine 21MG TD (10:34)
[2018-12-18] MEDS ORDERED: HYDR-2869 PO (10:34)
[2018-12-18 10:47] VITALS: BP 148/76
--- NOTE | 2018-12-18 11:42 | PDOC3 ---
Discharge Summary Visit Information Date of Admission: Dec 09, 2018 Date of Discharge: Dec 18, 2018 Admitting Diagnosis Comment: new ESRD-chair time under Monday temporarily Anemia of ESRD Accelerated hypertension/htn emergency POA better Final Diagnosis Problems Medical Problems: (1) Hypertensive emergency Status: Acute Brief Hospital Course Allergies Allergies Coded Allergies Type Severity Reaction Last Updated Verified No Known Drug Allergies 06/10/13 No Vital Signs Vital Signs Date Time Temp Pulse Resp B/P (MAP) Pulse Ox O2 Delivery O2 Flow Rate FiO2 12/18/18 10:47 98.0 87 18 148/76 (100) 96 Room Air 98.0 12/17/18 11:00 94.0 Lab Results Laboratory Tests Test 12/16/18 11:57 12/16/18 17:15 12/16/18 21:01 12/17/18 06:17 Glucose (Fingerstick) 169 mg/dL (70-99) 69 mg/dL (70-99) 187 mg/dL (70-99) White Blood Count 8.6 x10^3/uL (4.0-11.0) Red Blood Count 3.50 x10^6/uL (4.30-5.70) Hemoglobin 9.7 g/dL (13.0-17.5) Hematocrit 29.1 % (39.0-53.0) Mean Corpuscular Volume 83 fL (79-100) Mean Corpuscular Hemoglobin 28 pg (25-35) Mean Corpuscular Hemoglobin Concent 33 g/dL (31-37) Red Cell Distribution Width 13.8 % (11.5-14.5) Platelet Count 247 x10^3/uL (140-400) Neutrophils (%) (Auto) 64 % (31-73) Lymphocytes (%) (Auto) 24 % (24-48) Monocytes (%) (Auto) 8 % (0-9) Eosinophils (%) (Auto) 2 % (0-3) Basophils (%) (Auto) 1 % (0-3) Neutrophils # (Auto) 5.5 x10^3/uL (1.8-7.7) Lymphocytes # (Auto) 2.1 x10^3/uL (1.0-4.8) Monocytes # (Auto) 0.7 x10^3/uL (0.0-1.1) Eosinophils # (Auto) 0.2 x10^3/uL (0.0-0.7) Basophils # (Auto) 0.1 x10^3/uL (0.0-0.2) Sodium Level 144 mmol/L (136-145) Potassium Level 4.3 mmol/L (3.5-5.1) Chloride Level 106 mmol/L (98-107) Carbon Dioxide Level 28 mmol/L (21-32) Anion Gap 10 (6-14) Blood Urea Nitrogen 69 mg/dL (8-26) Creatinine 4.6 mg/dL (0.7-1.3) Estimated GFR (Cockcroft-Gault) 16.4 Glucose Level 135 mg/dL (70-99) Calcium Level 8.3 mg/dL (8.5-10.1) Test 12/17/18 07:33 12/17/18 12:02 12/17/18 17:41 12/17/18 20:37 Glucose (Fingerstick) 135 mg/dL (70-99) 126 mg/dL (70-99) 83 mg/dL (70-99) 204 mg/dL (70-99) Test 12/18/18 07:27 12/18/18 07:53 12/18/18 11:17 Glucose (Fingerstick) 126 mg/dL (70-99) 100 mg/dL (70-99) White Blood Count 7.4 x10^3/uL (4.0-11.0) Red Blood Count 3.23 x10^6/uL (4.30-5.70) Hemoglobin 9.0 g/dL (13.0-17.5) Hematocrit 26.8 % (39.0-53.0) Mean Corpuscular Volume 83 fL (79-100) Mean Corpuscular Hemoglobin 28 pg (25-35) Mean Corpuscular Hemoglobin Concent 34 g/dL (31-37) Red Cell Distribution Width 14.0 % (11.5-14.5) Platelet Count 223 x10^3/uL (140-400) Neutrophils (%) (Auto) 59 % (31-73) Lymphocytes (%) (Auto) 27 % (24-48) Monocytes (%) (Auto) 11 % (0-9) Eosinophils (%) (Auto) 2 % (0-3) Basophils (%) (Auto) 1 % (0-3) Neutrophils # (Auto) 4.3 x10^3/uL (1.8-7.7) Lymphocytes # (Auto) 2.0 x10^3/uL (1.0-4.8) Monocytes # (Auto) 0.8 x10^3/uL (0.0-1.1) Eosinophils # (Auto) 0.1 x10^3/uL (0.0-0.7) Basophils # (Auto) 0.1 x10^3/uL (0.0-0.2) Sodium Level 141 mmol/L (136-145) Potassium Level 4.4 mmol/L (3.5-5.1) Chloride Level 104 mmol/L (98-107) Carbon Dioxide Level 31 mmol/L (21-32) Anion Gap 6 (6-14) Blood Urea Nitrogen 42 mg/dL (8-26) Creatinine 3.7 mg/dL (0.7-1.3) Estimated GFR (Cockcroft-Gault) 21.1 Glucose Level 128 mg/dL (70-99) Calcium Level 7.8 mg/dL (8.5-10.1) Laboratory Tests Test 12/17/18 12:02 12/17/18 17:41 12/17/18 20:37 12/18/18 07:27 Glucose (Fingerstick) 126 mg/dL (70-99) 83 mg/dL (70-99) 204 mg/dL (70-99) 126 mg/dL (70-99) Test 12/18/18 07:53 12/18/18 11:17 White Blood Count 7.4 x10^3/uL (4.0-11.0) Red Blood Count 3.23 x10^6/uL (4.30-5.70) Hemoglobin 9.0 g/dL (13.0-17.5) Hematocrit 26.8 % (39.0-53.0) Mean Corpuscular Volume 83 fL (79-100) Mean Corpuscular Hemoglobin 28 pg (25-35) Mean Corpuscular Hemoglobin Concent 34 g/dL (31-37) Red Cell Distribution Width 14.0 % (11.5-14.5) Platelet Count 223 x10^3/uL (140-400) Neutrophils (%) (Auto) 59 % (31-73) Lymphocytes (%) (Auto) 27 % (24-48) Monocytes (%) (Auto) 11 % (0-9) Eosinophils (%) (Auto) 2 % (0-3) Basophils (%) (Auto) 1 % (0-3) Neutrophils # (Auto) 4.3 x10^3/uL (1.8-7.7) Lymphocytes # (Auto) 2.0 x10^3/uL (1.0-4.8) Monocytes # (Auto) 0.8 x10^3/uL (0.0-1.1) Eosinophils # (Auto) 0.1 x10^3/uL (0.0-0.7) Basophils # (Auto) 0.1 x10^3/uL (0.0-0.2) Sodium Level 141 mmol/L (136-145) Potassium Level 4.4 mmol/L (3.5-5.1) Chloride Level 104 mmol/L (98-107) Carbon Dioxide Level 31 mmol/L (21-32) Anion Gap 6 (6-14) Blood Urea Nitrogen 42 mg/dL (8-26) Creatinine 3.7 mg/dL (0.7-1.3) Estimated GFR (Cockcroft-Gault) 21.1 Glucose Level 128 mg/dL (70-99) Calcium Level 7.8 mg/dL (8.5-10.1) Glucose (Fingerstick) 100 mg/dL (70-99) Brief Hospital Course Mr. Garcia is a 48 old male who came in with blood pressure over 200s and renal failure. Blood pressure is better- needed to up some of his regimen and start some of new BP meds. Now will be on 4 BP meds. Unfortunately, kidneys did not recover and now is doing ESRD with temp HD MWF He has a tunneled dialysis catheter on the right subclavian Discharge disposition home independent with no PT needs We'll DC today and all Rx on chart-once chair time has been set up Patient seen and examined consulT: renal Proc; tunnelled HD cath Discharge Information Condition at Discharge: Improved, Stable Disposition/Orders: D/C to Home Scheduled Amlodipine Besylate (Amlodipine Besylate) 10 Mg Tablet, 10 MG PO DAILY for HTN, #60 Prescribed by: CHRIS NUNEZ on 12/18/18 1034 Aspirin (Aspirin) 325 Mg Tablet, 325 MG PO DAILY for HTN, (Reported) Entered as Reported by: ALICIA PASCUAL on 10/30/17 0931 Last Taken: Unknown Dose on 12/08/18 Last Action: Continued on 12/09/18 0850 by UBALDO JOYCE Atorvastatin Calcium (Atorvastatin Calcium) 40 Mg Tablet, 40 MG PO HS for FOR CHOLESTEROL, #30 Ref 0 (Reported) Entered as Reported by: Shelbie Duran RPH on 10/25/17 1239 Last Taken: Unknown Dose on 12/07/18 Last Action: Continued on 12/09/18 0850 by UBALDO JOYCE Carvedilol (Coreg ) 6.25 Mg Tablet, 6.25 MG PO BIDWMEALS for HTN, (Reported) Entered as Reported by: ALICIA PASCUAL on 10/30/17 0932 Last Taken: Unknown Dose on 12/08/18 Last Action: Continued on 12/09/18 0850 by UBALDO JOYCE Carvedilol (Carvedilol ) 12.5 Mg Tablet, 25 MG PO BIDWMEALS for htn, #60 Prescribed by: CHRIS NUNEZ on 12/18/18 1034 Gabapentin (Gabapentin ) 100 Mg Capsule, 100 MG PO BID for NEUROGENIC PAIN, (Reported) Entered as Reported by: ABELARDO RIVERA on 12/09/18 0347 Last Taken: Unknown Dose on 12/08/18 Last Action: Continued on 12/09/18 0850 by UBALDO JOYCE Hydralazine Hcl (Hydralazine Hcl) 50 Mg Tablet, 50 MG PO BID for htn, #60 Prescribed by: CHRIS NUNEZ on 12/18/18 1034 Insulin Aspart (Novolog) 100 Unit/1 Ml Cartridge, 10 UNIT SQ TIDAC for DM, (Reported) Entered as Reported by: ALICIA PASCUAL on 10/30/17 1026 Last Taken: Unknown Dose on 12/08/18 Last Action: Converted on 12/09/18 0850 by UBALDO JOYCE Insulin Glargine,Hum.rec.anlog (Lantus Solostar) 100 Unit/1 Ml Insuln.pen, 20 UNIT SQ QHS for DM, #15 Ref 5 (Reported) Entered as Reported by: ALICIA PASCUAL on 10/30/17 1025 Last Taken: Unknown Dose on 12/08/18 Last Action: Continued on 12/09/18 0850 by UBALDO JOYCE Lisinopril (Lisinopril) 5 Mg Tablet, 5 MG PO DAILY for FOR HYPERTENSION, #30 Ref 0 (Reported) Entered as Reported by: ALICIA PASCUAL on 10/30/17 0933 Last Taken: Unknown Dose on 12/08/18 Last Action: Last Taken Edited on 12/09/18 0347 by ABELARDO RIVERA Lisinopril (Lisinopril) 20 Mg Tablet, 1 TAB PO DAILY for htn, #90 Ref 5 Prescribed by: CHRIS NUNEZ on 12/18/18 1034 [Nicotine 21MG] 1 PATCH PATCH, 1 PATCH TD DAILY for smoking cessation for 10 Days Prescribed by: CHRIS NUNEZ on 12/18/18 1034 CHRIS NUNEZ MD Dec 18, 2018 11:42
--- NOTE | 2018-12-18 11:46 | PDOC ---
SUBJECTIVE ROS Stable, No complaints OBJECTIVE Vital Signs Vital Signs Date Time Temp Pulse Resp B/P (MAP) Pulse Ox O2 Delivery O2 Flow Rate FiO2 12/18/18 10:47 98.0 87 18 148/76 (100) 96 Room Air 98.0 12/17/18 11:00 94.0 I & 0 Intake and Output 12/18/18 07:00 Intake Total 850 ml Output Total 1450 ml Balance -600 ml Intake Oral 850 ml Output Urine Total 1450 ml # Voids 3 PHYSICAL EXAM Physical Exam General Appearance: no apparent distress Skin: warm Respiratory: bilateral CTA Heart: S1S2 Abdomen: soft, bowel sounds present Genitourinary: bladder flat Extremities: pulses present Neurology: alert, oriented, follow commands DIAGNOSIS/ASSESSMENT Assessment & Plan New Onset ESRD- initiated on HD last week Renal US cw Chr Med disease , has RRF No Indication for HD today Access - Tunneled HDC , awaiting chair time HTN Urgency- better Anticipate improvement with HD/UF DM II-Per primary UTI COMMENT/RELEVANT DATA Meds Current Medications Medications (Trade) Dose Ordered Sig/Greta Start Time Stop Time Status Last Admin Dose Admin Acetaminophen (Tylenol) 500 mg PRN Q6HRS PRN 12/18/18 10:30 Acetaminophen/ Codeine Phosphate (Tylenol #3) 1 tab PRN Q6HRS PRN 12/18/18 10:30 Amlodipine Besylate (Norvasc) 10 mg DAILY 12/09/18 09:00 12/18/18 09:28 10 MG Aspirin (Arjun Aspirin) 325 mg DAILY 12/09/18 09:00 12/18/18 09:25 325 MG Aspirin (Children'S Aspirin) 324 mg 1X ONCE 12/09/18 01:00 12/09/18 01:01 DC 12/09/18 01:27 324 MG Atorvastatin Calcium (Lipitor) 40 mg HS 12/09/18 21:00 12/17/18 21:16 40 MG Bisacodyl (Dulcolax Tab) 5 mg PRN DAILY PRN 12/13/18 23:15 12/15/18 21:39 5 MG Carvedilol (Coreg) 12.5 mg 1X ONCE 12/12/18 12:15 12/12/18 12:16 DC 12/12/18 13:50 12.5 MG Cefazolin Sodium/ Dextrose 50 ml @ 100 mls/hr 1X ONCE 12/12/18 16:00 12/12/18 16:29 DC 12/12/18 16:11 100 MLS/HR Cefdinir (Omnicef) 300 mg BID 12/16/18 09:00 12/16/18 16:01 DC 12/16/18 07:57 300 MG Ceftriaxone Sodium (Rocephin) 1 gm Q24H 12/11/18 14:00 12/15/18 15:41 DC 12/15/18 14:07 1 GM Dextrose (Dextrose 50%-Water Syringe) 12.5 gm PRN Q15MIN PRN 12/10/18 14:45 12/13/18 08:29 12.5 GM Diphenhydramine HCl (Benadryl) 25 mg PRN QHS PRN 12/18/18 10:30 Fentanyl Citrate (Fentanyl 2ml Vial) 100 mcg 1X ONCE 12/12/18 16:00 12/12/18 16:01 DC 12/12/18 16:10 100 MCG Furosemide (Lasix) 40 mg 1X ONCE 12/09/18 01:00 12/09/18 01:01 DC 12/09/18 01:33 40 MG Gabapentin (Neurontin) 300 mg BID 12/12/18 21:00 12/18/18 09:26 300 MG Heparin Sodium (Porcine) (Heparin Sodium) 2,600 unit 1X ONCE 12/12/18 16:00 12/12/18 16:01 Cancel Hydralazine HCl (Apresoline Inj) 10 mg PRN Q4HRS PRN 12/10/18 11:30 12/17/18 22:38 10 MG Hydralazine HCl (Apresoline) 50 mg BID 12/11/18 09:00 12/18/18 09:27 50 MG Info (PHARMACY MONITORING -- do not chart) 1 each PRN DAILY PRN 12/17/18 12:30 Insulin Glargine (Lantus) 20 units QHS 12/09/18 21:00 12/17/18 21:34 20 UNITS Insulin Human Lispro (HumaLOG) 0-9 UNITS TIDWMEALS 12/10/18 17:00 12/16/18 12:21 4 UNITS Labetalol HCl (Normodyne Iv Push) 20 mg PRN Q2HR PRN 7/21/19 00:45 12/10/18 09:48 20 MG Lactobacillus Rhamnosus (Culturelle) 1 cap BID 12/13/18 21:00 12/18/18 09:25 1 CAP Lidocaine/ Epinephrine (LIDOCAINE 1%-EPI 1:100,000 Multi-Dose) 20 ml 1X ONCE 12/12/18 16:00 12/12/18 16:01 DC 12/12/18 16:09 12 ML Lisinopril (Prinivil) 20 mg DAILY 12/14/18 09:00 12/18/18 09:27 20 MG Metoprolol Tartrate (Lopressor) 50 mg BID 12/10/18 21:00 12/11/18 09:01 DC 12/11/18 08:19 50 MG Midazolam HCl (Versed) 2 mg 1X ONCE 12/12/18 16:00 12/12/18 16:01 DC 12/12/18 16:10 2 MG Morphine Sulfate (Morphine Sulfate) 2 mg PRN Q2HR PRN 12/09/18 00:45 12/10/18 00:44 DC Nicardipine HCl 50 mg/Sodium Chloride 250 ml @ 25 mls/hr CONT PRN 12/09/18 02:30 12/18/18 10:30 DC 12/09/18 14:44 45 MLS/HR Nicotine (Nicoderm Cq 21mg) 1 patch DAILY 12/09/18 02:00 12/18/18 09:36 1 PATCH Nitroglycerin/ Dextrose 250 ml @ 0 mls/hr 1X ONCE 12/09/18 01:00 12/09/18 02:27 DC 12/09/18 01:39 1.5 MLS/HR Ondansetron HCl (Zofran) 4 mg PRN Q6HRS PRN 12/18/18 10:30 Polyethylene Glycol (miraLAX PACKET) 17 gm PRN BID PRN 12/10/18 20:15 Cancel Potassium Chloride (Klor-Con) 40 meq 1X ONCE 12/09/18 01:00 12/09/18 01:01 DC 12/09/18 01:27 40 MEQ Psyllium Hydrophilic Mucilloid (Metamucil Fiber Packet) 1 pkt PRN DAILY PRN 12/10/18 20:15 Cancel Sodium Chloride 1,000 ml @ 400 mls/hr Q2H30M PRN 12/17/18 12:18 12/18/18 00:17 DC Lab Laboratory Tests Test 12/17/18 12:02 12/17/18 17:41 12/17/18 20:37 12/18/18 07:27 Glucose (Fingerstick) 126 mg/dL (70-99) 83 mg/dL (70-99) 204 mg/dL (70-99) 126 mg/dL (70-99) Test 12/18/18 07:53 12/18/18 11:17 White Blood Count 7.4 x10^3/uL (4.0-11.0) Red Blood Count 3.23 x10^6/uL (4.30-5.70) Hemoglobin 9.0 g/dL (13.0-17.5) Hematocrit 26.8 % (39.0-53.0) Mean Corpuscular Volume 83 fL (79-100) Mean Corpuscular Hemoglobin 28 pg (25-35) Mean Corpuscular Hemoglobin Concent 34 g/dL (31-37) Red Cell Distribution Width 14.0 % (11.5-14.5) Platelet Count 223 x10^3/uL (140-400) Neutrophils (%) (Auto) 59 % (31-73) Lymphocytes (%) (Auto) 27 % (24-48) Monocytes (%) (Auto) 11 % (0-9) Eosinophils (%) (Auto) 2 % (0-3) Basophils (%) (Auto) 1 % (0-3) Neutrophils # (Auto) 4.3 x10^3/uL (1.8-7.7) Lymphocytes # (Auto) 2.0 x10^3/uL (1.0-4.8) Monocytes # (Auto) 0.8 x10^3/uL (0.0-1.1) Eosinophils # (Auto) 0.1 x10^3/uL (0.0-0.7) Basophils # (Auto) 0.1 x10^3/uL (0.0-0.2) Sodium Level 141 mmol/L (136-145) Potassium Level 4.4 mmol/L (3.5-5.1) Chloride Level 104 mmol/L (98-107) Carbon Dioxide Level 31 mmol/L (21-32) Anion Gap 6 (6-14) Blood Urea Nitrogen 42 mg/dL (8-26) Creatinine 3.7 mg/dL (0.7-1.3) Estimated GFR (Cockcroft-Gault) 21.1 Glucose Level 128 mg/dL (70-99) Calcium Level 7.8 mg/dL (8.5-10.1) Glucose (Fingerstick) 100 mg/dL (70-99) Results All relevant outside records, renal labs, imaging studies, telemetry/EKG's were reviewed. SOCO JACOBS MD Dec 18, 2018 11:46
--- NOTE | 2018-12-18 13:45 | NUR ---
SW following Pt. Spoke with is Kobe Quiroz Ext. [phone] at [facility], Pt is financially cleared but still waiting on acceptance decision from clinic. Kobe Quiroz has left a message for assistant facility manager at [facility]. Chair time pending. Discussed with RN.
[2018-12-18 15:00] VITALS: BP 142/82
[2018-12-18 19:00] VITALS: BP 139/80
[2018-12-18] MEDS: ATORVASTATIN CALCIUM 40 MG TABLET. PO SCH (21:04)
[2018-12-18] MEDS: PSYLLIUM HUSK (SUGAR FREE) 1 PKT PACKET PO SCH (21:04)
[2018-12-18] MEDS: INSULIN GLARGINE 300 UNITS/3 ML INSULN.PEN. SQ SCH (21:11)
[2018-12-18 23:00] VITALS: BP 144/88
[2018-12-19 03:00] VITALS: BP 144/88
[2018-12-19 07:00] VITALS: BP 164/84
[2018-12-19] MEDS: INSULIN LISPRO 300 UNITS/3 ML INSULN.PEN. SQ SCH ×4 (08:00→11:18)
[2018-12-19] MEDS: CARVEDILOL 12.5 MG TABLET. PO SCH (08:02)
[2018-12-19] MEDS: amLODIPine BESYLATE 10 MG TABLET PO SCH (08:02)
[2018-12-19 08:03] LABS: BASO # 0.1 x10^3/uL (0.0-0.2); BASO % 1 % (0-3); EOS # 0.2 x10^3/uL (0.0-0.7); EOS % 3 % (0-3); HEMATOCRIT 26.9 % (39.0-53.0); HEMOGLOBIN 8.9 g/dL (13.0-17.5); LYMPH # 1.8 x10^3/uL (1.0-4.8); LYMPH % 26 % (24-48); MEAN CORPUSCULAR HEMOGLOBIN 28 pg (25-35); MEAN CORPUSCULAR HGB CONC 33 g/dL (31-37); MEAN CORPUSCULAR VOLUME 83 fL (79-100); MONO # 0.7 x10^3/uL (0.0-1.1); MONO % 10 % (0-9); NEUT # 4.1 x10^3/uL (1.8-7.7); NEUT % 59 % (31-73); PLATELET COUNT 232 x10^3/uL (140-400); RED BLOOD COUNT 3.25 x10^6/uL (4.30-5.70); RED CELL DISTRIBUTION WIDTH 13.8 % (11.5-14.5)
[2018-12-19] MEDS: LACTOBACILLUS RHAMNOSUS GG 1 CAPSULE. PO SCH (08:03)
[2018-12-19] MEDS: ASPIRIN 325 MG TABLET PO SCH (08:03)
[2018-12-19] MEDS: NICOTINE 21MG PATCH. TD SCH (08:03)
[2018-12-19] MEDS: GABAPENTIN 300 MG CAPSULE. PO SCH (08:03)
[2018-12-19] MEDS: LISINOPRIL 20 MG TABLET PO SCH (08:03)
[2018-12-19] MEDS: POLYETHYLENE GLYCOL 3350 17 GM PACKET. PO SCH (08:04)
[2018-12-19] MEDS: HEPARIN for SUB-Q USE 5,000 UNIT/ML VIAL. SQ SCH (08:10)
--- NOTE | 2018-12-19 09:04 | NUR ---
Spoke with [facility] Admission and still awaiting on clinic to accept pt. SW left a voice mail to Louise at [facility] requesting a call back.
[2018-12-19 09:18] LABS: CALCIUM 7.9 mg/dL (8.5-10.1); CREATININE 4.4 mg/dL (0.7-1.3); GFR 17.3; POTASSIUM 4.7 mmol/L (3.5-5.1)
--- NOTE | 2018-12-19 09:39 | PDOC ---
SUBJECTIVE ROS Stable, seen on HD, No complaints OBJECTIVE Vital Signs Vital Signs Date Time Temp Pulse Resp B/P (MAP) Pulse Ox O2 Delivery O2 Flow Rate FiO2 12/19/18 08:03 85 168/72 12/19/18 08:00 Room Air 94.0 12/19/18 07:00 98.1 16 93 98.1 I & 0 Intake and Output 12/19/18 07:00 Intake Total 500 ml Balance 500 ml Intake Oral 500 ml # Voids 4 PHYSICAL EXAM Physical Exam General Appearance: no apparent distress Skin: warm Respiratory: bilateral CTA Heart: S1S2 Abdomen: soft, bowel sounds present Genitourinary: No Martínez Extremities: pulses present Neurology: alert, oriented, follow commands DIAGNOSIS/ASSESSMENT Assessment & Plan New Onset ESRD- initiated on HD last week Renal US cw Chr Med disease Seen on HD today, tolerating well, continue as ordered, [facility] Access - Tunneled HDC , awaiting chair time HTN - BP High UF 2-3 Lts as tolerated Continue Antihypertensives DM II-Per primary UTI COMMENT/RELEVANT DATA Meds Current Medications Medications (Trade) Dose Ordered Sig/Greta Start Time Stop Time Status Last Admin Dose Admin Acetaminophen (Tylenol) 500 mg PRN Q6HRS PRN 12/18/18 10:30 Acetaminophen/ Codeine Phosphate (Tylenol #3) 1 tab PRN Q6HRS PRN 12/18/18 10:30 Amlodipine Besylate (Norvasc) 10 mg DAILY 12/09/18 09:00 12/19/18 08:02 10 MG Aspirin (Arjun Aspirin) 325 mg DAILY 12/09/18 09:00 12/19/18 08:03 325 MG Aspirin (Children'S Aspirin) 324 mg 1X ONCE 12/09/18 01:00 12/09/18 01:01 DC 12/09/18 01:27 324 MG Atorvastatin Calcium (Lipitor) 40 mg HS 12/09/18 21:00 12/18/18 21:04 40 MG Bisacodyl (Dulcolax Tab) 5 mg PRN DAILY PRN 12/13/18 23:15 12/15/18 21:39 5 MG Carvedilol (Coreg) 12.5 mg 1X ONCE 12/12/18 12:15 12/12/18 12:16 DC 12/12/18 13:50 12.5 MG Cefazolin Sodium/ Dextrose 50 ml @ 100 mls/hr 1X ONCE 12/12/18 16:00 12/12/18 16:29 DC 12/12/18 16:11 100 MLS/HR Cefdinir (Omnicef) 300 mg BID 12/16/18 09:00 12/16/18 16:01 DC 12/16/18 07:57 300 MG Ceftriaxone Sodium (Rocephin) 1 gm Q24H 12/11/18 14:00 12/15/18 15:41 DC 12/15/18 14:07 1 GM Dextrose (Dextrose 50%-Water Syringe) 12.5 gm PRN Q15MIN PRN 12/10/18 14:45 12/13/18 08:29 12.5 GM Diphenhydramine HCl (Benadryl) 25 mg PRN QHS PRN 12/18/18 10:30 Fentanyl Citrate (Fentanyl 2ml Vial) 100 mcg 1X ONCE 12/12/18 16:00 12/12/18 16:01 DC 12/12/18 16:10 100 MCG Furosemide (Lasix) 40 mg 1X ONCE 12/09/18 01:00 12/09/18 01:01 DC 12/09/18 01:33 40 MG Gabapentin (Neurontin) 300 mg BID 12/12/18 21:00 12/19/18 08:03 300 MG Heparin Sodium (Porcine) (Heparin Sodium) 2,600 unit 1X ONCE 12/12/18 16:00 12/12/18 16:01 Cancel Hydralazine HCl (Apresoline Inj) 10 mg PRN Q4HRS PRN 12/10/18 11:30 12/17/18 22:38 10 MG Hydralazine HCl (Apresoline) 50 mg BID 12/11/18 09:00 12/19/18 08:01 50 MG Info (PHARMACY MONITORING -- do not chart) 1 each PRN DAILY PRN 12/17/18 12:30 Insulin Glargine (Lantus) 20 units QHS 12/09/18 21:00 12/18/18 21:11 20 UNITS Insulin Human Lispro (HumaLOG) 0-9 UNITS TIDWMEALS 12/10/18 17:00 12/16/18 12:21 4 UNITS Labetalol HCl (Normodyne Iv Push) 20 mg PRN Q2HR PRN 12/09/18 00:45 12/10/18 09:48 20 MG Lactobacillus Rhamnosus (Culturelle) 1 cap BID 12/13/18 21:00 12/19/18 08:03 1 CAP Lidocaine/ Epinephrine (LIDOCAINE 1%-EPI 1:100,000 Multi-Dose) 20 ml 1X ONCE 12/12/18 16:00 12/12/18 16:01 DC 12/12/18 16:09 12 ML Lisinopril (Prinivil) 20 mg DAILY 12/14/18 09:00 12/19/18 08:03 20 MG Metoprolol Tartrate (Lopressor) 50 mg BID 12/10/18 21:00 12/11/18 09:01 DC 12/11/18 08:19 50 MG Midazolam HCl (Versed) 2 mg 1X ONCE 12/12/18 16:00 12/12/18 16:01 DC 12/12/18 16:10 2 MG Morphine Sulfate (Morphine Sulfate) 2 mg PRN Q2HR PRN 12/09/18 00:45 12/10/18 00:44 DC Nicardipine HCl 50 mg/Sodium Chloride 250 ml @ 25 mls/hr CONT PRN 12/09/18 02:30 12/18/18 10:30 DC 12/09/18 14:44 45 MLS/HR Nicotine (Nicoderm Cq 21mg) 1 patch DAILY 12/09/18 02:00 12/19/18 08:03 1 PATCH Nitroglycerin/ Dextrose 250 ml @ 0 mls/hr 1X ONCE 12/09/18 01:00 12/09/18 02:27 DC 12/09/18 01:39 1.5 MLS/HR Ondansetron HCl (Zofran) 4 mg PRN Q6HRS PRN 12/18/18 10:30 Polyethylene Glycol (miraLAX PACKET) 17 gm PRN BID PRN 12/10/18 20:15 Cancel Potassium Chloride (Klor-Con) 40 meq 1X ONCE 12/09/18 01:00 12/09/18 01:01 DC 12/09/18 01:27 40 MEQ Psyllium Hydrophilic Mucilloid (Metamucil Fiber Packet) 1 pkt PRN DAILY PRN 12/10/18 20:15 Cancel Sodium Chloride 1,000 ml @ 400 mls/hr Q2H30M PRN 12/17/18 12:18 12/18/18 00:17 DC Lab Laboratory Tests Test 12/18/18 11:17 12/18/18 16:36 12/18/18 20:40 12/19/18 06:17 Glucose (Fingerstick) 100 mg/dL (70-99) 141 mg/dL (70-99) 152 mg/dL (70-99) White Blood Count 7.0 x10^3/uL (4.0-11.0) Red Blood Count 3.25 x10^6/uL (4.30-5.70) Hemoglobin 8.9 g/dL (13.0-17.5) Hematocrit 26.9 % (39.0-53.0) Mean Corpuscular Volume 83 fL (79-100) Mean Corpuscular Hemoglobin 28 pg (25-35) Mean Corpuscular Hemoglobin Concent 33 g/dL (31-37) Red Cell Distribution Width 13.8 % (11.5-14.5) Platelet Count 232 x10^3/uL (140-400) Neutrophils (%) (Auto) 59 % (31-73) Lymphocytes (%) (Auto) 26 % (24-48) Monocytes (%) (Auto) 10 % (0-9) Eosinophils (%) (Auto) 3 % (0-3) Basophils (%) (Auto) 1 % (0-3) Neutrophils # (Auto) 4.1 x10^3/uL (1.8-7.7) Lymphocytes # (Auto) 1.8 x10^3/uL (1.0-4.8) Monocytes # (Auto) 0.7 x10^3/uL (0.0-1.1) Eosinophils # (Auto) 0.2 x10^3/uL (0.0-0.7) Basophils # (Auto) 0.1 x10^3/uL (0.0-0.2) Sodium Level 139 mmol/L (136-145) Potassium Level 4.7 mmol/L (3.5-5.1) Chloride Level 103 mmol/L (98-107) Carbon Dioxide Level 28 mmol/L (21-32) Anion Gap 8 (6-14) Blood Urea Nitrogen 51 mg/dL (8-26) Creatinine 4.4 mg/dL (0.7-1.3) Estimated GFR (Cockcroft-Gault) 17.3 Glucose Level 62 mg/dL (70-99) Calcium Level 7.9 mg/dL (8.5-10.1) Test 12/19/18 07:25 12/19/18 08:53 Glucose (Fingerstick) 68 mg/dL (70-99) 134 mg/dL (70-99) Results All relevant outside records, renal labs, imaging studies, telemetry/EKG's were reviewed. SOCO JACOBS MD Dec 19, 2018 09:39
[2018-12-19] MEDS ORDERED: IV NORMAL SALINE 1000ML BAG 1,000 ML IV PRN ×2 (10:50)
[2018-12-19] MEDS ORDERED: DIALYSIS PATIENT. MC PRN ×2 (11:00)
[2018-12-19] MEDS ORDERED: 0.9 % SODIUM CHLORIDE 10 ML DISP.SYRIN. IV PRN ×2 (11:00)
[2018-12-19] MEDS ORDERED: ALBUMIN HUMAN 25% 200 ML IV PRN (11:00)
--- NOTE | 2018-12-19 11:29 | PDOC ---
Provider Note Provider Note Patient did not DC yesterday because insurance authorization for Veronica ESRD Monday was pending Has been approved today All Rx on chart No change in meds DC today home independent with outpatient chart and dialysis setup CHRIS Chapman RN, MD Dec 19, 2018 11:29
--- NOTE | 2018-12-19 13:34 | NUR ---
SW following pt. Attempted to meet with pt but was asleep at HD. Discussed with RN and crop farmers pt can dc home today after HD and come to ER if he feels sick. SW will follow up with pt post dc when chair time confirmed.
--- NOTE | 2018-12-19 14:37 | NUR ---
Discharge Note: TIMO GABRIEL W5 [facility] Discharge instructions and discharge home medications reviewed with Patient and a copy given. All questions have been answered and understanding verbalized. The following instructions and handouts were given: d/c instructions Discontinued lines and drains: Peripheral IV intact. Patient discharged to Home or Self Care with Family Member via Wheelchair
[2018-12-19 15:00] VITALS: BP 163/94
--- NOTE | 2018-12-19 15:30 | NUR ---
MAAME following pt. Pt has a chair time at [facility] on MWF at 1530. First schedule will be on 12/21/18 at 1430. Pt is provided with copy of location and schedule. Discussed with RN
== END 2018-12-19 15:47 | disposition home or self-care (01) | DRG 673 ==
LOC: ER 00:30 → 1 WEST ICU 00:40 → 2 SOUTH 12-11 15:55 → 5 SOUTH 12-17 15:31
PROVIDERS: ADMIT Family Medicine; ATTEND Family Medicine
PROC: B2141ZZ Fluoroscopy of Right Heart using Low Osmolar Contrast (ICD-10-PCS; principal; 2018-12-13)
PROC: 0JH63XZ Insertion of Tunneled Vascular Access Device into Chest Subcutaneous Tissue and Fascia, Percutaneous Approach (ICD-10-PCS; 2018-12-13)
PROC: 02H633Z Insertion of Infusion Device into Right Atrium, Percutaneous Approach (ICD-10-PCS; 2018-12-13)
PROC: B244YZZ Ultrasonography of Right Heart using Other Contrast (ICD-10-PCS; 2018-12-13)
PROC: 5A1D70Z Performance of Urinary Filtration, Intermittent, Less than 6 Hours Per Day (ICD-10-PCS; 2018-12-13)
PROC: 5A1D70Z Performance of Urinary Filtration, Intermittent, Less than 6 Hours Per Day (ICD-10-PCS; 2018-12-14)
PROC: 5A1D70Z Performance of Urinary Filtration, Intermittent, Less than 6 Hours Per Day (ICD-10-PCS; 2018-12-17)
PROC: 5A1D70Z Performance of Urinary Filtration, Intermittent, Less than 6 Hours Per Day (ICD-10-PCS; 2018-12-19)
DX: N17.0 Acute kidney failure with tubular necrosis (principal); I50.21 Acute systolic (congestive) heart failure; E43 Unspecified severe protein-calorie malnutrition; I13.2 Hypertensive heart and chronic kidney disease with heart failure and with stage 5 chronic kidney disease, or end stage renal disease; I16.1 Hypertensive emergency; N39.0 Urinary tract infection, site not specified; N18.6 End stage renal disease; E11.22 Type 2 diabetes mellitus with diabetic chronic kidney disease; D63.1 Anemia in chronic kidney disease; E78.5 Hyperlipidemia, unspecified; F17.200 Nicotine dependence, unspecified, uncomplicated; G47.33 Obstructive sleep apnea (adult) (pediatric); Z91.19 Patient's noncompliance with other medical treatment and regimen; Z82.49 Family history of ischemic heart disease and other diseases of the circulatory system; Z79.82 Long term (current) use of aspirin; Z79.4 Long term (current) use of insulin; Z79.899 Other long term (current) drug therapy; Z99.2 Dependence on renal dialysis; Z68.34 Body mass index [BMI] 34.0-34.9, adult
CPT/HCPCS: 36415; 36558; 71045; 76770; 76937; 77001; 80048; 80053; 80076; 81001; 82575; 82962; 83036; 83735; 84100; 84156; 84484; 85025; 85027; 85610; 86704; 86706; 87086; 87340; 87641; 93306; 96365; 96375; 99152; 99406; C1750; C1769; C1892; J0360; J0696; J1644; J1815; J1940; J2250; J3010; J3490; J7042; J7050; 97116; 99291-25; J7030

== ENCOUNTER 2018-12-28 14:03 | Emergency (ER) | payer SELFPAY ==
[~2018-12-28] VITALS: Ht 180.3 cm; Wt 108.0 kg
[~2018-12-28 14:03] MED LIST changes: +CARV12.511 PO; +GABA-585 PO; +HYDR-2869 PO; +Nicotine 21MG TD
[2018-12-28 14:33] VITALS: BP 208/107
[2018-12-28] MEDS ORDERED: SODIUM PHOSPHATES 19/7GM 133 ML ENEMA. PR ONE (15:00)
--- NOTE | 2018-12-28 15:12 | RAD ---
EXAM: Abdomen acute complete. HISTORY: Constipation. COMPARISON: None. FINDINGS: A frontal view of the chest and frontal upright and supine views of the abdomen are obtained. There is left greater than right lower lobe atelectasis or interstitial infiltrate with a suspected trace pleural effusion. There is cardiomegaly. There is a right internal jugular catheter with the tip in the superior cavoatrial junction. There is no pneumothorax. There is gas and stool within the colon. No abnormally dilated loop of bowel is seen to suggest obstruction. There is no free air. There are multiple pelvic phleboliths. IMPRESSION: 1. Suspected left greater than right lower lobe atelectasis or interstitial infiltrate with trace left pleural effusion. 2. Cardiomegaly. 3. Nonobstructive bowel gas pattern. Electronically signed by: Mora Goldberg MD (12/28/2018 3:09 PM) [facility]
[2018-12-28] MEDS ORDERED: NA P133E2 RC (15:35)
[2018-12-28] MEDS ORDERED: MAGN296S9 PO (15:35)
--- NOTE | 2018-12-28 15:35 | PHYS DOC ---
Past Medical History Past Medical History: CVA, Diabetes-Type II, Hypertension Past Surgical History: No Surgical History Alcohol Use: None Drug Use: None Adult General Chief Complaint Chief Complaint: CONSTIPATION HPI HPI Patient is a 48 year old male who brought in by EMS because of constipation. Patient states he did not have a bowel movement for the last 2 weeks and denies abdominal pain, nausea and vomiting, rectal pain, abdominal distention. Patient states he does not remember how often usually has bowel movements and maybe has had one bowel movement every 3 or 4 weeks. Patient is a poor historian and playing on his phone while giving history. Review of Systems Review of Systems Constitutional: Denies fever or chills [] Eyes: Denies change in visual acuity, redness, or eye pain [] HENT: Denies nasal congestion or sore throat [] Respiratory: Denies cough or shortness of breath [] Cardiovascular: No additional information not addressed in HPI [] GI: Denies abdominal pain, nausea, vomiting, bloody stools or diarrhea, reports constipation. [] : Denies dysuria or hematuria [] Musculoskeletal: Denies back pain or joint pain [] Integument: Denies rash or skin lesions [] Neurologic: Denies headache, focal weakness or sensory changes [] Endocrine: Denies polyuria or polydipsia [] All other systems were reviewed and found to be within normal limits, except as documented in this note. Current Medications Current Medications Current Medications Medications (Trade) Dose Ordered Sig/[facility] Start Time Stop Time Status Last Admin Dose Admin Sodium Monofluorophosphate (Fleet Adult) 133 ml 1X ONCE 12/28/18 15:00 12/28/18 15:01 DC 12/28/18 15:09 133 ML Allergies Allergies Allergies Coded Allergies Type Severity Reaction Last Updated Verified No Known Drug Allergies 06/10/13 No Physical Exam Physical Exam Constitutional: Well nourished, no acute distress, non-toxic appearance. [] HENT: Normocephalic, atraumatic, oropharynx moist. Eyes: PERRLA, EOMI, conjunctiva normal, no discharge. [] Neck: Normal range of motion, no tenderness, supple, no stridor. [] Cardiovascular:Heart rate regular rhythm, no murmur [] Lungs & Thorax: Bilateral breath sounds clear to auscultation [] Abdomen: Bowel sounds normal, soft, no tenderness, no masses, no pulsatile masses. Rectal exam with present of solutions market consultant showed fecal impaction. Patient did not tolerate impaction removal.] Skin: Warm, dry, no erythema, no rash. [] Back: No tenderness, no CVA tenderness. [] Extremities: No tenderness, no cyanosis, no clubbing, ROM intact, no edema. [] Neurologic: Alert and oriented X 3, normal motor function, normal sensory function, no focal deficits noted. [] Current Patient Data Vital Signs Vital Signs Date Time Temp Pulse Resp B/P (MAP) Pulse Ox O2 Delivery O2 Flow Rate FiO2 12/28/18 14:33 98.3 69 16 208/107 (140) 99 Room Air 98.3 EKG EKG [] Radiology/Procedures Radiology/Procedures [facility] [address] [place], [place] [id number] IMAGING REPORT Signed PATIENT: TIMO GABRIEL ACCOUNT: [id number] : 1970 LOCATION: ER AGE: 48 SEX: M EXAM STATUS: REG ER ORD. PHYSICIAN: SHELBY MOONEY MD REASON: constipation X1 week PROCEDURE: ACUTE ABDOMEN SERIES EXAM: Abdomen acute complete. HISTORY: Constipation. COMPARISON: None. FINDINGS: A frontal view of the chest and frontal upright and supine views of the abdomen are obtained. There is left greater than right lower lobe atelectasis or interstitial infiltrate with a suspected trace pleural effusion. There is cardiomegaly. There is a right internal jugular catheter with the tip in the superior cavoatrial junction. There is no pneumothorax. There is gas and stool within the colon. No abnormally dilated loop of bowel is seen to suggest obstruction. There is no free air. There are multiple pelvic phleboliths. IMPRESSION: 1. Suspected left greater than right lower lobe atelectasis or interstitial infiltrate with trace left pleural effusion. 2. Cardiomegaly. 3. Nonobstructive bowel gas pattern. Electronically signed by: Mora Goldberg MD (12/28/2018 3:09 PM) [facility] DICTATED and SIGNED BY: MORA GOLDBERG MD DATE: 12/28/18 7136 Course & Med Decision Making Course & Med Decision Making Pertinent Imaging studies reviewed. (See chart for details) Evaluation of patient in ER showed 48-year-old male patient presented to ER by EMS because of constipation for 2 weeks. Patient was a poor historian and was not able to tell how often he usually had bowel movements. Patient was comfortable and played with his phone most the time. Rectal exam showed fecal impaction. Patient had a Fleet enema in ER and was advised to take magnesium citrate and Fleet Enema on home. I've spoken with the patient and/or caregivers. I've explained the patient's condition, diagnosis and treatment plan based on information available to me at this time. I've answered the patient's and/or caregivers questions and addressed any concerns. The patient and/or caregivers have a good understanding the patient's diagnosis, condition and treatment plan as can be expected at this point. Vital signs have been stabilized. The patient's condition is stable for discharge from the emergency department. The patient will pursue further outpatient evaluation with her primary care provider or other designated consulting physician as outlined in the discharge instructions. Patient and/or caregivers are agreeable to this plan of care and follow-up instructions have been explained in detail. The patient and/or ca regivers have received these instructions in written format and expressed understanding of these discharge instructions. The patient and her caregivers are aware that if any significant change in condition or worsening of symptoms should prompt him to immediately return to this of the closest emergency department. If an emergent department is not readily available I would encourag e him to call 911. Mingo Disclaimer Mingo Disclaimer This electronic medical record was generated, in whole or in part, using a voice recognition dictation system. Departure Departure Impression: Primary Impression: Fecal impaction in rectum Disposition: 01 HOME, SELF-CARE (at 1551) Condition: STABLE Referrals: NO PCP (PCP) Patient Instructions: Constipation, Adult, Fecal Impaction Additional Instructions: Follow-up with your primary care physician in 3-5 days Return to ER if not getting better Scripts Na Phos,M-B/Na Phos,Di-Ba (FLEET ENEMA) 133 Ml Enema 1 EACH RC ONCE, #1 BOTTLE Prov: SHELBY MOONEY MD 12/28/18 Magnesium Citrate (MAGNESIUM CITRATE) 296 Ml Solution 296 ML PO ONCE for constipation, #296 ML Prov: SHELBY MOONEY MD 12/28/18 SHELBY MOONEY MD Dec 28, 2018 15:35
== END 2018-12-28 15:49 | disposition home or self-care (01) ==
LOC: ER 14:03
DX: K56.41 Fecal impaction (principal); E11.9 Type 2 diabetes mellitus without complications; I10 Essential (primary) hypertension; I51.7 Cardiomegaly; Z86.73 Personal history of transient ischemic attack (TIA), and cerebral infarction without residual deficits
CPT/HCPCS: 74022; 99284

== ENCOUNTER 2020-04-11 16:17 | Emergency (ER) | payer MEDICAID ==
[~2020-04-11] VITALS: Ht 177.8 cm; Wt 86.3 kg
[~2020-04-11 16:17] MED LIST changes: +AMLO-187 PO; -AMLO10TA8 PO; +LISI-130 PO; +MAGN296S68 PO; +NA P133E2 RC
[2020-04-11 16:43] LABS: BASO % 0 % (0-3); EOS # 0.1 x10^3/uL (0.0-0.7); EOS % 2 % (0-3); HEMATOCRIT 32.6 % (39.0-53.0); HEMOGLOBIN 10.5 g/dL (13.0-17.5); LYMPH # 1.4 x10^3/uL (1.0-4.8); LYMPH % 20 % (24-48); MEAN CORPUSCULAR HEMOGLOBIN 28 pg (25-35); MEAN CORPUSCULAR HGB CONC 32 g/dL (31-37); MEAN CORPUSCULAR VOLUME 86 fL (79-100); MONO # 0.9 x10^3/uL (0.0-1.1); MONO % 12 % (0-9); NEUT # 4.8 x10^3/uL (1.8-7.7); NEUT % 66 % (31-73); PLATELET COUNT 344 x10^3/uL (140-400); RED BLOOD COUNT 3.79 x10^6/uL (4.30-5.70); RED CELL DISTRIBUTION WIDTH 17.7 % (11.5-14.5); WHITE BLOOD COUNT 7.2 x10^3/uL (4.0-11.0)
--- NOTE | 2020-04-11 16:44 | PHYS DOC ---
Past Medical History Past Medical History: CVA, Diabetes-Type II, Hypertension, Renal Failure Past Surgical History: Other Additional Past Surgical Histo: RT CHEST DIALYSIS CATHETER Smoking Status: Former Smoker Alcohol Use: None Drug Use: None General Adult EDM: Chief Complaint: ALTERED MENTAL STATUS HPI: HPI: History taken from patient and EMS. Patient is a 50-year-old male with a history of ESRD who presents with concern for frequent falls today. He did receive full dialysis treatment earlier today per EMS. They state that they were called the facility because patient has had frequent unwitnessed falls. Patient states he has felt increased tiredness throughout the day. He states he feels as though the staff are overmedicating him. He cannot articulate which medicine he feels as though he is getting too much of. He denies taking blood thinners. He denies chest pain or shortness of breath. Denies back pain. He notes mild nausea but no vomiting. Denies any headache. Denies any drug or alcohol ingestions today. Review of Systems: Review of Systems: Constitutional: Denies fever or chills. [] Eyes: Denies change in visual acuity. [] HENT: Denies nasal congestion or sore throat. [] Respiratory: Denies cough or shortness of breath. [] Cardiovascular: Denies chest pain or edema. [] GI: Denies abdominal pain, nausea, vomiting, bloody stools or diarrhea. [] : Denies dysuria. [] Musculoskeletal: Denies back pain or joint pain. [] Integument: Denies rash. [] Neurologic: Denies headache, focal weakness or sensory changes. [] Endocrine: Denies polyuria or polydipsia. [] Lymphatic: Denies swollen glands. [] Psychiatric: Denies depression or anxiety. [] Heart Score: Risk Factors: Risk Factors: DM, Current or recent (<one month) smoker, HTN, HLP, family history of CAD, obesity. Risk Scores: Score 0 - 3: 2.5% MACE over next 6 weeks - Discharge Home Score 4 - 6: 20.3% MACE over next 6 weeks - Admit for Clinical Observation Score 7 - 10: 72.7% MACE over next 6 weeks - Early Invasive Strategies Allergies: Allergies: Allergies Coded Allergies Type Severity Reaction Last Updated Verified No Known Drug Allergies 06/10/13 No Physical Exam: PE: Constitutional: Well developed, well nourished, no acute distress, non-toxic appearance. [] HENT: Normocephalic, atraumatic, bilateral external ears normal, oropharynx moist, no oral exudates, nose normal. [] Eyes: PERRLA, EOMI, conjunctiva normal, no discharge. [] Neck: Normal range of motion, no tenderness, supple, no stridor. [] Cardiovascular:Heart rate regular rhythm, no murmur [] Lungs & Thorax: Bilateral breath sounds clear to auscultation. Left anterior chest wall port site noted. Appears well-healed. No overlying erythema or induration noted. [] Abdomen: soft, no tenderness, no masses, no pulsatile masses. [] Skin: Warm, dry, no erythema, no rash. [] Back: No tenderness, no CVA tenderness. [] Extremities: No tenderness, no cyanosis, no clubbing, ROM intact, no edema. [] Neurologic: Alert with intact cognitive function. No aphasia, dysarthria, or neglect. GCS 14 [id number]. Pupils 3 mm briskly reactive b/l. No APD present. Cranial nerves 2-12 grossly intact; no facial asymmetry present, tongue midline, shoulder shrugging strength intact. Strength 5/5 and symmetric throughout. Light touch sensation intact throughout. Cerebellar testing appropriate without evidence of dysdiadochokinesia. DTR's 2+ in all 4 extremities. Negative pronator drift bilaterally. Gait deferred Psychologic: Affect normal, judgement normal, mood normal. [] Current Patient Data: Labs: Laboratory Tests Test 04/11/20 16:30 White Blood Count 7.2 x10^3/uL Red Blood Count 3.79 x10^6/uL Hemoglobin 10.5 g/dL Hematocrit 32.6 % Mean Corpuscular Volume 86 fL Mean Corpuscular Hemoglobin 28 pg Mean Corpuscular Hemoglobin Concent 32 g/dL Red Cell Distribution Width 17.7 % Platelet Count 344 x10^3/uL Neutrophils (%) (Auto) 66 % Lymphocytes (%) (Auto) 20 % Monocytes (%) (Auto) 12 % Eosinophils (%) (Auto) 2 % Basophils (%) (Auto) 0 % Neutrophils # (Auto) 4.8 x10^3/uL Lymphocytes # (Auto) 1.4 x10^3/uL Monocytes # (Auto) 0.9 x10^3/uL Eosinophils # (Auto) 0.1 x10^3/uL Basophils # (Auto) 0.0 x10^3/uL Sodium Level 137 mmol/L Potassium Level 3.8 mmol/L Chloride Level 98 mmol/L Carbon Dioxide Level 31 mmol/L Anion Gap 8 Blood Urea Nitrogen 18 mg/dL Creatinine 5.9 mg/dL Estimated GFR (Cockcroft-Gault) 12.2 BUN/Creatinine Ratio 3 Glucose Level 69 mg/dL Lactic Acid Level 2.1 mmol/L Calcium Level 8.9 mg/dL Magnesium Level 2.6 mg/dL Total Bilirubin 0.2 mg/dL Aspartate Amino Transf (AST/SGOT) 11 U/L Alanine Aminotransferase (ALT/SGPT) 14 U/L Alkaline Phosphatase 93 U/L Creatine Kinase 87 U/L Troponin I Quantitative < 0.017 ng/mL Total Protein 8.9 g/dL Albumin 3.0 g/dL Albumin/Globulin Ratio 0.5 Lipase 44 U/L Salicylates Level < 2.8 mg/dL Salicylate Last Dose Date Unknown Salicylate Last Dose Time Unknown Acetaminophen Level < 2 mcg/ml Acetaminophen Last Dose Date Unknown Acetaminophen Last Dose Time Unknown Ethyl Alcohol Level < 10 mg/dL Vital Signs: Vital Signs Date Time Temp Pulse Resp B/P (MAP) Pulse Ox O2 Delivery O2 Flow Rate FiO2 04/11/20 16:17 98.8 74 18 160/65 (96) 96 Room Air 98.8 EKG: EKG: [] EKG consistent with normal sinus rhythm. Ventricular rate of [address] flattening noted in the inferior leads. No acute ischemic changes appreciated. Radiology/Procedures: Radiology/Procedures: [facility] [address] [place] [address] IMAGING REPORT Signed PATIENT: TIMO GABRIEL ACCOUNT: [id number] : 1970 LOCATION: ER AGE: 50 SEX: M EXAM STATUS: PRE ER ORD. PHYSICIAN: JENSEN STORY DO REASON: falls, AMS PROCEDURE: CHEST AP ONLY INDICATION: Reason: falls, AMS / Spl. Instructions: / History: COMPARISON: December 2018 FINDINGS: Single view of chest obtained. Left-sided dialysis catheter with tip near atriocaval junction. Cardiac silhouette is similar to prior. No definite focal airspace consolidation. IMPRESSION: * No focal airspace consolidation or edema. Electronically signed by: Darlene Sanabria MD (04/11/2020 5:20 PM) [id number] DICTATED and SIGNED BY: DARLENE SANABRIA MD DATE: 04/11/20 [id number] [facility] [address] [place] [address] IMAGING REPORT Signed PATIENT: TIOM GABRIEL ACCOUNT: [id number] : 1970 LOCATION: ER AGE: 50 SEX: M EXAM STATUS: PRE ER ORD. PHYSICIAN: JENSEN STORY DO REASON: Falls, AMS PROCEDURE: CT HEAD AND CERVICAL SPINE WO CT head and cervical spine 04/11/2020. Reason for exam: Mental status changes. Falls. Noncontrast images were performed. Sagittal and coronal reconstructions of the cervical spine were obtained. Exposure: One or more of the following individualized dose reduction techniques were utilized for this examination: 1. Automated exposure control 2. Adjustment of the mA and/or kV according to patient size 3. Use of iterative reconstruction technique. The head CT is compared with an exam done on 01/17/2019. CT head findings: There is no apparent intracranial hemorrhage or abnormal extra-axial fluid collection. There is some patchy low attenuation in the cerebral white matter and left basal ganglia region suggesting chronic small vessel ischemic injury. No other area of abnormal density is identified. The ventricles and basilar cisterns are normally positioned. Bone windows reveal no apparent fracture of the skull or abnormal sinus or mastoid opacification. Note is made of a left occipital scalp hematoma. IMPRESSION: No apparent acute intracranial abnormality. CT cervical spine: Alignment appears normal. There is no loss of vertebral body height or vertebral soft tissue swelling. No fracture line is seen. Intervertebral discs are fairly well maintained. Evaluation of the soft tissue components of the canal is limited without intrathecal contrast. No destructive process is seen. IMPRESSION: No acute abnormality. Electronically signed by: Suly Valera Jr., MD (04/11/2020 5:44 PM) [id number] DICTATED and SIGNED BY: SULY VALERA Jr, MD DATE: 04/11/20 [id number] 0 [] Course & Med Decision Making: Course & Med Decision Making Pertinent Labs and Imaging studies reviewed. (See chart for details) [] Patient is a well-appearing 50-year-old male who presents with reported altered mental status and frequent falls at his nursing facility. Vital signs unremarkable. Patient alert and oriented x3. GCS of 15 upon arrival. Basic labs are obtained. Does have chemistry abnormalities consistent with chronic renal failure. CT head imaging nonacute. UDS unable to be obtained given the patient does not produce urine. However he is living in a facility likely does not take any recreational drugs. Remainder of work-up is been gross unremarkable. Repeat examination is sleeping comfortably in the exam room. He is easily arousable to voice. Remains alert and oriented x3 with GCS 15. Patient is requesting discharge back to his nursing facility. Overall I do feel this is reasonable. Strict return precautions were discussed and understood. He is stable for discharge home. Mingo Disclaimer: Mingo Disclaimer: This electronic medical record was generated, in whole or in part, using a voice recognition dictation system. Departure Departure Impression: Primary Impression: ESRD (end stage renal disease) on dialysis Disposition: 01 DC HOME SELF CARE/HOMELESS Condition: STABLE Referrals: NO PCP (PCP) Patient Instructions: End Stage Kidney Disease Additional Instructions: Please return in 12 to 24 hours if her symptoms not improve or worsen. JENSEN STORY DO Apr 11, 2020 16:44
[2020-04-11 16:50] LABS: CALCIUM 8.9 mg/dL (8.5-10.1); CREATININE 5.9 mg/dL (0.7-1.3); GFR 12.2; POTASSIUM 3.8 mmol/L (3.5-5.1)
[2020-04-11 16:55] LABS: SALIC < 2.8 mg/dL (2.8-20.0)
[2020-04-11 16:56] LABS: ACETAMIN < 2 mcg/ml (10-30); ETHANOL < 10 mg/dL (0-10)
[2020-04-11 16:57] LABS: ALBUMIN/GLOBULIN RATIO 0.5 (1.0-1.7); MAGNESIUM 2.6 mg/dL (1.8-2.4); TOTAL BILIRUBIN 0.2 mg/dL (0.2-1.0); TOTAL PROTEIN 8.9 g/dL (6.4-8.2)
--- NOTE | 2020-04-11 17:23 | RAD ---
INDICATION: Reason: falls, AMS / Spl. Instructions: / History: COMPARISON: December 2018 FINDINGS: Single view of chest obtained. Left-sided dialysis catheter with tip near atriocaval junction. Cardiac silhouette is similar to prior. No definite focal airspace consolidation. IMPRESSION: * No focal airspace consolidation or edema. Electronically signed by: Scotty Comer MD (04/11/2020 5:20 PM) [id number]
--- NOTE | 2020-04-11 17:47 | RAD ---
CT head and cervical spine 04/11/2020. Reason for exam: Mental status changes. Falls. Noncontrast images were performed. Sagittal and coronal reconstructions of the cervical spine were obtained. Exposure: One or more of the following individualized dose reduction techniques were utilized for this examination: 1. Automated exposure control 2. Adjustment of the mA and/or kV according to patient size 3. Use of iterative reconstruction technique. The head CT is compared with an exam done on 01/17/2019. CT head findings: There is no apparent intracranial hemorrhage or abnormal extra-axial fluid collection. There is some patchy low attenuation in the cerebral white matter and left basal ganglia region suggesting chronic small vessel ischemic injury. No other area of abnormal density is identified. The ventricles and basilar cisterns are normally positioned. Bone windows reveal no apparent fracture of the skull or abnormal sinus or mastoid opacification. Note is made of a left occipital scalp hematoma. IMPRESSION: No apparent acute intracranial abnormality. CT cervical spine: Alignment appears normal. There is no loss of vertebral body height or vertebral soft tissue swelling. No fracture line is seen. Intervertebral discs are fairly well maintained. Evaluation of the soft tissue components of the canal is limited without intrathecal contrast. No destructive process is seen. IMPRESSION: No acute abnormality. Electronically signed by: Carroll Valera Jr., MD (04/11/2020 5:44 PM) [id number]
[2020-04-11 18:04] VITALS: BP 139/76
--- NOTE | 2020-04-12 18:52 | EKG ---
[facility] [address] [place] [address] Test Date: 2020-04-11 Test Time: 16:40:15 Pat Name: TIMO GABRIEL Department: Room: Gender: M [employer]: : 1970 Requested By: JENSEN STORY Order Number: [id number] Reading MD: Measurements Intervals [place] Rate: 73 P: 59 NE: 176 QRS: 38 QRSD: 92 T: 52 QT: 394 QTc: 438 Interpretive Statements SINUS RHYTHM QRS(T) CONTOUR ABNORMALITY CONSISTENT WITH SEPTAL INFARCT PROBABLY OLD ABNORMAL ECG RI6.02 No previous ECG available for comparison
== END 2020-04-11 19:15 | disposition home or self-care (01) ==
LOC: ER 16:17
DX: I12.0 Hypertensive chronic kidney disease with stage 5 chronic kidney disease or end stage renal disease (principal); E11.22 Type 2 diabetes mellitus with diabetic chronic kidney disease; N18.6 End stage renal disease; R41.82 Altered mental status, unspecified; Z99.2 Dependence on renal dialysis; Z87.891 Personal history of nicotine dependence; Z86.73 Personal history of transient ischemic attack (TIA), and cerebral infarction without residual deficits
CPT/HCPCS: 36415; 70450; 71045; 72125; 80053; 80329; 82550; 83605; 83690; 83735; 84484; 85025; 93005; 99285; G0480

== ENCOUNTER 2020-05-13 16:54 | Inpatient (IN) | payer MEDICARE, MEDICAID ==
[~2020-05-13] VITALS: Ht 177.8 cm; Wt 79.2 kg
[~2020-05-13 16:54] MED LIST changes: -LISI-334 PO; -LISI-338 PO; +LISI-517 PO; +LISI20TA18 PO
[2020-05-13] MEDS ORDERED: IV NORMAL SALINE 1000ML BAG 1,000 ML IV ONE (17:15)
[2020-05-13 17:27] LABS: BASO # 0.1 x10^3/uL (0.0-0.2); BASO % 1 % (0-3); EOS # 0.2 x10^3/uL (0.0-0.7); EOS % 1 % (0-3); HEMATOCRIT 31.4 % (39.0-53.0); LYMPH # 1.2 x10^3/uL (1.0-4.8); LYMPH % 10 % (24-48); MEAN CORPUSCULAR HEMOGLOBIN 27 pg (25-35); MEAN CORPUSCULAR HGB CONC 32 g/dL (31-37); MEAN CORPUSCULAR VOLUME 84 fL (79-100); MONO # 0.9 x10^3/uL (0.0-1.1); MONO % 8 % (0-9); NEUT # 9.4 x10^3/uL (1.8-7.7); NEUT % 80 % (31-73); PLATELET COUNT 391 x10^3/uL (140-400); RED BLOOD COUNT 3.74 x10^6/uL (4.30-5.70); RED CELL DISTRIBUTION WIDTH 16.6 % (11.5-14.5); WHITE BLOOD COUNT 11.8 x10^3/uL (4.0-11.0)
[2020-05-13 17:27] LABS: CLARITY,URINE CLOUDY
[2020-05-13 17:28] LABS: BILIRUBIN,URINE SMALL (NEG); PROTEIN,URINE >=300 mg/dL (NEG-TRACE)
[2020-05-13 17:29] LABS: COLOR,URINE AMBER
[2020-05-13 17:35] LABS: BARBITURATES NEG (NEG); BENZODIAZEPINES NEG (NEG); CANNABINOIDS NEG (NEG); COCAINE NEG (NEG); METHADONE NEG (NEG); OPIATES NEG (NEG); PHENCYCLIDINE NEG (NEG)
[2020-05-13 17:37] LABS: CALCIUM 9.7 mg/dL (8.5-10.1); CREATININE 7.7 mg/dL (0.7-1.3); POTASSIUM 4.9 mmol/L (3.5-5.1)
[2020-05-13 17:39] LABS: NITRITE,URINE NEGATIVE (NEG)
[2020-05-13 17:40] LABS: BACTERIA,URINE 0 /HPF (0-FEW); HYALINE CASTS, URINE FEW /HPF
[2020-05-13 17:42] LABS: AMPHETAMINE/METHAMPHETAMINE NEG (NEG)
--- NOTE | 2020-05-13 17:43 | RAD ---
AP chest. HISTORY: Altered mental status AP view of the chest was compared with a study from April 11. There is a left dialysis catheter ex tending to the right atrium without change. The patient is rotated to the left. Right lung is clear. There is no definite left lung infiltrate although the left base is not optimally evaluated. IMPRESSION: 1. No definite infiltrates. 2. Dialysis catheter are unchanged. Electronically signed by: Luis Brooks MD (05/13/2020 5:40 PM) [id number]
[2020-05-13 17:45] LABS: ALBUMIN 2.2 g/dL (3.4-5.0); ALBUMIN/GLOBULIN RATIO 0.4 (1.0-1.7); MAGNESIUM 2.5 mg/dL (1.8-2.4); TOTAL BILIRUBIN 0.2 mg/dL (0.2-1.0); TOTAL PROTEIN 8.1 g/dL (6.4-8.2)
--- NOTE | 2020-05-13 17:53 | RAD ---
CT brain without contrast. HISTORY: Altered mental status CT scan the brain was done without contrast. A skull fracture is not identified. There is no intracra nial hemorrhage or subdural hematoma. There is no mass or shift of the midline. Ventricles are normal in size. There is decreased density in the periventricular white matter from chronic microvascular c hanges. There is an old left basal ganglia lacunar infarct extending into the periventricular white m atter. IMPRESSION: 1. Old left lacunar infarct. 2. Mild chronic microvascular changes. 3. No intracranial hemorrhage or other acute finding. PQRS Compliance Statement: One or more of the following individualized dose reduction techniques were utilized for this examinat ion: 1. Automated exposure control 2. Adjustment of the mA and/or kV according to patient size 3. Use of iterative reconstruction technique Electronically signed by: Luis Brooks MD (05/13/2020 5:51 PM) [id number]
--- NOTE | 2020-05-13 19:07 | PHYS DOC ---
Past Medical History Past Medical History: CVA, Diabetes-Type II, High Cholesterol, Hypertension, Renal Failure, Other Additional Past Medical Histor: UNSPECIFIED CONVULSIONS Past Surgical History: Other Additional Past Surgical Histo: RT CHEST DIALYSIS CATHETER Smoking Status: Current Every Day Smoker Alcohol Use: None Drug Use: None General Adult EDM: Chief Complaint: WEAKNESS/GENERALIZED HPI: HPI: Patient is a 50 year old male with history of diabetes, hypertension, high cholesterol, CVA, end-stage kidney disease on dialysis Monday last dialyzed yesterday who [facility] to be [facility] for altered mental status change as well as weakness. Patient himself is a very poor historian. He is not able to give us any reasonable information. Review of Systems: Review of Systems: Constitutional: Denies fever or chills. [] Eyes: Denies change in visual acuity. [] HENT: Denies nasal congestion or sore throat. [] Respiratory: Denies cough or shortness of breath. [] Cardiovascular: Denies chest pain or edema. [] GI: Denies abdominal pain, nausea, vomiting, bloody stools or diarrhea. [] : Denies dysuria. [] Musculoskeletal: Denies back pain or joint pain. [] Integument: Denies rash. [] Neurologic: Altered mental status change, weakness. Denies headache, focal weakness or sensory changes. [] Psychiatric: Denies depression or anxiety. [] Heart Score: Risk Factors: Risk Factors: DM, Current or recent (<one month) smoker, HTN, HLP, family history of CAD, obesity. Risk Scores: Score 0 - 3: 2.5% MACE over next 6 weeks - Discharge Home Score 4 - 6: 20.3% MACE over next 6 weeks - Admit for Clinical Observation Score 7 - 10: 72.7% MACE over next 6 weeks - Early Invasive Strategies Current Medications: Current Medications Medications (Trade) Dose Ordered Sig/Greta Start Time Stop Time Status Last Admin Dose Admin Sodium Chloride 1,000 ml @ 1,000 mls/hr 1X ONCE 05/13/20 17:15 05/13/20 18:14 Cancel Allergies: Allergies: Allergies Coded Allergies Type Severity Reaction Last Updated Verified No Known Drug Allergies 06/10/13 No Physical Exam: PE: Constitutional: Well developed, well nourished, no acute distress, non-toxic appearance. [] HENT: Normocephalic, atraumatic, bilateral external ears normal, oropharynx moist, no oral exudates, nose normal. [] Eyes: PERRLA, EOMI, conjunctiva normal, no discharge. [] Neck: Normal range of motion, no tenderness, supple, no stridor. [] Cardiovascular:Heart rate regular rhythm, no murmur [] Lungs & Thorax: Diminished breath sounds Abdomen: Bowel sounds normal, soft, no tenderness, no masses, no pulsatile masses. [] Skin: Warm, dry, no erythema, no rash. [] Back: No tenderness, no CVA tenderness. [] Extremities: No tenderness, no cyanosis, no clubbing, ROM intact, no edema. [] Neurologic: Alert and oriented X 1, normal motor function, normal sensory function, no focal deficits noted. [] Psychologic: Affect normal, judgement normal, mood normal. [] Current Patient Data: Labs: Laboratory Tests Test 05/13/20 16:55 05/13/20 17:00 White Blood Count 11.8 x10^3/uL (4.0-11.0) H Red Blood Count 3.74 x10^6/uL (4.30-5.70) L Hemoglobin 10.0 g/dL (13.0-17.5) L Hematocrit 31.4 % (39.0-53.0) L Mean Corpuscular Volume 84 fL (79-100) Mean Corpuscular Hemoglobin 27 pg (25-35) Mean Corpuscular Hemoglobin Concent 32 g/dL (31-37) Red Cell Distribution Width 16.6 % (11.5-14.5) H Platelet Count 391 x10^3/uL (140-400) Neutrophils (%) (Auto) 80 % (31-73) H Lymphocytes (%) (Auto) 10 % (24-48) L Monocytes (%) (Auto) 8 % (0-9) Eosinophils (%) (Auto) 1 % (0-3) Basophils (%) (Auto) 1 % (0-3) Neutrophils # (Auto) 9.4 x10^3/uL (1.8-7.7) H Lymphocytes # (Auto) 1.2 x10^3/uL (1.0-4.8) Monocytes # (Auto) 0.9 x10^3/uL (0.0-1.1) Eosinophils # (Auto) 0.2 x10^3/uL (0.0-0.7) Basophils # (Auto) 0.1 x10^3/uL (0.0-0.2) Sodium Level 135 mmol/L (136-145) L Potassium Level 4.9 mmol/L (3.5-5.1) Chloride Level 97 mmol/L (98-107) L Carbon Dioxide Level 27 mmol/L (21-32) Anion Gap 11 (6-14) Blood Urea Nitrogen 28 mg/dL (8-26) H Creatinine 7.7 mg/dL (0.7-1.3) H Estimated GFR (Cockcroft-Gault) 9.0 BUN/Creatinine Ratio 4 (6-20) L Glucose Level 111 mg/dL (70-99) H Lactic Acid Level 0.8 mmol/L (0.4-2.0) Calcium Level 9.7 mg/dL (8.5-10.1) Magnesium Level 2.5 mg/dL (1.8-2.4) H Total Bilirubin 0.2 mg/dL (0.2-1.0) Aspartate Amino Transferase (AST) 11 U/L (15-37) L Alanine Aminotransferase (ALT) 8 U/L (16-63) L Alkaline Phosphatase 80 U/L (46-116) Troponin I Quantitative < 0.017 ng/mL (0.000-0.055) OB-Hhp-D-Type Natriuretic Peptide 4689 pg/mL (0-124) H Total Protein 8.1 g/dL (6.4-8.2) Albumin 2.2 g/dL (3.4-5.0) L Albumin/Globulin Ratio 0.4 (1.0-1.7) L Procalcitonin 1.14 ng/mL (0.00-0.10) H Thyroid Stimulating Hormone (TSH) 2.585 uIU/mL (0.358-3.74) Urine Collection Type Unknown Urine Color Elena Urine Clarity Cloudy Urine pH 5.0 (<5.0-8.0) Urine Specific [place] 1.025 (1.000-1.030) Urine Protein >=300 mg/dL (NEG-TRACE) Urine Glucose (UA) 100 mg/dL (NEG) Urine Ketones (Stick) Trace mg/dL (NEG) Urine Blood Negative (NEG) Urine Nitrite Negative (NEG) Urine Bilirubin Small (NEG) Urine Urobilinogen Dipstick 1.0 mg/dL (0.2 mg/dL) Urine Leukocyte Esterase Trace (NEG) Urine RBC 3-5 /HPF (0-2) Urine WBC 1-4 /HPF (0-4) Urine Bacteria 0 /HPF (0-FEW) Urine Hyaline Casts Few /HPF Urine Opiates Screen Neg (NEG) Urine Methadone Screen Neg (NEG) Urine Barbiturates Neg (NEG) Urine Phencyclidine Screen Neg (NEG) Urine Amphetamine/Methamphetamine Neg (NEG) Urine Benzodiazepines Screen Neg (NEG) Urine Cocaine Screen Neg (NEG) Urine Cannabinoids Screen Neg (NEG) Urine Ethyl Alcohol Neg (NEG) Laboratory Tests 05/13/20 16:55 Laboratory Tests 05/13/20 16:55 Vital Signs: Vital Signs Date Time Temp Pulse Resp B/P (MAP) Pulse Ox O2 Delivery O2 Flow Rate FiO2 05/13/20 16:55 97.3 76 20 117/76 (90) 100 Room Air 97.3 EKG: EKG: [] Radiology/Procedures: Radiology/Procedures: []PROCEDURE: CT HEAD WO CONTRAST CT brain without contrast. HISTORY: Altered mental status CT scan the brain was done without contrast. A skull fracture is not identified. There is no intracranial hemorrhage or subdural hematoma. There is no mass or shift of the midline. Ventricles are normal in size. There is decreased density in the periventricular white matter from chronic microvascular changes. There is an old left basal ganglia lacunar infarct extending into the periventricular white matter. IMPRESSION: 1. Old left lacunar infarct. 2. Mild chronic microvascular changes. 3. No intracranial hemorrhage or other acute finding. PQRS Compliance Statement: One or more of the following individualized dose reduction techniques were utilized for this examination: 1. Automated exposure control 2. Adjustment of the mA and/or kV according to patient size 3. Use of iterative reconstruction technique Electronically signed by: Luis Brooks MD (05/13/2020 5:51 PM) [id number] DICTATED and SIGNED BY: LUIS BROOKS MD DATE: 05/13/20 [id number] 0 PROCEDURE: PORTABLE CHEST 1V AP chest. HISTORY: Altered mental status AP view of the chest was compared with a study from April 11. There is a left dialysis catheter extending to the right atrium without change. The patient is rotated to the left. Right lung is clear. There is no definite left lung infiltrate although the left base is not optimally evaluated. IMPRESSION: 1. No definite infiltrates. 2. Dialysis catheter are unchanged. Electronically signed by: Luis Brooks MD (05/13/2020 5:40 PM) [id number] DICTATED and SIGNED BY: LUIS BROOKS MD DATE: 05/13/20 [id number] Course & Med Decision Making: Course & Med Decision Making Pertinent Labs and Imaging studies reviewed. (See chart for details) This is a 50-year-old male patient presenting [facility] ED [facility] a [facility] to be evaluated for altered mental status change as well as weakness. Patient is a poor historian. CBC with a WBC of 11.8, CMP with nothing really acute. Lactic is normal, pro calcitonin 1.14. Urine analysis noted for trace amount of leukocytes CT of the head is negative for any acute findings. Admitted under Dr. Migdalia Aguila Disclaimer: Mingo Disclaimer: This electronic medical record was generated, in whole or in part, using a voice recognition dictation system. Departure Departure Impression: Primary Impression: ESRD (end stage renal disease) on dialysis Additional Impressions: AMS (altered mental status) Qualified Codes: R41.82 - Altered mental status, unspecified Weakness generalized Person under investigation for COVID-19 Disposition: 09 ADMITTED INPT THIS HOSP Condition: STABLE Referrals: CLARIBEL HARTMNA (PCP) MEGHAN GASPAR APRN May 13, 2020 19:07
[2020-05-13] MEDS ORDERED: ONDANSETRON PF 4 MG/2 ML VIAL. IV PRN (19:30)
[2020-05-13] MEDS ORDERED: MORPHINE SULFATE 4 MG/ML VIAL. IV PRN (19:30)
[2020-05-13] MEDS ORDERED: ONDANSETRON PF 4 MG/2 ML VIAL. IVP PRN (20:30)
[2020-05-13] MEDS ORDERED: MAG HYDROX/ALUMINUM HYD/SIMETH 30 ML ORAL.SUSP PO PRN (20:30)
[2020-05-13] MEDS ORDERED: MAGNESIUM HYDROXIDE 2,400 MG/30 ML ORAL.SUSP. PO PRN (20:30)
[2020-05-13] MEDS ORDERED: traMADol 50 MG TABLET PO PRN (20:30)
[2020-05-13] MEDS ORDERED: CALCIUM CARBONATE 500 MG TAB.CHEW PO PRN (20:30)
[2020-05-13] MEDS ORDERED: ACETAMINOPHEN 325 MG TABLET. PO PRN (20:30)
[2020-05-13] MEDS ORDERED: BISACODYL 10 MG SUPP.RECT. PR PRN (20:30)
--- NOTE | 2020-05-13 20:34 | PDOC1 ---
History and Physical Date of Admission Date of Admission DATE: 05/13/20 TIME: 20:25 Identification/Chief Complaint Chief Complaint AMS Source Source: Chart review History of Present Illness History of Present Illness Patient is a 50-year-old male with past medical history of end-stage renal disease on hemodialysis Monday//Monday, who presents to the ER for evaluation of altered mental status. Patient is a resident of [facility], where EMS reported he was also noted to have associated weakness and lethargy after breakfast this morning. Patient is nonverbal upon my evaluation, no answering any of my questions. No obvious source of encephalopathy or infection initially noted, except for elevated procalcitonin. He is afebrile breathing on room air. Due to some concerns of the etiology of AMS, patient will be admitted for further evaluation. Past Medical History Cardiovascular: HTN, Hyperlipidemia Pulmonary: Other CENTRAL NERVOUS SYSTEM: Periperal neuropathy, TIA GI: No pertinent hx Heme/Onc: Anemia NOS Hepatobiliary: No pertinent hx Psych: No pertinent hx Musculoskeletal: Osteoarthritis Rheumatologic: No pertinent hx Infectious disease: No pertinent hx Renal/: Chronic renal failure Endocrine: Diabetes, Hyperparathyroidism Past Surgical History Past Surgical History: No pertinent history Family History Family History: Family History Unknown Social History Smoke: No ALCOHOL: rare Drugs: None Current Problem List Problem List Problems Medical Problems: (1) AMS (altered mental status) Status: Acute (2) Person under investigation for COVID-19 Status: Acute (3) Weakness generalized Status: Acute Current Medications Current Medications Current Medications Sodium Chloride 1,000 ml @ 1,000 mls/hr 1X ONCE IV ; Start 05/13/20 at 17:15; Stop 05/13/20 at 18:14; Status Cancel Ondansetron HCl (Zofran) 4 mg PRN Q8HRS PRN IV NAUSEA/VOMITING; Start 05/13/20 at 19:30; Stop 05/14/20 at 19:29 Morphine Sulfate (Morphine Sulfate) 4 mg PRN Q2HR PRN IV PAIN; Start 05/13/20 at 19:30; Stop 05/14/20 at 19:29 Active Scripts Active Lisinopril 40 Mg Tablet 40 Mg PO DAILY Carvedilol (Carvedilol) 12.5 Mg Tablet 25 Mg PO BIDWMEALS Hydralazine Hcl 50 Mg Tablet 100 Mg PO TID [Nicotine 21MG] 1 PATCH Patch 1 Patch TD DAILY 10 Days Amlodipine Besylate 10 Mg Tablet 10 Mg PO DAILY Reported Gabapentin (Gabapentin) 100 Mg Capsule 100 Mg PO BID Aspirin 325 Mg Tablet 325 Mg PO DAILY Atorvastatin Calcium 40 Mg Tablet 40 Mg PO HS Allergies Allergies: Coded Allergies: No Known Drug Allergies (Unverified , 06/10/13) ROS Review of System Unable to obtain due to clinical condition Physical Exam Physical Exam General: Alert, No acute distress HEENT: EOMI Lungs: Clear to auscultation, Normal air movement Heart: RRR, no murmurs Cardiovascular: S1, S2 Abdomen: Normal bowel sounds, Soft, No tenderness Extremities: No clubbing, No cyanosis Skin: No rashes, No significant lesion Neuro: Lethargic, Normal tone. Psych/Mental: Somnolent Vitals Vitals Vital Signs Date Time Temp Pulse Resp B/P (MAP) Pulse Ox O2 Delivery O2 Flow Rate FiO2 05/13/20 18:58 76 14 100 05/13/20 16:55 97.3 117/76 (90) Room Air 97.3 Labs Labs Laboratory Tests Test 05/13/20 16:55 05/13/20 17:00 White Blood Count 11.8 x10^3/uL (4.0-11.0) Red Blood Count 3.74 x10^6/uL (4.30-5.70) Hemoglobin 10.0 g/dL (13.0-17.5) Hematocrit 31.4 % (39.0-53.0) Mean Corpuscular Volume 84 fL (79-100) Mean Corpuscular Hemoglobin 27 pg (25-35) Mean Corpuscular Hemoglobin Concent 32 g/dL (31-37) Red Cell Distribution Width 16.6 % (11.5-14.5) Platelet Count 391 x10^3/uL (140-400) Neutrophils (%) (Auto) 80 % (31-73) Lymphocytes (%) (Auto) 10 % (24-48) Monocytes (%) (Auto) 8 % (0-9) Eosinophils (%) (Auto) 1 % (0-3) Basophils (%) (Auto) 1 % (0-3) Neutrophils # (Auto) 9.4 x10^3/uL (1.8-7.7) Lymphocytes # (Auto) 1.2 x10^3/uL (1.0-4.8) Monocytes # (Auto) 0.9 x10^3/uL (0.0-1.1) Eosinophils # (Auto) 0.2 x10^3/uL (0.0-0.7) Basophils # (Auto) 0.1 x10^3/uL (0.0-0.2) Sodium Level 135 mmol/L (136-145) Potassium Level 4.9 mmol/L (3.5-5.1) Chloride Level 97 mmol/L (98-107) Carbon Dioxide Level 27 mmol/L (21-32) Anion Gap 11 (6-14) Blood Urea Nitrogen 28 mg/dL (8-26) Creatinine 7.7 mg/dL (0.7-1.3) Estimated GFR (Cockcroft-Gault) 9.0 BUN/Creatinine Ratio 4 (6-20) Glucose Level 111 mg/dL (70-99) Lactic Acid Level 0.8 mmol/L (0.4-2.0) Calcium Level 9.7 mg/dL (8.5-10.1) Magnesium Level 2.5 mg/dL (1.8-2.4) Total Bilirubin 0.2 mg/dL (0.2-1.0) Aspartate Amino Transf (AST/SGOT) 11 U/L (15-37) Alanine Aminotransferase (ALT/SGPT) 8 U/L (16-63) Alkaline Phosphatase 80 U/L (46-116) Troponin I Quantitative < 0.017 ng/mL (0.000-0.055) YK-Xvz-V-Type Natriuretic Peptide 4689 pg/mL (0-124) Total Protein 8.1 g/dL (6.4-8.2) Albumin 2.2 g/dL (3.4-5.0) Albumin/Globulin Ratio 0.4 (1.0-1.7) Procalcitonin 1.14 ng/mL (0.00-0.10) Thyroid Stimulating Hormone (TSH) 2.585 uIU/mL (0.358-3.74) Urine Collection Type Unknown Urine Color Elena Urine Clarity Cloudy Urine pH 5.0 (<5.0-8.0) Urine Specific [place] 1.025 (1.000-1.030) Urine Protein >=300 mg/dL (NEG-TRACE) Urine Glucose (UA) 100 mg/dL (NEG) Urine Ketones (Stick) Trace mg/dL (NEG) Urine Blood Negative (NEG) Urine Nitrite Negative (NEG) Urine Bilirubin Small (NEG) Urine Urobilinogen Dipstick 1.0 mg/dL (0.2 mg/dL) Urine Leukocyte Esterase Trace (NEG) Urine RBC 3-5 /HPF (0-2) Urine WBC 1-4 /HPF (0-4) Urine Bacteria 0 /HPF (0-FEW) Urine Hyaline Casts Few /HPF Urine Opiates Screen Neg (NEG) Urine Methadone Screen Neg (NEG) Urine Barbiturates Neg (NEG) Urine Phencyclidine Screen Neg (NEG) Urine Amphetamine/Methamphetamine Neg (NEG) Urine Benzodiazepines Screen Neg (NEG) Urine Cocaine Screen Neg (NEG) Urine Cannabinoids Screen Neg (NEG) Urine Ethyl Alcohol Neg (NEG) Laboratory Tests Test 05/13/20 16:55 05/13/20 17:00 White Blood Count 11.8 x10^3/uL (4.0-11.0) Red Blood Count 3.74 x10^6/uL (4.30-5.70) Hemoglobin 10.0 g/dL (13.0-17.5) Hematocrit 31.4 % (39.0-53.0) Mean Corpuscular Volume 84 fL (79-100) Mean Corpuscular Hemoglobin 27 pg (25-35) Mean Corpuscular Hemoglobin Concent 32 g/dL (31-37) Red Cell Distribution Width 16.6 % (11.5-14.5) Platelet Count 391 x10^3/uL (140-400) Neutrophils (%) (Auto) 80 % (31-73) Lymphocytes (%) (Auto) 10 % (24-48) Monocytes (%) (Auto) 8 % (0-9) Eosinophils (%) (Auto) 1 % (0-3) Basophils (%) (Auto) 1 % (0-3) Neutrophils # (Auto) 9.4 x10^3/uL (1.8-7.7) Lymphocytes # (Auto) 1.2 x10^3/uL (1.0-4.8) Monocytes # (Auto) 0.9 x10^3/uL (0.0-1.1) Eosinophils # (Auto) 0.2 x10^3/uL (0.0-0.7) Basophils # (Auto) 0.1 x10^3/uL (0.0-0.2) Sodium Level 135 mmol/L (136-145) Potassium Level 4.9 mmol/L (3.5-5.1) Chloride Level 97 mmol/L (98-107) Carbon Dioxide Level 27 mmol/L (21-32) Anion Gap 11 (6-14) Blood Urea Nitrogen 28 mg/dL (8-26) Creatinine 7.7 mg/dL (0.7-1.3) Estimated GFR (Cockcroft-Gault) 9.0 BUN/Creatinine Ratio 4 (6-20) Glucose Level 111 mg/dL (70-99) Lactic Acid Level 0.8 mmol/L (0.4-2.0) Calcium Level 9.7 mg/dL (8.5-10.1) Magnesium Level 2.5 mg/dL (1.8-2.4) Total Bilirubin 0.2 mg/dL (0.2-1.0) Aspartate Amino Transf (AST/SGOT) 11 U/L (15-37) Alanine Aminotransferase (ALT/SGPT) 8 U/L (16-63) Alkaline Phosphatase 80 U/L (46-116) Troponin I Quantitative < 0.017 ng/mL (0.000-0.055) YH-Adb-T-Type Natriuretic Peptide 4689 pg/mL (0-124) Total Protein 8.1 g/dL (6.4-8.2) Albumin 2.2 g/dL (3.4-5.0) Albumin/Globulin Ratio 0.4 (1.0-1.7) Procalcitonin 1.14 ng/mL (0.00-0.10) Thyroid Stimulating Hormone (TSH) 2.585 uIU/mL (0.358-3.74) Urine Collection Type Unknown Urine Color Elena Urine Clarity Cloudy Urine pH 5.0 (<5.0-8.0) Urine Specific [place] 1.025 (1.000-1.030) Urine Protein >=300 mg/dL (NEG-TRACE) Urine Glucose (UA) 100 mg/dL (NEG) Urine Ketones (Stick) Trace mg/dL (NEG) Urine Blood Negative (NEG) Urine Nitrite Negative (NEG) Urine Bilirubin Small (NEG) Urine Urobilinogen Dipstick 1.0 mg/dL (0.2 mg/dL) Urine Leukocyte Esterase Trace (NEG) Urine RBC 3-5 /HPF (0-2) Urine WBC 1-4 /HPF (0-4) Urine Bacteria 0 /HPF (0-FEW) Urine Hyaline Casts Few /HPF Urine Opiates Screen Neg (NEG) Urine Methadone Screen Neg (NEG) Urine Barbiturates Neg (NEG) Urine Phencyclidine Screen Neg (NEG) Urine Amphetamine/Methamphetamine Neg (NEG) Urine Benzodiazepines Screen Neg (NEG) Urine Cocaine Screen Neg (NEG) Urine Cannabinoids Screen Neg (NEG) Urine Ethyl Alcohol Neg (NEG) Images Images AP chest. HISTORY: Altered mental status AP view of the chest was compared with a study from April 11. There is a left dialysis catheter extending to the right atrium without change. The patient is rotated to the left. Right lung is clear. There is no definite left lung infiltrate although the left base is not optimally evaluated. IMPRESSION: 1. No definite infiltrates. 2. Dialysis catheter are unchanged. CT brain without contrast. HISTORY: Altered mental status CT scan the brain was done without contrast. A skull fracture is not identified. There is no intracranial hemorrhage or subdural hematoma. There is no mass or shift of the midline. Ventricles are normal in size. There is decreased density in the periventricular white matter from chronic microvascular changes. There is an old left basal ganglia lacunar infarct extending into the periventricular white matter. IMPRESSION: 1. Old left lacunar infarct. 2. Mild chronic microvascular changes. 3. No intracranial hemorrhage or other acute finding. VTE Prophylaxis Ordered VTE Prophylaxis Devices: No VTE Pharmacological Prophylaxi: Yes Assessment/Plan Assessment/Plan Altered mental status PUI Elevated procalcitonin Severe malnutrition End-stage renal disease on hemodialysis Plan: Without any obvious source of infection seen on labs and imaging obtained in ER, concerned for bacteremia given history of end-stage renal disease on hemodialysis Blood cultures pending Consult to nephrology to resume hemodialysis while inpatient Patient received empiric antibiotic treatment in ER Patient is afebrile, breathing on room air, low concern for COVID-19 at this time FEN - renal diet PPX - Heparin FULL CODE Dispo - inpatient for above Justifications for Admission Other Justification [facility] KUSUM MITCHELL MD May 13, 2020 20:34
[2020-05-13] MEDS: HEPARIN for SUB-Q USE 5,000 UNIT/ML VIAL. SQ SCH (21:12)
[2020-05-13 23:50] VITALS: BP 136/77
[2020-05-14] MEDS ORDERED: SENN8.6T11 PO (03:39)
[2020-05-14] MEDS ORDERED: ACET325T9 PO (03:39)
[2020-05-14] MEDS ORDERED: LISI20TA18 PO (03:39)
[2020-05-14] MEDS ORDERED: INSU100I13 SQ (03:39)
[2020-05-14] MEDS ORDERED: POLY2500 PO (03:39)
[2020-05-14] MEDS ORDERED: HYDR-2869 PO (03:39)
[2020-05-14] MEDS ORDERED: BENZOCAINE 10% PO (03:39)
[2020-05-14] MEDS ORDERED: AMLO10TA4 PO (03:39)
[2020-05-14] MEDS ORDERED: CALC667T4 PO (03:39)
[2020-05-14] MEDS ORDERED: ASPI-886 PO (03:39)
[2020-05-14] MEDS ORDERED: ZINC56.713 TP (03:39)
[2020-05-14] MEDS ORDERED: INSU100V6 SQ (03:39)
[2020-05-14 03:45] VITALS: BP 110/65
--- NOTE | 2020-05-14 03:46 | NUR ---
Admitted to room 660 @ 2240. Pt lethargic, not really answering questions, limited admission info intake from pt. Admission intake taken from report, chart, previous admission.
[2020-05-14 05:11] LABS: BASO # 0.1 x10^3/uL (0.0-0.2); BASO % 1 % (0-3); EOS # 0.2 x10^3/uL (0.0-0.7); EOS % 2 % (0-3); HEMOGLOBIN 9.8 g/dL (13.0-17.5); LYMPH # 1.5 x10^3/uL (1.0-4.8); LYMPH % 15 % (24-48); MEAN CORPUSCULAR HEMOGLOBIN 27 pg (25-35); MEAN CORPUSCULAR HGB CONC 32 g/dL (31-37); MEAN CORPUSCULAR VOLUME 84 fL (79-100); MONO % 10 % (0-9); NEUT # 7.3 x10^3/uL (1.8-7.7); NEUT % 73 % (31-73); PLATELET COUNT 414 x10^3/uL (140-400); RED BLOOD COUNT 3.68 x10^6/uL (4.30-5.70); RED CELL DISTRIBUTION WIDTH 16.8 % (11.5-14.5)
[2020-05-14 05:13] LABS: ALBUMIN/GLOBULIN RATIO 0.4 (1.0-1.7); CALCIUM 8.9 mg/dL (8.5-10.1); CREATININE 8.5 mg/dL (0.7-1.3); POTASSIUM 4.8 mmol/L (3.5-5.1); TOTAL BILIRUBIN 0.3 mg/dL (0.2-1.0); TOTAL PROTEIN 7.7 g/dL (6.4-8.2)
[2020-05-14 07:49] VITALS: BP 94/46
[2020-05-14] MEDS: HEPARIN for SUB-Q USE 5,000 UNIT/ML VIAL. SQ SCH ×2 (09:00→21:27)
--- NOTE | 2020-05-14 11:06 | PDOC2 ---
CONSULT Date of Consult Date of Consult DATE: 05/14/20 TIME: 11:02 Reason for Consult Reason for Consult: ESRD Referring Physician Referring Physician: PAULA Identification/Chief Complaint Chief Complaint WEAKNESS Source Source: Chart review, Patient History of Present Illness Reason for Visit: THIS IS A 50 YR OLD WITH ESRD ON OP HD ON TTS. ADMITTED WITH CONFUSION. LABS ARE C/W ESRD. ESRD FROM HTN AND DM. Past Medical History Cardiovascular: HTN, Hyperlipidemia Pulmonary: Other CENTRAL NERVOUS SYSTEM: Periperal neuropathy, TIA GI: No pertinent hx Heme/Onc: Anemia NOS Hepatobiliary: No pertinent hx Psych: No pertinent hx Musculoskeletal: Osteoarthritis Rheumatologic: No pertinent hx Infectious disease: No pertinent hx Renal/: Chronic renal failure Endocrine: Diabetes, Hyperparathyroidism Past Surgical History Past Surgical History: No pertinent history Family History Family History: Family History Unknown Social History No ALCOHOL: rare Drugs: None Lives: with Family Current Problem List Problem List Problems Medical Problems: (1) AMS (altered mental status) Status: Acute (2) Person under investigation for COVID-19 Status: Acute (3) Weakness generalized Status: Acute Current Medications Current Medications Current Medications Sodium Chloride 1,000 ml @ 1,000 mls/hr 1X ONCE IV ; Start 05/13/20 at 17:15; Stop 05/13/20 at 18:14; Status Cancel Ondansetron HCl (Zofran) 4 mg PRN Q8HRS PRN IV NAUSEA/VOMITING; Start 05/13/20 at 19:30; Stop 05/14/20 at 19:29 Morphine Sulfate (Morphine Sulfate) 4 mg PRN Q2HR PRN IV PAIN; Start 05/13/20 at 19:30; Stop 05/14/20 at 19:29 Ondansetron HCl (Zofran) 4 mg PRN Q6HRS PRN IVP NAUSEA/VOMITING; Start 05/13/20 at 20:30 Al Hydroxide/Mg Hydroxide (Mylanta Plus Xs) 30 ml PRN Q3HRS PRN PO HEARTBURN / GAS; Start 05/13/20 at 20:30 Calcium Carbonate/ Glycine (Tums) 500 mg PRN Q3HRS PRN PO UPSET STOMACH; Start 05/13/20 at 20:30 Acetaminophen (Tylenol) 650 mg PRN Q6HRS PRN PO Headaches, Temp > 101.5F; Start 05/13/20 at 20:30 Magnesium Hydroxide (Milk Of Magnesia) 2,400 mg PRN Q12HR PRN PO CONSTIPATION; Start 05/13/20 at 20:30 Bisacodyl (Dulcolax Supp) 10 mg PRN DAILY PRN [place] CONSTIPATION; Start 05/13/20 at 20:30 Heparin Sodium (Porcine) (Heparin Sodium) 5,000 unit Q12HR SQ Last administered on 05/14/20at 09:00; Start 05/13/20 at 21:00 Tramadol HCl (Ultram) 50 mg PRN Q6HRS PRN PO PAIN; Start 05/13/20 at 20:30 Active Scripts Active Carvedilol (Carvedilol) 12.5 Mg Tablet 25 Mg PO BIDWMEALS Reported Zinc Oxide 56.7 Gm Oint...g. 1 Krystina TP BID scrotal area Tylenol (Acetaminophen) 325 Mg Tablet 1-2 Tab PO Q4HRS PRN Senna Laxative (Sennosides) 8.6 Mg Tablet 1 Tab PO BID PRN 30 Days Polyethylene Glycol 3350 2,500 Gm Powder 17 Gm PO DAILY PRN 30 Days Norvasc (Amlodipine Besylate) 10 Mg Tablet 10 Mg PO QMWF Lisinopril 20 Mg Tablet 1 Tab PO DAILY Lantus Solostar (Insulin Glargine,Hum.rec.anlog) 100 Unit/1 Ml Insuln.pen 7 Unit SQ QHS Hydralazine Hcl 50 Mg Tablet 1 Tab PO TID Humalog (Insulin Lispro) 100 Unit/1 Ml Vial 8 Unit SQ TIDWMEALS hold FOR GLUCOSE BELOW 110 AND CALL IF OVER 400 Calcium Acetate 667 Mg Tablet 2 Tab PO TID 30 Days [Benzocaine Gel 10%] 1 Krystina PO Q6HRS PRN for toothache Aspirin Ec (Aspirin) 81 Mg Tablet.dr 1 Tab PO DAILY Gabapentin (Gabapentin) 100 Mg Capsule 300 Mg PO HS Atorvastatin Calcium 40 Mg Tablet 40 Mg PO HS Allergies Allergies: Coded Allergies: No Known Drug Allergies (Unverified , 06/10/13) ROS Review of System UNABLE TO OBTAIN Physical Exam General: Cooperative, No acute distress HEENT: Atraumatic, PERRLA Lungs: Clear to auscultation Heart: Regular rate, Normal S1, Normal S2 Abdomen: Normal bowel sounds, Soft, No tenderness Extremities: No clubbing Skin: No breakdown Neuro: Other (CONFUSED) Psych/Mental Status: Other (CONFUSED) MUSCULOSKELETAL: No deformity, No swelling Vitals VITALS Vital Signs Date Time Temp Pulse Resp B/P (MAP) Pulse Ox O2 Delivery O2 Flow Rate FiO2 05/14/20 08:30 Room Air 05/14/20 07:49 98.3 83 20 94/46 (62) 99 98.3 05/14/20 03:45 99.0 Labs Labs Laboratory Tests Test 05/13/20 16:55 05/13/20 17:00 05/13/20 20:55 05/14/20 00:33 White Blood Count 11.8 x10^3/uL (4.0-11.0) Red Blood Count 3.74 x10^6/uL (4.30-5.70) Hemoglobin 10.0 g/dL (13.0-17.5) Hematocrit 31.4 % (39.0-53.0) Mean Corpuscular Volume 84 fL (79-100) Mean Corpuscular Hemoglobin 27 pg (25-35) Mean Corpuscular Hemoglobin Concent 32 g/dL (31-37) Red Cell Distribution Width 16.6 % (11.5-14.5) Platelet Count 391 x10^3/uL (140-400) Neutrophils (%) (Auto) 80 % (31-73) Lymphocytes (%) (Auto) 10 % (24-48) Monocytes (%) (Auto) 8 % (0-9) Eosinophils (%) (Auto) 1 % (0-3) Basophils (%) (Auto) 1 % (0-3) Neutrophils # (Auto) 9.4 x10^3/uL (1.8-7.7) Lymphocytes # (Auto) 1.2 x10^3/uL (1.0-4.8) Monocytes # (Auto) 0.9 x10^3/uL (0.0-1.1) Eosinophils # (Auto) 0.2 x10^3/uL (0.0-0.7) Basophils # (Auto) 0.1 x10^3/uL (0.0-0.2) Sodium Level 135 mmol/L (136-145) Potassium Level 4.9 mmol/L (3.5-5.1) Chloride Level 97 mmol/L (98-107) Carbon Dioxide Level 27 mmol/L (21-32) Anion Gap 11 (6-14) Blood Urea Nitrogen 28 mg/dL (8-26) Creatinine 7.7 mg/dL (0.7-1.3) Estimated GFR (Cockcroft-Gault) 9.0 BUN/Creatinine Ratio 4 (6-20) Glucose Level 111 mg/dL (70-99) Lactic Acid Level 0.8 mmol/L (0.4-2.0) Calcium Level 9.7 mg/dL (8.5-10.1) Magnesium Level 2.5 mg/dL (1.8-2.4) Total Bilirubin 0.2 mg/dL (0.2-1.0) Aspartate Amino Transf (AST/SGOT) 11 U/L (15-37) Alanine Aminotransferase (ALT/SGPT) 8 U/L (16-63) Alkaline Phosphatase 80 U/L (46-116) Troponin I Quantitative < 0.017 ng/mL (0.000-0.055) < 0.017 ng/mL (0.000-0.055) < 0.017 ng/mL (0.000-0.055) VU-Nle-U-Type Natriuretic Peptide 4689 pg/mL (0-124) Total Protein 8.1 g/dL (6.4-8.2) Albumin 2.2 g/dL (3.4-5.0) Albumin/Globulin Ratio 0.4 (1.0-1.7) Procalcitonin 1.14 ng/mL (0.00-0.10) Thyroid Stimulating Hormone (TSH) 2.585 uIU/mL (0.358-3.74) Urine Collection Type Unknown Urine Color Elena Urine Clarity Cloudy Urine pH 5.0 (<5.0-8.0) Urine Specific [place] 1.025 (1.000-1.030) Urine Protein >=300 mg/dL (NEG-TRACE) Urine Glucose (UA) 100 mg/dL (NEG) Urine Ketones (Stick) Trace mg/dL (NEG) Urine Blood Negative (NEG) Urine Nitrite Negative (NEG) Urine Bilirubin Small (NEG) Urine Urobilinogen Dipstick 1.0 mg/dL (0.2 mg/dL) Urine Leukocyte Esterase Trace (NEG) Urine RBC 3-5 /HPF (0-2) Urine WBC 1-4 /HPF (0-4) Urine Bacteria 0 /HPF (0-FEW) Urine Hyaline Casts Few /HPF Urine Opiates Screen Neg (NEG) Urine Methadone Screen Neg (NEG) Urine Barbiturates Neg (NEG) Urine Phencyclidine Screen Neg (NEG) Urine Amphetamine/Methamphetamine Neg (NEG) Urine Benzodiazepines Screen Neg (NEG) Urine Cocaine Screen Neg (NEG) Urine Cannabinoids Screen Neg (NEG) Urine Ethyl Alcohol Neg (NEG) Test 05/14/20 04:50 05/14/20 07:39 White Blood Count 10.0 x10^3/uL (4.0-11.0) Red Blood Count 3.68 x10^6/uL (4.30-5.70) Hemoglobin 9.8 g/dL (13.0-17.5) Hematocrit 31.0 % (39.0-53.0) Mean Corpuscular Volume 84 fL (79-100) Mean Corpuscular Hemoglobin 27 pg (25-35) Mean Corpuscular Hemoglobin Concent 32 g/dL (31-37) Red Cell Distribution Width 16.8 % (11.5-14.5) Platelet Count 414 x10^3/uL (140-400) Neutrophils (%) (Auto) 73 % (31-73) Lymphocytes (%) (Auto) 15 % (24-48) Monocytes (%) (Auto) 10 % (0-9) Eosinophils (%) (Auto) 2 % (0-3) Basophils (%) (Auto) 1 % (0-3) Neutrophils # (Auto) 7.3 x10^3/uL (1.8-7.7) Lymphocytes # (Auto) 1.5 x10^3/uL (1.0-4.8) Monocytes # (Auto) 1.0 x10^3/uL (0.0-1.1) Eosinophils # (Auto) 0.2 x10^3/uL (0.0-0.7) Basophils # (Auto) 0.1 x10^3/uL (0.0-0.2) Sodium Level 135 mmol/L (136-145) Potassium Level 4.8 mmol/L (3.5-5.1) Chloride Level 97 mmol/L (98-107) Carbon Dioxide Level 27 mmol/L (21-32) Anion Gap 11 (6-14) Blood Urea Nitrogen 31 mg/dL (8-26) Creatinine 8.5 mg/dL (0.7-1.3) Estimated GFR (Cockcroft-Gault) 8.0 BUN/Creatinine Ratio 4 (6-20) Glucose Level 147 mg/dL (70-99) Calcium Level 8.9 mg/dL (8.5-10.1) Total Bilirubin 0.3 mg/dL (0.2-1.0) Aspartate Amino Transf (AST/SGOT) 11 U/L (15-37) Alanine Aminotransferase (ALT/SGPT) 8 U/L (16-63) Alkaline Phosphatase 79 U/L (46-116) C-Reactive Protein, Quantitative 126.3 mg/L (0-3.3) Total Protein 7.7 g/dL (6.4-8.2) Albumin 2.0 g/dL (3.4-5.0) Albumin/Globulin Ratio 0.4 (1.0-1.7) Procalcitonin 1.08 ng/mL (0.00-0.10) Glucose (Fingerstick) 194 mg/dL (70-99) Laboratory Tests Test 05/13/20 16:55 05/13/20 17:00 05/13/20 20:55 05/14/20 00:33 White Blood Count 11.8 x10^3/uL (4.0-11.0) Red Blood Count 3.74 x10^6/uL (4.30-5.70) Hemoglobin 10.0 g/dL (13.0-17.5) Hematocrit 31.4 % (39.0-53.0) Mean Corpuscular Volume 84 fL (79-100) Mean Corpuscular Hemoglobin 27 pg (25-35) Mean Corpuscular Hemoglobin Concent 32 g/dL (31-37) Red Cell Distribution Width 16.6 % (11.5-14.5) Platelet Count 391 x10^3/uL (140-400) Neutrophils (%) (Auto) 80 % (31-73) Lymphocytes (%) (Auto) 10 % (24-48) Monocytes (%) (Auto) 8 % (0-9) Eosinophils (%) (Auto) 1 % (0-3) Basophils (%) (Auto) 1 % (0-3) Neutrophils # (Auto) 9.4 x10^3/uL (1.8-7.7) Lymphocytes # (Auto) 1.2 x10^3/uL (1.0-4.8) Monocytes # (Auto) 0.9 x10^3/uL (0.0-1.1) Eosinophils # (Auto) 0.2 x10^3/uL (0.0-0.7) Basophils # (Auto) 0.1 x10^3/uL (0.0-0.2) Sodium Level 135 mmol/L (136-145) Potassium Level 4.9 mmol/L (3.5-5.1) Chloride Level 97 mmol/L (98-107) Carbon Dioxide Level 27 mmol/L (21-32) Anion Gap 11 (6-14) Blood Urea Nitrogen 28 mg/dL (8-26) Creatinine 7.7 mg/dL (0.7-1.3) Estimated GFR (Cockcroft-Gault) 9.0 BUN/Creatinine Ratio 4 (6-20) Glucose Level 111 mg/dL (70-99) Lactic Acid Level 0.8 mmol/L (0.4-2.0) Calcium Level 9.7 mg/dL (8.5-10.1) Magnesium Level 2.5 mg/dL (1.8-2.4) Total Bilirubin 0.2 mg/dL (0.2-1.0) Aspartate Amino Transf (AST/SGOT) 11 U/L (15-37) Alanine Aminotransferase (ALT/SGPT) 8 U/L (16-63) Alkaline Phosphatase 80 U/L (46-116) Troponin I Quantitative < 0.017 ng/mL (0.000-0.055) < 0.017 ng/mL (0.000-0.055) < 0.017 ng/mL (0.000-0.055) FJ-Kxj-A-Type Natriuretic Peptide 4689 pg/mL (0-124) Total Protein 8.1 g/dL (6.4-8.2) Albumin 2.2 g/dL (3.4-5.0) Albumin/Globulin Ratio 0.4 (1.0-1.7) Procalcitonin 1.14 ng/mL (0.00-0.10) Thyroid Stimulating Hormone (TSH) 2.585 uIU/mL (0.358-3.74) Urine Collection Type Unknown Urine Color [place] Urine Clarity Cloudy Urine pH 5.0 (<5.0-8.0) Urine Specific [place] 1.025 (1.000-1.030) Urine Protein >=300 mg/dL (NEG-TRACE) Urine Glucose (UA) 100 mg/dL (NEG) Urine Ketones (Stick) Trace mg/dL (NEG) Urine Blood Negative (NEG) Urine Nitrite Negative (NEG) Urine Bilirubin Small (NEG) Urine Urobilinogen Dipstick 1.0 mg/dL (0.2 mg/dL) Urine Leukocyte Esterase Trace (NEG) Urine RBC 3-5 /HPF (0-2) Urine WBC 1-4 /HPF (0-4) Urine Bacteria 0 /HPF (0-FEW) Urine Hyaline Casts Few /HPF Urine Opiates Screen Neg (NEG) Urine Methadone Screen Neg (NEG) Urine Barbiturates Neg (NEG) Urine Phencyclidine Screen Neg (NEG) Urine Amphetamine/Methamphetamine Neg (NEG) Urine Benzodiazepines Screen Neg (NEG) Urine Cocaine Screen Neg (NEG) Urine Cannabinoids Screen Neg (NEG) Urine Ethyl Alcohol Neg (NEG) Test 05/14/20 04:50 05/14/20 07:39 White Blood Count 10.0 x10^3/uL (4.0-11.0) Red Blood Count 3.68 x10^6/uL (4.30-5.70) Hemoglobin 9.8 g/dL (13.0-17.5) Hematocrit 31.0 % (39.0-53.0) Mean Corpuscular Volume 84 fL (79-100) Mean Corpuscular Hemoglobin 27 pg (25-35) Mean Corpuscular Hemoglobin Concent 32 g/dL (31-37) Red Cell Distribution Width 16.8 % (11.5-14.5) Platelet Count 414 x10^3/uL (140-400) Neutrophils (%) (Auto) 73 % (31-73) Lymphocytes (%) (Auto) 15 % (24-48) Monocytes (%) (Auto) 10 % (0-9) Eosinophils (%) (Auto) 2 % (0-3) Basophils (%) (Auto) 1 % (0-3) Neutrophils # (Auto) 7.3 x10^3/uL (1.8-7.7) Lymphocytes # (Auto) 1.5 x10^3/uL (1.0-4.8) Monocytes # (Auto) 1.0 x10^3/uL (0.0-1.1) Eosinophils # (Auto) 0.2 x10^3/uL (0.0-0.7) Basophils # (Auto) 0.1 x10^3/uL (0.0-0.2) Sodium Level 135 mmol/L (136-145) Potassium Level 4.8 mmol/L (3.5-5.1) Chloride Level 97 mmol/L (98-107) Carbon Dioxide Level 27 mmol/L (21-32) Anion Gap 11 (6-14) Blood Urea Nitrogen 31 mg/dL (8-26) Creatinine 8.5 mg/dL (0.7-1.3) Estimated GFR (Cockcroft-Gault) 8.0 BUN/Creatinine Ratio 4 (6-20) Glucose Level 147 mg/dL (70-99) Calcium Level 8.9 mg/dL (8.5-10.1) Total Bilirubin 0.3 mg/dL (0.2-1.0) Aspartate Amino Transf (AST/SGOT) 11 U/L (15-37) Alanine Aminotransferase (ALT/SGPT) 8 U/L (16-63) Alkaline Phosphatase 79 U/L (46-116) C-Reactive Protein, Quantitative 126.3 mg/L (0-3.3) Total Protein 7.7 g/dL (6.4-8.2) Albumin 2.0 g/dL (3.4-5.0) Albumin/Globulin Ratio 0.4 (1.0-1.7) Procalcitonin 1.08 ng/mL (0.00-0.10) Glucose (Fingerstick) 194 mg/dL (70-99) Images Images CT brain without contrast. HISTORY: Altered mental status CT scan the brain was done without contrast. A skull fracture is not identified. There is no intracranial hemorrhage or subdural hematoma. There is no mass or shift of the midline. Ventricles are normal in size. There is decreased density in the periventricular white matter from chronic microvascular changes. There is an old left basal ganglia lacunar infarct extending into the periventricular white matter. IMPRESSION: 1. Old left lacunar infarct. 2. Mild chronic microvascular changes. 3. No intracranial hemorrhage or other acute finding. Assessment/Plan Assessment/Plan IMP ESRD ANEMIA ENCEPHALOPATHY HTN PLAN HD TODAY UF TO DW RUFINA NEEDED PUI FOR COVID 19 KENDY GOMEZ MD May 14, 2020 11:06
[2020-05-14 11:39] VITALS: BP 73/46
--- NOTE | 2020-05-14 12:01 | NUR ---
SW following for discharge planning. Spoke with RN and reviewed chart. SW consulted as pt at high risk for readmission. Pt resides in LTC at [facility]. Pt admitted with AMS. Pt on IV pain medication, room air, renal diet. Pt COVID pending. Updates phoned and faxed to [place] and packet placed on chart. Pt added to possible holiday/weekend discharge list but will likely be admitted through the weekend. SW following. Addendum: 05/18/20 at 1344 by ZEB ISABEL COVID result negative. Pt transferred to [facility] to follow.
--- NOTE | 2020-05-14 12:19 | PDOC ---
[employer] PROGRESS NOTE Date of Service DOS: DATE: 05/14/20 TIME: 12:18 Chief Complaint Chief Complaint Altered mental status PUI Elevated procalcitonin Severe malnutrition End-stage renal disease on hemodialysis Plan: Without any obvious source of infection seen on labs and imaging obtained in ER, concerned for bacteremia given history of end-stage renal disease on hemodialysis Blood cultures pending Consult to nephrology to resume hemodialysis while inpatient Patient received empiric antibiotic treatment in ER Patient is afebrile, breathing on room air, low concern for COVID-19 at this time FEN - renal diet PPX - Heparin FULL CODE Dispo - inpatient for above History of Present Illness History of Present Illness 05/14/2020 No acute events overnight. Patient is afebrile. Dialysis yesterday and tolerated well. No erythema on the HD catheter site. Patient's chart, labs, images were reviewed and discussed with RN 50-year-old male with past medical history of end-stage renal disease on hemodialysis Monday//Monday, who presents to the ER for evaluation of altered mental status. Patient is a resident of medical [place], where EMS report ed he was also noted to have associated weakness and lethargy after breakfast this morning. Patient is nonverbal upon my evaluation, no answering any of my questions. No obvious source of encephalopathy or infection initially noted, except for elevated procalcitonin. He is afebrile breathing on room air. Due to some concerns of the etiology of AMS, patient will be admitted for further evaluation. Vitals/I&O Vitals/I&O: Vital Signs Date Time Temp Pulse Resp B/P (MAP) Pulse Ox O2 Delivery O2 Flow Rate FiO2 05/14/20 11:39 98.4 84 20 73/46 (55) 98 Room Air 98.4 05/14/20 03:45 99.0 I & O 05/13/20 05/13/20 05/14/20 15:00 23:00 07:00 Intake Total 0 ml Output Total 0 ml Balance 0 ml 0 ml Physical Exam General: Cooperative, No acute distress Heart: Regular rate, Normal S1, Normal S2 Lungs: Clear Abdomen: Normal bowel sounds, Soft, No tenderness Extremities: No clubbing Skin: No breakdown Labs Labs: Laboratory Tests Test 05/13/20 16:55 05/13/20 17:00 05/13/20 20:55 05/14/20 00:33 White Blood Count 11.8 x10^3/uL (4.0-11.0) Red Blood Count 3.74 x10^6/uL (4.30-5.70) Hemoglobin 10.0 g/dL (13.0-17.5) Hematocrit 31.4 % (39.0-53.0) Mean Corpuscular Volume 84 fL (79-100) Mean Corpuscular Hemoglobin 27 pg (25-35) Mean Corpuscular Hemoglobin Concent 32 g/dL (31-37) Red Cell Distribution Width 16.6 % (11.5-14.5) Platelet Count 391 x10^3/uL (140-400) Neutrophils (%) (Auto) 80 % (31-73) Lymphocytes (%) (Auto) 10 % (24-48) Monocytes (%) (Auto) 8 % (0-9) Eosinophils (%) (Auto) 1 % (0-3) Basophils (%) (Auto) 1 % (0-3) Neutrophils # (Auto) 9.4 x10^3/uL (1.8-7.7) Lymphocytes # (Auto) 1.2 x10^3/uL (1.0-4.8) Monocytes # (Auto) 0.9 x10^3/uL (0.0-1.1) Eosinophils # (Auto) 0.2 x10^3/uL (0.0-0.7) Basophils # (Auto) 0.1 x10^3/uL (0.0-0.2) Sodium Level 135 mmol/L (136-145) Potassium Level 4.9 mmol/L (3.5-5.1) Chloride Level 97 mmol/L (98-107) Carbon Dioxide Level 27 mmol/L (21-32) Anion Gap 11 (6-14) Blood Urea Nitrogen 28 mg/dL (8-26) Creatinine 7.7 mg/dL (0.7-1.3) Estimated GFR (Cockcroft-Gault) 9.0 BUN/Creatinine Ratio 4 (6-20) Glucose Level 111 mg/dL (70-99) Lactic Acid Level 0.8 mmol/L (0.4-2.0) Calcium Level 9.7 mg/dL (8.5-10.1) Magnesium Level 2.5 mg/dL (1.8-2.4) Total Bilirubin 0.2 mg/dL (0.2-1.0) Aspartate Amino Transf (AST/SGOT) 11 U/L (15-37) Alanine Aminotransferase (ALT/SGPT) 8 U/L (16-63) Alkaline Phosphatase 80 U/L (46-116) Troponin I Quantitative < 0.017 ng/mL (0.000-0.055) < 0.017 ng/mL (0.000-0.055) < 0.017 ng/mL (0.000-0.055) TB-Mhi-C-Type Natriuretic Peptide 4689 pg/mL (0-124) Total Protein 8.1 g/dL (6.4-8.2) Albumin 2.2 g/dL (3.4-5.0) Albumin/Globulin Ratio 0.4 (1.0-1.7) Procalcitonin 1.14 ng/mL (0.00-0.10) Thyroid Stimulating Hormone (TSH) 2.585 uIU/mL (0.358-3.74) Urine Collection Type Unknown Urine Color Elena Urine Clarity Cloudy Urine pH 5.0 (<5.0-8.0) Urine Specific Arrington 1.025 (1.000-1.030) Urine Protein >=300 mg/dL (NEG-TRACE) Urine Glucose (UA) 100 mg/dL (NEG) Urine Ketones (Stick) Trace mg/dL (NEG) Urine Blood Negative (NEG) Urine Nitrite Negative (NEG) Urine Bilirubin Small (NEG) Urine Urobilinogen Dipstick 1.0 mg/dL (0.2 mg/dL) Urine Leukocyte Esterase Trace (NEG) Urine RBC 3-5 /HPF (0-2) Urine WBC 1-4 /HPF (0-4) Urine Bacteria 0 /HPF (0-FEW) Urine Hyaline Casts Few /HPF Urine Opiates Screen Neg (NEG) Urine Methadone Screen Neg (NEG) Urine Barbiturates Neg (NEG) Urine Phencyclidine Screen Neg (NEG) Urine Amphetamine/Methamphetamine Neg (NEG) Urine Benzodiazepines Screen Neg (NEG) Urine Cocaine Screen Neg (NEG) Urine Cannabinoids Screen Neg (NEG) Urine Ethyl Alcohol Neg (NEG) Test 05/14/20 04:50 05/14/20 07:39 05/14/20 11:25 White Blood Count 10.0 x10^3/uL (4.0-11.0) Red Blood Count 3.68 x10^6/uL (4.30-5.70) Hemoglobin 9.8 g/dL (13.0-17.5) Hematocrit 31.0 % (39.0-53.0) Mean Corpuscular Volume 84 fL (79-100) Mean Corpuscular Hemoglobin 27 pg (25-35) Mean Corpuscular Hemoglobin Concent 32 g/dL (31-37) Red Cell Distribution Width 16.8 % (11.5-14.5) Platelet Count 414 x10^3/uL (140-400) Neutrophils (%) (Auto) 73 % (31-73) Lymphocytes (%) (Auto) 15 % (24-48) Monocytes (%) (Auto) 10 % (0-9) Eosinophils (%) (Auto) 2 % (0-3) Basophils (%) (Auto) 1 % (0-3) Neutrophils # (Auto) 7.3 x10^3/uL (1.8-7.7) Lymphocytes # (Auto) 1.5 x10^3/uL (1.0-4.8) Monocytes # (Auto) 1.0 x10^3/uL (0.0-1.1) Eosinophils # (Auto) 0.2 x10^3/uL (0.0-0.7) Basophils # (Auto) 0.1 x10^3/uL (0.0-0.2) Sodium Level 135 mmol/L (136-145) Potassium Level 4.8 mmol/L (3.5-5.1) Chloride Level 97 mmol/L (98-107) Carbon Dioxide Level 27 mmol/L (21-32) Anion Gap 11 (6-14) Blood Urea Nitrogen 31 mg/dL (8-26) Creatinine 8.5 mg/dL (0.7-1.3) Estimated GFR (Cockcroft-Gault) 8.0 BUN/Creatinine Ratio 4 (6-20) Glucose Level 147 mg/dL (70-99) Calcium Level 8.9 mg/dL (8.5-10.1) Total Bilirubin 0.3 mg/dL (0.2-1.0) Aspartate Amino Transf (AST/SGOT) 11 U/L (15-37) Alanine Aminotransferase (ALT/SGPT) 8 U/L (16-63) Alkaline Phosphatase 79 U/L (46-116) C-Reactive Protein, Quantitative 126.3 mg/L (0-3.3) Total Protein 7.7 g/dL (6.4-8.2) Albumin 2.0 g/dL (3.4-5.0) Albumin/Globulin Ratio 0.4 (1.0-1.7) Procalcitonin 1.08 ng/mL (0.00-0.10) Glucose (Fingerstick) 194 mg/dL (70-99) 203 mg/dL (70-99) Assessment and Plan Assessmemt and Plan Problems Medical Problems: (1) AMS (altered mental status) Status: Acute (2) Person under investigation for COVID-19 Status: Acute (3) Weakness generalized Status: Acute Comment Review of Relevant I have reviewed the following items ish (where applicable) has been applied. Medications: Current Medications Medications (Trade) Dose Ordered Sig/Greta Route PRN Reason Start Time Stop Time Status Last Admin Dose Admin Heparin Sodium (Porcine) (Heparin Sodium) 5,000 unit Q12HR SQ 05/13/20 21:00 05/14/20 09:00 Justifications for Admission Other Justification AMS DEO BASILIO MD May 14, 2020 12:19
[2020-05-14] MEDS ORDERED: IV NORMAL SALINE 1000ML BAG 1,000 ML IV PRN ×2 (13:00)
[2020-05-14] MEDS ORDERED: ALBUMIN HUMAN 25% 200 ML IV PRN (13:00)
[2020-05-14] MEDS ORDERED: DIALYSIS PATIENT. MC PRN ×2 (13:00)
--- NOTE | 2020-05-14 15:23 | NUR ---
Spoke with pt spouse who reports pt has been at [facility] since dec for rehab. Pt indep prior to that hospitalization. SPouse reports goal is for eventual return home. Recommend PT/OT eval and treat orders to continue therapy services during hospitalization. Addendum: 05/14/20 at 1524 by LORE FRASER PT Amended: Links added.
--- NOTE | 2020-05-14 15:53 | NUR ---
Pt COVID swab results negative. Notified Dr. Sena by telephone. Per Dr. Snea, pt does not need to be reswabbed and can transfer to med surg floor.
--- NOTE | 2020-05-14 17:44 | NUR ---
Pt transferred to room 404 after dialysis completed. Transfer report given to CHAN Sharp. Addendum: 05/14/20 at 1749 by CARMELLA PATEL RN This CHAN notified [facility] at [phone] of transfer.
[2020-05-14 19:00] VITALS: BP 123/64
[2020-05-14] MEDS: DARBEPOETIN ALFA 60 MCG/0.3 ML DISP.SYRIN. SQ SCH (21:19)
[2020-05-14 23:00] VITALS: BP 128/72
[2020-05-15 03:00] VITALS: BP 132/68
[2020-05-15 07:00] VITALS: BP 127/77
[2020-05-15] MEDS: cefTRIAXone IV Push 2 GM VIAL. IVP SCH ×2 (10:07→21:13)
[2020-05-15] MEDS: AMPICILLIN SODIUM 2 GM in IV NORMAL SALINE 100ML 100 ML IV SCH ×2 (10:13→21:14)
[2020-05-15] MEDS: HEPARIN for SUB-Q USE 5,000 UNIT/ML VIAL. SQ SCH ×2 (10:26→21:23)
[2020-05-15 11:00] VITALS: BP 143/71
--- NOTE | 2020-05-15 13:53 | PDOC ---
Renal-Progress Notes Subjective Notes Notes NO NEW COMPLAINTS History of Present Illness Hx of present illness STABLE Vitals Vitals Vital Signs Date Time Temp Pulse Resp B/P (MAP) Pulse Ox O2 Delivery O2 Flow Rate FiO2 05/15/20 11:00 97.9 75 18 143/71 (95) 100 Room Air 97.9 05/15/20 07:50 99.0 Weight Weight [ ] I.O. Intake and Output Intake and Output 05/15/20 07:00 Intake Total 240 ml Output Total 0 ml Balance 240 ml Intake Oral 240 ml Output Urine Total 0 ml # Bowel Movements 1 Labs Labs Laboratory Tests Test 05/14/20 20:43 05/15/20 07:30 05/15/20 10:44 05/15/20 11:12 Glucose (Fingerstick) 230 mg/dL (70-99) 260 mg/dL (70-99) 248 mg/dL (70-99) Ammonia < 10 mcmol/L (11-34) Micro Micro Microbiology 05/13/20 Blood Culture - Preliminary, Resulted 05/13/20 Urine Culture - Final, Complete Review of Systems Constitutional: yes: other (CONFUSED) Physical Exam General Appearance: no apparent distress Skin: warm Respiratory: bilateral CTA Heart: S1S2 Abdomen: soft, bowel sounds present Genitourinary: bladder flat Extremities: pulses present Neurology: confused Musculoskeletal: Osteoarthritis Assessment Assessment IMP ESRD ANEMIA ENCEPHALOPATHY HTN PLAN HD TOMORROW RUFINA NEEDED NEG FOR COVID 19 KENDY GOMEZ MD May 15, 2020 13:53
--- NOTE | 2020-05-15 14:30 | PDOC ---
[employer] PROGRESS NOTE Date of Service DOS: DATE: 05/15/20 TIME: 14:29 Chief Complaint Chief Complaint Altered mental status Gram-positive chains bacteremia PUI Elevated procalcitonin Severe malnutrition End-stage renal disease on hemodialysis Plan: We will obtain ammonia level for altered mental status Start IV ampicillin and Rocephin for gram-positive bacteremia Without any obvious source of infection seen on labs and imaging obtained in ER, concerned for bacteremia given history of end-stage renal disease on hemodialysis Blood cultures pending Consult to nephrology to resume hemodialysis while inpatient Patient received empiric antibiotic treatment in ER Patient is afebrile, breathing on room air, low concern for COVID-19 at this time FEN - renal diet PPX - Heparin FULL CODE Dispo - inpatient for above History of Present Illness History of Present Illness 05/15/2020 No acute events overnight. Patient is afebrile. Mental status is unchanged. Dialysis yesterday. HD catheter site is unchanged. Patient's chart, labs, images were reviewed and discussed with RN 05/14/2020 No acute events overnight. Patient is afebrile. Dialysis yesterday and tolerated well. No erythema on the HD catheter site. Patient's chart, labs, images were reviewed and discussed with RN 50-year-old male with past medical history of end-stage renal disease on hemodialysis Monday//Monday, who presents to the ER for evaluation of altered mental status. Patient is a resident of medical [place], where EMS reported he was also noted to have associated weakness and lethargy after breakfast this morning. Patient is nonverbal upon my evaluation, no answering any of my questions. No obvious source of encephalopathy or infection initially noted, except for elevated procalcitonin. He is afebrile breathing on room air. Due to some concerns of the etiology of AMS, patient will be admitted for further evaluation. Vitals/I&O Vitals/I&O: Vital Signs Date Time Temp Pulse Resp B/P (MAP) Pulse Ox O2 Delivery O2 Flow Rate FiO2 05/15/20 11:00 97.9 75 18 143/71 (95) 100 Room Air 97.9 05/15/20 07:50 99.0 I & O 05/14/20 05/14/20 05/15/20 15:00 23:00 07:00 Intake Total 240 ml Output Total 0 ml 0 ml Balance 240 ml 0 ml 0 ml Physical Exam General: Cooperative, No acute distress Heart: Regular rate, Normal S1, Normal S2 Lungs: Clear Abdomen: Normal bowel sounds, Soft, No tenderness Extremities: No clubbing Skin: No breakdown Labs Labs: Laboratory Tests Test 05/14/20 20:43 05/15/20 07:30 05/15/20 10:44 05/15/20 11:12 Glucose (Fingerstick) 230 mg/dL (70-99) 260 mg/dL (70-99) 248 mg/dL (70-99) Ammonia < 10 mcmol/L (11-34) Assessment and Plan Assessmemt and Plan Problems Medical Problems: (1) AMS (altered mental status) Status: Acute (2) Person under investigation for COVID-19 Status: Acute (3) Weakness generalized Status: Acute Comment Review of Relevant I have reviewed the following items ish (where applicable) has been applied. Medications: Current Medications Medications (Trade) Dose Ordered Sig/Greta Route PRN Reason Start Time Stop Time Status Last Admin Dose Admin Darbepoetin Brian (ARANESP for DIALYSIS PTS) 60 mcg WEEKLYHS SQ 05/14/20 21:00 05/14/20 21:19 Ampicillin Sodium 2 gm/Sodium Chloride 100 ml @ 200 mls/hr Q12HR IV 05/15/20 09:00 05/15/20 10:13 Ceftriaxone Sodium (Rocephin) 2 gm Q12H IVP 05/15/20 08:00 05/15/20 10:07 Justifications for Admission Other Justification AMS DEO BASILIO MD May 15, 2020 14:30
[2020-05-15 14:52] VITALS: BP 130/64
[2020-05-15] MEDS ORDERED: DEXTROSE 50% 25 GM / 50ML DISP.SYRIN. IV PRN (16:45)
[2020-05-15] MEDS: INSULIN LISPRO 300 UNITS/3 ML VIAL. SQ SCH (17:35)
[2020-05-15 19:15] VITALS: BP 122/73
[2020-05-15] MEDS: LACTOBACILLUS RHAMNOSUS GG 1 CAPSULE. PO SCH (21:13)
[2020-05-15] MEDS ORDERED: INSULIN LISPRO 300 UNITS/3 ML VIAL. SQ ONE (21:30)
[2020-05-16 03:00] VITALS: BP 124/80
[2020-05-16 07:00] VITALS: BP 143/82
[2020-05-16] MEDS: INSULIN LISPRO 300 UNITS/3 ML VIAL. SQ SCH ×3 (08:18→17:12)
[2020-05-16] MEDS ORDERED: DIALYSIS PATIENT. MC PRN (08:45)
[2020-05-16] MEDS: LACTOBACILLUS RHAMNOSUS GG 1 CAPSULE. PO SCH ×2 (09:00→21:16)
[2020-05-16] MEDS ORDERED: IV NORMAL SALINE 1000ML BAG 1,000 ML IV PRN ×2 (09:00)
--- NOTE | 2020-05-16 11:16 | PDOC ---
[employer] PROGRESS NOTE Date of Service DOS: DATE: 05/16/20 TIME: 11:14 Chief Complaint Chief Complaint Altered mental status Gram-positive chains bacteremia PUI Elevated procalcitonin Severe malnutrition End-stage renal disease on hemodialysis Plan: We will obtain ammonia level for altered mental status Start IV ampicillin and Rocephin for gram-positive bacteremia Without any obvious source of infection seen on labs and imaging obtained in ER, concerned for bacteremia given history of end-stage renal disease on hemodialysis Blood cultures pending Consult to nephrology to resume hemodialysis while inpatient Patient received empiric antibiotic treatment in ER Patient is afebrile, breathing on room air, low concern for COVID-19 at this time FEN - renal diet PPX - Heparin FULL CODE Dispo - inpatient for above History of Present Illness History of Present Illness 05/16/2020 Patient seen and evaluated bedside. No acute events overnight. He is afebrile. Will consult infectious disease due to positive blood cultures growing Enterococcus faecalis. He is receiving hemodialysis today. Discussed with RN. 05/15/2020 No acute events overnight. Patient is afebrile. Mental status is unchanged. Dialysis yesterday. HD catheter site is unchanged. Patient's chart, labs, images were reviewed and discussed with RN 05/14/2020 No acute events overnight. Patient is afebrile. Dialysis yesterday and tolerated well. No erythema on the HD catheter site. Patient's chart, labs, images were reviewed and discussed with RN 50-year-old male with past medical history of end-stage renal disease on hemodialysis Monday//Monday, who presents to the ER for evaluation of altered mental status. Patient is a resident of [facility], where EMS reported he was also noted to have associated weakness and lethargy after breakfast this morning. Patient is nonverbal upon my evaluation, no answering any of my questions. No obvious source of encephalopathy or infection initially noted, except for elevated procalcitonin. He is afebrile breathing on room air. Due to some concerns of the etiology of AMS, patient will be admitted for further evaluation. Vitals/I&O Vitals/I&O: Vital Signs Date Time Temp Pulse Resp B/P (MAP) Pulse Ox O2 Delivery O2 Flow Rate FiO2 05/16/20 07:55 Room Air 99.0 05/16/20 07:00 98.0 75 20 143/82 (102) 100 98.0 I & O 05/15/20 05/15/20 05/16/20 15:00 23:00 07:00 Intake Total 100 ml 100 ml 440 ml Output Total 300 ml Balance 100 ml 100 ml 140 ml Physical Exam General: Cooperative, No acute distress Heart: Regular rate, Normal S1, Normal S2 Lungs: Clear Abdomen: Normal bowel sounds, Soft, No tenderness Extremities: No clubbing Skin: No breakdown Labs Labs: Laboratory Tests Test 05/15/20 16:37 05/15/20 21:25 05/16/20 07:11 Glucose (Fingerstick) 266 mg/dL (70-99) 240 mg/dL (70-99) 321 mg/dL (70-99) Assessment and Plan Assessmemt and Plan Problems Medical Problems: (1) AMS (altered mental status) Status: Acute (2) Person under investigation for COVID-19 Status: Acute (3) Weakness generalized Status: Acute Comment Review of Relevant I have reviewed the following items ish (where applicable) has been applied. Medications: Current Medications Medications (Trade) Dose Ordered Sig/Greta Route PRN Reason Start Time Stop Time Status Last Admin Dose Admin Lactobacillus Rhamnosus (Culturelle) 1 cap BID PO 05/15/20 21:00 05/15/20 21:13 Insulin Human Lispro (HumaLOG) 0-7 UNITS TIDWMEALS SQ 05/15/20 17:00 05/16/20 08:18 Insulin Human Lispro (HumaLOG) 4 units 1X ONCE SQ 05/15/20 21:30 05/15/20 21:31 DC 05/15/20 21:46 Justifications for Admission Other Justification AMS KUSUM MITCHELL MD May 16, 2020 11:16
[2020-05-16 12:30] VITALS: BP 157/87
[2020-05-16] MEDS: HEPARIN for SUB-Q USE 5,000 UNIT/ML VIAL. SQ SCH ×2 (13:25→21:22)
--- NOTE | 2020-05-16 13:52 | NUR ---
Patient seem more alert today after he came back from dialysis. Patient was able to tell me his name, , and year. He used more sentences when communicated.
--- NOTE | 2020-05-16 14:26 | PDOC ---
Renal-Progress Notes Subjective Notes Notes NO NEW COMPLAINTS History of Present Illness Hx of present illness SOMNOLENT Vitals Vitals Vital Signs Date Time Temp Pulse Resp B/P (MAP) Pulse Ox O2 Delivery O2 Flow Rate FiO2 05/16/20 12:30 98.4 74 16 157/87 (110) 97 Room Air 98.4 05/16/20 07:55 99.0 Weight Weight [ ] I.O. Intake and Output Intake and Output 05/16/20 07:00 Intake Total 640 ml Output Total 300 ml Balance 340 ml Intake Oral 640 ml Output Urine Total 300 ml Labs Labs Laboratory Tests Test 05/15/20 16:37 05/15/20 21:25 05/16/20 07:11 05/16/20 12:39 Glucose (Fingerstick) 266 mg/dL (70-99) 240 mg/dL (70-99) 321 mg/dL (70-99) 167 mg/dL (70-99) Micro Micro Microbiology 05/13/20 Blood Culture - Preliminary, Resulted 05/13/20 Urine Culture - Final, Complete Review of Systems Constitutional: yes: other (CONFUSED) Physical Exam General Appearance: no apparent distress Skin: warm Respiratory: bilateral CTA Heart: S1S2 Abdomen: soft, bowel sounds present Genitourinary: bladder flat Extremities: pulses present Neurology: confused Musculoskeletal: Osteoarthritis Assessment Assessment IMP ESRD ANEMIA ENCEPHALOPATHY HTN PLAN HD TODAY UF TO DW RUFINA NEEDED NEG FOR COVID 19 KENDY GOMEZ MD May 16, 2020 14:26
[2020-05-16] MEDS: AMPICILLIN SODIUM 2 GM in IV NORMAL SALINE 100ML 100 ML IV SCH ×2 (14:40→21:18)
[2020-05-16] MEDS: cefTRIAXone IV Push 2 GM VIAL. IVP SCH ×2 (14:40→20:10)
[2020-05-16 15:00] VITALS: BP 149/80
[2020-05-16 19:00] VITALS: BP 144/88
[2020-05-16 23:11] VITALS: BP 131/76
[2020-05-17 03:00] VITALS: BP 152/93
[2020-05-17 07:00] VITALS: BP 157/91
[2020-05-17 07:28] LABS: CALCIUM 8.8 mg/dL (8.5-10.1); CREATININE 7.4 mg/dL (0.7-1.3); GFR 9.4; POTASSIUM 4.4 mmol/L (3.5-5.1)
[2020-05-17] MEDS: AMPICILLIN SODIUM 2 GM in IV NORMAL SALINE 100ML 100 ML IV SCH (08:12)
[2020-05-17] MEDS: LACTOBACILLUS RHAMNOSUS GG 1 CAPSULE. PO SCH ×2 (08:12→21:02)
[2020-05-17] MEDS: cefTRIAXone IV Push 2 GM VIAL. IVP SCH (08:12)
[2020-05-17] MEDS: HEPARIN for SUB-Q USE 5,000 UNIT/ML VIAL. SQ SCH ×2 (08:13→20:47)
[2020-05-17] MEDS: INSULIN LISPRO 300 UNITS/3 ML VIAL. SQ SCH ×3 (08:14→16:41)
--- NOTE | 2020-05-17 08:27 | PDOC ---
[employer] PROGRESS NOTE Date of Service DOS: DATE: 05/17/20 TIME: 08:21 Chief Complaint Chief Complaint Altered mental status Metabolic encephalopathy Gram-positive chains bacteremia PUI Elevated procalcitonin Severe malnutrition End-stage renal disease on hemodialysis Plan: We will obtain ammonia level for altered mental status Start IV ampicillin and Rocephin for gram-positive bacteremia Without any obvious source of infection seen on labs and imaging obtained in ER, concerned for bacteremia given history of end-stage renal disease on hemodialysis Blood cultures pending Consult to nephrology to resume hemodialysis while inpatient Patient received empiric antibiotic treatment in ER Patient is afebrile, breathing on room air, low concern for COVID-19 at this time FEN - renal diet PPX - Heparin FULL CODE Dispo - inpatient for above History of Present Illness History of Present Illness 05/17/2020 No acute events overnight. Afebrile. HD yesterday. Continue antibiotic coverage with Rocephin and ampicillin. Appreciate infectious disease input in the care of this patient. Blood cultures growing Enterococcus faecalis and staph aureus, pansensitive. 05/16/2020 Patient seen and evaluated bedside. No acute events overnight. He is afebrile. Will consult infectious disease due to positive blood cultures growing Enterococcus faecalis. He is receiving hemodialysis today. Discussed with RN. 05/15/2020 No acute events overnight. Patient is afebrile. Mental status is unchanged. Dialysis yesterday. HD catheter site is unchanged. Patient's chart, labs, images were reviewed and discussed with RN 05/14/2020 No acute events overnight. Patient is afebrile. Dialysis yesterday and tolerated well. No erythema on the HD catheter site. Patient's chart, labs, images were reviewed and discussed with RN 50-year-old male with past medical history of end-stage renal disease on he modialysis Monday//Monday, who presents to the ER for evaluation of altered mental status. Patient is a resident of medical [place], where EMS reported he was also noted to have associated weakness and lethargy after breakfast this morning. Patient is nonverbal upon my evaluation, no answering any of my questions. No obvious source of encephalopathy or infection initially noted, except for elevated procalcitonin. He is afebrile breathing on room air. Due to some concerns of the etiology of AMS, patient will be admitted for further evaluation. Vitals/I&O Vitals/I&O: Vital Signs Date Time Temp Pulse Resp B/P (MAP) Pulse Ox O2 Delivery O2 Flow Rate FiO2 05/17/20 07:00 98.0 82 18 157/91 (113) 98 Room Air 98.0 05/16/20 07:55 99.0 I & O 05/16/20 05/16/20 05/17/20 15:00 23:00 07:00 Intake Total 120 ml 320 ml 500 ml Balance 120 ml 320 ml 500 ml Physical Exam General: Cooperative, No acute distress Heart: Regular rate, Normal S1, Normal S2 Lungs: Clear Abdomen: Normal bowel sounds, Soft, No tenderness Extremities: No clubbing Skin: No breakdown Labs Labs: Laboratory Tests Test 05/16/20 12:39 05/16/20 16:39 05/16/20 20:57 05/17/20 06:34 Glucose (Fingerstick) 167 mg/dL (70-99) 228 mg/dL (70-99) 253 mg/dL (70-99) Sodium Level 132 mmol/L (136-145) Potassium Level 4.4 mmol/L (3.5-5.1) Chloride Level 95 mmol/L (98-107) Carbon Dioxide Level 29 mmol/L (21-32) Anion Gap 8 (6-14) Blood Urea Nitrogen 25 mg/dL (8-26) Creatinine 7.4 mg/dL (0.7-1.3) Estimated GFR (Cockcroft-Gault) 9.4 Glucose Level 268 mg/dL (70-99) Calcium Level 8.8 mg/dL (8.5-10.1) Test 05/17/20 07:15 Glucose (Fingerstick) 263 mg/dL (70-99) Assessment and Plan Assessmemt and Plan Problems Medical Problems: (1) AMS (altered mental status) Status: Acute (2) Person under investigation for COVID-19 Status: Acute (3) Weakness generalized Status: Acute Comment Review of Relevant I have reviewed the following items ish (where applicable) has been applied. Justifications for Admission Other Justification AMS KUSUM MITCHELL MD May 17, 2020 08:27
[2020-05-17 11:00] VITALS: BP 162/92
--- NOTE | 2020-05-17 11:34 | CONS ---
DATE OF CONSULTATION: 05/17/2020 REFERRING PHYSICIAN: Dr. Rm Negron REASON FOR CONSULTATION: Enterococcus bacteremia. HISTORY OF PRESENT ILLNESS: A 50-year-old male, poor historian, with history of diabetes, hypertension, hyperlipidemia, history of CVA, end-stage renal disease on dialysis Monday, and Monday, presented from the retirement with altered mental status and weakness. The patient is unable to give details. History obtained from chart and medical staff. The patient's white count was 11.8, lactate of 0.8, procalcitonin of 1.14. UA was negative for infection. UDS was negative. CT head showed old left lacunar infarct, mild chronic microvascular changes, no intracranial hemorrhage. Chest x-ray showed no definite infiltrate, dialysis catheter in place. COVID-19 was negative. Blood cultures done on 05/13 was positive for Enterococcus faecalis and Staph aureus. The patient was started on ceftriaxone and ampicillin. ID consultation has been requested for further evaluation and treatment. Today, the patient remains somnolent, remains afebrile. Discussed with nursing. PAST MEDICAL HISTORY: Hypertension, diabetes, history of CVA, end-stage renal disease on dialysis through left chest wall dialysis catheter placed a month ago per the patient's report, encephalopathy, history of fall, retirement resident, unspecified convulsions, smoker. SOCIAL HISTORY: Smoker, retirement resident. No alcohol, no drug use. REVIEW OF SYSTEMS: Limited as above. CURRENT MEDICATIONS: IV ceftriaxone and ampicillin. Other medications reviewed in medication list. ALLERGIES: No known drug allergies. PHYSICAL EXAMINATION: VITAL SIGNS: Temperature 98, pulse 82, respiratory rate 18, blood pressure 157/91, oxygen saturation 98% on room air. GENERAL: Alert, awake, somewhat confused male, arousable, answers only a few questions, in no acute distress. HEENT: Normocephalic, atraumatic, anicteric. No thrush. NECK: Supple. LUNGS: Clear. HEART: S1, S2, no murmurs. CHEST WALL: Left chest wall HDC catheter site looks clean. ABDOMEN: Soft, nontender, nondistended. Bowel sounds present. EXTREMITIES: No edema, no cyanosis. DERMATOLOGIC: Warm, dry. No generalized rash. Multiple abrasions, not infected. CENTRAL NERVOUS SYSTEM: Moves all 4 extremities. PSYCHIATRIC: Calm and cooperative. LABORATORY DATA: WBC 10.0, was 11.8; hemoglobin is 9.8, hematocrit 31.0, platelets 414. Creatinine 7.4. UA: 1-4 wbc's, leukocyte esterase trace. UDS negative. COVID negative. Micro: Blood culture 05/13 positive for Enterococcus faecalis and Staph aureus. Two out of three sets UA negative. IMAGING DATA: Chest x-ray shows no definite infiltrate. CT head as above. IMPRESSION: 1. Sepsis from bacteremia. 2. Bacteremia, methicillin-sensitive Staphylococcus aureus and enterococcus bacteremia, source appears HDC catheter. 3. End-stage renal disease, on hemodialysis. 4. History of cerebrovascular accident. 5. Encephalopathy. 6. Hypertension. 7. Anemia. 8. Smoking. 9. intermediate resident. 10. COVID negative. RECOMMENDATIONS: 1. Limited choices for enterococcus and Staph aureus bacteremia. 2. Discontinue IV ceftriaxone and ampicillin. 3. Start daptomycin 6 mg dose today and then renal dosing discussed with pharmacy. 4. HDC catheter will need removal. We will have to coordinate with Renal team. 5. Repeat blood cultures next Monday. 6. Follow up labs and cultures. 7. Continue supportive care. 8. Maintain aspiration precaution. 9. Discussed with RN. Thank you for allowing me to participate in this patient's care. If you have any questions, do not hesitate to contact me. ADELINA ZABALA MD DR: FELIZ/claudia JOB#: [id number] / [id number]
--- NOTE | 2020-05-17 14:58 | PDOC ---
Renal-Progress Notes Subjective Notes Notes NO NEW COMPLAINTS History of Present Illness Hx of present illness BACTEREMIA NOTED Vitals Vitals Vital Signs Date Time Temp Pulse Resp B/P (MAP) Pulse Ox O2 Delivery O2 Flow Rate FiO2 05/17/20 11:00 207.9 74 162/92 (115) 98 Room Air 99.0 207.9 05/17/20 11:00 18 Weight Weight [ ] I.O. Intake and Output Intake and Output 05/17/20 07:00 Intake Total 940 ml Balance 940 ml Intake Oral 940 ml # Voids 3 Labs Labs Laboratory Tests Test 05/16/20 16:39 05/16/20 20:57 05/17/20 06:34 05/17/20 07:15 Glucose (Fingerstick) 228 mg/dL (70-99) 253 mg/dL (70-99) 263 mg/dL (70-99) Sodium Level 132 mmol/L (136-145) Potassium Level 4.4 mmol/L (3.5-5.1) Chloride Level 95 mmol/L (98-107) Carbon Dioxide Level 29 mmol/L (21-32) Anion Gap 8 (6-14) Blood Urea Nitrogen 25 mg/dL (8-26) Creatinine 7.4 mg/dL (0.7-1.3) Estimated GFR (Cockcroft-Gault) 9.4 Glucose Level 268 mg/dL (70-99) Calcium Level 8.8 mg/dL (8.5-10.1) Test 05/17/20 11:22 Glucose (Fingerstick) 218 mg/dL (70-99) Micro Micro Microbiology 05/13/20 Blood Culture - Final, Complete 05/13/20 Urine Culture - Final, Complete Review of Systems Constitutional: yes: other (CONFUSED) Physical Exam General Appearance: no apparent distress Skin: warm Respiratory: bilateral CTA Heart: S1S2 Abdomen: soft, bowel sounds present Genitourinary: bladder flat Extremities: pulses present Neurology: confused Musculoskeletal: Osteoarthritis Assessment Assessment IMP BACTEREMIA MSSA AND ENTEROCOCCUS ESRD ANEMIA ENCEPHALOPATHY HTN PLAN HD TTS WILL HAVE IR REMOVE TUNNELED LINE AND PLACE TEMP HD CATHETER TOMORROW RUFINA NEEDED NEG FOR COVID 19 KENDY GOMEZ MD May 17, 2020 14:58
[2020-05-17 15:00] VITALS: BP 136/77
[2020-05-17] MEDS ORDERED: DAPTOmycin (GENERIC) IVPB 450 MG in IV NORMAL SALINE 50ML 50 ML IV ONE (16:00)
[2020-05-17 19:00] VITALS: BP 145/84
[2020-05-17 23:00] VITALS: BP 160/87
[2020-05-18] VITALS (14 sets, daily range): BP systolic 145–182; BP diastolic 62–103
[2020-05-18 07:35] LABS: HEMATOCRIT 30.7 % (39.0-53.0); HEMOGLOBIN 9.7 g/dL (13.0-17.5); RED BLOOD COUNT 3.65 x10^6/uL (4.30-5.70); RED CELL DISTRIBUTION WIDTH 16.9 % (11.5-14.5); WHITE BLOOD COUNT 8.1 x10^3/uL (4.0-11.0)
--- NOTE | 2020-05-18 07:39 | PDOC ---
Infectious Disease Note Subjective: Subjective Patient somnolent No fevers Discussed with nursing staff Vital Signs: Vital Signs Vital Signs Date Time Temp Pulse Resp B/P (MAP) Pulse Ox O2 Delivery O2 Flow Rate FiO2 05/18/20 03:00 98.6 86 18 159/62 (94) 99 Room Air 98.6 05/17/20 11:00 99.0 Physical Exam: PHYSICAL EXAM GENERAL: Somnolent confused male, arousable, answers only a few questions, in no acute distress. HEENT: Normocephalic, atraumatic, anicteric. No thrush. NECK: Supple. LUNGS: Clear. HEART: S1, S2, no murmurs. CHEST WALL: Left chest wall HDC catheter site looks clean. ABDOMEN: Soft, nontender, nondistended. Bowel sounds present. EXTREMITIES: No edema, no cyanosis. DERMATOLOGIC: Warm, dry. No generalized rash. Multiple abrasions, not infected. CENTRAL NERVOUS SYSTEM: Sleepy but arousable moves all 4 extremities. PSYCHIATRIC: Calm and cooperative. Medications: Inpatient Meds: Current Medications Medications (Trade) Dose Ordered Sig/Greta Start Time Stop Time Status Last Admin Dose Admin Acetaminophen (Tylenol) 650 mg PRN Q6HRS PRN 05/13/20 20:30 Al Hydroxide/Mg Hydroxide (Mylanta Plus Xs) 30 ml PRN Q3HRS PRN 05/13/20 20:30 Albumin Human 200 ml @ 200 mls/hr 1X PRN PRN 05/14/20 13:00 05/14/20 18:59 DC Ampicillin Sodium 2 gm/Sodium Chloride 100 ml @ 200 mls/hr Q12HR 05/15/20 09:00 05/17/20 10:14 DC 05/17/20 08:12 200 MLS/HR Bisacodyl (Dulcolax Supp) 10 mg PRN DAILY PRN 05/13/20 20:30 Calcium Carbonate/ Glycine (Tums) 500 mg PRN Q3HRS PRN 05/13/20 20:30 Ceftriaxone Sodium (Rocephin) 2 gm Q12H 05/15/20 08:00 05/17/20 10:14 DC 05/17/20 08:12 2 GM Daptomycin 450 mg/ Sodium Chloride 50 ml @ 100 mls/hr Q48H 05/19/20 16:00 Darbepoetin Brian (ARANESP for DIALYSIS PTS) 60 mcg WEEKLYHS 05/14/20 21:00 05/14/20 21:19 60 MCG Dextrose (Dextrose 50%-Water Syringe) 12.5 gm PRN Q15MIN PRN 05/15/20 16:45 Heparin Sodium (Porcine) (Heparin Sodium) 5,000 unit Q12HR 05/13/20 21:00 05/17/20 08:13 5,000 UNIT Info (PHARMACY MONITORING -- do not chart) 1 each PRN DAILY PRN 05/16/20 08:45 UNV Insulin Human Lispro (HumaLOG) 4 units 1X ONCE 05/15/20 21:30 05/15/20 21:31 DC 05/15/20 21:46 4 UNITS Lactobacillus Rhamnosus (Culturelle) 1 cap BID 05/15/20 21:00 05/17/20 21:02 1 CAP Magnesium Hydroxide (Milk Of Magnesia) 2,400 mg PRN Q12HR PRN 05/13/20 20:30 Morphine Sulfate (Morphine Sulfate) 4 mg PRN Q2HR PRN 05/13/20 19:30 05/14/20 19:29 DC Ondansetron HCl (Zofran) 4 mg PRN Q6HRS PRN 05/13/20 20:30 05/14/20 21:19 4 MG Sodium Chloride 1,000 ml @ 400 mls/hr Q2H30M PRN 05/16/20 09:00 05/16/20 16:00 DC Tramadol HCl (Ultram) 50 mg PRN Q6HRS PRN 05/13/20 20:30 Labs: Lab Laboratory Tests Test 05/17/20 11:22 05/17/20 16:35 05/17/20 20:11 Glucose (Fingerstick) 218 mg/dL (70-99) 256 mg/dL (70-99) 220 mg/dL (70-99) Micro --------- --- RUN DATE: 05/17/20 [facility] *LIVE* PAGE 1 RUN TIME: 926 Specimen Inquiry PATIENT: TIMO BALDERAS ACCT: [id number] LOC: [address] [place] [address] U: [id number] AGE/SX: 50/M ROOM: 404 RE05/13/[address]: KUSUM MITCHELL MD : 1970 BED: 1 DIS: STATUS: ADM IN TLOC: SPEC #: [id number] JOSE: 05/13/20-1999 STATUS: COMP REQ #: [id number] RECD: 05/13/20-[address]: MEGHAN GASPAR APRN SOURCE: BLOOD ENTR: 05/14/20-[address] ORDERED: BLD CULT - LC Procedure Result BLOOD CULTURE LC Final Final GRAM POSITIVE COCCI FINAL ID= [ENTEROCOCCUS FAECALIS] FINAL ID= [STAPHYLOCOCCUS AUREUS] ENTEROCOCCUS FAECALIS STAPHYLOCOCCUS AUREUS Streptomycin Synergy Screen S Gentamicin Synergy Screen S ANTIMICROBIAL SUSCEPTIBILITY Final Comment Comment POS REESE TYPE 38 ENTEROCOCCUS FAECALIS ANTIBIOTIC RESULT INTERPRETATION AMPICILLIN <=2 S DAPTOMYCIN 1 S LINEZOLID 2 S PENICILLIN 2 S VANCOMYCIN 2 S POS REESE TYPE 38 STAPHYLOCOCCUS AUREUS ANTIBIOTIC RESULT INTERPRETATION AZITHROMYCIN <=2 S CLINDAMYCIN 0.5 S CEFOXITIN SCREEN <=4 NEG CIPROFLOXACIN <=1 S CEFTAROLINE <=0.5 S DAPTOMYCIN <=0.5 S ERYTHROMYCIN <=0.25 S GENTAMICIN <=4 S LINEZOLID 2 S LEVOFLOXACIN <=1 S OXACILLIN 0.5 S PENICILLIN >2 Allan RIFAMPIN <=1 S TRIMETHOPRIM/SULFAMETHOXAZOLE <=0.5/9.5 S TETRACYCLINE <=4 S VANCOMYCIN 1 S Unless otherwise specified, Testing Performed by: RUN DATE: 05/17/20 [facility] *LIVE* PAGE 2 RUN TIME: 926 Specimen Inquiry SPEC: [id number] PATIENT: TIMO BALDERAS [id number] (Continued) Procedure Result CONTINUED ON NEXT PAGE RUN DATE: 05/17/20 [facility] *LIVE* PAGE 3 RUN TIME: 0927 Specimen Inquiry SPEC: [id number] PATIENT: TIMO [id number] (Continued) Procedure Result ANTIMICROBIAL SUSCEPTIBILITY Final (continued) [address] [address] For Inquires, the Physician may contact the Microbiology department at [phone] Objective: Assessment: 1. Sepsis from bacteremia. 2. Bacteremia, methicillin-sensitive Staphylococcus aureus and enterococcus bacteremia, source likely HDC catheter. 3. End-stage renal disease, on hemodialysis. 4. History of cerebrovascular accident. 5. Encephalopathy. 6. Hypertension. 7. Anemia. 8. Smoking. 9. senior care resident. 10. COVID negative. Plan: Plan of Care Continue daptomycin renal dosing, May 17, 2020 Awaiting HDC catheter removal today. Follow-up repeat blood cultures ordered for tomorrow Follow up labs and cultures. Continue supportive care. Maintain aspiration precaution. Discussed with nursing staff ADELINA ZABALA MD May 18, 2020 07:39
[2020-05-18 08:01] LABS: CALCIUM 8.7 mg/dL (8.5-10.1); CREATININE 9.2 mg/dL (0.7-1.3); GFR 7.3
[2020-05-18] MEDS: INSULIN LISPRO 300 UNITS/3 ML VIAL. SQ SCH ×4 (08:27→20:23)
[2020-05-18] MEDS: LACTOBACILLUS RHAMNOSUS GG 1 CAPSULE. PO SCH ×2 (08:29→20:55)
[2020-05-18] MEDS: HEPARIN for SUB-Q USE 5,000 UNIT/ML VIAL. SQ SCH ×2 (08:29→20:22)
--- NOTE | 2020-05-18 09:25 | NUR ---
SW following. Discussed with RN, pt from [facility], room air, renal diet, COVID-19 negative. Pt getting dialysis cath replaced today. Pt on IV dapto. SW will continue to follow.
[2020-05-18 09:30] LABS: PROTHROMBIN TIME PATIENT 14.2 SEC (11.7-14.0)
--- NOTE | 2020-05-18 09:56 | PDOC ---
PROGRESS NOTES Date of Service: DATE: 05/18/20 TIME: 09:56 Chief Complaint Chief Complaint impression Altered mental status Metabolic encephalopathy Gram-positive chains bacteremia sepsis PUI Elevated procalcitonin Severe malnutrition End-stage renal disease on hemodialysis Plan: We will obtain ammonia level for altered mental status Start IV ampicillin and Rocephin for gram-positive bacteremia Without any obvious source of infection seen on labs and imaging obtained in ER, concerned for bacteremia given history of end-stage renal disease on hemodialysis Blood cultures pending Consult to nephrology to resume hemodialysis while inpatient Patient received empiric antibiotic treatment in ER Patient is afebrile, breathing on room air, low concern for COVID-19 at this time FEN - renal diet PPX - Heparin FULL CODE Dispo - inpatient for above Start daptomycin 6 mg dose today and then renal dosing discussed with pharmacy. HDC catheter will need removal. 39 min pt exam, chart review, > 50% of time spent with exam, chart review, pt care coordination History of Present Illness History of Present Illness 05/18/2020 No acute events overnight. Afebrile. Continue antibiotic coverage with Rocephin and ampicillin. Appreciate infectious disease input in the care of thi s patient. Blood cultures growing Enterococcus faecalis and staph aureus, pansensitive. 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 Drain/Tubes Drains/Tubes 24 Fr LIJ schon temp dialysis cath 05/16/2020 Patient seen and evaluated bedside. No acute events overnight. He is afebrile. Will consult infectious disease due to positive blood cultures growing Enterococcus faecalis. He is receiving hemodialysis today. Discussed with RN. 05/15/2020 No acute events overnight. Patient is afebrile. Mental status is unchanged. Dialysis yesterday. HD catheter site is unchanged. Patient's chart, labs, images were reviewed and discussed with RN 05/14/2020 No acute events overnight. Patient is afebrile. Dialysis yesterday and tolerated well. No erythema on the HD catheter site. Patient's chart, labs, images were reviewed and discussed with RN 50-year-old male with past medical history of end-stage renal disease on hemodialysis Monday//Monday, who presents to the ER for evaluation of altered mental status. Patient is a resident of [facility], where EMS reported he was also noted to have associated weakness and lethargy after breakfast this morning. Patient is nonverbal upon my evaluation, no answering any of my questions. No obvious source of encephalopathy or infection initially noted, except for elevated procalcitonin. He is afebrile breathing on room air. Due to some concerns of the etiology of AMS, patient will be admitted for further evaluation. Vitals Vitals Vital Signs Date Time Temp Pulse Resp B/P (MAP) Pulse Ox O2 Delivery O2 Flow Rate FiO2 05/18/20 07:00 98.3 81 16 159/89 (112) 100 Room Air 98.3 05/17/20 11:00 99.0 Physical Exam Physical Exam GENERAL: Somnolent confused male, arousable, answers only a few questions, in no acute distress. HEENT: Normocephalic, atraumatic, anicteric. No thrush. NECK: Supple. LUNGS: Clear. HEART: S1, S2, no murmurs. CHEST WALL: Left chest wall HDC catheter site looks clean. ABDOMEN: Soft, nontender, nondistended. Bowel sounds present. EXTREMITIES: No edema, no cyanosis. DERMATOLOGIC: Warm, dry. No generalized rash. Multiple abrasions, not infected. CENTRAL NERVOUS SYSTEM: Sleepy but arousable moves all 4 extremities. PSYCHIATRIC: Calm and cooperative. General: Cooperative, No acute distress Heart: Regular rate, Normal S1, Normal S2 Lungs: Clear Abdomen: Normal bowel sounds, Soft, No tenderness Extremities: No clubbing Skin: No breakdown Labs LABS Procedure Result - BLOOD CULTURE LC Final Final GRAM POSITIVE COCCI FINAL ID= [ENTEROCOCCUS FAECALIS] FINAL ID= [STAPHYLOCOCCUS AUREUS] ENTEROCOCCUS FAECALIS STAPHYLOCOCCUS AUREUS Streptomycin Synergy Screen S Gentamicin Synergy Screen S ANTIMICROBIAL SUSCEPTIBILITY Final Comment Comment POS REESE TYPE 38 ENTEROCOCCUS FAECALIS ANTIBIOTIC RESULT INTERPRETATION AMPICILLIN <=2 S DAPTOMYCIN 1 S LINEZOLID 2 S PENICILLIN 2 S VANCOMYCIN 2 S POS REESE TYPE 38 STAPHYLOCOCCUS AUREUS ANTIBIOTIC RESULT INTERPRETATION AZITHROMYCIN <=2 S CLINDAMYCIN 0.5 S CEFOXITIN SCREEN <=4 NEG CIPROFLOXACIN <=1 S CEFTAROLINE <=0.5 S DAPTOMYCIN <=0.5 S ERYTHROMYCIN <=0.25 S GENTAMICIN <=4 S LINEZOLID 2 S LEVOFLOXACIN <=1 S OXACILLIN 0.5 S PENICILLIN >2 Allan RIFAMPIN <=1 S TRIMETHOPRIM/SULFAMETHOXAZOLE <=0.5/9.5 S TETRACYCLINE <=4 S VANCOMYCIN 1 S SOURCE: BLOOD ENTR: 05/14/20-[address]: CLARIBEL HARTMAN SPDESC: KENDY GOMEZ MD ORDERED: BETTINA CULT - LC COMMENTS: 5225 SECOND BOTTLE OF SET Procedure Result BLOOD CULTURE LC Final Final GRAM POSITIVE COCCI FINAL ID= [ENTEROCOCCUS FAECALIS] REFER TO [id number] FOR SUSCEPTIBILITY RESULTS FINAL ID= [STAPHYLOCOCCUS AUREUS] REFER TO [id number] FOR SUSCEPTIBILITY RESULTS ENTEROCOCCUS FAECALIS STAPHYLOCOCCUS AUREUS Unless otherwise specified, Testing Performed by: [address] [address] For Inquires, the Physician may contact the Microbiology department at [phone] Abstract Writer Abstract Writer Cates Pre-Procedure Diagnosis Pre-Procedure Diagnosis Infected tunneled dialysis catheter Post-Procedure Diagnosis Post-Procedure Diagnosis 1) Same 2) 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 Drain/Tubes Drains/Tubes 24 Fr LIJ schon temp dialysis cath Laboratory Tests Test 05/17/20 11:22 05/17/20 16:35 05/17/20 20:11 05/18/20 06:35 Glucose (Fingerstick) 218 mg/dL (70-99) 256 mg/dL (70-99) 220 mg/dL (70-99) White Blood Count 8.1 x10^3/uL (4.0-11.0) Red Blood Count 3.65 x10^6/uL (4.30-5.70) Hemoglobin 9.7 g/dL (13.0-17.5) Hematocrit 30.7 % (39.0-53.0) Mean Corpuscular Volume 84 fL (79-100) Mean Corpuscular Hemoglobin 27 pg (25-35) Mean Corpuscular Hemoglobin Concent 32 g/dL (31-37) Red Cell Distribution Width 16.9 % (11.5-14.5) Platelet Count 405 x10^3/uL (140-400) Prothrombin Time 14.2 SEC (11.7-14.0) Prothromb Time International Ratio 1.1 (0.8-1.1) Sodium Level 136 mmol/L (136-145) Potassium Level 5.0 mmol/L (3.5-5.1) Chloride Level 98 mmol/L (98-107) Carbon Dioxide Level 28 mmol/L (21-32) Anion Gap 10 (6-14) Blood Urea Nitrogen 35 mg/dL (8-26) Creatinine 9.2 mg/dL (0.7-1.3) Estimated GFR (Cockcroft-Gault) 7.3 Glucose Level 328 mg/dL (70-99) Calcium Level 8.7 mg/dL (8.5-10.1) Creatine Kinase 36 U/L (39-308) Assessment and Plan Assessmemt and Plan Problems Medical Problems: (1) AMS (altered mental status) Status: Acute (2) Person under investigation for COVID-19 Status: Acute (3) Weakness generalized Status: Acute Comment Review of Relevant I have reviewed the following items ish (where applicable) has been applied. Labs Laboratory Tests Test 05/16/20 12:39 05/16/20 16:39 05/16/20 20:57 05/17/20 06:34 Glucose (Fingerstick) 167 mg/dL (70-99) 228 mg/dL (70-99) 253 mg/dL (70-99) Sodium Level 132 mmol/L (136-145) Potassium Level 4.4 mmol/L (3.5-5.1) Chloride Level 95 mmol/L (98-107) Carbon Dioxide Level 29 mmol/L (21-32) Anion Gap 8 (6-14) Blood Urea Nitrogen 25 mg/dL (8-26) Creatinine 7.4 mg/dL (0.7-1.3) Estimated GFR (Cockcroft-Gault) 9.4 Glucose Level 268 mg/dL (70-99) Calcium Level 8.8 mg/dL (8.5-10.1) Test 05/17/20 07:15 05/17/20 11:22 05/17/20 16:35 05/17/20 20:11 Glucose (Fingerstick) 263 mg/dL (70-99) 218 mg/dL (70-99) 256 mg/dL (70-99) 220 mg/dL (70-99) Test 05/18/20 06:35 White Blood Count 8.1 x10^3/uL (4.0-11.0) Red Blood Count 3.65 x10^6/uL (4.30-5.70) Hemoglobin 9.7 g/dL (13.0-17.5) Hematocrit 30.7 % (39.0-53.0) Mean Corpuscular Volume 84 fL (79-100) Mean Corpuscular Hemoglobin 27 pg (25-35) Mean Corpuscular Hemoglobin Concent 32 g/dL (31-37) Red Cell Distribution Width 16.9 % (11.5-14.5) Platelet Count 405 x10^3/uL (140-400) Prothrombin Time 14.2 SEC (11.7-14.0) Prothromb Time International Ratio 1.1 (0.8-1.1) Sodium Level 136 mmol/L (136-145) Potassium Level 5.0 mmol/L (3.5-5.1) Chloride Level 98 mmol/L (98-107) Carbon Dioxide Level 28 mmol/L (21-32) Anion Gap 10 (6-14) Blood Urea Nitrogen 35 mg/dL (8-26) Creatinine 9.2 mg/dL (0.7-1.3) Estimated GFR (Cockcroft-Gault) 7.3 Glucose Level 328 mg/dL (70-99) Calcium Level 8.7 mg/dL (8.5-10.1) Creatine Kinase 36 U/L (39-308) Laboratory Tests Test 05/17/20 11:22 05/17/20 16:35 05/17/20 20:11 05/18/20 06:35 Glucose (Fingerstick) 218 mg/dL (70-99) 256 mg/dL (70-99) 220 mg/dL (70-99) White Blood Count 8.1 x10^3/uL (4.0-11.0) Red Blood Count 3.65 x10^6/uL (4.30-5.70) Hemoglobin 9.7 g/dL (13.0-17.5) Hematocrit 30.7 % (39.0-53.0) Mean Corpuscular Volume 84 fL (79-100) Mean Corpuscular Hemoglobin 27 pg (25-35) Mean Corpuscular Hemoglobin Concent 32 g/dL (31-37) Red Cell Distribution Width 16.9 % (11.5-14.5) Platelet Count 405 x10^3/uL (140-400) Prothrombin Time 14.2 SEC (11.7-14.0) Prothromb Time International Ratio 1.1 (0.8-1.1) Sodium Level 136 mmol/L (136-145) Potassium Level 5.0 mmol/L (3.5-5.1) Chloride Level 98 mmol/L (98-107) Carbon Dioxide Level 28 mmol/L (21-32) Anion Gap 10 (6-14) Blood Urea Nitrogen 35 mg/dL (8-26) Creatinine 9.2 mg/dL (0.7-1.3) Estimated GFR (Cockcroft-Gault) 7.3 Glucose Level 328 mg/dL (70-99) Calcium Level 8.7 mg/dL (8.5-10.1) Creatine Kinase 36 U/L (39-308) Microbiology 05/13/20 Blood Culture - Final, Complete 05/13/20 Urine Culture - Final, Complete Medications Current Medications Sodium Chloride 1,000 ml @ 1,000 mls/hr 1X ONCE IV ; Start 05/13/20 at 17:15; Stop 05/13/20 at 18:14; Status Cancel Ondansetron HCl (Zofran) 4 mg PRN Q8HRS PRN IV NAUSEA/VOMITING; Start 05/13/20 at 19:30; Stop 05/14/20 at 19:29; Status DC Morphine Sulfate (Morphine Sulfate) 4 mg PRN Q2HR PRN IV PAIN; Start 05/13/20 at 19:30; Stop 05/14/20 at 19:29; Status DC Ondansetron HCl (Zofran) 4 mg PRN Q6HRS PRN IVP NAUSEA/VOMITING Last administered on 05/14/20at 21:19; Start 05/13/20 at 20:30 Al Hydroxide/Mg Hydroxide (Mylanta Plus Xs) 30 ml PRN Q3HRS PRN PO HEARTBURN / GAS; Start 05/13/20 at 20:30 Calcium Carbonate/ Glycine (Tums) 500 mg PRN Q3HRS PRN PO UPSET STOMACH; Start 05/13/20 at 20:30 Acetaminophen (Tylenol) 650 mg PRN Q6HRS PRN PO Headaches, Temp > 101.5F; Start 05/13/20 at 20:30 Magnesium Hydroxide (Milk Of Magnesia) 2,400 mg PRN Q12HR PRN PO CONSTIPATION; Start 05/13/20 at 20:30 Bisacodyl (Dulcolax Supp) 10 mg PRN DAILY PRN [place] CONSTIPATION; Start 05/13/20 at 20:30 Heparin Sodium (Porcine) (Heparin Sodium) 5,000 unit Q12HR SQ Last administered on 05/17/20at 08:13; Start 05/13/20 at 21:00 Tramadol HCl (Ultram) 50 mg PRN Q6HRS PRN PO PAIN; Start 05/13/20 at 20:30 Darbepoetin Brian (ARANESP for DIALYSIS PTS) 60 mcg WEEKLYHS SQ Last administered on 05/14/20at 21:19; Start 05/14/20 at 21:00 Sodium Chloride 1,000 ml @ 1,000 mls/hr Q1H PRN IV hypotension; Start 05/14/20 at 13:00; Stop 05/14/20 at 18:59; Status DC Albumin Human 200 ml @ 200 mls/hr 1X PRN PRN IV Hypotension; Start 05/14/20 at 13:00; Stop 05/14/20 at 18:59; Status DC Sodium Chloride 1,000 ml @ 400 mls/hr Q2H30M PRN IV PATENCY; Start 05/14/20 at 13:00; Stop 05/15/20 at 00:59; Status DC Info (PHARMACY MONITORING -- do not chart) 1 each PRN DAILY PRN MC SEE COMMENTS; Start 05/14/20 at 13:00 Info (PHARMACY MONITORING -- do not chart) 1 each PRN DAILY PRN MC SEE COMMENTS; Start 05/14/20 at 13:00; Stop 05/14/20 at 13:11; Status DC Ampicillin Sodium 2 gm/Sodium Chloride 100 ml @ 200 mls/hr Q12HR IV Last administered on 05/17/20at 08:12; Start 05/15/20 at 09:00; Stop 05/17/20 at 10:14; Status DC Ceftriaxone Sodium (Rocephin) 2 gm Q12H IVP Last administered on 05/17/20at 08:12; Start 05/15/20 at 08:00; Stop 05/17/20 at 10:14; Status DC Lactobacillus Rhamnosus (Culturelle) 1 cap BID PO Last administered on 05/17/20at 21:02; Start 05/15/20 at 21:00 Insulin Human Lispro (HumaLOG) 0-7 UNITS TIDWMEALS SQ Last administered on 05/18/20at 08:27; Start 05/15/20 at 17:00 Dextrose (Dextrose 50%-Water Syringe) 12.5 gm PRN Q15MIN PRN IV SEE COMMENTS; Start 05/15/20 at 16:45 Insulin Human Lispro (HumaLOG) 4 units 1X ONCE SQ Last administered on 05/15/20at 21:46; Start 05/15/20 at 21:30; Stop 05/15/20 at 21:31; Status DC Sodium Chloride 1,000 ml @ 1,000 mls/hr Q1H PRN IV hypotension; Start 05/16/20 at 09:00; Stop 05/16/20 at 16:00; Status DC Sodium Chloride 1,000 ml @ 400 mls/hr Q2H30M PRN IV PATENCY; Start 05/16/20 at 09:00; Stop 05/16/20 at 16:00; Status DC Info (PHARMACY MONITORING -- do not chart) 1 each PRN DAILY PRN MC SEE COMMENTS; Start 05/16/20 at 08:45; Status UNV Daptomycin 450 mg/ Sodium Chloride 50 ml @ 100 mls/hr 1X ONCE IV Last administered on 05/17/20at 15:36; Start 05/17/20 at 16:00; Stop 05/17/20 at 16:29; Status DC Daptomycin 450 mg/ Sodium Chloride 50 ml @ 100 mls/hr Q48H IV ; Start 05/19/20 at 16:00 Active Scripts Active Carvedilol (Carvedilol) 12.5 Mg Tablet 25 Mg PO BIDWMEALS Reported Zinc Oxide 56.7 Gm Oint...g. 1 Krystina TP BID scrotal area Tylenol (Acetaminophen) 325 Mg Tablet 1-2 Tab PO Q4HRS PRN Senna Laxative (Sennosides) 8.6 Mg Tablet 1 Tab PO BID PRN 30 Days Polyethylene Glycol 3350 2,500 Gm Powder 17 Gm PO DAILY PRN 30 Days Norvasc (Amlodipine Besylate) 10 Mg Tablet 10 Mg PO QMWF Lisinopril 20 Mg Tablet 1 Tab PO DAILY Lantus Solostar (Insulin Glargine,Hum.rec.anlog) 100 Unit/1 Ml Insuln.pen 7 Unit SQ QHS Hydralazine Hcl 50 Mg Tablet 1 Tab PO TID Humalog (Insulin Lispro) 100 Unit/1 Ml Vial 8 Unit SQ TIDWMEALS hold FOR GLUCOSE BELOW 110 AND CALL IF OVER 400 Calcium Acetate 667 Mg Tablet 2 Tab PO TID 30 Days [Benzocaine Gel 10%] 1 Krystina PO Q6HRS PRN for toothache Aspirin Ec (Aspirin) 81 Mg Tablet. 1 Tab PO DAILY Gabapentin (Gabapentin) 100 Mg Capsule 300 Mg PO HS Atorvastatin Calcium 40 Mg Tablet 40 Mg PO HS Vitals/I & O Vital Sign - Last 24 Hours 05/17/20 05/17/20 05/17/20 05/17/20 11:00 11:00 15:00 19:00 Temp 97.7 207.9 98.0 98.4 97.7 207.9 98.0 98.4 Pulse 74 74 84 85 Resp 18 18 18 B/P (MAP) 162/92 (115) 162/92 (115) 136/77 (96) 145/84 (104) Pulse Ox 98 98 98 98 O2 Delivery Room Air Room Air Room Air Room Air O2 Flow Rate 99.0 05/17/20 05/17/20 05/18/20 05/18/20 20:00 23:00 03:00 07:00 Temp 98.0 98.6 98.3 98.0 98.6 98.3 Pulse 80 86 81 Resp 18 18 16 B/P (MAP) 160/87 (111) 159/62 (94) 159/89 (112) Pulse Ox 97 99 100 O2 Delivery Room Air Room Air Room Air Room Air Intake and Output 05/17/20 05/17/20 05/18/20 15:00 23:00 07:00 Intake Total 300 ml 240 ml Balance 300 ml 240 ml Justicifation of Admission Dx: Justifications for Admission: Justification of Admission Dx: Yes Comminuty Aquired Pneumonia: Bactermia Altered Mental Status: Altered Mental Status Comments: sepsis MIGUEL HILLS MD May 18, 2020 09:56
[2020-05-18] MEDS ORDERED: LIDOCAINE WITH 8.4% SOD BICARB 3 ML DISP.SYRIN. ONE ×2 (11:19)
[2020-05-18] MEDS ORDERED: MIDAZOLAM HCL/PF 2 MG/2 ML VIAL. ONE (11:35)
[2020-05-18] MEDS ORDERED: fentaNYL PF VIAL 100 MCG/2 ML VIAL ONE (11:35)
[2020-05-18] MEDS ORDERED: LIDOCAINE WITH 8.4% SOD BICARB 3 ML DISP.SYRIN. IJ ONE (12:00)
[2020-05-18] MEDS ORDERED: fentaNYL PF VIAL 100 MCG/2 ML VIAL IV ONE (12:00)
[2020-05-18] MEDS ORDERED: MIDAZOLAM HCL/PF 2 MG/2 ML VIAL. IV ONE (12:00)
[2020-05-18] MEDS ORDERED: IOHEXOL 240 MG/ML 50ML VIAL. ONE (12:05)
[2020-05-18] MEDS ORDERED: LIDOCAINE 1%/EPI 1:100,000 20 ML VIAL. ONE (12:07)
[2020-05-18] MEDS ORDERED: IOHEXOL 240 MG/ML 50ML VIAL. IV ONE (12:15)
[2020-05-18] MEDS ORDERED: LIDOCAINE 1%/EPI 1:100,000 20 ML VIAL. INJ ONE (12:15)
--- NOTE | 2020-05-18 12:28 | PDOC ---
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 Drain/Tubes Drains/Tubes 24 Fr LIJ schon temp dialysis cath Condition of Patient Condition of Patient Stable Disposition Disposition Return to floor. DANNY PRECIADO MD May 18, 2020 12:28
--- NOTE | 2020-05-18 13:17 | PDOC ---
DATE OF SERVICE DATE: 05/18/20 TIME: 13:08 SUBJECTIVE ROS stable OBJECTIVE Vital Signs Vital Signs Date Time Temp Pulse Resp B/P (MAP) Pulse Ox O2 Delivery O2 Flow Rate FiO2 05/18/20 12:40 98.2 73 16 153/85 (107) 99 Room Air 98.2 05/18/20 12:27 2.0 I & 0 Intake and Output 05/18/20 07:00 Intake Total 540 ml Balance 540 ml Intake Oral 540 ml PHYSICAL EXAM Physical Exam GENERAL: no acute distress. HEENT: Normocephalic, atraumatic, anicteric. No thrush. NECK: Supple. LUNGS: Clear. HEART: S1, S2, no murmurs. CHEST WALL: Left chest wall HDC catheter site looks clean. ABDOMEN: Soft, nontender, nondistended. Bowel sounds present. EXTREMITIES: No edema, no cyanosis. DERMATOLOGIC: Warm, dry. No generalized rash. Multiple abrasions, not infected. CENTRAL NERVOUS SYSTEM: moves all 4 extremities. PSYCHIATRIC: Calm and cooperative. DIAGNOSIS/ASSESSMENT Assessment & Plan ESRD On HD TTS No indication for HD today Access- s/p Infected tunneled dialysis catheter removed and placement of temp LIJ dialysis cath today Sepsis from bacteremia- methicillin-sensitive Staphylococcus aureus and enterococcus bacteremia, source likely HDC catheter.Catheter removed this am. ID following History of cerebrovascular accident. Encephalopathy. Hypertension. Smoking. long-term resident. COVID negative. 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) Anemia COMMENT/RELEVANT DATA Meds Current Medications Medications (Trade) Dose Ordered Sig/Great Start Time Stop Time Status Last Admin Dose Admin Acetaminophen (Tylenol) 650 mg PRN Q6HRS PRN 05/13/20 20:30 Al Hydroxide/Mg Hydroxide (Mylanta Plus Xs) 30 ml PRN Q3HRS PRN 05/13/20 20:30 Albumin Human 200 ml @ 200 mls/hr 1X PRN PRN 05/14/20 13:00 05/14/20 18:59 DC Ampicillin Sodium 2 gm/Sodium Chloride 100 ml @ 200 mls/hr Q12HR 05/15/20 09:00 05/17/20 10:14 DC 05/17/20 08:12 200 MLS/HR Bisacodyl (Dulcolax Supp) 10 mg PRN DAILY PRN 05/13/20 20:30 Calcium Carbonate/ Glycine (Tums) 500 mg PRN Q3HRS PRN 05/13/20 20:30 Ceftriaxone Sodium (Rocephin) 2 gm Q12H 05/15/20 08:00 05/17/20 10:14 DC 05/17/20 08:12 2 GM Daptomycin 450 mg/ Sodium Chloride 50 ml @ 100 mls/hr Q48H 05/19/20 16:00 Darbepoetin Brian (ARANESP for DIALYSIS PTS) 60 mcg WEEKLYHS 05/14/20 21:00 05/14/20 21:19 60 MCG Dextrose (Dextrose 50%-Water Syringe) 12.5 gm PRN Q15MIN PRN 05/15/20 16:45 Fentanyl Citrate (Fentanyl 2ml Vial) 100 mcg 1X ONCE 05/18/20 12:00 05/18/20 12:01 DC 05/18/20 12:26 100 MCG Heparin Sodium (Porcine) (Heparin Sodium) 5,000 unit Q12HR 05/13/20 21:00 05/17/20 08:13 5,000 UNIT Info (PHARMACY MONITORING -- do not chart) 1 each PRN DAILY PRN 05/16/20 08:45 UNV Insulin Human Lispro (HumaLOG) 4 units 1X ONCE 05/15/20 21:30 05/15/20 21:31 DC 05/15/20 21:46 4 UNITS Iohexol (Omnipaque 240 Mg/ml) 50 ml 1X ONCE 05/18/20 12:15 05/18/20 12:16 DC 05/18/20 12:25 10 ML Lactobacillus Rhamnosus (Culturelle) 1 cap BID 05/15/20 21:00 05/17/20 21:02 1 CAP Lidocaine HCl (Buffered Lidocaine 1%) 3 ml 1X ONCE 05/18/20 12:00 05/18/20 12:01 DC 05/18/20 12:26 3 ML Lidocaine/ Epinephrine (LIDOCAINE 1%-EPI 1:100,000 Multi-Dose) 20 ml 1X ONCE 05/18/20 12:15 05/18/20 12:16 DC 05/18/20 12:25 7 ML Magnesium Hydroxide (Milk Of Magnesia) 2,400 mg PRN Q12HR PRN 05/13/20 20:30 Midazolam HCl (Versed) 2 mg 1X ONCE 05/18/20 12:00 05/18/20 12:01 DC 05/18/20 12:26 2 MG Morphine Sulfate (Morphine Sulfate) 4 mg PRN Q2HR PRN 05/13/20 19:30 05/14/20 19:29 DC Ondansetron HCl (Zofran) 4 mg PRN Q6HRS PRN 05/13/20 20:30 05/14/20 21:19 4 MG Sodium Chloride 1,000 ml @ 400 mls/hr Q2H30M PRN 05/16/20 09:00 05/16/20 16:00 DC Tramadol HCl (Ultram) 50 mg PRN Q6HRS PRN 05/13/20 20:30 Lab Laboratory Tests Test 05/17/20 16:35 05/17/20 20:11 05/18/20 06:35 05/18/20 07:28 Glucose (Fingerstick) 256 mg/dL (70-99) 220 mg/dL (70-99) 290 mg/dL (70-99) White Blood Count 8.1 x10^3/uL (4.0-11.0) Red Blood Count 3.65 x10^6/uL (4.30-5.70) Hemoglobin 9.7 g/dL (13.0-17.5) Hematocrit 30.7 % (39.0-53.0) Mean Corpuscular Volume 84 fL (79-100) Mean Corpuscular Hemoglobin 27 pg (25-35) Mean Corpuscular Hemoglobin Concent 32 g/dL (31-37) Red Cell Distribution Width 16.9 % (11.5-14.5) Platelet Count 405 x10^3/uL (140-400) Prothrombin Time 14.2 SEC (11.7-14.0) Prothromb Time International Ratio 1.1 (0.8-1.1) Sodium Level 136 mmol/L (136-145) Potassium Level 5.0 mmol/L (3.5-5.1) Chloride Level 98 mmol/L (98-107) Carbon Dioxide Level 28 mmol/L (21-32) Anion Gap 10 (6-14) Blood Urea Nitrogen 35 mg/dL (8-26) Creatinine 9.2 mg/dL (0.7-1.3) Estimated GFR (Cockcroft-Gault) 7.3 Glucose Level 328 mg/dL (70-99) Calcium Level 8.7 mg/dL (8.5-10.1) Creatine Kinase 36 U/L (39-308) Results All relevant outside records, renal labs, imaging studies, telemetry/EKG's were reviewed. Justicifation of Admission Dx: Justifications for Admission: Justification of Admission Dx: N/A SOCO JACOBS MD May 18, 2020 13:17
--- NOTE | 2020-05-18 14:17 | RAD ---
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 Ikmn-cu-cnew sedation time was 46 min Clinical Indication: Infected left internal jugular tunneled hemodialysis catheter Sterility: All elements of maximal sterile barrier technique including the use of a cap, mask, sterile gown, sterile gloves, large sterile sheet, appropriate hand hygiene, and 2% chlorhexidine for cutaneous antisepsis (or acceptable alternative antiseptic per current guidelines) were followed for this procedure. Consent: The procedure was explained in its entirety to the patient or the patients designated patient service representative by a member of the treatment team, including a discussion of the risks, benefits and commonly accepted alternatives to the procedure, as well as the expected consequences of no therapy whatsoever. Discussion of the risks included, but was not limited to, those that are most frequent and those that are rare but possibly severe or life-threatening, as well as the possibility of unforeseen complications. Technique and Findings: Following informed consent, the patient was prepped and draped in the usual sterile fashion. Ultrasound interrogation of the right neck revealed patency of the right internal jugular vein with what appear by ultrasound to be chronic, partially occlusive thrombus more inferiorly behind the clavicle. The vein was accessed using micropuncture technique and over the guidewire would not advance centrally. 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 Filling collateral vessels noted. Given this, the left internal jugular vein was accessed using an identical fashion over the guidewire was successfully advanced into the IVC. The pre-existing catheter was removed with traction alone. The wire was exchanged for a new sterile wire into the IVC. Following dilatation a 24 cm temporary dialysis catheter was placed such the catheter tip was the cavoatrial junction. Catheter was found to flush and aspirate normally. Catheter was secured in place. Sterile dressings were applied. No immediate complications were identified. Impression: 1. Removal of left internal jugular tunneled hemodialysis catheter . Catheter tip was sent for culture. 2.Placement of a left internal jugular temporary dialysis catheter 3. 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
[2020-05-18] MEDS: GABAPENTIN 300 MG CAPSULE. PO SCH (20:54)
[2020-05-18] MEDS: ATORVASTATIN CALCIUM 40 MG TABLET. PO SCH (20:54)
[2020-05-18] MEDS: LISINOPRIL 20 MG TABLET PO SCH (20:55)
[2020-05-18] MEDS ORDERED: ACETAMINOPHEN 325 MG TABLET. PO PRN (21:00)
[2020-05-18] MEDS: INSULIN GLARGINE SYRINGE. SQ SCH (21:04)
[2020-05-19 03:00] VITALS: BP 163/82
[2020-05-19 07:00] VITALS: BP 177/97
[2020-05-19] MEDS ORDERED: DIALYSIS PATIENT. MC PRN ×2 (07:30)
[2020-05-19 08:13] LABS: BASO # 0.1 x10^3/uL (0.0-0.2); BASO % 1 % (0-3); EOS # 0.3 x10^3/uL (0.0-0.7); EOS % 4 % (0-3); HEMATOCRIT 31.4 % (39.0-53.0); HEMOGLOBIN 10.1 g/dL (13.0-17.5); LYMPH # 1.5 x10^3/uL (1.0-4.8); LYMPH % 19 % (24-48); MEAN CORPUSCULAR HEMOGLOBIN 27 pg (25-35); MEAN CORPUSCULAR HGB CONC 32 g/dL (31-37); MEAN CORPUSCULAR VOLUME 84 fL (79-100); MONO # 0.6 x10^3/uL (0.0-1.1); MONO % 8 % (0-9); NEUT # 5.5 x10^3/uL (1.8-7.7); NEUT % 68 % (31-73); PLATELET COUNT 407 x10^3/uL (140-400); RED BLOOD COUNT 3.73 x10^6/uL (4.30-5.70)
[2020-05-19 08:30] LABS: CALCIUM 9.1 mg/dL (8.5-10.1); CREATININE 10.2 mg/dL (0.7-1.3); GFR 6.5; POTASSIUM 5.2 mmol/L (3.5-5.1)
[2020-05-19] MEDS: LISINOPRIL 20 MG TABLET PO SCH (08:32)
[2020-05-19] MEDS: CARVEDILOL 12.5 MG TABLET. PO SCH ×2 (08:32→17:28)
[2020-05-19] MEDS: LACTOBACILLUS RHAMNOSUS GG 1 CAPSULE. PO SCH ×2 (08:32→21:12)
[2020-05-19] MEDS: ASPIRIN ENTERIC COATED 81 MG TABLET.DR. PO SCH (08:32)
[2020-05-19] MEDS: HEPARIN for SUB-Q USE 5,000 UNIT/ML VIAL. SQ SCH ×2 (08:38→21:16)
[2020-05-19] MEDS: INSULIN LISPRO 300 UNITS/3 ML VIAL. SQ SCH ×2 (08:39→17:30)
[2020-05-19] MEDS ORDERED: LISINOPRIL 20 MG TABLET PO SCH (09:00)
--- NOTE | 2020-05-19 09:05 | PDOC ---
PROGRESS NOTES Date of Service: DATE: 05/19/20 TIME: 09:05 Chief Complaint Chief Complaint impression Altered mental status Metabolic encephalopathy Gram-positive chains bacteremia sepsis PUI Elevated procalcitonin Severe malnutrition End-stage renal disease on hemodialysis Plan: We will obtain ammonia level for altered mental status Start IV ampicillin and Rocephin for gram-positive bacteremia Without any obvious source of infection seen on labs and imaging obtained in ER, concerned for bacteremia given history of end-stage renal disease on hemodialysis Blood cultures pending Consult to nephrology to resume hemodialysis while inpatient Patient received empiric antibiotic treatment in ER Patient is afebrile, breathing on room air, low concern for COVID-19 at this time FEN - renal diet PPX - Heparin FULL CODE Dispo - inpatient for above Start daptomycin 6 mg dose , and then renal dosing discussed with pharmacy. HDC catheter will need removal. 39 min pt exam, chart review, > 50% of time spent with exam, chart review, pt care coordination History of Present Illness History of Present Illness 05/19/2020 No acute events overnight. Afebrile. Continue antibiotic coverage with Rocephin and ampicillin. Appreciate infectious disease input in the care of this patient. Blood cultures growing Enterococcus faecalis and staph aureus, pansensitive. 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 Drain/Tubes Drains/Tubes 24 Fr LIJ schon temp dialysis cath 05/16/2020 Patient seen and evaluated bedside. No acute events overnight. He is afebrile. Will consult infectious disease due to positive blood cultures growing Enterococcus faecalis. He is receiving hemodialysis today. Discussed with RN. 05/15/2020 No acute events overnight. Patient is afebrile. Mental status is unchanged. Dialysis yesterday. HD catheter site is unchanged. Patient's chart, labs, images were reviewed and discussed with RN 05/14/2020 No acute events overnight. Patient is afebrile. Dialysis yesterday and tolerated well. No erythema on the HD catheter site. Patient's chart, labs, images were reviewed and discussed with RN 50-year-old male with past medical history of end-stage renal disease on hemodialysis Monday//Monday, who presents to the ER for evaluation of altered mental status. Patient is a resident of [facility], where EMS reported he was also noted to have associated weakness and lethargy after breakfast this morning. Patient is nonverbal upon my evaluation, no answering any of my questions. No obvious source of encephalopathy or infection initially noted, except for elevated procalcitonin. He is afebrile breathing on room air. Due to some concerns of the etiology of AMS, patient will be admitted for further evaluation. Vitals Vitals Vital Signs Date Time Temp Pulse Resp B/P (MAP) Pulse Ox O2 Delivery O2 Flow Rate FiO2 05/19/20 08:32 80 177/97 05/19/20 07:00 97.4 18 99 Room Air 97.4 05/18/20 12:27 2.0 Physical Exam Physical Exam GENERAL: Somnolent confused male, arousable, answers only a few questions, in no acute distress. HEENT: Normocephalic, atraumatic, anicteric. No thrush. NECK: Supple. LUNGS: Clear. HEART: S1, S2, no murmurs. CHEST WALL: Left chest wall HDC catheter site looks clean. ABDOMEN: Soft, nontender, nondistended. Bowel sounds present. EXTREMITIES: No edema, no cyanosis. DERMATOLOGIC: Warm, dry. No generalized rash. Multiple abrasions, not infected. CENTRAL NERVOUS SYSTEM: Sleepy but arousable moves all 4 extremities. PSYCHIATRIC: Calm and cooperative. General: Alert, Cooperative, No acute distress Heart: Regular rate, Normal S1, Normal S2 Lungs: Clear Abdomen: Normal bowel sounds, Soft, No tenderness Extremities: No clubbing, No cyanosis Skin: No breakdown Labs LABS DESC: NON,STAFF ORDERED: CLIFFD CULT - LC Procedure Result BLOOD CULTURE LC Final Final GRAM POSITIVE COCCI FINAL ID= [ENTEROCOCCUS FAECALIS] FINAL ID= [STAPHYLOCOCCUS AUREUS] ENTEROCOCCUS FAECALIS STAPHYLOCOCCUS AUREUS Streptomycin Synergy Screen S Gentamicin Synergy Screen S ANTIMICROBIAL SUSCEPTIBILITY Final Comment Comment POS REESE TYPE 38 ENTEROCOCCUS FAECALIS ANTIBIOTIC RESULT INTERPRETATION AMPICILLIN <=2 S DAPTOMYCIN 1 S LINEZOLID 2 S PENICILLIN 2 S VANCOMYCIN 2 S POS REESE TYPE 38 STAPHYLOCOCCUS AUREUS ANTIBIOTIC RESULT INTERPRETATION AZITHROMYCIN <=2 S CLINDAMYCIN 0.5 S CEFOXITIN SCREEN <=4 NEG CIPROFLOXACIN <=1 S CEFTAROLINE <=0.5 S DAPTOMYCIN <=0.5 S ERYTHROMYCIN <=0.25 S GENTAMICIN <=4 S LINEZOLID 2 S LEVOFLOXACIN <=1 S OXACILLIN 0.5 S PENICILLIN >2 Allan RIFAMPIN <=1 S TRIMETHOPRIM/SULFAMETHOXAZOLE <=0.5/9.5 S TETRACYCLINE <=4 S VANCOMYCIN 1 S Laboratory Tests Test 05/18/20 17:10 05/18/20 20:10 05/19/20 06:30 05/19/20 07:18 Glucose (Fingerstick) 239 mg/dL (70-99) 322 mg/dL (70-99) 233 mg/dL (70-99) White Blood Count 8.0 x10^3/uL (4.0-11.0) Red Blood Count 3.73 x10^6/uL (4.30-5.70) Hemoglobin 10.1 g/dL (13.0-17.5) Hematocrit 31.4 % (39.0-53.0) Mean Corpuscular Volume 84 fL (79-100) Mean Corpuscular Hemoglobin 27 pg (25-35) Mean Corpuscular Hemoglobin Concent 32 g/dL (31-37) Red Cell Distribution Width 17.0 % (11.5-14.5) Platelet Count 407 x10^3/uL (140-400) Neutrophils (%) (Auto) 68 % (31-73) Lymphocytes (%) (Auto) 19 % (24-48) Monocytes (%) (Auto) 8 % (0-9) Eosinophils (%) (Auto) 4 % (0-3) Basophils (%) (Auto) 1 % (0-3) Neutrophils # (Auto) 5.5 x10^3/uL (1.8-7.7) Lymphocytes # (Auto) 1.5 x10^3/uL (1.0-4.8) Monocytes # (Auto) 0.6 x10^3/uL (0.0-1.1) Eosinophils # (Auto) 0.3 x10^3/uL (0.0-0.7) Basophils # (Auto) 0.1 x10^3/uL (0.0-0.2) Sodium Level 137 mmol/L (136-145) Potassium Level 5.2 mmol/L (3.5-5.1) Chloride Level 100 mmol/L (98-107) Carbon Dioxide Level 25 mmol/L (21-32) Anion Gap 12 (6-14) Blood Urea Nitrogen 46 mg/dL (8-26) Creatinine 10.2 mg/dL (0.7-1.3) Estimated GFR (Cockcroft-Gault) 6.5 Glucose Level 213 mg/dL (70-99) Calcium Level 9.1 mg/dL (8.5-10.1) Assessment and Plan Assessmemt and Plan Problems Medical Problems: (1) AMS (altered mental status) Status: Acute (2) Person under investigation for COVID-19 Status: Acute (3) Weakness generalized Status: Acute Comment Review of Relevant I have reviewed the following items ish (where applicable) has been applied. Labs Laboratory Tests Test 05/17/20 11:22 05/17/20 16:35 05/17/20 20:11 05/18/20 06:35 Glucose (Fingerstick) 218 mg/dL (70-99) 256 mg/dL (70-99) 220 mg/dL (70-99) White Blood Count 8.1 x10^3/uL (4.0-11.0) Red Blood Count 3.65 x10^6/uL (4.30-5.70) Hemoglobin 9.7 g/dL (13.0-17.5) Hematocrit 30.7 % (39.0-53.0) Mean Corpuscular Volume 84 fL (79-100) Mean Corpuscular Hemoglobin 27 pg (25-35) Mean Corpuscular Hemoglobin Concent 32 g/dL (31-37) Red Cell Distribution Width 16.9 % (11.5-14.5) Platelet Count 405 x10^3/uL (140-400) Prothrombin Time 14.2 SEC (11.7-14.0) Prothromb Time International Ratio 1.1 (0.8-1.1) Sodium Level 136 mmol/L (136-145) Potassium Level 5.0 mmol/L (3.5-5.1) Chloride Level 98 mmol/L (98-107) Carbon Dioxide Level 28 mmol/L (21-32) Anion Gap 10 (6-14) Blood Urea Nitrogen 35 mg/dL (8-26) Creatinine 9.2 mg/dL (0.7-1.3) Estimated GFR (Cockcroft-Gault) 7.3 Glucose Level 328 mg/dL (70-99) Calcium Level 8.7 mg/dL (8.5-10.1) Creatine Kinase 36 U/L (39-308) Test 05/18/20 07:28 05/18/20 17:10 05/18/20 20:10 05/19/20 06:30 Glucose (Fingerstick) 290 mg/dL (70-99) 239 mg/dL (70-99) 322 mg/dL (70-99) White Blood Count 8.0 x10^3/uL (4.0-11.0) Red Blood Count 3.73 x10^6/uL (4.30-5.70) Hemoglobin 10.1 g/dL (13.0-17.5) Hematocrit 31.4 % (39.0-53.0) Mean Corpuscular Volume 84 fL (79-100) Mean Corpuscular Hemoglobin 27 pg (25-35) Mean Corpuscular Hemoglobin Concent 32 g/dL (31-37) Red Cell Distribution Width 17.0 % (11.5-14.5) Platelet Count 407 x10^3/uL (140-400) Neutrophils (%) (Auto) 68 % (31-73) Lymphocytes (%) (Auto) 19 % (24-48) Monocytes (%) (Auto) 8 % (0-9) Eosinophils (%) (Auto) 4 % (0-3) Basophils (%) (Auto) 1 % (0-3) Neutrophils # (Auto) 5.5 x10^3/uL (1.8-7.7) Lymphocytes # (Auto) 1.5 x10^3/uL (1.0-4.8) Monocytes # (Auto) 0.6 x10^3/uL (0.0-1.1) Eosinophils # (Auto) 0.3 x10^3/uL (0.0-0.7) Basophils # (Auto) 0.1 x10^3/uL (0.0-0.2) Sodium Level 137 mmol/L (136-145) Potassium Level 5.2 mmol/L (3.5-5.1) Chloride Level 100 mmol/L (98-107) Carbon Dioxide Level 25 mmol/L (21-32) Anion Gap 12 (6-14) Blood Urea Nitrogen 46 mg/dL (8-26) Creatinine 10.2 mg/dL (0.7-1.3) Estimated GFR (Cockcroft-Gault) 6.5 Glucose Level 213 mg/dL (70-99) Calcium Level 9.1 mg/dL (8.5-10.1) Test 05/19/20 07:18 Glucose (Fingerstick) 233 mg/dL (70-99) Laboratory Tests Test 05/18/20 17:10 05/18/20 20:10 05/19/20 06:30 05/19/20 07:18 Glucose (Fingerstick) 239 mg/dL (70-99) 322 mg/dL (70-99) 233 mg/dL (70-99) White Blood Count 8.0 x10^3/uL (4.0-11.0) Red Blood Count 3.73 x10^6/uL (4.30-5.70) Hemoglobin 10.1 g/dL (13.0-17.5) Hematocrit 31.4 % (39.0-53.0) Mean Corpuscular Volume 84 fL (79-100) Mean Corpuscular Hemoglobin 27 pg (25-35) Mean Corpuscular Hemoglobin Concent 32 g/dL (31-37) Red Cell Distribution Width 17.0 % (11.5-14.5) Platelet Count 407 x10^3/uL (140-400) Neutrophils (%) (Auto) 68 % (31-73) Lymphocytes (%) (Auto) 19 % (24-48) Monocytes (%) (Auto) 8 % (0-9) Eosinophils (%) (Auto) 4 % (0-3) Basophils (%) (Auto) 1 % (0-3) Neutrophils # (Auto) 5.5 x10^3/uL (1.8-7.7) Lymphocytes # (Auto) 1.5 x10^3/uL (1.0-4.8) Monocytes # (Auto) 0.6 x10^3/uL (0.0-1.1) Eosinophils # (Auto) 0.3 x10^3/uL (0.0-0.7) Basophils # (Auto) 0.1 x10^3/uL (0.0-0.2) Sodium Level 137 mmol/L (136-145) Potassium Level 5.2 mmol/L (3.5-5.1) Chloride Level 100 mmol/L (98-107) Carbon Dioxide Level 25 mmol/L (21-32) Anion Gap 12 (6-14) Blood Urea Nitrogen 46 mg/dL (8-26) Creatinine 10.2 mg/dL (0.7-1.3) Estimated GFR (Cockcroft-Gault) 6.5 Glucose Level 213 mg/dL (70-99) Calcium Level 9.1 mg/dL (8.5-10.1) Microbiology 05/18/20 Gram Stain - Final, Resulted 05/18/20 Aerobic Culture - Preliminary, Resulted 05/13/20 Blood Culture - Final, Complete 05/13/20 Urine Culture - Final, Complete Medications Current Medications Sodium Chloride 1,000 ml @ 1,000 mls/hr 1X ONCE IV ; Start 05/13/20 at 17:15; Stop 05/13/20 at 18:14; Status Cancel Ondansetron HCl (Zofran) 4 mg PRN Q8HRS PRN IV NAUSEA/VOMITING; Start 05/13/20 at 19:30; Stop 05/14/20 at 19:29; Status DC Morphine Sulfate (Morphine Sulfate) 4 mg PRN Q2HR PRN IV PAIN; Start 05/13/20 at 19:30; Stop 05/14/20 at 19:29; Status DC Ondansetron HCl (Zofran) 4 mg PRN Q6HRS PRN IVP NAUSEA/VOMITING Last administered on 05/14/20at 21:19; Start 05/13/20 at 20:30 Al Hydroxide/Mg Hydroxide (Mylanta Plus Xs) 30 ml PRN Q3HRS PRN PO HEARTBURN / GAS; Start 05/13/20 at 20:30 Calcium Carbonate/ Glycine (Tums) 500 mg PRN Q3HRS PRN PO UPSET STOMACH; Start 05/13/20 at 20:30 Acetaminophen (Tylenol) 650 mg PRN Q6HRS PRN PO Headaches, Temp > 101.5F; Start 05/13/20 at 20:30 Magnesium Hydroxide (Milk Of Magnesia) 2,400 mg PRN Q12HR PRN PO CONSTIPATION; Start 05/13/20 at 20:30 Bisacodyl (Dulcolax Supp) 10 mg PRN DAILY PRN [place] CONSTIPATION; Start 05/13/20 at 20:30 Heparin Sodium (Porcine) (Heparin Sodium) 5,000 unit Q12HR SQ Last administered on 05/19/20at 08:38; Start 05/13/20 at 21:00 Tramadol HCl (Ultram) 50 mg PRN Q6HRS PRN PO PAIN; Start 05/13/20 at 20:30 Darbepoetin Brian (ARANESP for DIALYSIS PTS) 60 mcg WEEKLYHS SQ Last administered on 05/14/20at 21:19; Start 05/14/20 at 21:00 Sodium Chloride 1,000 ml @ 1,000 mls/hr Q1H PRN IV hypotension; Start 05/14/20 at 13:00; Stop 05/14/20 at 18:59; Status DC Albumin Human 200 ml @ 200 mls/hr 1X PRN PRN IV Hypotension; Start 05/14/20 at 13:00; Stop 05/14/20 at 18:59; Status DC Sodium Chloride 1,000 ml @ 400 mls/hr Q2H30M PRN IV PATENCY; Start 05/14/20 at 13:00; Stop 05/15/20 at 00:59; Status DC Info (PHARMACY MONITORING -- do not chart) 1 each PRN DAILY PRN MC SEE COMMENTS; Start 05/14/20 at 13:00 Info (PHARMACY MONITORING -- do not chart) 1 each PRN DAILY PRN MC SEE COMMENTS; Start 05/14/20 at 13:00; Stop 05/14/20 at 13:11; Status DC Ampicillin Sodium 2 gm/Sodium Chloride 100 ml @ 200 mls/hr Q12HR IV Last administered on 05/17/20at 08:12; Start 05/15/20 at 09:00; Stop 05/17/20 at 10 :14; Status DC Ceftriaxone Sodium (Rocephin) 2 gm Q12H IVP Last administered on 05/17/20at 08:12; Start 05/15/20 at 08:00; Stop 05/17/20 at 10:14; Status DC Lactobacillus Rhamnosus (Culturelle) 1 cap BID PO Last administered on 05/19/20at 08:32; Start 05/15/20 at 21:00 Insulin Human Lispro (HumaLOG) 0-7 UNITS TIDWMEALS SQ Last administered on 05/19/20at 08:39; Start 05/15/20 at 17:00 Dextrose (Dextrose 50%-Water Syringe) 12.5 gm PRN Q15MIN PRN IV SEE COMMENTS; Start 05/15/20 at 16:45 Insulin Human Lispro (HumaLOG) 4 units 1X ONCE SQ Last administered on 05/15/20at 21:46; Start 05/15/20 at 21:30; Stop 05/15/20 at 21:31; Status DC Sodium Chloride 1,000 ml @ 1,000 mls/hr Q1H PRN IV hypotension; Start 05/16/20 at 09:00; Stop 05/16/20 at 16:00; Status DC Sodium Chloride 1,000 ml @ 400 mls/hr Q2H30M PRN IV PATENCY; Start 05/16/20 at 09:00; Stop 05/16/20 at 16:00; Status DC Info (PHARMACY MONITORING -- do not chart) 1 each PRN DAILY PRN MC SEE COMMENTS; Start 05/16/20 at 08:45; Status UNV Daptomycin 450 mg/ Sodium Chloride 50 ml @ 100 mls/hr 1X ONCE IV Last administered on 05/17/20at 15:36; Start 05/17/20 at 16:00; Stop 05/17/20 at 16:29; Status DC Daptomycin 450 mg/ Sodium Chloride 50 ml @ 100 mls/hr Q48H IV ; Start 05/19/20 at 16:00 Lidocaine HCl (Buffered Lidocaine 1%) 3 ml STK-MED ONCE .ROUTE ; Start 05/18/20 at 11:19; Stop 05/18/20 at 11:19; Status DC Lidocaine HCl (Buffered Lidocaine 1%) 3 ml STK-MED ONCE .ROUTE ; Start 05/18/20 at 11:19; Stop 05/18/20 at 11:19; Status DC Midazolam HCl (Versed) 2 mg STK-MED ONCE .ROUTE ; Start 05/18/20 at 11:35; Stop 05/18/20 at 11:35; Status DC Fentanyl Citrate (Fentanyl 2ml Vial) 100 mcg STK-MED ONCE .ROUTE ; Start 05/18/20 at 11:35; Stop 05/18/20 at 11:35; Status DC Lidocaine HCl (Buffered Lidocaine 1%) 3 ml 1X ONCE IJ Last administered on 05/18/20at 12:26; Start 05/18/20 at 12:00; Stop 05/18/20 at 12:01; Status DC Midazolam HCl (Versed) 2 mg 1X ONCE IV Last administered on 05/18/20at 12:26; Start 05/18/20 at 12:00; Stop 05/18/20 at 12:01; Status DC Fentanyl Citrate (Fentanyl 2ml Vial) 100 mcg 1X ONCE IV Last administered on 05/18/20at 12:26; Start 05/18/20 at 12:00; Stop 05/18/20 at 12:01; Status DC Iohexol (Omnipaque 240 Mg/ml) 50 ml STK-MED ONCE .ROUTE ; Start 05/18/20 at 12:05; Stop 05/18/20 at 12:05; Status DC Iohexol (Omnipaque 240 Mg/ml) 50 ml 1X ONCE IV Last administered on 05/18/20at 12:25; Start 05/18/20 at 12:15; Stop 05/18/20 at 12:16; Status DC Lidocaine/ Epinephrine (LIDOCAINE 1%-EPI 1:100,000 Multi-Dose) 20 ml STK-MED ONCE .ROUTE ; Start 05/18/20 at 12:07; Stop 05/18/20 at 12:08; Status DC Lidocaine/ Epinephrine (LIDOCAINE 1%-EPI 1:100,000 Multi-Dose) 20 ml 1X ONCE INJ Last administered on 05/18/20at 12:25; Start 05/18/20 at 12:15; Stop at 12:16; Status DC Amlodipine Besylate (Norvasc) 10 mg QMWF@0900 PO ; Start 05/20/20 at 09:00 Atorvastatin Calcium (Lipitor) 40 mg HS PO Last administered on 05/18/20at 20:54; Start 05/18/20 at 21:00 Carvedilol (Coreg) 25 mg BIDWMEALS PO Last administered on 05/19/20at 08:32; Start 05/19/20 at 08:00 Gabapentin (Neurontin) 300 mg HS PO Last administered on 05/18/20at 20:54; Start 05/18/20 at 21:00 Hydralazine HCl (Apresoline) 50 mg TID PO Last administered on 05/19/20at 08:32; Start 05/18/20 at 21:00 Lisinopril (Prinivil) 20 mg DAILY PO ; Start 05/19/20 at 09:00; Stop 05/18/20 at 20:49; Status DC Insulin Glargine (Lantus Syringe) 7 unit QHS SQ Last administered on 05/18/20at 21:04; Start 05/18/20 at 21:00 Lisinopril (Prinivil) 20 mg DAILY PO Last administered on 05/19/20at 08:32; Start 05/18/20 at 20:48 Acetaminophen (Tylenol) 650 mg PRN Q4HRS PRN PO PAIN; Start 05/18/20 at 21:00 Aspirin (Ecotrin) 81 mg DAILY PO Last administered on 05/19/20at 08:32; Start 05/19/20 at 09:00 Info (PHARMACY MONITORING -- do not chart) 1 each PRN DAILY PRN MC SEE COMMENTS; Start 05/19/20 at 07:30 Info (PHARMACY MONITORING -- do not chart) 1 each PRN DAILY PRN MC SEE COMMENTS; Start 05/19/20 at 07:30; Status UNV Active Scripts Active Carvedilol (Carvedilol) 12.5 Mg Tablet 25 Mg PO BIDWMEALS Reported Zinc Oxide 56.7 Gm Oint...g. 1 Krystina TP BID scrotal area Tylenol (Acetaminophen) 325 Mg Tablet 1-2 Tab PO Q4HRS PRN Senna Laxative (Sennosides) 8.6 Mg Tablet 1 Tab PO BID PRN 30 Days Polyethylene Glycol 3350 2,500 Gm Powder 17 Gm PO DAILY PRN 30 Days Norvasc (Amlodipine Besylate) 10 Mg Tablet 10 Mg PO QMWF Lisinopril 20 Mg Tablet 1 Tab PO DAILY Lantus Solostar (Insulin Glargine,Hum.rec.anlog) 100 Unit/1 Ml Insuln.pen 7 Unit SQ QHS Hydralazine Hcl 50 Mg Tablet 1 Tab PO TID Humalog (Insulin Lispro) 100 Unit/1 Ml Vial 8 Unit SQ TIDWMEALS hold FOR GLUCOSE BELOW 110 AND CALL IF OVER 400 Calcium Acetate 667 Mg Tablet 2 Tab PO TID 30 Days [Benzocaine Gel 10%] 1 Krystina PO Q6HRS PRN for toothache Aspirin Ec (Aspirin) 81 Mg Tablet. 1 Tab PO DAILY Gabapentin (Gabapentin) 100 Mg Capsule 300 Mg PO HS Atorvastatin Calcium 40 Mg Tablet 40 Mg PO HS Vitals/I & O Vital Sign - Last 24 Hours 05/18/20 05/18/20 05/18/20 05/18/20 11:00 12:26 12:27 12:40 Temp 98.4 98.2 98.4 98.2 Pulse 82 74 73 Resp 18 14 14 16 B/P (MAP) 145/86 (105) 153/85 (107) Pulse Ox 98 100 100 99 O2 Delivery Room Air Nasal Cannula Nasal Cannula Room Air O2 Flow Rate 2.0 2.0 05/18/20 05/18/20 05/18/20 05/18/20 12:55 13:10 13:25 13:55 Pulse 74 75 73 74 B/P (MAP) 161/87 (111) 165/90 (115) 167/93 (117) 154/91 (112) Pulse Ox 98 96 98 97 O2 Delivery Room Air Room Air Room Air Room Air 05/18/20 05/18/20 05/18/20 05/18/20 14:25 15:00 15:25 19:00 Temp 97.9 97.9 Pulse 72 72 76 78 Resp 16 16 B/P (MAP) 151/92 (111) 172/94 (120) 175/100 (125) 179/103 (128) Pulse Ox 99 99 100 98 O2 Delivery Room Air Room Air Room Air Room Air 05/18/20 05/18/20 05/18/20 05/18/20 20:00 20:55 20:55 23:00 Temp 97.9 97.9 Pulse 78 78 78 Resp 18 B/P (MAP) 179/103 179/103 168/95 (119) Pulse Ox 99 O2 Delivery Room Air Room Air 05/19/20 05/19/20 05/19/20 05/19/20 03:00 07:00 08:32 08:32 Temp 98.0 97.4 98.0 97.4 Pulse 78 80 80 80 Resp 18 18 B/P (MAP) 163/82 (109) 177/97 (123) 177/97 177/97 Pulse Ox 100 99 O2 Delivery Room Air Room Air 05/19/20 08:32 Pulse 80 B/P (MAP) 177/97 Intake and Output 05/18/20 05/18/20 05/19/20 15:00 23:00 07:00 Intake Total 0 ml 320 ml Balance 0 ml 320 ml Justicifation of Admission Dx: Justifications for Admission: Justification of Admission Dx: Yes Comminuty Aquired Pneumonia: Bactermia Altered Mental Status: Altered Mental Status MIGUEL HILLS MD May 19, 2020 09:05
--- NOTE | 2020-05-19 10:42 | PDOC ---
DATE OF SERVICE DATE: 05/19/20 TIME: 10:39 SUBJECTIVE ROS seen on dialysis stable , no complaints OBJECTIVE Vital Signs Vital Signs Date Time Temp Pulse Resp B/P (MAP) Pulse Ox O2 Delivery O2 Flow Rate FiO2 05/19/20 08:32 80 177/97 05/19/20 07:30 Room Air 05/19/20 07:00 97.4 18 99 97.4 05/18/20 12:27 2.0 I & 0 Intake and Output 05/19/20 07:00 Intake Total 320 ml Balance 320 ml Intake Oral 320 ml PHYSICAL EXAM Physical Exam GENERAL: no acute distress. HEENT: Normocephalic, atraumatic, anicteric. No thrush. NECK: Supple. LUNGS: Clear. HEART: S1, S2, no murmurs. CHEST WALL: Left chest wall HDC catheter ABDOMEN: Soft, nontender, nondistended. Bowel sounds present. EXTREMITIES: No edema, no cyanosis. DERMATOLOGIC: No generalized rash. Multiple abrasions, CENTRAL NERVOUS SYSTEM: moves all 4 extremities. DIAGNOSIS/ASSESSMENT Assessment & Plan ESRD On HD TTS Seen on dialysis , tolerating well, discussed treatment plan with semiconductor packages leak tester Access- s/p Infected tunneled dialysis catheter removed and placement of temp LIJ dialysis cath 05/18/2020 Sepsis from bacteremia- methicillin-sensitive Staphylococcus aureus and enterococcus bacteremia, source likely HDC catheter.Catheter removed this am. ID following HyperKalemia- Mild , HD today History of cerebrovascular accident. Encephalopathy. Hypertension. Smoking. senior living resident. COVID negative. 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) Anemia COMMENT/RELEVANT DATA Meds Current Medications Medications (Trade) Dose Ordered Sig/Greta Start Time Stop Time Status Last Admin Dose Admin Acetaminophen (Tylenol) 650 mg PRN Q4HRS PRN 05/18/20 21:00 Al Hydroxide/Mg Hydroxide (Mylanta Plus Xs) 30 ml PRN Q3HRS PRN 05/13/20 20:30 Albumin Human 200 ml @ 200 mls/hr 1X PRN PRN 05/14/20 13:00 05/14/20 18:59 DC Amlodipine Besylate (Norvasc) 10 mg QMWF@0900 05/20/20 09:00 Ampicillin Sodium 2 gm/Sodium Chloride 100 ml @ 200 mls/hr Q12HR 05/15/20 09:00 05/17/20 10:14 DC 05/17/20 08:12 200 MLS/HR Aspirin (Ecotrin) 81 mg DAILY 05/19/20 09:00 05/19/20 08:32 81 MG Atorvastatin Calcium (Lipitor) 40 mg HS 05/18/20 21:00 05/18/20 20:54 40 MG Bisacodyl (Dulcolax Supp) 10 mg PRN DAILY PRN 05/13/20 20:30 Calcium Carbonate/ Glycine (Tums) 500 mg PRN Q3HRS PRN 05/13/20 20:30 Carvedilol (Coreg) 25 mg BIDWMEALS 05/19/20 08:00 05/19/20 08:32 25 MG Ceftriaxone Sodium (Rocephin) 2 gm Q12H 05/15/20 08:00 05/17/20 10:14 DC 05/17/20 08:12 2 GM Daptomycin 450 mg/ Sodium Chloride 50 ml @ 100 mls/hr Q48H 05/19/20 16:00 Darbepoetin Brian (ARANESP for DIALYSIS PTS) 60 mcg WEEKLYHS 05/14/20 21:00 05/14/20 21:19 60 MCG Dextrose (Dextrose 50%-Water Syringe) 12.5 gm PRN Q15MIN PRN 05/15/20 16:45 Fentanyl Citrate (Fentanyl 2ml Vial) 100 mcg 1X ONCE 05/18/20 12:00 05/18/20 12:01 DC 05/18/20 12:26 100 MCG Gabapentin (Neurontin) 300 mg HS 05/18/20 21:00 05/18/20 20:54 300 MG Heparin Sodium (Porcine) (Heparin Sodium) 5,000 unit Q12HR 05/13/20 21:00 05/19/20 08:38 5,000 UNIT Hydralazine HCl (Apresoline) 50 mg TID 05/18/20 21:00 05/19/20 08:32 50 MG Info (PHARMACY MONITORING -- do not chart) 1 each PRN DAILY PRN 05/19/20 07:30 UNV Insulin Glargine (Lantus Syringe) 7 unit QHS 05/18/20 21:00 05/18/20 21:04 7 UNIT Insulin Human Lispro (HumaLOG) 4 units 1X ONCE 05/15/20 21:30 05/15/20 21:31 DC 05/15/20 21:46 4 UNITS Iohexol (Omnipaque 240 Mg/ml) 50 ml 1X ONCE 05/18/20 12:15 05/18/20 12:16 DC 05/18/20 12:25 10 ML Lactobacillus Rhamnosus (Culturelle) 1 cap BID 05/15/20 21:00 05/19/20 08:32 1 CAP Lidocaine HCl (Buffered Lidocaine 1%) 3 ml 1X ONCE 05/18/20 12:00 05/18/20 12:01 DC 05/18/20 12:26 3 ML Lidocaine/ Epinephrine (LIDOCAINE 1%-EPI 1:100,000 Multi-Dose) 20 ml 1X ONCE 05/18/20 12:15 05/18/20 12:16 DC 05/18/20 12:25 7 ML Lisinopril (Prinivil) 20 mg DAILY 05/18/20 20:48 05/19/20 08:32 20 MG Magnesium Hydroxide (Milk Of Magnesia) 2,400 mg PRN Q12HR PRN 05/13/20 20:30 Midazolam HCl (Versed) 2 mg 1X ONCE 05/18/20 12:00 05/18/20 12:01 DC 05/18/20 12:26 2 MG Morphine Sulfate (Morphine Sulfate) 4 mg PRN Q2HR PRN 05/13/20 19:30 05/14/20 19:29 DC Ondansetron HCl (Zofran) 4 mg PRN Q6HRS PRN 05/13/20 20:30 05/14/20 21:19 4 MG Sodium Chloride 1,000 ml @ 400 mls/hr Q2H30M PRN 05/16/20 09:00 05/16/20 16:00 DC Tramadol HCl (Ultram) 50 mg PRN Q6HRS PRN 05/13/20 20:30 Lab Laboratory Tests Test 05/18/20 17:10 05/18/20 20:10 05/19/20 06:30 05/19/20 07:18 Glucose (Fingerstick) 239 mg/dL (70-99) 322 mg/dL (70-99) 233 mg/dL (70-99) White Blood Count 8.0 x10^3/uL (4.0-11.0) Red Blood Count 3.73 x10^6/uL (4.30-5.70) Hemoglobin 10.1 g/dL (13.0-17.5) Hematocrit 31.4 % (39.0-53.0) Mean Corpuscular Volume 84 fL (79-100) Mean Corpuscular Hemoglobin 27 pg (25-35) Mean Corpuscular Hemoglobin Concent 32 g/dL (31-37) Red Cell Distribution Width 17.0 % (11.5-14.5) Platelet Count 407 x10^3/uL (140-400) Neutrophils (%) (Auto) 68 % (31-73) Lymphocytes (%) (Auto) 19 % (24-48) Monocytes (%) (Auto) 8 % (0-9) Eosinophils (%) (Auto) 4 % (0-3) Basophils (%) (Auto) 1 % (0-3) Neutrophils # (Auto) 5.5 x10^3/uL (1.8-7.7) Lymphocytes # (Auto) 1.5 x10^3/uL (1.0-4.8) Monocytes # (Auto) 0.6 x10^3/uL (0.0-1.1) Eosinophils # (Auto) 0.3 x10^3/uL (0.0-0.7) Basophils # (Auto) 0.1 x10^3/uL (0.0-0.2) Sodium Level 137 mmol/L (136-145) Potassium Level 5.2 mmol/L (3.5-5.1) Chloride Level 100 mmol/L (98-107) Carbon Dioxide Level 25 mmol/L (21-32) Anion Gap 12 (6-14) Blood Urea Nitrogen 46 mg/dL (8-26) Creatinine 10.2 mg/dL (0.7-1.3) Estimated GFR (Cockcroft-Gault) 6.5 Glucose Level 213 mg/dL (70-99) Calcium Level 9.1 mg/dL (8.5-10.1) Results All relevant outside records, renal labs, imaging studies, telemetry/EKG's were reviewed. Justicifation of Admission Dx: Justifications for Admission: Justification of Admission Dx: Yes Comminuty Aquired Pneumonia: Bactermia Altered Mental Status: Altered Mental Status SOCO JACOBS MD May 19, 2020 10:42
--- NOTE | 2020-05-19 10:50 | PDOC ---
Infectious Disease Note Subjective: Subjective Patient undergoing dialysis more alert today denies any n/v/d No fevers Discussed with nursing staff Vital Signs: Vital Signs Vital Signs Date Time Temp Pulse Resp B/P (MAP) Pulse Ox O2 Delivery O2 Flow Rate FiO2 05/19/20 08:32 80 177/97 05/19/20 07:30 Room Air 05/19/20 07:00 97.4 18 99 97.4 05/18/20 12:27 2.0 Physical Exam: PHYSICAL EXAM GENERAL: More alert ,somewhat confused male, arousable, answers only a few questions, in no acute distress. HEENT: Normocephalic, atraumatic, anicteric. No thrush. NECK: Supple. RT Temp HDC LUNGS: Clear. HEART: S1, S2, no murmurs. CHEST WALL: Left chest wall HDC catheter removed ABDOMEN: Soft, nontender, nondistended. Bowel sounds present. EXTREMITIES: No edema, no cyanosis. DERMATOLOGIC: Warm, dry. No generalized rash. Multiple abrasions, not infected. CENTRAL NERVOUS SYSTEM: Sleepy but arousable moves all 4 extremities. PSYCHIATRIC: Calm and cooperative. Medications: Inpatient Meds: Current Medications Medications (Trade) Dose Ordered Sig/Greta Start Time Stop Time Status Last Admin Dose Admin Acetaminophen (Tylenol) 650 mg PRN Q4HRS PRN 05/18/20 21:00 Al Hydroxide/Mg Hydroxide (Mylanta Plus Xs) 30 ml PRN Q3HRS PRN 05/13/20 20:30 Albumin Human 200 ml @ 200 mls/hr 1X PRN PRN 05/14/20 13:00 05/14/20 18:59 DC Amlodipine Besylate (Norvasc) 10 mg QMWF@0900 05/20/20 09:00 Ampicillin Sodium 2 gm/Sodium Chloride 100 ml @ 200 mls/hr Q12HR 05/15/20 09:00 05/17/20 10:14 DC 05/17/20 08:12 200 MLS/HR Aspirin (Ecotrin) 81 mg DAILY 05/19/20 09:00 05/19/20 08:32 81 MG Atorvastatin Calcium (Lipitor) 40 mg HS 05/18/20 21:00 05/18/20 20:54 40 MG Bisacodyl (Dulcolax Supp) 10 mg PRN DAILY PRN 05/13/20 20:30 Calcium Carbonate/ Glycine (Tums) 500 mg PRN Q3HRS PRN 05/13/20 20:30 Carvedilol (Coreg) 25 mg BIDWMEALS 05/19/20 08:00 05/19/20 08:32 25 MG Ceftriaxone Sodium (Rocephin) 2 gm Q12H 05/15/20 08:00 05/17/20 10:14 DC 05/17/20 08:12 2 GM Daptomycin 450 mg/ Sodium Chloride 50 ml @ 100 mls/hr Q48H 05/19/20 16:00 Darbepoetin Brian (ARANESP for DIALYSIS PTS) 60 mcg WEEKLYHS 05/14/20 21:00 05/14/20 21:19 60 MCG Dextrose (Dextrose 50%-Water Syringe) 12.5 gm PRN Q15MIN PRN 05/15/20 16:45 Fentanyl Citrate (Fentanyl 2ml Vial) 100 mcg 1X ONCE 05/18/20 12:00 05/18/20 12:01 DC 05/18/20 12:26 100 MCG Gabapentin (Neurontin) 300 mg HS 05/18/20 21:00 05/18/20 20:54 300 MG Heparin Sodium (Porcine) (Heparin Sodium) 5,000 unit Q12HR 05/13/20 21:00 05/19/20 08:38 5,000 UNIT Hydralazine HCl (Apresoline) 50 mg TID 05/18/20 21:00 05/19/20 08:32 50 MG Info (PHARMACY MONITORING -- do not chart) 1 each PRN DAILY PRN 05/19/20 07:30 UNV Insulin Glargine (Lantus Syringe) 7 unit QHS 05/18/20 21:00 05/18/20 21:04 7 UNIT Insulin Human Lispro (HumaLOG) 4 units 1X ONCE 05/15/20 21:30 05/15/20 21:31 DC 05/15/20 21:46 4 UNITS Iohexol (Omnipaque 240 Mg/ml) 50 ml 1X ONCE 05/18/20 12:15 05/18/20 12:16 DC 05/18/20 12:25 10 ML Lactobacillus Rhamnosus (Culturelle) 1 cap BID 05/15/20 21:00 05/19/20 08:32 1 CAP Lidocaine HCl (Buffered Lidocaine 1%) 3 ml 1X ONCE 05/18/20 12:00 05/18/20 12:01 DC 05/18/20 12:26 3 ML Lidocaine/ Epinephrine (LIDOCAINE 1%-EPI 1:100,000 Multi-Dose) 20 ml 1X ONCE 05/18/20 12:15 05/18/20 12:16 DC 05/18/20 12:25 7 ML Lisinopril (Prinivil) 20 mg DAILY 05/18/20 20:48 05/19/20 08:32 20 MG Magnesium Hydroxide (Milk Of Magnesia) 2,400 mg PRN Q12HR PRN 05/13/20 20:30 Midazolam HCl (Versed) 2 mg 1X ONCE 05/18/20 12:00 05/18/20 12:01 DC 05/18/20 12:26 2 MG Morphine Sulfate (Morphine Sulfate) 4 mg PRN Q2HR PRN 05/13/20 19:30 05/14/20 19:29 DC Ondansetron HCl (Zofran) 4 mg PRN Q6HRS PRN 05/13/20 20:30 05/14/20 21:19 4 MG Sodium Chloride 1,000 ml @ 400 mls/hr Q2H30M PRN 05/16/20 09:00 05/16/20 16:00 DC Tramadol HCl (Ultram) 50 mg PRN Q6HRS PRN 05/13/20 20:30 Labs: Lab Laboratory Tests Test 05/18/20 17:10 05/18/20 20:10 05/19/20 06:30 05/19/20 07:18 Glucose (Fingerstick) 239 mg/dL (70-99) 322 mg/dL (70-99) 233 mg/dL (70-99) White Blood Count 8.0 x10^3/uL (4.0-11.0) Red Blood Count 3.73 x10^6/uL (4.30-5.70) Hemoglobin 10.1 g/dL (13.0-17.5) Hematocrit 31.4 % (39.0-53.0) Mean Corpuscular Volume 84 fL (79-100) Mean Corpuscular Hemoglobin 27 pg (25-35) Mean Corpuscular Hemoglobin Concent 32 g/dL (31-37) Red Cell Distribution Width 17.0 % (11.5-14.5) Platelet Count 407 x10^3/uL (140-400) Neutrophils (%) (Auto) 68 % (31-73) Lymphocytes (%) (Auto) 19 % (24-48) Monocytes (%) (Auto) 8 % (0-9) Eosinophils (%) (Auto) 4 % (0-3) Basophils (%) (Auto) 1 % (0-3) Neutrophils # (Auto) 5.5 x10^3/uL (1.8-7.7) Lymphocytes # (Auto) 1.5 x10^3/uL (1.0-4.8) Monocytes # (Auto) 0.6 x10^3/uL (0.0-1.1) Eosinophils # (Auto) 0.3 x10^3/uL (0.0-0.7) Basophils # (Auto) 0.1 x10^3/uL (0.0-0.2) Sodium Level 137 mmol/L (136-145) Potassium Level 5.2 mmol/L (3.5-5.1) Chloride Level 100 mmol/L (98-107) Carbon Dioxide Level 25 mmol/L (21-32) Anion Gap 12 (6-14) Blood Urea Nitrogen 46 mg/dL (8-26) Creatinine 10.2 mg/dL (0.7-1.3) Estimated GFR (Cockcroft-Gault) 6.5 Glucose Level 213 mg/dL (70-99) Calcium Level 9.1 mg/dL (8.5-10.1) Micro RUN DATE: 05/17/20 [facility] *LIVE* PAGE 1 RUN TIME: 926 Specimen Inquiry PATIENT: TIMO BALDERAS ACCT: [id number] LOC: [address] [place] [address] U: [id number] AGE/SX: 50/M ROOM: 404 RE05/13/[address]: KUSUM MITCHELL MD : 1970 BED: 1 DIS: STATUS: ADM IN TLOC: SPEC #: [id number] JOSE: 05/13/20 STATUS: COMP REQ #: [id number] RECD: 05/13/20-[address]: MEGHAN GASPAR APRN SOURCE: BLOOD ENTR: 05/14/[address]: CLARIBEL HARTMAN [facility]: NON,STAFF ORDERED: BETTINA CULT - LC -- Procedure Result BLOOD CULTURE LC Final Final GRAM POSITIVE COCCI FINAL ID= [ENTEROCOCCUS FAECALIS] FINAL ID= [STAPHYLOCOCCUS AUREUS] ENTEROCOCCUS FAECALIS STAPHYLOCOCCUS AUREUS Streptomycin Synergy Screen S Gentamicin Synergy Screen S ANTIMICROBIAL SUSCEPTIBILITY Final Comment Comment POS REESE TYPE 38 ENTEROCOCCUS FAECALIS ANTIBIOTIC RESULT INTERPRETATION AMPICILLIN <=2 S DAPTOMYCIN 1 S LINEZOLID 2 S PENICILLIN 2 S VANCOMYCIN 2 S POS REESE TYPE 38 STAPHYLOCOCCUS AUREUS ANTIBIOTIC RESULT INTERPRETATION AZITHROMYCIN <=2 S CLINDAMYCIN 0.5 S CEFOXITIN SCREEN <=4 NEG CIPROFLOXACIN <=1 S CEFTAROLINE <=0.5 S DAPTOMYCIN <=0.5 S ERYTHROMYCIN <=0.25 S GENTAMICIN <=4 S LINEZOLID 2 S LEVOFLOXACIN <=1 S OXACILLIN 0.5 S PENICILLIN >2 Allan RIFAMPIN <=1 S TRIMETHOPRIM/SULFAMETHOXAZOLE <=0.5/9.5 S TETRACYCLINE <=4 S VANCOMYCIN 1 S Unless otherwise specified, Testing Performed by: RUN DATE: 05/17/20 [facility] *LIVE* PAGE 2 RUN TIME: 926 Specimen Inquiry SPEC: [id number] PATIENT: TIMO BALDERAS [id number] (Continued) Procedure Result ---- -------- CONTINUED ON NEXT PAGE RUN DATE: 05/17/20 [facility] *LIVE* PAGE 3 RUN TIME: 0927 Specimen Inquiry SPEC: [id number] PATIENT: TIMO BALDERAS Naren [id number] (Continued) Procedure Result ANTIMICROBIAL SUSCEPTIBILITY Final (continued) [address] [address] For Inquires, the Physician may contact the Microbiology department at [phone] Objective: Assessment: 1. Sepsis from bacteremia. 2. Bacteremia, methicillin-sensitive Staphylococcus aureus and enterococcus bacteremia, source likely HDC catheter. 3. End-stage renal disease, on hemodialysis. 4. History of cerebrovascular accident. 5. Encephalopathy. 6. Hypertension. 7. Anemia. 8. Smoking. 9. assisted resident. 10. COVID negative. Plan: Plan of Care Continue daptomycin renal dosing, May 17, 2020 Status post HDC catheter removal May 18, 2020 Follow-up repeat blood cultures Follow up labs and cultures. Continue supportive care. Maintain aspiration precaution. Discussed with nursing staff ADELINA ZABALA MD May 19, 2020 10:50
[2020-05-19] MEDS ORDERED: ENALAPRILAT 1.25 MG/ML VIAL. IVP PRN (13:15)
--- NOTE | 2020-05-19 13:25 | NUR ---
MAAME following. Discussed with RN, pt on room air, renal diet. MAAME unable to find packet mentioned in MAAME Muniz's note. MAAME faxed clinicals from hospital stay to [facility]. Awaiting confirmation and cultures on IV abx. MAAME will continue to follow.
[2020-05-19 15:00] VITALS: BP 131/82
[2020-05-19] MEDS: DAPTOmycin (GENERIC) IVPB 450 MG in IV NORMAL SALINE 50ML 50 ML IV SCH (15:53)
[2020-05-19 19:00] VITALS: BP 123/81
[2020-05-19] MEDS: GABAPENTIN 300 MG CAPSULE. PO SCH (21:11)
[2020-05-19] MEDS: ATORVASTATIN CALCIUM 40 MG TABLET. PO SCH (21:11)
[2020-05-19] MEDS: INSULIN GLARGINE SYRINGE. SQ SCH (21:16)
[2020-05-19 23:00] VITALS: BP 131/80
[2020-05-20 03:00] VITALS: BP 119/76
[2020-05-20 07:00] VITALS: BP 138/97
[2020-05-20 08:10] LABS: BASO # 0.1 x10^3/uL (0.0-0.2); BASO % 1 % (0-3); EOS # 0.3 x10^3/uL (0.0-0.7); EOS % 3 % (0-3); HEMATOCRIT 31.4 % (39.0-53.0); HEMOGLOBIN 9.9 g/dL (13.0-17.5); LYMPH # 1.6 x10^3/uL (1.0-4.8); LYMPH % 20 % (24-48); MEAN CORPUSCULAR HEMOGLOBIN 26 pg (25-35); MEAN CORPUSCULAR HGB CONC 32 g/dL (31-37); MEAN CORPUSCULAR VOLUME 84 fL (79-100); MONO # 0.6 x10^3/uL (0.0-1.1); MONO % 8 % (0-9); NEUT # 5.3 x10^3/uL (1.8-7.7); NEUT % 67 % (31-73); PLATELET COUNT 419 x10^3/uL (140-400); RED BLOOD COUNT 3.76 x10^6/uL (4.30-5.70); RED CELL DISTRIBUTION WIDTH 16.9 % (11.5-14.5); WHITE BLOOD COUNT 7.8 x10^3/uL (4.0-11.0)
[2020-05-20] MEDS: CARVEDILOL 12.5 MG TABLET. PO SCH ×2 (08:14→17:04)
[2020-05-20] MEDS: LACTOBACILLUS RHAMNOSUS GG 1 CAPSULE. PO SCH ×2 (08:14→20:43)
[2020-05-20] MEDS: ASPIRIN ENTERIC COATED 81 MG TABLET.DR. PO SCH (08:14)
[2020-05-20] MEDS: LISINOPRIL 20 MG TABLET PO SCH (08:15)
[2020-05-20] MEDS: HEPARIN for SUB-Q USE 5,000 UNIT/ML VIAL. SQ SCH ×2 (08:20→20:48)
[2020-05-20] MEDS: INSULIN LISPRO 300 UNITS/3 ML VIAL. SQ SCH ×3 (08:21→17:07)
[2020-05-20 08:24] LABS: CALCIUM 8.4 mg/dL (8.5-10.1); CREATININE 8.4 mg/dL (0.7-1.3); GFR 8.1; POTASSIUM 5.3 mmol/L (3.5-5.1)
--- NOTE | 2020-05-20 08:37 | PDOC ---
[employer] PROGRESS NOTE Date of Service DOS: DATE: 05/20/20 TIME: 08:34 Chief Complaint Chief Complaint Altered mental status Metabolic encephalopathy Gram-positive chains bacteremia Sepsis PUI Elevated procalcitonin Severe malnutrition End-stage renal disease on hemodialysis BUN 46 Cr 10.2 Hyperglycemia (glucose 213) History of Present Illness History of Present Illness 05/20/2020 Resting with no acute distress. Afebrile Renal progress note states stable on dialysis Discussed with RN Discussed with case manager specialist Charts reviewed 05/19/2020 No acute events overnight. Afebrile. Continue antibiotic coverage with Rocephin and ampicillin. Appreciate infectious disease input in the care of this patient. Blood cultures growing Enterococcus faecalis and staph aureus, pansensitive. Biochemistry Technologist Biochemistry Technologist James Pre-Procedure Diagnosis Pre-Procedure Diagnosis Infected tunneled dialysis catheter Post-Procedure Diagnosis Post-Procedure Diagnosis 1) Same 2) 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 Drain/Tubes Drains/Tubes 24 Fr LIJ schon temp dialysis cath 05/16/2020 Patient seen and evaluated bedside. No acute events overnight. He is afebrile. Will consult infectious disease due to positive blood cultures growing Enterococcus faecalis. He is receiving hemodialysis today. Discussed with RN. 05/15/2020 No acute events overnight. Patient is afebrile. Mental status is unchanged. Dialysis yesterday. HD catheter site is unchanged. Patient's chart, labs, images were reviewed and discussed with RN 05/14/2020 No acute events overnight. Patient is afebrile. Dialysis yesterday and tolerated well. No erythema on the HD catheter site. Patient's chart, labs, images were reviewed and discussed with RN 50-year-old male with past medical history of end-stage renal disease on hemodialysis Monday//Monday, who presents to the ER for evaluation of altered mental status. Patient is a resident of medical [place], where EMS reported he was also noted to have associated weakness and lethargy after breakfast this morning. Patient is nonverbal upon my evaluation, no answering any of my questions. No obvious source of encephalopathy or infection initially noted, except for elevated procalcitonin. He is afebrile breathing on room air. Due to some concerns of the etiology of AMS, patient will be admitted for f urther evaluation. Vitals/I&O Vitals/I&O: Vital Signs Date Time Temp Pulse Resp B/P (MAP) Pulse Ox O2 Delivery O2 Flow Rate FiO2 05/20/20 08:15 80 138/97 05/20/20 07:00 98.0 18 99 Room Air 98.0 Physical Exam Physical Exam: GENERAL: More alert ,somewhat confused male, arousable, answers only a few questions, in no acute distress. HEENT: Normocephalic, atraumatic, anicteric. No thrush. NECK: Supple. RT Temp HDC LUNGS: Clear. HEART: S1, S2, no murmurs. CHEST WALL: Left chest wall HDC catheter removed ABDOMEN: Soft, nontender, nondistended. Bowel sounds present. EXTREMITIES: No edema, no cyanosis. DERMATOLOGIC: Warm, dry. No generalized rash. Multiple abrasions, not infected. CENTRAL NERVOUS SYSTEM: Sleepy but arousable moves all 4 extremities. PSYCHIATRIC: Calm and cooperative. General: Alert, Cooperative, No acute distress Heart: Regular rate, Normal S1, Normal S2 Lungs: Clear Abdomen: Normal bowel sounds, Soft, No tenderness Extremities: No clubbing, No cyanosis Skin: No breakdown Labs Labs: Laboratory Tests Test 05/19/20 16:48 05/19/20 20:54 05/20/20 06:05 05/20/20 07:12 Glucose (Fingerstick) 177 mg/dL (70-99) 262 mg/dL (70-99) 292 mg/dL (70-99) White Blood Count 7.8 x10^3/uL (4.0-11.0) Red Blood Count 3.76 x10^6/uL (4.30-5.70) Hemoglobin 9.9 g/dL (13.0-17.5) Hematocrit 31.4 % (39.0-53.0) Mean Corpuscular Volume 84 fL (79-100) Mean Corpuscular Hemoglobin 26 pg (25-35) Mean Corpuscular Hemoglobin Concent 32 g/dL (31-37) Red Cell Distribution Width 16.9 % (11.5-14.5) Platelet Count 419 x10^3/uL (140-400) Neutrophils (%) (Auto) 67 % (31-73) Lymphocytes (%) (Auto) 20 % (24-48) Monocytes (%) (Auto) 8 % (0-9) Eosinophils (%) (Auto) 3 % (0-3) Basophils (%) (Auto) 1 % (0-3) Neutrophils # (Auto) 5.3 x10^3/uL (1.8-7.7) Lymphocytes # (Auto) 1.6 x10^3/uL (1.0-4.8) Monocytes # (Auto) 0.6 x10^3/uL (0.0-1.1) Eosinophils # (Auto) 0.3 x10^3/uL (0.0-0.7) Basophils # (Auto) 0.1 x10^3/uL (0.0-0.2) Sodium Level 132 mmol/L (136-145) Potassium Level 5.3 mmol/L (3.5-5.1) Chloride Level 95 mmol/L (98-107) Carbon Dioxide Level 28 mmol/L (21-32) Anion Gap 9 (6-14) Blood Urea Nitrogen 37 mg/dL (8-26) Creatinine 8.4 mg/dL (0.7-1.3) Estimated GFR (Cockcroft-Gault) 8.1 Glucose Level 294 mg/dL (70-99) Calcium Level 8.4 mg/dL (8.5-10.1) Assessment and Plan Assessmemt and Plan Problems Medical Problems: (1) AMS (altered mental status) Status: Acute (2) Person under investigation for COVID-19 Status: Acute (3) Weakness generalized Status: Acute ASSESSMENT Altered mental status Metabolic encephalopathy Gram-positive chains bacteremia Sepsis PUI Elevated procalcitonin Severe malnutrition End-stage renal disease on hemodialysis BUN 46 Cr 10.2 Hyperglycemia (glucose 213) PLAN Continue IV antibiotics Hemodialysis M [facility] F Home meds DVT ppx Full code Appreciate subpsecialty input Comment Review of Relevant I have reviewed the following items ish (where applicable) has been applied. Medications: Current Medications Medications (Trade) Dose Ordered Sig/Greta Route PRN Reason Start Time Stop Time Status Last Admin Dose Admin Daptomycin 450 mg/ Sodium Chloride 50 ml @ 100 mls/hr Q48H IV 05/19/20 16:00 05/19/20 15:53 Amlodipine Besylate (Norvasc) 10 mg QMWF@0900 PO 05/20/20 09:00 05/20/20 08:15 Aspirin (Ecotrin) 81 mg DAILY PO 05/19/20 09:00 05/20/20 08:14 Justifications for Admission Other Justification AMS MARLO MERINO III DO May 20, 2020 08:37
--- NOTE | 2020-05-20 09:26 | PDOC ---
Infectious Disease Note Subjective: Subjective Patient denies any complaints Vital Signs: Vital Signs Vital Signs Date Time Temp Pulse Resp B/P (MAP) Pulse Ox O2 Delivery O2 Flow Rate FiO2 05/20/20 08:15 80 138/97 05/20/20 08:00 Room Air 05/20/20 07:00 98.0 18 99 98.0 Physical Exam: PHYSICAL EXAM GENERAL: More alert ,somewhat confused male, arousable, answers only a few questions, in no acute distress. HEENT: Normocephalic, atraumatic, anicteric. No thrush. NECK: Supple. RT Temp HDC LUNGS: Clear. HEART: S1, S2, no murmurs. CHEST WALL: Left chest wall HDC catheter removed ABDOMEN: Soft, nontender, nondistended. Bowel sounds present. EXTREMITIES: No edema, no cyanosis. DERMATOLOGIC: Warm, dry. No generalized rash. Multiple abrasions, not infected. CENTRAL NERVOUS SYSTEM: Sleepy but arousable moves all 4 extremities. PSYCHIATRIC: Calm and cooperative. Medications: Inpatient Meds: Current Medications Medications (Trade) Dose Ordered Sig/Greta Start Time Stop Time Status Last Admin Dose Admin Acetaminophen (Tylenol) 650 mg PRN Q4HRS PRN 05/18/20 21:00 Al Hydroxide/Mg Hydroxide (Mylanta Plus Xs) 30 ml PRN Q3HRS PRN 05/13/20 20:30 Albumin Human 200 ml @ 200 mls/hr 1X PRN PRN 05/14/20 13:00 05/14/20 18:59 DC Amlodipine Besylate (Norvasc) 10 mg QMWF@0900 05/20/20 09:00 05/20/20 08:15 10 MG Ampicillin Sodium 2 gm/Sodium Chloride 100 ml @ 200 mls/hr Q12HR 05/15/20 09:00 05/17/20 10:14 DC 05/17/20 08:12 200 MLS/HR Aspirin (Ecotrin) 81 mg DAILY 05/19/20 09:00 05/20/20 08:14 81 MG Atorvastatin Calcium (Lipitor) 40 mg HS 05/18/20 21:00 05/19/20 21:11 40 MG Bisacodyl (Dulcolax Supp) 10 mg PRN DAILY PRN 05/13/20 20:30 Calcium Carbonate/ Glycine (Tums) 500 mg PRN Q3HRS PRN 05/13/20 20:30 Carvedilol (Coreg) 25 mg BIDWMEALS 05/19/20 08:00 05/20/20 08:14 25 MG Ceftriaxone Sodium (Rocephin) 2 gm Q12H 05/15/20 08:00 05/17/20 10:14 DC 05/17/20 08:12 2 GM Daptomycin 450 mg/ Sodium Chloride 50 ml @ 100 mls/hr Q48H 05/19/20 16:00 05/19/20 15:53 100 MLS/HR Darbepoetin Brian (ARANESP for DIALYSIS PTS) 60 mcg WEEKLYHS 05/14/20 21:00 05/14/20 21:19 60 MCG Dextrose (Dextrose 50%-Water Syringe) 12.5 gm PRN Q15MIN PRN 05/15/20 16:45 Enalaprilat (Vasotec Inj) 1.25 mg PRN Q6HRS PRN 05/19/20 13:15 Fentanyl Citrate (Fentanyl 2ml Vial) 100 mcg 1X ONCE 05/18/20 12:00 05/18/20 12:01 DC 05/18/20 12:26 100 MCG Gabapentin (Neurontin) 300 mg HS 05/18/20 21:00 05/19/20 21:11 300 MG Heparin Sodium (Porcine) (Heparin Sodium) 5,000 unit Q12HR 05/13/20 21:00 05/20/20 08:20 5,000 UNIT Hydralazine HCl (Apresoline) 50 mg TID 05/18/20 21:00 05/20/20 08:14 50 MG Info (PHARMACY MONITORING -- do not chart) 1 each PRN DAILY PRN 05/19/20 07:30 UNV Insulin Glargine (Lantus Syringe) 7 unit QHS 05/18/20 21:00 05/19/20 21:16 7 UNIT Insulin Human Lispro (HumaLOG) 4 units 1X ONCE 05/15/20 21:30 05/15/20 21:31 DC 05/15/20 21:46 4 UNITS Iohexol (Omnipaque 240 Mg/ml) 50 ml 1X ONCE 05/18/20 12:15 05/18/20 12:16 DC 05/18/20 12:25 10 ML Lactobacillus Rhamnosus (Culturelle) 1 cap BID 05/15/20 21:00 05/20/20 08:14 1 CAP Lidocaine HCl (Buffered Lidocaine 1%) 3 ml 1X ONCE 05/18/20 12:00 05/18/20 12:01 DC 05/18/20 12:26 3 ML Lidocaine/ Epinephrine (LIDOCAINE 1%-EPI 1:100,000 Multi-Dose) 20 ml 1X ONCE 05/18/20 12:15 05/18/20 12:16 DC 05/18/20 12:25 7 ML Lisinopril (Prinivil) 20 mg DAILY 05/18/20 20:48 05/20/20 08:15 20 MG Magnesium Hydroxide (Milk Of Magnesia) 2,400 mg PRN Q12HR PRN 05/13/20 20:30 Midazolam HCl (Versed) 2 mg 1X ONCE 05/18/20 12:00 05/18/20 12:01 DC 05/18/20 12:26 2 MG Morphine Sulfate (Morphine Sulfate) 4 mg PRN Q2HR PRN 05/13/20 19:30 05/14/20 19:29 DC Ondansetron HCl (Zofran) 4 mg PRN Q6HRS PRN 05/13/20 20:30 05/14/20 21:19 4 MG Sodium Chloride 1,000 ml @ 400 mls/hr Q2H30M PRN 05/16/20 09:00 05/16/20 16:00 DC Tramadol HCl (Ultram) 50 mg PRN Q6HRS PRN 05/13/20 20:30 Labs: Lab Laboratory Tests Test 05/19/20 16:48 05/19/20 20:54 05/20/20 06:05 05/20/20 07:12 Glucose (Fingerstick) 177 mg/dL (70-99) 262 mg/dL (70-99) 292 mg/dL (70-99) White Blood Count 7.8 x10^3/uL (4.0-11.0) Red Blood Count 3.76 x10^6/uL (4.30-5.70) Hemoglobin 9.9 g/dL (13.0-17.5) Hematocrit 31.4 % (39.0-53.0) Mean Corpuscular Volume 84 fL (79-100) Mean Corpuscular Hemoglobin 26 pg (25-35) Mean Corpuscular Hemoglobin Concent 32 g/dL (31-37) Red Cell Distribution Width 16.9 % (11.5-14.5) Platelet Count 419 x10^3/uL (140-400) Neutrophils (%) (Auto) 67 % (31-73) Lymphocytes (%) (Auto) 20 % (24-48) Monocytes (%) (Auto) 8 % (0-9) Eosinophils (%) (Auto) 3 % (0-3) Basophils (%) (Auto) 1 % (0-3) Neutrophils # (Auto) 5.3 x10^3/uL (1.8-7.7) Lymphocytes # (Auto) 1.6 x10^3/uL (1.0-4.8) Monocytes # (Auto) 0.6 x10^3/uL (0.0-1.1) Eosinophils # (Auto) 0.3 x10^3/uL (0.0-0.7) Basophils # (Auto) 0.1 x10^3/uL (0.0-0.2) Sodium Level 132 mmol/L (136-145) Potassium Level 5.3 mmol/L (3.5-5.1) Chloride Level 95 mmol/L (98-107) Carbon Dioxide Level 28 mmol/L (21-32) Anion Gap 9 (6-14) Blood Urea Nitrogen 37 mg/dL (8-26) Creatinine 8.4 mg/dL (0.7-1.3) Estimated GFR (Cockcroft-Gault) 8.1 Glucose Level 294 mg/dL (70-99) Calcium Level 8.4 mg/dL (8.5-10.1) Micro RUN DATE: 05/17/20 [facility] *LIVE* PAGE 1 RUN TIME: 926 Specimen Inquiry PATIENT: TIMO BALDERAS ACCT: [id number] LOC: [address] [place] [address] U: [id number] AGE/SX: 50/M ROOM: 404 RE05/13/[address]: KUSUM MITCHELL MD : 1970 BED: 1 D IS: STATUS: ADM IN TLOC: SPEC #: [id number] JOSE: 05/13/20 STATUS: COMP REQ #: [id number] RECD: 05/13/[address]: MEGHAN GASPAR APRN SOURCE: BLOOD ENTR: 05/14/20-[address]: CLARIBEL HARTMAN SPDESC: NON,STAFF ORDERED: BETTINA CULT - LC Procedure Result BLOOD CULTURE LC Final Final GRAM POSITIVE COCCI FINAL ID= [ENTEROCOCCUS FAECALIS] FINAL ID= [STAPHYLOCOCCUS AUREUS] ENTEROCOCCUS FAECALIS STAPHYLOCOCCUS AUREUS Streptomycin Synergy Screen S Gentamicin Synergy Screen S ANTIMICROBIAL SUSCEPTIBILITY Final Comment Comment POS REESE TYPE 38 ENTEROCOCCUS FAECALIS ANTIBIOTIC RESULT INTERPRETATION AMPICILLIN <=2 S DAPTOMYCIN 1 S LINEZOLID 2 S PENICILLIN 2 S VANCOMYCIN 2 S POS REESE TYPE 38 STAPHYLOCOCCUS AUREUS ANTIBIOTIC RESULT INTERPRETATION AZITHROMYCIN <=2 S CLINDAMYCIN 0.5 S CEFOXITIN SCREEN <=4 NEG CIPROFLOXACIN <=1 S CEFTAROLINE <=0.5 S DAPTOMYCIN <=0.5 S ERYTHROMYCIN <=0.25 S GENTAMICIN <=4 S LINEZOLID 2 S LEVOFLOXACIN <=1 S OXACILLIN 0.5 S PENICILLIN >2 Allan RIFAMPIN <=1 S TRIMETHOPRIM/SULFAMETHOXAZOLE <=0.5/9.5 S TETRACYCLINE <=4 S VANCOMYCIN 1 S Unless otherwise specified, Testing Performed by: RUN DATE: 05/17/20 [facility] *LIVE* PAGE 2 RUN TIME: 926 Specimen Inquiry SPEC: [id number] PATIENT: KARTHIKKATHERIN MCCLELLANSHASHI Sneed [id number] (Continued) Procedure Result CONTINUED ON NEXT PAGE RUN DATE: 05/17/20 [facility] *LIVE* PAGE 3 RUN TIME: 0927 Specimen Inquiry SPEC: [id number] PATIENT: TIMO BALDERAS Naren [id number] (Continued) Procedure Result ANTIMICROBIAL SUSCEPTIBILITY Final (continued) [address] [address] For Inquires, the Physician may contact the Microbiology department at [phone] 05/19 neg so far Objective: Assessment: 1. Sepsis from bacteremia. 2. Bacteremia, methicillin-sensitive Staphylococcus aureus and enterococcus bacteremia, source likely HDC catheter. HDC catheter removal 3. End-stage renal disease, on hemodialysis. 4. History of cerebrovascular accident. 5. Encephalopathy. 6. Hypertension. 7. Anemia. 8. Smoking. 9. group home resident. 10. COVID negative. Plan: Plan of Care Continue daptomycin renal dosing, May 17, 2020 Status post HDC catheter removal May 18, 2020 Follow-up repeat blood cultures negative so far Will obtain BENIGNO Follow up labs and cultures. Continue supportive care. Maintain aspiration precaution. Discussed with nursing staff ADELINA ZABALA MD May 20, 2020 09:26
--- NOTE | 2020-05-20 10:25 | PDOC ---
DATE OF SERVICE DATE: 05/20/20 TIME: 10:23 SUBJECTIVE ROS Stable OBJECTIVE Vital Signs Vital Signs Date Time Temp Pulse Resp B/P (MAP) Pulse Ox O2 Delivery O2 Flow Rate FiO2 05/20/20 08:15 80 138/97 05/20/20 08:00 Room Air 05/20/20 07:00 98.0 18 99 98.0 PHYSICAL EXAM Physical Exam GENERAL: no acute distress. HEENT: Normocephalic, atraumatic, anicteric. No thrush. NECK: Supple. LUNGS: Clear. HEART: S1, S2, no murmurs. CHEST WALL: Left chest wall HDC catheter ABDOMEN: Soft, nontender, nondistended. Bowel sounds present. EXTREMITIES: No edema, no cyanosis. DERMATOLOGIC: No generalized rash. Multiple abrasions, CENTRAL NERVOUS SYSTEM: moves all 4 extremities. DIAGNOSIS/ASSESSMENT Assessment & Plan ESRD On HD TTS No indication for HD today Access- s/p Infected tunneled dialysis catheter removed and placement of temp LIJ dialysis cath 05/18/2020 Sepsis from bacteremia- methicillin-sensitive Staphylococcus aureus and enterococcus bacteremia, source likely HDC catheter.Catheter removed this am. ID following HyperKalemia- Mild HypoNatremia- Normal Na after correcting for high Glucose History of cerebrovascular accident. Encephalopathy. Hypertension. Smoking. intermediate resident. COVID negative. 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) Anemia COMMENT/RELEVANT DATA Meds Current Medications Medications (Trade) Dose Ordered Sig/Greta Start Time Stop Time Status Last Admin Dose Admin Acetaminophen (Tylenol) 650 mg PRN Q4HRS PRN 05/18/20 21:00 Al Hydroxide/Mg Hydroxide (Mylanta Plus Xs) 30 ml PRN Q3HRS PRN 05/13/20 20:30 Albumin Human 200 ml @ 200 mls/hr 1X PRN PRN 05/14/20 13:00 05/14/20 18:59 DC Amlodipine Besylate (Norvasc) 10 mg QMWF@0900 05/20/20 09:00 05/20/20 08:15 10 MG Ampicillin Sodium 2 gm/Sodium Chloride 100 ml @ 200 mls/hr Q12HR 05/15/20 09:00 05/17/20 10:14 DC 05/17/20 08:12 200 MLS/HR Aspirin (Ecotrin) 81 mg DAILY 05/19/20 09:00 05/20/20 08:14 81 MG Atorvastatin Calcium (Lipitor) 40 mg HS 05/18/20 21:00 05/19/20 21:11 40 MG Bisacodyl (Dulcolax Supp) 10 mg PRN DAILY PRN 05/13/20 20:30 Calcium Carbonate/ Glycine (Tums) 500 mg PRN Q3HRS PRN 05/13/20 20:30 Carvedilol (Coreg) 25 mg BIDWMEALS 05/19/20 08:00 05/20/20 08:14 25 MG Ceftriaxone Sodium (Rocephin) 2 gm Q12H 05/15/20 08:00 05/17/20 10:14 DC 05/17/20 08:12 2 GM Daptomycin 450 mg/ Sodium Chloride 50 ml @ 100 mls/hr Q48H 05/19/20 16:00 05/19/20 15:53 100 MLS/HR Darbepoetin Brian (ARANESP for DIALYSIS PTS) 60 mcg WEEKLYHS 05/14/20 21:00 05/14/20 21:19 60 MCG Dextrose (Dextrose 50%-Water Syringe) 12.5 gm PRN Q15MIN PRN 05/15/20 16:45 Enalaprilat (Vasotec Inj) 1.25 mg PRN Q6HRS PRN 05/19/20 13:15 Fentanyl Citrate (Fentanyl 2ml Vial) 100 mcg 1X ONCE 05/18/20 12:00 05/18/20 12:01 DC 05/18/20 12:26 100 MCG Gabapentin (Neurontin) 300 mg HS 05/18/20 21:00 05/19/20 21:11 300 MG Heparin Sodium (Porcine) (Heparin Sodium) 5,000 unit Q12HR 05/13/20 21:00 05/20/20 08:20 5,000 UNIT Hydralazine HCl (Apresoline) 50 mg TID 05/18/20 21:00 05/20/20 08:14 50 MG Info (PHARMACY MONITORING -- do not chart) 1 each PRN DAILY PRN 05/19/20 07:30 UNV Insulin Glargine (Lantus Syringe) 7 unit QHS 05/18/20 21:00 05/19/20 21:16 7 UNIT Insulin Human Lispro (HumaLOG) 4 units 1X ONCE 05/15/20 21:30 05/15/20 21:31 DC 05/15/20 21:46 4 UNITS Iohexol (Omnipaque 240 Mg/ml) 50 ml 1X ONCE 05/18/20 12:15 05/18/20 12:16 DC 05/18/20 12:25 10 ML Lactobacillus Rhamnosus (Culturelle) 1 cap BID 05/15/20 21:00 05/20/20 08:14 1 CAP Lidocaine HCl (Buffered Lidocaine 1%) 3 ml 1X ONCE 05/18/20 12:00 05/18/20 12:01 DC 05/18/20 12:26 3 ML Lidocaine/ Epinephrine (LIDOCAINE 1%-EPI 1:100,000 Multi-Dose) 20 ml 1X ONCE 05/18/20 12:15 05/18/20 12:16 DC 05/18/20 12:25 7 ML Lisinopril (Prinivil) 20 mg DAILY 05/18/20 20:48 05/20/20 08:15 20 MG Magnesium Hydroxide (Milk Of Magnesia) 2,400 mg PRN Q12HR PRN 05/13/20 20:30 Midazolam HCl (Versed) 2 mg 1X ONCE 05/18/20 12:00 05/18/20 12:01 DC 05/18/20 12:26 2 MG Morphine Sulfate (Morphine Sulfate) 4 mg PRN Q2HR PRN 05/13/20 19:30 05/14/20 19:29 DC Ondansetron HCl (Zofran) 4 mg PRN Q6HRS PRN 05/13/20 20:30 05/14/20 21:19 4 MG Sodium Chloride 1,000 ml @ 400 mls/hr Q2H30M PRN 05/16/20 09:00 05/16/20 16:00 DC Tramadol HCl (Ultram) 50 mg PRN Q6HRS PRN 05/13/20 20:30 Lab Laboratory Tests Test 05/19/20 16:48 05/19/20 20:54 05/20/20 06:05 05/20/20 07:12 Glucose (Fingerstick) 177 mg/dL (70-99) 262 mg/dL (70-99) 292 mg/dL (70-99) White Blood Count 7.8 x10^3/uL (4.0-11.0) Red Blood Count 3.76 x10^6/uL (4.30-5.70) Hemoglobin 9.9 g/dL (13.0-17.5) Hematocrit 31.4 % (39.0-53.0) Mean Corpuscular Volume 84 fL (79-100) Mean Corpuscular Hemoglobin 26 pg (25-35) Mean Corpuscular Hemoglobin Concent 32 g/dL (31-37) Red Cell Distribution Width 16.9 % (11.5-14.5) Platelet Count 419 x10^3/uL (140-400) Neutrophils (%) (Auto) 67 % (31-73) Lymphocytes (%) (Auto) 20 % (24-48) Monocytes (%) (Auto) 8 % (0-9) Eosinophils (%) (Auto) 3 % (0-3) Basophils (%) (Auto) 1 % (0-3) Neutrophils # (Auto) 5.3 x10^3/uL (1.8-7.7) Lymphocytes # (Auto) 1.6 x10^3/uL (1.0-4.8) Monocytes # (Auto) 0.6 x10^3/uL (0.0-1.1) Eosinophils # (Auto) 0.3 x10^3/uL (0.0-0.7) Basophils # (Auto) 0.1 x10^3/uL (0.0-0.2) Sodium Level 132 mmol/L (136-145) Potassium Level 5.3 mmol/L (3.5-5.1) Chloride Level 95 mmol/L (98-107) Carbon Dioxide Level 28 mmol/L (21-32) Anion Gap 9 (6-14) Blood Urea Nitrogen 37 mg/dL (8-26) Creatinine 8.4 mg/dL (0.7-1.3) Estimated GFR (Cockcroft-Gault) 8.1 Glucose Level 294 mg/dL (70-99) Calcium Level 8.4 mg/dL (8.5-10.1) Results All relevant outside records, renal labs, imaging studies, telemetry/EKG's were reviewed. Justicifation of Admission Dx: Justifications for Admission: Justification of Admission Dx: Yes Comminuty Aquired Pneumonia: Bactermia Altered Mental Status: Altered Mental Status SOCO JACOBS MD May 20, 2020 10:25
[2020-05-20 10:26] VITALS: BP 137/75
--- NOTE | 2020-05-20 12:22 | PDOC ---
Provider Note Date of Service: DATE: 05/20/20 TIME: 12:22 Provider Note BENIGNO tomorrow at 1330 Pt is AOx3, no discomfort currently. Has bacteremia. Discussed about BENIGNO as requested by ID, risks and benefits and agreeable to proceed. Justifications for Admission Other Justification [facility] COORDIN[facility] May 20, 2020 12:22
[2020-05-20 14:30] VITALS: BP 115/73
[2020-05-20 19:00] VITALS: BP 122/84
[2020-05-20] MEDS ORDERED: ZOLPIDEM 5 MG TABLET. PO PRN ×2 (20:30→20:45)
[2020-05-20] MEDS: ATORVASTATIN CALCIUM 40 MG TABLET. PO SCH (20:42)
[2020-05-20] MEDS: GABAPENTIN 300 MG CAPSULE. PO SCH (20:42)
[2020-05-20] MEDS: INSULIN GLARGINE SYRINGE. SQ SCH (20:49)
[2020-05-20 22:53] VITALS: BP 117/69
[2020-05-21] VITALS (7 sets, daily range): BP systolic 113–131; BP diastolic 52–71
[2020-05-21] MEDS ORDERED: DIALYSIS PATIENT. MC PRN ×2 (07:30)
[2020-05-21] MEDS ORDERED: IV NORMAL SALINE 1000ML BAG 1,000 ML IV PRN ×2 (07:30)
[2020-05-21] MEDS ORDERED: ALBUMIN HUMAN 25% 200 ML IV PRN (07:30)
[2020-05-21] MEDS: CARVEDILOL 12.5 MG TABLET. PO SCH ×2 (08:36→17:12)
[2020-05-21] MEDS: LACTOBACILLUS RHAMNOSUS GG 1 CAPSULE. PO SCH ×2 (08:37→20:15)
[2020-05-21] MEDS: LISINOPRIL 20 MG TABLET PO SCH (08:37)
[2020-05-21] MEDS: ASPIRIN ENTERIC COATED 81 MG TABLET.DR. PO SCH (08:37)
[2020-05-21] MEDS: HEPARIN for SUB-Q USE 5,000 UNIT/ML VIAL. SQ SCH ×2 (08:37→20:22)
[2020-05-21] MEDS: INSULIN LISPRO 300 UNITS/3 ML VIAL. SQ SCH ×3 (08:40→17:11)
--- NOTE | 2020-05-21 08:56 | PDOC ---
Infectious Disease Note Subjective: Subjective Patient denies any complaints Vital Signs: Vital Signs Vital Signs Date Time Temp Pulse Resp B/P (MAP) Pulse Ox O2 Delivery O2 Flow Rate FiO2 05/21/20 08:37 79 126/67 05/21/20 08:00 Room Air 05/21/20 03:00 97.2 18 98 97.2 Physical Exam: PHYSICAL EXAM GENERAL: alert awake in no acute distress. HEENT: Normocephalic, atraumatic, anicteric. No thrush. NECK: Supple. RT Temp HDC LUNGS: Clear. HEART: S1, S2, no murmurs. CHEST WALL: Left chest wall HDC catheter removed ABDOMEN: Soft, nontender, nondistended. Bowel sounds present. EXTREMITIES: No edema, no cyanosis. DERMATOLOGIC: Warm, dry. No generalized rash. Multiple abrasions, not infected. CENTRAL NERVOUS SYSTEM: alert awake moves all 4 ext PSYCHIATRIC: Calm and cooperative. Medications: Inpatient Meds: Current Medications Medications (Trade) Dose Ordered Sig/Greta Start Time Stop Time Status Last Admin Dose Admin Acetaminophen (Tylenol) 650 mg PRN Q4HRS PRN 05/18/20 21:00 Al Hydroxide/Mg Hydroxide (Mylanta Plus Xs) 30 ml PRN Q3HRS PRN 05/13/20 20:30 Albumin Human 200 ml @ 200 mls/hr 1X PRN PRN 05/14/20 13:00 05/14/20 18:59 DC Amlodipine Besylate (Norvasc) 10 mg QMWF@0900 05/20/20 09:00 05/20/20 08:15 10 MG Ampicillin Sodium 2 gm/Sodium Chloride 100 ml @ 200 mls/hr Q12HR 05/15/20 09:00 05/17/20 10:14 DC 05/17/20 08:12 200 MLS/HR Aspirin (Ecotrin) 81 mg DAILY 05/19/20 09:00 05/20/20 08:14 81 MG Atorvastatin Calcium (Lipitor) 40 mg HS 05/18/20 21:00 05/20/20 20:42 40 MG Bisacodyl (Dulcolax Supp) 10 mg PRN DAILY PRN 05/13/20 20:30 Calcium Carbonate/ Glycine (Tums) 500 mg PRN Q3HRS PRN 05/13/20 20:30 Carvedilol (Coreg) 25 mg BIDWMEALS 05/19/20 08:00 05/21/20 08:36 25 MG Ceftriaxone Sodium (Rocephin) 2 gm Q12H 05/15/20 08:00 05/17/20 10:14 DC 05/17/20 08:12 2 GM Daptomycin 450 mg/ Sodium Chloride 50 ml @ 100 mls/hr Q48H 05/19/20 16:00 05/19/20 15:53 100 MLS/HR Darbepoetin Brian (ARANESP for DIALYSIS PTS) 60 mcg WEEKLYHS 05/14/20 21:00 05/14/20 21:19 60 MCG Dextrose (Dextrose 50%-Water Syringe) 12.5 gm PRN Q15MIN PRN 05/15/20 16:45 Enalaprilat (Vasotec Inj) 1.25 mg PRN Q6HRS PRN 05/19/20 13:15 Fentanyl Citrate (Fentanyl 2ml Vial) 100 mcg 1X ONCE 05/18/20 12:00 05/18/20 12:01 DC 05/18/20 12:26 100 MCG Gabapentin (Neurontin) 300 mg HS 05/18/20 21:00 05/20/20 20:42 300 MG Heparin Sodium (Porcine) (Heparin Sodium) 5,000 unit Q12HR 05/13/20 21:00 05/20/20 20:48 5,000 UNIT Hydralazine HCl (Apresoline) 50 mg TID 05/18/20 21:00 05/21/20 08:37 50 MG Info (PHARMACY MONITORING -- do not chart) 1 each PRN DAILY PRN 05/19/20 07:30 UNV Insulin Glargine (Lantus Syringe) 7 unit QHS 05/18/20 21:00 05/19/20 21:16 7 UNIT Insulin Human Lispro (HumaLOG) 4 units 1X ONCE 05/15/20 21:30 05/15/20 21:31 DC 05/15/20 21:46 4 UNITS Iohexol (Omnipaque 240 Mg/ml) 50 ml 1X ONCE 05/18/20 12:15 05/18/20 12:16 DC 05/18/20 12:25 10 ML Lactobacillus Rhamnosus (Culturelle) 1 cap BID 05/15/20 21:00 05/20/20 20:43 1 CAP Lidocaine HCl (Buffered Lidocaine 1%) 3 ml 1X ONCE 05/18/20 12:00 05/18/20 12:01 DC 05/18/20 12:26 3 ML Lidocaine/ Epinephrine (LIDOCAINE 1%-EPI 1:100,000 Multi-Dose) 20 ml 1X ONCE 05/18/20 12:15 05/18/20 12:16 DC 05/18/20 12:25 7 ML Lisinopril (Prinivil) 20 mg DAILY 05/18/20 20:48 05/21/20 08:37 20 MG Magnesium Hydroxide (Milk Of Magnesia) 2,400 mg PRN Q12HR PRN 05/13/20 20:30 Midazolam HCl (Versed) 2 mg 1X ONCE 05/18/20 12:00 05/18/20 12:01 DC 05/18/20 12:26 2 MG Morphine Sulfate (Morphine Sulfate) 4 mg PRN Q2HR PRN 05/13/20 19:30 05/14/20 19:29 DC Ondansetron HCl (Zofran) 4 mg PRN Q6HRS PRN 05/13/20 20:30 05/14/20 21:19 4 MG Sodium Chloride 1,000 ml @ 400 mls/hr Q2H30M PRN 05/16/20 09:00 05/16/20 16:00 DC Tramadol HCl (Ultram) 50 mg PRN Q6HRS PRN 05/13/20 20:30 Zolpidem Tartrate (Ambien) 5 mg 1X PRN PRN 05/20/20 20:45 05/20/20 20:43 5 MG Labs: Lab Laboratory Tests Test 05/20/20 11:10 05/20/20 15:55 05/20/20 20:12 05/21/20 08:11 Glucose (Fingerstick) 112 mg/dL (70-99) 167 mg/dL (70-99) 175 mg/dL (70-99) 268 mg/dL (70-99) Micro RUN DATE: 05/17/20 [facility] *LIVE* PAGE 1 RUN TIME: 926 Specimen Inquiry PATIENT: TIMO BALDERAS ACCT: [id number] LOC: [address] [place] [address] U: [id number] AGE/SX: 50/M ROOM: [facility] RE05/13/[address]: KUSUM MITCHELL MD : 1970 BED: 1 DIS: STATUS: ADM IN TLOC: SPEC #: [id number] JOSE: 05/13/20-1999 STATUS: COMP REQ #: [id number] RECD: 05/13/20-[address]: MEGHAN GASPAR APRN SOURCE: BLOOD ENTR: 05/14/20-[address]: CLARIBEL HARTMAN SPDC: NON,STAFF ORDERED: BLD CULT - LC ------ ------ Procedure Result BLOOD CULTURE LC Final Final GRAM POSITIVE COCCI FINAL ID= [ENTEROCOCCUS FAECALIS] FINAL ID= [STAPHYLOCOCCUS AUREUS] ENTEROCOCCUS FAECALIS STAPHYLOCOCCUS AUREUS Streptomycin Synergy Screen S Gentamicin Synergy Screen S ANTIMICROBIAL SUSCEPTIBILITY Final Comment Comment POS REESE TYPE 38 ENTEROCOCCUS FAECALIS ANTIBIOTIC RESULT INTERPRETATION AMPICILLIN <=2 S DAPTOMYCIN 1 S LINEZOLID 2 S PENICILLIN 2 S VANCOMYCIN 2 S POS REESE TYPE 38 STAPHYLOCOCCUS AUREUS ANTIBIOTIC RESULT INTERPRETATION AZITHROMYCIN <=2 S CLINDAMYCIN 0.5 S CEFOXITIN SCREEN <=4 NEG CIPROFLOXACIN <=1 S CEFTAROLINE <=0.5 S DAPTOMYCIN <=0.5 S ERYTHROMYCIN <=0.25 S GENTAMICIN <=4 S LINEZOLID 2 S LEVOFLOXACIN <=1 S OXACILLIN 0.5 S PENICILLIN >2 Allan RIFAMPIN <=1 S TRIMETHOPRIM/SULFAMETHOXAZOLE <=0.5/9.5 S TETRACYCLINE <=4 S VANCOMYCIN 1 S Unless otherwise specified, Testing Performed by: RUN DATE: 05/17/20 [facility] *LIVE* PAGE 2 RUN TIME: 09 Specimen Inquiry SPEC: [id number] PATIENT: TIMO BALDERAS [id number] (Continued) Procedure Result CONTINUED ON NEXT PAGE RUN DATE: 05/17/20 [facility] *LIVE* PAGE 3 RUN TIME: 0927 Specimen Inquiry SPEC: [id number] PATIENT: TIMO BALDERAS [id number] (Continued) Procedure Result - ANTIMICROBIAL SUSCEPTIBILITY Final (continued) [address] [address] For Inquires, the Physician may contact the Microbiology department at [phone] 05/19 neg so far Objective: Assessment: 1. Sepsis from bacteremia. 2. Bacteremia, methicillin-sensitive Staphylococcus aureus and enterococcus bacteremia, source likely HDC catheter. s/p HDC catheter removal 3. End-stage renal disease, on hemodialysis. 4. History of cerebrovascular accident. 5. Encephalopathy. 6. Hypertension. 7. Anemia. 8. Smoking. 9. retirement resident. 10. COVID negative. Plan: Plan of Care Continue daptomycin renal dosing, May 17, 2020 Status post HDC catheter removal May 18, 2020 Follow-up repeat blood cultures negative so far Awaiting BENIGNO Follow up labs and cultures. Continue supportive care. Maintain aspiration precaution. Discussed with nursing staff ADELINA ZABALA MD May 21, 2020 08:56
--- NOTE | 2020-05-21 11:02 | PDOC ---
[employer] PROGRESS NOTE Date of Service DOS: DATE: 05/21/20 TIME: 10:58 Chief Complaint Chief Complaint Altered mental status Metabolic encephalopathy Gram-positive chains bacteremia Sepsis PUI Elevated procalcitonin Severe malnutrition End-stage renal disease on hemodialysis Monday BUN 37 Cr 8.4 Hyperglycemia (glucose 268) Anemia Thrombocytosis History of Present Illness History of Present Illness 05/21/2020 Patient seen and examined in dialysis room Patient resting in bed pleasantly Afebrile Discussed with RN Discussed with case fitter Charts reviewed 05/20/2020 Resting with no acute distress. Afebrile Renal progress note states stable on dialysis Discussed with RN Discussed with case fitter Charts reviewed 05/19/2020 No acute events overnight. Afebrile. Continue antibiotic coverage with Rocephin and ampicillin. Appreciate infectious disease input in the care of this patient. Blood cultures growing Enterococcus faecalis and staph aureus, pansensitive. 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 Drain/Tubes Drains/Tubes 24 Fr LIJ schon temp dialysis cath 05/16/2020 Patient seen and evaluated bedside. No acute events overnight. He is afebrile. Will consult infectious disease due to positive blood cultures growing Enter ococcus faecalis. He is receiving hemodialysis today. Discussed with RN. 05/15/2020 No acute events overnight. Patient is afebrile. Mental status is unchanged. Dialysis yesterday. HD catheter site is unchanged. Patient's chart, labs, images were reviewed and discussed with RN 05/14/2020 No acute events overnight. Patient is afebrile. Dialysis yesterday and tolerated well. No erythema on the HD catheter site. Patient's chart, labs, images were reviewed and discussed with RN 50-year-old male with past medical history of end-stage renal disease on hemodialysis Monday//Monday, who presents to the ER for evaluation of altered mental status. Patient is a resident of [facility], where EMS reported he was also noted to have associated weakness and lethargy after breakfast this morning. Patient is nonverbal upon my evaluation, no answering any of my questions. No obvious source of encephalopathy or infection initially noted, except for elevated procalcitonin. He is afebrile breathing on room air. Due to some concerns of the etiology of AMS, patient will be admitted for further evaluation. Vitals/I&O Vitals/I&O: Vital Signs Date Time Temp Pulse Resp B/P (MAP) Pulse Ox O2 Delivery O2 Flow Rate FiO2 05/21/20 08:37 79 126/67 05/21/20 08:00 Room Air 05/21/20 03:00 97.2 18 98 97.2 I & O 05/20/20 05/20/20 05/21/20 15:00 23:00 07:00 Output Total 0 ml Balance 0 ml Physical Exam Physical Exam: GENERAL: alert awake in no acute distress. HEENT: Normocephalic, atraumatic, anicteric. No thrush. NECK: Supple. RT Temp HDC LUNGS: Clear. HEART: S1, S2, no murmurs. CHEST WALL: Left chest wall HDC catheter removed ABDOMEN: Soft, nontender, nondistended. Bowel sounds present. EXTREMITIES: No edema, no cyanosis. DERMATOLOGIC: Warm, dry. No generalized rash. Multiple abrasions, not infected. CENTRAL NERVOUS SYSTEM: alert awake moves all 4 ext PSYCHIATRIC: Calm and cooperative. General: Alert, Cooperative, No acute distress Heart: Regular rate, Normal S1, Normal S2 Lungs: Clear Abdomen: Normal bowel sounds, Soft, No tenderness Extremities: No clubbing, No cyanosis Skin: No breakdown Labs Labs: Laboratory Tests Test 05/20/20 11:10 05/20/20 15:55 05/20/20 20:12 05/21/20 08:11 Glucose (Fingerstick) 112 mg/dL (70-99) 167 mg/dL (70-99) 175 mg/dL (70-99) 268 mg/dL (70-99) Assessment and Plan Assessmemt and Plan Problems Medical Problems: (1) AMS (altered mental status) Status: Acute (2) Person under investigation for COVID-19 Status: Acute (3) Weakness generalized Status: Acute ASSESSMENT Altered mental status Metabolic encephalopathy Gram-positive chains bacteremia Sepsis PUI Elevated procalcitonin Severe malnutrition End-stage renal disease on hemodialysis Monday BUN 37 Cr 8.4 Hyperglycemia (glucose 268) Anemia Thrombocytosis PLAN BENIGNO at 1:30 Continue dialysis schedule Continue medications DVT ppx Home meds Trend labs Full code Comment Review of Relevant I have reviewed the following items ish (where applicable) has been applied. Medications: Current Medications Medications (Trade) Dose Ordered Sig/Greta Route PRN Reason Start Time Stop Time Status Last Admin Dose Admin Zolpidem Tartrate (Ambien) 5 mg 1X PRN PRN PO INSOMNIA 05/20/20 20:45 05/20/20 20:43 Justifications for Admission Other Justification MARLO NI III DO May 21, 2020 11:02
[2020-05-21] MEDS ORDERED: LIDOCAINE 2% JELLY 6ML IN APPLICATOR. MM ONE (13:15)
[2020-05-21] MEDS: IV NORMAL SALINE 1000ML BAG 1,000 ML IV SCH (13:15)
[2020-05-21] MEDS ORDERED: BENZOCAINE ONE 20% MUCOSAL SPRAY. MM (13:15)
[2020-05-21] MEDS ORDERED: LIDOCAINE 2% TOPICAL JELLY 30GM TUBE. TP ONE (13:15)
[2020-05-21] MEDS ORDERED: LIDOCAINE 2% VISCOUS 15 ML SOLUTION. SWSW ONE (13:15)
--- NOTE | 2020-05-21 13:24 | PDOC ---
DATE OF SERVICE DATE: 05/21/20 TIME: 13:21 SUBJECTIVE ROS Stable, no complaints on dialysis except feeling hungry Scheduled for BENIGNO after HD OBJECTIVE Vital Signs Vital Signs Date Time Temp Pulse Resp B/P (MAP) Pulse Ox O2 Delivery O2 Flow Rate FiO2 05/21/20 08:37 79 126/67 05/21/20 08:00 Room Air 05/21/20 03:00 97.2 18 98 97.2 I & 0 l Intake and Output 05/21/20 07:00 Output Total 0 ml Balance 0 ml Output Urine Total 0 ml PHYSICAL EXAM Physical Exam GENERAL: no acute distress. HEENT: Normocephalic, atraumatic, anicteric. No thrush. NECK: Supple. LUNGS: Clear. HEART: S1, S2, no murmurs. CHEST WALL: Left chest wall HDC catheter ABDOMEN: Soft, nontender, nondistended. Bowel sounds present. EXTREMITIES: No edema, no cyanosis. DERMATOLOGIC: No generalized rash. Multiple abrasions, NEURO Grossly normal DIAGNOSIS/ASSESSMENT Assessment & Plan ESRD On HD TTS Seen on HD, tolerating well, discussed treatment plan with Vinod Access- s/p Infected tunneled dialysis catheter removed and placement of temp LIJ dialysis cath 05/18/2020 Sepsis from bacteremia- methicillin-sensitive Staphylococcus aureus and enterococcus bacteremia, source likely HDC catheter.Catheter removed this am. ID following . BENIGNO scheduled for today HyperKalemia- Mild HypoNatremia- Normal Na after correcting for high Glucose History of cerebrovascular accident. Encephalopathy. Hypertension. Smoking. snf resident. COVID negative. 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) Anemia COMMENT/RELEVANT DATA Meds Current Medications Medications (Trade) Dose Ordered Sig/Greta Start Time Stop Time Status Last Admin Dose Admin Acetaminophen (Tylenol) 650 mg PRN Q4HRS PRN 05/18/20 21:00 Al Hydroxide/Mg Hydroxide (Mylanta Plus Xs) 30 ml PRN Q3HRS PRN 05/13/20 20:30 Albumin Human 200 ml @ 200 mls/hr 1X PRN PRN 05/21/20 07:30 05/21/20 13:29 Amlodipine Besylate (Norvasc) 10 mg QMWF@0900 05/20/20 09:00 05/20/20 08:15 10 MG Ampicillin Sodium 2 gm/Sodium Chloride 100 ml @ 200 mls/hr Q12HR 12/25/20 09:00 05/17/20 10:14 DC 05/17/20 08:12 200 MLS/HR Aspirin (Ecotrin) 81 mg DAILY 05/19/20 09:00 05/20/20 08:14 81 MG Atorvastatin Calcium (Lipitor) 40 mg HS 05/18/20 21:00 05/20/20 20:42 40 MG Benzocaine (Hurricaine One) 2 spray 1X ONCE 05/21/20 13:15 05/21/20 13:16 DC Bisacodyl (Dulcolax Supp) 10 mg PRN DAILY PRN 05/13/20 20:30 Calcium Carbonate/ Glycine (Tums) 500 mg PRN Q3HRS PRN 05/13/20 20:30 Carvedilol (Coreg) 25 mg BIDWMEALS 05/19/20 08:00 05/21/20 08:36 25 MG Ceftriaxone Sodium (Rocephin) 2 gm Q12H 05/15/20 08:00 05/17/20 10:14 DC 05/17/20 08:12 2 GM Daptomycin 450 mg/ Sodium Chloride 50 ml @ 100 mls/hr Q48H 05/19/20 16:00 05/19/20 15:53 100 MLS/HR Darbepoetin Brian (ARANESP for DIALYSIS PTS) 60 mcg WEEKLYHS 05/14/20 21:00 05/14/20 21:19 60 MCG Dextrose (Dextrose 50%-Water Syringe) 12.5 gm PRN Q15MIN PRN 05/15/20 16:45 Enalaprilat (Vasotec Inj) 1.25 mg PRN Q6HRS PRN 05/19/20 13:15 Fentanyl Citrate (Fentanyl 2ml Vial) 100 mcg 1X ONCE 05/18/20 12:00 05/18/20 12:01 DC 05/18/20 12:26 100 MCG Gabapentin (Neurontin) 300 mg HS 05/18/20 21:00 05/20/20 20:42 300 MG Heparin Sodium (Porcine) (Heparin Sodium) 5,000 unit Q12HR 05/13/20 21:00 05/20/20 20:48 5,000 UNIT Hydralazine HCl (Apresoline) 50 mg TID 05/18/20 21:00 05/21/20 08:37 50 MG Info (PHARMACY MONITORING -- do not chart) 1 each PRN DAILY PRN 05/21/20 07:30 Insulin Glargine (Lantus Syringe) 7 unit QHS 05/18/20 21:00 05/19/20 21:16 7 UNIT Insulin Human Lispro (HumaLOG) 4 units 1X ONCE 05/15/20 21:30 05/15/20 21:31 DC 05/15/20 21:46 4 UNITS Iohexol (Omnipaque 240 Mg/ml) 50 ml 1X ONCE 05/18/20 12:15 05/18/20 12:16 DC 05/18/20 12:25 10 ML Lactobacillus Rhamnosus (Culturelle) 1 cap BID 05/15/20 21:00 05/20/20 20:43 1 CAP Lidocaine HCl (Buffered Lidocaine 1%) 3 ml 1X ONCE 05/18/20 12:00 05/18/20 12:01 DC 05/18/20 12:26 3 ML Lidocaine HCl (Glydo (Lidocaine) Jelly) 1 hiren 1X ONCE 05/21/20 13:15 05/21/20 13:16 DC Lidocaine HCl (Viscous Lidocaine) 15 ml 1X ONCE 05/21/20 13:15 05/21/20 13:16 DC Lidocaine HCl (Xylocaine 2% Topical 30gm Tube) 1 hiren 1X ONCE 05/21/20 13:15 05/21/20 13:16 DC Lidocaine/ Epinephrine (LIDOCAINE 1%-EPI 1:100,000 Multi-Dose) 20 ml 1X ONCE 05/18/20 12:15 05/18/20 12:16 DC 05/18/20 12:25 7 ML Lisinopril (Prinivil) 20 mg DAILY 05/18/20 20:48 05/21/20 08:37 20 MG Magnesium Hydroxide (Milk Of Magnesia) 2,400 mg PRN Q12HR PRN 05/13/20 20:30 Midazolam HCl (Versed) 2 mg 1X ONCE 05/18/20 12:00 05/18/20 12:01 DC 05/18/20 12:26 2 MG Morphine Sulfate (Morphine Sulfate) 4 mg PRN Q2HR PRN 05/13/20 19:30 05/14/20 19:29 DC Ondansetron HCl (Zofran) 4 mg PRN Q6HRS PRN 05/13/20 20:30 05/14/20 21:19 4 MG Sodium Chloride 1,000 ml @ 400 mls/hr Q2H30M PRN 05/21/20 07:30 05/21/20 19:29 Tramadol HCl (Ultram) 50 mg PRN Q6HRS PRN 05/13/20 20:30 Zolpidem Tartrate (Ambien) 5 mg 1X PRN PRN 05/20/20 20:45 05/20/20 20:43 5 MG Lab Laboratory Tests Test 05/20/20 15:55 05/20/20 20:12 05/21/20 08:11 Glucose (Fingerstick) 167 mg/dL (70-99) 175 mg/dL (70-99) 268 mg/dL (70-99) Results All relevant outside records, renal labs, imaging studies, telemetry/EKG's were reviewed. Justicifation of Admission Dx: Justifications for Admission: Justification of Admission Dx: Yes Comminuty Aquired Pneumonia: Bactermia Altered Mental Status: Altered Mental Status SOCO JACOBS MD May 21, 2020 13:24
[2020-05-21] MEDS ORDERED: PROPOFOL 10 MG/ML (20ML) VIAL. IV ONE (13:30)
--- NOTE | 2020-05-21 15:30 | PDOC4 ---
PROCEDURE Procedure BENIGNO done today without complications. Normal left ventricular systolic func tion. No significant valvular disease. No evidence of a vegetation. Full report to follow. SULY JUAREZ MD May 21, 2020 15:30
[2020-05-21] MEDS: DAPTOmycin (GENERIC) IVPB 450 MG in IV NORMAL SALINE 50ML 50 ML IV SCH (17:06)
[2020-05-21] MEDS: ATORVASTATIN CALCIUM 40 MG TABLET. PO SCH (20:15)
[2020-05-21] MEDS: GABAPENTIN 300 MG CAPSULE. PO SCH (20:15)
[2020-05-21] MEDS: DARBEPOETIN ALFA 60 MCG/0.3 ML DISP.SYRIN. SQ SCH (20:16)
[2020-05-21] MEDS: INSULIN GLARGINE SYRINGE. SQ SCH (20:23)
--- NOTE | 2020-05-21 20:53 | NUR ---
Patient refusing IV. Upon shift change RNs noticed IV had been pulled put by patient. Will continue to attempt.
[2020-05-22] MEDS: IV NORMAL SALINE 1000ML BAG 1,000 ML IV SCH ×2 (03:05→16:25)
[2020-05-22 03:33] VITALS: BP 146/82
[2020-05-22 07:00] VITALS: BP 124/68
--- NOTE | 2020-05-22 08:45 | PDOC ---
[employer] PROGRESS NOTE Date of Service DOS: DATE: 05/22/20 TIME: 08:43 Chief Complaint Chief Complaint Altered mental status Metabolic encephalopathy Gram-positive chains bacteremia Sepsis PUI Elevated procalcitonin Severe malnutrition End-stage renal disease on hemodialysis Monday BUN 37 Cr 8.4 Hyperglycemia (glucose 268) Anemia Thrombocytosis History of Present Illness History of Present Illness 05/22/2020 Patient seen and examined Charts reviewed DWRN Patient eating and drinking comfortably 05/21/2020 Patient seen and examined in dialysis room Patient resting in bed pleasantly Afebrile Discussed with RN Discussed with case worker Charts reviewed 05/20/2020 Resting with no acute distress. Afebrile Renal progress note states stable on dialysis Discussed with RN Discussed with case worker Charts reviewed 05/19/2020 No acute events overnight. Afebrile. Continue antibiotic coverage with Rocephin and ampicillin. Appreciate infectious disease input in the care of this patient. Blood cultures growing Enterococcus faecalis and staph aureus, pansensitive. 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 Drain/Tubes Drains/Tubes 24 Fr LIJ schon temp dialysis cath 05/16/2020 Patient seen and evaluated bedside. No acute events overnight. He is afebrile. Will consult infectious disease due to positive blood cultures growing Enterococcus faecalis. He is receiving hemodialysis today. Discussed with RN. 05/15/2020 No acute events overnight. Patient is afebrile. Mental status is unchanged. Dialysis yesterday. HD catheter site is unchanged. Patient's chart, labs, images were reviewed and discussed with RN 05/14/2020 No acute events overnight. Patient is afebrile. Dialysis yesterday and tolerated well. No erythema on the HD catheter site. Patient's chart, labs, images were reviewed and discussed with RN 50-year-old male with past medical history of end-stage renal disease on hemodialysis Monday//Monday, who presents to the ER for evaluation of altered mental status. Patient is a resident of [facility], where EMS reported he was also noted to have associated weakness and lethargy after br eakfast this morning. Patient is nonverbal upon my evaluation, no answering any of my questions. No obvious source of encephalopathy or infection initially noted, except for elevated procalcitonin. He is afebrile breathing on room air. Due to some concerns of the etiology of AMS, patient will be admitted for further evaluation. Vitals/I&O Vitals/I&O: Vital Signs Date Time Temp Pulse Resp B/P (MAP) Pulse Ox O2 Delivery O2 Flow Rate FiO2 05/22/20 03:33 97.7 83 18 146/82 (103) 98 Room Air 97.7 05/21/20 14:30 2 I & O 05/21/20 05/21/20 05/22/20 15:00 23:00 07:00 Intake Total 250 ml 400 ml Output Total 50 ml Balance 250 ml 400 ml -50 ml Physical Exam Physical Exam: GENERAL: alert awake in no acute distress. HEENT: Normocephalic, atraumatic, anicteric. No thrush. NECK: Supple. RT Temp HDC LUNGS: Clear. HEART: S1, S2, no murmurs. CHEST WALL: Left chest wall HDC catheter removed ABDOMEN: Soft, nontender, nondistended. Bowel sounds present. EXTREMITIES: No edema, no cyanosis. DERMATOLOGIC: Warm, dry. No generalized rash. Multiple abrasions, not infected. CENTRAL NERVOUS SYSTEM: alert awake moves all 4 ext PSYCHIATRIC: Calm and cooperative. General: Alert, Cooperative, No acute distress Heart: Regular rate, Normal S1, Normal S2 Lungs: Clear Abdomen: Normal bowel sounds, Soft, No tenderness Extremities: No clubbing, No cyanosis Skin: No breakdown Labs Labs: Laboratory Tests Test 05/21/20 13:49 05/21/20 16:13 05/21/20 20:18 05/22/20 07:45 Glucose (Fingerstick) 147 mg/dL (70-99) 157 mg/dL (70-99) 224 mg/dL (70-99) 236 mg/dL (70-99) Assessment and Plan Assessmemt and Plan Assessment Altered mental status Metabolic encephalopathy Gram-positive chains bacteremia Sepsis PUI Elevated procalcitonin Severe malnutrition End-stage renal disease on hemodialysis Monday BUN 37 Cr 8.4 Hyperglycemia (glucose 268) Anemia Thrombocytosis Plan Full code DVT PPX PT/OT Appreciate subspecialty input Continue home meds Problems Medical Problems: (1) AMS (altered mental status) Status: Acute (2) Person under investigation for COVID-19 Status: Acute (3) Weakness generalized Status: Acute Comment Review of Relevant I have reviewed the following items ish (where applicable) has been applied. Medications: Current Medications Medications (Trade) Dose Ordered Sig/Greta Route PRN Reason Start Time Stop Time Status Last Admin Dose Admin Benzocaine (Hurricaine One) 2 spray 1X ONCE MM 05/21/20 13:15 05/21/20 13:16 DC 05/21/20 13:35 Lidocaine HCl (Viscous Lidocaine) 15 ml 1X ONCE SWSW 05/21/20 13:15 05/21/20 13:16 DC 05/21/20 13:35 Lidocaine HCl (Xylocaine 2% Topical 30gm Tube) 1 hiren 1X ONCE TP 05/21/20 13:15 05/21/20 13:16 DC 05/21/20 13:35 Sodium Chloride 1,000 ml @ 75 mls/hr [id number] IV 05/21/20 13:45 05/21/20 13:15 Justifications for Admission Other Justification MARLO NI III DO May 22, 2020 08:45
[2020-05-22] MEDS: ASPIRIN ENTERIC COATED 81 MG TABLET.DR. PO SCH (09:13)
[2020-05-22] MEDS: CARVEDILOL 12.5 MG TABLET. PO SCH ×2 (09:14→17:54)
[2020-05-22] MEDS: LACTOBACILLUS RHAMNOSUS GG 1 CAPSULE. PO SCH ×2 (09:15→20:38)
[2020-05-22] MEDS: LISINOPRIL 20 MG TABLET PO SCH (09:15)
[2020-05-22] MEDS: INSULIN LISPRO 300 UNITS/3 ML VIAL. SQ SCH ×3 (09:24→17:59)
[2020-05-22] MEDS: HEPARIN for SUB-Q USE 5,000 UNIT/ML VIAL. SQ SCH ×2 (09:25→20:43)
[2020-05-22 11:00] VITALS: BP 130/72
--- NOTE | 2020-05-22 13:21 | PDOC ---
Infectious Disease Note Subjective: Subjective Patient resting quietly No new issues per discussion with RN Vital Signs: Vital Signs Vital Signs Date Time Temp Pulse Resp B/P (MAP) Pulse Ox O2 Delivery O2 Flow Rate FiO2 05/22/20 11:00 98.0 80 18 130/72 (91) 96 Room Air 98.0 05/21/20 14:30 2 Physical Exam: PHYSICAL EXAM GENERAL: alert awake in no acute distress. HEENT: Normocephalic, atraumatic, anicteric. No thrush. NECK: Supple. RT Temp HDC LUNGS: Clear. HEART: S1, S2, no murmurs. CHEST WALL: Left chest wall HDC catheter removed ABDOMEN: Soft, nontender, nondistended. Bowel sounds present. EXTREMITIES: No edema, no cyanosis. DERMATOLOGIC: Warm, dry. No generalized rash. Multiple abrasions, not infected. CENTRAL NERVOUS SYSTEM: alert awake moves all 4 ext PSYCHIATRIC: Calm and cooperative. Medications: Inpatient Meds: Current Medications Medications (Trade) Dose Ordered Sig/Greta Start Time Stop Time Status Last Admin Dose Admin Acetaminophen (Tylenol) 650 mg PRN Q4HRS PRN 05/18/20 21:00 Al Hydroxide/Mg Hydroxide (Mylanta Plus Xs) 30 ml PRN Q3HRS PRN 05/13/20 20:30 Albumin Human 200 ml @ 200 mls/hr 1X PRN PRN 05/21/20 07:30 05/21/20 13:29 DC Amlodipine Besylate (Norvasc) 10 mg QMWF@0900 05/20/20 09:00 05/22/20 09:15 10 MG Ampicillin Sodium 2 gm/Sodium Chloride 100 ml @ 200 mls/hr Q12HR 05/15/20 09:00 05/17/20 10:14 DC 05/17/20 08:12 200 MLS/HR Aspirin (Ecotrin) 81 mg DAILY 05/19/20 09:00 05/22/20 09:13 81 MG Atorvastatin Calcium (Lipitor) 40 mg HS 05/18/20 21:00 05/21/20 20:15 40 MG Benzocaine (Hurricaine One) 2 spray 1X ONCE 05/21/20 13:15 05/21/20 13:16 DC 05/21/20 13:35 2 SPRAY Bisacodyl (Dulcolax Supp) 10 mg PRN DAILY PRN 05/13/20 20:30 Calcium Carbonate/ Glycine (Tums) 500 mg PRN Q3HRS PRN 05/13/20 20:30 Carvedilol (Coreg) 25 mg BIDWMEALS 05/19/20 08:00 05/22/20 09:14 25 MG Ceftriaxone Sodium (Rocephin) 2 gm Q12H 05/15/20 08:00 05/17/20 10:14 DC 05/17/20 08:12 2 GM Daptomycin 450 mg/ Sodium Chloride 50 ml @ 100 mls/hr Q48H 05/19/20 16:00 05/21/20 17:06 100 MLS/HR Darbepoetin Brian (ARANESP for DIALYSIS PTS) 60 mcg WEEKLYHS 05/14/20 21:00 05/21/20 20:16 60 MCG Dextrose (Dextrose 50%-Water Syringe) 12.5 gm PRN Q15MIN PRN 05/15/20 16:45 Enalaprilat (Vasotec Inj) 1.25 mg PRN Q6HRS PRN 05/19/20 13:15 Fentanyl Citrate (Fentanyl 2ml Vial) 100 mcg 1X ONCE 05/18/20 12:00 05/18/20 12:01 DC 05/18/20 12:26 100 MCG Gabapentin (Neurontin) 300 mg HS 05/18/20 21:00 05/21/20 20:15 300 MG Heparin Sodium (Porcine) (Heparin Sodium) 5,000 unit Q12HR 05/13/20 21:00 05/22/20 09:25 5,000 UNIT Hydralazine HCl (Apresoline) 50 mg TID 05/18/20 21:00 05/21/20 20:16 50 MG Info (PHARMACY MONITORING -- do not chart) 1 each PRN DAILY PRN 05/21/20 07:30 Cancel Insulin Glargine (Lantus Syringe) 7 unit QHS 05/18/20 21:00 05/21/20 20:23 7 UNIT Insulin Human Lispro (HumaLOG) 4 units 1X ONCE 05/15/20 21:30 05/15/20 21:31 DC 05/15/20 21:46 4 UNITS Iohexol (Omnipaque 240 Mg/ml) 50 ml 1X ONCE 05/18/20 12:15 05/18/20 12:16 DC 05/18/20 12:25 10 ML Lactobacillus Rhamnosus (Culturelle) 1 cap BID 05/15/20 21:00 05/22/20 09:15 1 CAP Lidocaine HCl (Buffered Lidocaine 1%) 3 ml 1X ONCE 05/18/20 12:00 05/18/20 12:01 DC 05/18/20 12:26 3 ML Lidocaine HCl (Glydo (Lidocaine) Jelly) 1 hiren 1X ONCE 05/21/20 13:15 05/21/20 13:56 DC Lidocaine HCl (Viscous Lidocaine) 15 ml 1X ONCE 05/21/20 13:15 05/21/20 13:16 DC 05/21/20 13:35 15 ML Lidocaine HCl (Xylocaine 2% Topical 30gm Tube) 1 hiren 1X ONCE 05/21/20 13:15 05/21/20 13:16 DC 05/21/20 13:35 1 HIREN Lidocaine/ Epinephrine (LIDOCAINE 1%-EPI 1:100,000 Multi-Dose) 20 ml 1X ONCE 05/18/20 12:15 05/18/20 12:16 DC 05/18/20 12:25 7 ML Lisinopril (Prinivil) 20 mg DAILY 05/18/20 20:48 05/22/20 09:15 20 MG Magnesium Hydroxide (Milk Of Magnesia) 2,400 mg PRN Q12HR PRN 05/13/20 20:30 Midazolam HCl (Versed) 2 mg 1X ONCE 05/18/20 12:00 05/18/20 12:01 DC 05/18/20 12:26 2 MG Morphine Sulfate (Morphine Sulfate) 4 mg PRN Q2HR PRN 05/13/20 19:30 05/14/20 19:29 DC Ondansetron HCl (Zofran) 4 mg PRN Q6HRS PRN 05/13/20 20:30 05/14/20 21:19 4 MG Propofol (Diprivan) 200 mg STK-MED ONCE 05/21/20 13:30 05/21/20 13:30 DC Sodium Chloride 1,000 ml @ 75 mls/hr [id number] 05/21/20 13:45 05/21/20 13:15 75 MLS/HR Tramadol HCl (Ultram) 50 mg PRN Q6HRS PRN 05/13/20 20:30 Zolpidem Tartrate (Ambien) 5 mg 1X PRN PRN 05/20/20 20:45 05/20/20 20:43 5 MG Labs: Lab Laboratory Tests Test 05/21/20 13:49 05/21/20 16:13 05/21/20 20:18 05/22/20 07:45 Glucose (Fingerstick) 147 mg/dL (70-99) 157 mg/dL (70-99) 224 mg/dL (70-99) 236 mg/dL (70-99) Test 05/22/20 11:28 Glucose (Fingerstick) 214 mg/dL (70-99) Micro RUN DATE: 05/17/20 [facility] *LIVE* PAGE 1 RUN TIME: 926 Specimen Inquiry -- PATIENT: TIMO BALDERAS ACCT: [id number] LOC: [address] [place] [address] U: [id number] AGE/SX: 50/M ROOM: [facility] RE 05/13/[address]: KUSUM MITCHELL MD : 1970 BED: 1 DIS: STATUS: ADM IN TLOC: SPEC #: [id number] JOSE: 05/13/20 STATUS: JUDITH REQ #: [id number] RECD: 05/13/20-[address]: MEGHAN GASPAR APRN SOURCE: BLOOD ENTR: 05/14/20-[address] [facility] [address]: CLARIBEL HARTMAN [facility]: NON,STAFF ORDERED: BLD CULT - LC Procedure Result BLOOD CULTURE LC Final Final GRAM POSITIVE COCCI FINAL ID= [ENTEROCOCCUS FAECALIS] FINAL ID= [STAPHYLOCOCCUS AUREUS] ENTEROCOCCUS FAECALIS STAPHYLOCOCCUS AUREUS Streptomycin Synergy Screen S Gentamicin Synergy Screen S ANTIMICROBIAL SUSCEPTIBILITY Final Comment Comment POS REESE TYPE 38 ENTEROCOCCUS FAECALIS ANTIBIOTIC RESULT INTERPRETATION AMPICILLIN <=2 S DAPTOMYCIN 1 S LINEZOLID 2 S PENICILLIN 2 S VANCOMYCIN 2 S POS REESE TYPE 38 STAPHYLOCOCCUS AUREUS ANTIBIOTIC RESULT INTERPRETATION AZITHROMYCIN <=2 S CLINDAMYCIN 0.5 S CEFOXITIN SCREEN <=4 NEG CIPROFLOXACIN <=1 S CEFTAROLINE <=0.5 S DAPTOMYCIN <=0.5 S ERYTHROMYCIN <=0.25 S GENTAMICIN <=4 S LINEZOLID 2 S LEVOFLOXACIN <=1 S OXACILLIN 0.5 S PENICILLIN >2 Allan RIFAMPIN <=1 S TRIMETHOPRIM/SULFAMETHOXAZOLE <=0.5/9.5 S TETRACYCLINE <=4 S VANCOMYCIN 1 S Unless otherwise specified, Testing Performed by: RUN DATE: 05/17/20 [facility] LAB *LIVE* PAGE 2 RUN TIME: 09 Specimen Inquiry SPEC: [id number] PATIENT: TIMO BALDERAS [id number] (Continued) Procedure Result CONTINUED ON NEXT PAGE RUN DATE: 05/17/20 [facility] *LIVE* PAGE 3 RUN TIME: 926 Specimen Inquiry SPEC: [id number] PATIENT: TIMO BALDERAS [id number] (Continued) Procedure Result ANTIMICROBIAL SUSCEPTIBILITY Final (continued) [facility] [address] [place] [address] For Inquires, the Physician may contact the Microbiology department at [phone] 05/19 BC neg so far Objective: Assessment: 1. Sepsis from bacteremia. 2. Bacteremia, methicillin-sensitive Staphylococcus aureus and enterococcus bacteremia, source likely HDC catheter. s/p HDC catheter removal BENIGNO negative 3. End-stage renal disease, on hemodialysis. 4. History of cerebrovascular accident. 5. Encephalopathy. 6. Hypertension. 7. Anemia. 8. Smoking. 9. residential resident. 10. COVID negative. Plan: Plan of Care Continue daptomycin renal dosing, May 17, 2020 Status post HDC catheter removal May 18, 2020 Follow-up repeat blood cultures negative so far BENIGNO negative Follow up labs and cultures. Continue supportive care. Maintain aspiration precaution. Discussed with nursing staff ADELINA ZABALA MD May 22, 2020 13:21
[2020-05-22 15:00] VITALS: BP 122/60
[2020-05-22 19:12] VITALS: BP 140/65
[2020-05-22] MEDS: GABAPENTIN 300 MG CAPSULE. PO SCH (20:38)
[2020-05-22] MEDS: ATORVASTATIN CALCIUM 40 MG TABLET. PO SCH (20:38)
[2020-05-22] MEDS: INSULIN GLARGINE SYRINGE. SQ SCH (20:43)
[2020-05-22 23:07] VITALS: BP 121/58
[2020-05-23] MEDS: IV NORMAL SALINE 1000ML BAG 1,000 ML IV SCH ×2 (00:32→19:05)
[2020-05-23 03:20] VITALS: BP 120/72
[2020-05-23 07:00] VITALS: BP 141/79
[2020-05-23 08:58] LABS: CALCIUM 8.4 mg/dL (8.5-10.1); CREATININE 10.2 mg/dL (0.7-1.3); GFR 6.5; POTASSIUM 5.8 mmol/L (3.5-5.1)
[2020-05-23] MEDS ORDERED: DIALYSIS PATIENT. MC PRN ×2 (09:15)
[2020-05-23] MEDS ORDERED: 0.9 % SODIUM CHLORIDE 10 ML DISP.SYRIN. IV PRN ×2 (09:15)
[2020-05-23] MEDS ORDERED: ALBUMIN HUMAN 25% 200 ML IV PRN (09:15)
[2020-05-23] MEDS ORDERED: IV NORMAL SALINE 1000ML BAG 1,000 ML IV PRN ×2 (09:15)
[2020-05-23] MEDS: INSULIN LISPRO 300 UNITS/3 ML VIAL. SQ SCH ×3 (09:39→17:27)
[2020-05-23] MEDS: HEPARIN for SUB-Q USE 5,000 UNIT/ML VIAL. SQ SCH ×2 (09:39→22:05)
--- NOTE | 2020-05-23 09:59 | PDOC ---
Infectious Disease Note Subjective: Subjective Pt seen in dialysis unit says feels ok Vital Signs: Vital Signs Vital Signs Date Time Temp Pulse Resp B/P (MAP) Pulse Ox O2 Delivery O2 Flow Rate FiO2 05/23/20 07:00 98.4 82 16 141/79 (99) 98 Room Air 98.4 Physical Exam: PHYSICAL EXAM GENERAL: alert awake in no acute distress. HEENT: Normocephalic, atraumatic, anicteric. No thrush. NECK: Supple. RT Temp HDC LUNGS: Clear. HEART: S1, S2, no murmurs. CHEST WALL: Left chest wall HDC catheter removed ABDOMEN: Soft, nontender, nondistended. Bowel sounds present. EXTREMITIES: No edema, no cyanosis. DERMATOLOGIC: Warm, dry. No generalized rash. Multiple abrasions, not infected. CENTRAL NERVOUS SYSTEM: alert awake moves all 4 ext PSYCHIATRIC: Calm and cooperative. Medications: Inpatient Meds: Current Medications Medications (Trade) Dose Ordered Sig/Greta Start Time Stop Time Status Last Admin Dose Admin Acetaminophen (Tylenol) 650 mg PRN Q4HRS PRN 05/18/20 21:00 Al Hydroxide/Mg Hydroxide (Mylanta Plus Xs) 30 ml PRN Q3HRS PRN 05/13/20 20:30 Albumin Human 200 ml @ 200 mls/hr 1X PRN PRN 05/23/20 09:15 05/23/20 15:14 Amlodipine Besylate (Norvasc) 10 mg QMWF@0900 05/20/20 09:00 05/22/20 09:15 10 MG Ampicillin Sodium 2 gm/Sodium Chloride 100 ml @ 200 mls/hr Q12HR 05/15/20 09:00 05/17/20 10:14 DC 05/17/20 08:12 200 MLS/HR Aspirin (Ecotrin) 81 mg DAILY 05/19/20 09:00 05/22/20 09:13 81 MG Atorvastatin Calcium (Lipitor) 40 mg HS 05/18/20 21:00 05/22/20 20:38 40 MG Benzocaine (Hurricaine One) 2 spray 1X ONCE 05/21/20 13:15 05/21/20 13:16 DC 05/21/20 13:35 2 SPRAY Bisacodyl (Dulcolax Supp) 10 mg PRN DAILY PRN 05/13/20 20:30 Calcium Carbonate/ Glycine (Tums) 500 mg PRN Q3HRS PRN 05/13/20 20:30 Carvedilol (Coreg) 25 mg BIDWMEALS 05/19/20 08:00 05/22/20 17:54 25 MG Ceftriaxone Sodium (Rocephin) 2 gm Q12H 05/15/20 08:00 05/17/20 10:14 DC 05/17/20 08:12 2 GM Daptomycin 450 mg/ Sodium Chloride 50 ml @ 100 mls/hr Q48H 05/19/20 16:00 05/21/20 17:06 100 MLS/HR Darbepoetin Brian (ARANESP for DIALYSIS PTS) 60 mcg WEEKLYHS 05/14/20 21:00 05/21/20 20:16 60 MCG Dextrose (Dextrose 50%-Water Syringe) 12.5 gm PRN Q15MIN PRN 05/15/20 16:45 Enalaprilat (Vasotec Inj) 1.25 mg PRN Q6HRS PRN 05/19/20 13:15 Fentanyl Citrate (Fentanyl 2ml Vial) 100 mcg 1X ONCE 05/18/20 12:00 05/18/20 12:01 DC 05/18/20 12:26 100 MCG Gabapentin (Neurontin) 300 mg HS 05/18/20 21:00 05/22/20 20:38 300 MG Heparin Sodium (Porcine) (Heparin Sodium) 5,000 unit Q12HR 05/13/20 21:00 05/22/20 20:43 5,000 UNIT Hydralazine HCl (Apresoline) 50 mg TID 05/18/20 21:00 05/22/20 20:38 50 MG Info (PHARMACY MONITORING -- do not chart) 1 each PRN DAILY PRN 05/23/20 09:15 Insulin Glargine (Lantus Syringe) 7 unit QHS 05/18/20 21:00 05/22/20 20:43 7 UNIT Insulin Human Lispro (HumaLOG) 4 units 1X ONCE 05/15/20 21:30 05/15/20 21:31 DC 05/15/20 21:46 4 UNITS Iohexol (Omnipaque 240 Mg/ml) 50 ml 1X ONCE 05/18/20 12:15 05/18/20 12:16 DC 05/18/20 12:25 10 ML Lactobacillus Rhamnosus (Culturelle) 1 cap BID 05/15/20 21:00 05/22/20 20:38 1 CAP Lidocaine HCl (Buffered Lidocaine 1%) 3 ml 1X ONCE 05/18/20 12:00 05/18/20 12:01 DC 05/18/20 12:26 3 ML Lidocaine HCl (Glydo (Lidocaine) Jelly) 1 hiren 1X ONCE 05/21/20 13:15 05/21/20 13:56 DC Lidocaine HCl (Viscous Lidocaine) 15 ml 1X ONCE 05/21/20 13:15 05/21/20 13:16 DC 05/21/20 13:35 15 ML Lidocaine HCl (Xylocaine 2% Topical 30gm Tube) 1 hiren 1X ONCE 05/21/20 13:15 05/21/20 13:16 DC 05/21/20 13:35 1 HIREN Lidocaine/ Epinephrine (LIDOCAINE 1%-EPI 1:100,000 Multi-Dose) 20 ml 1X ONCE 05/18/20 12:15 05/18/20 12:16 DC 05/18/20 12:25 7 ML Lisinopril (Prinivil) 20 mg DAILY 05/18/20 20:48 05/22/20 09:15 20 MG Magnesium Hydroxide (Milk Of Magnesia) 2,400 mg PRN Q12HR PRN 05/13/20 20:30 Midazolam HCl (Versed) 2 mg 1X ONCE 05/18/20 12:00 05/18/20 12:01 DC 05/18/20 12:26 2 MG Morphine Sulfate (Morphine Sulfate) 4 mg PRN Q2HR PRN 05/13/20 19:30 05/14/20 19:29 DC Ondansetron HCl (Zofran) 4 mg PRN Q6HRS PRN 05/13/20 20:30 05/14/20 21:19 4 MG Propofol (Diprivan) 200 mg STK-MED ONCE 05/21/20 13:30 05/21/20 13:30 DC Sodium Chloride 1,000 ml @ 400 mls/hr Q2H30M PRN 05/23/20 09:15 05/23/20 21:14 Sodium Chloride (Normal Saline Flush) 10 ml 1X PRN PRN 05/23/20 09:15 05/24/20 09:14 Tramadol HCl (Ultram) 50 mg PRN Q6HRS PRN 05/13/20 20:30 Zolpidem Tartrate (Ambien) 5 mg 1X PRN PRN 05/20/20 20:45 05/20/20 20:43 5 MG Labs: Lab Laboratory Tests Test 05/22/20 11:28 05/22/20 16:37 05/22/20 19:58 05/23/20 06:25 Glucose (Fingerstick) 214 mg/dL (70-99) 168 mg/dL (70-99) 303 mg/dL (70-99) Sodium Level 137 mmol/L (136-145) Potassium Level 5.8 mmol/L (3.5-5.1) Chloride Level 99 mmol/L (98-107) Carbon Dioxide Level 26 mmol/L (21-32) Anion Gap 12 (6-14) Blood Urea Nitrogen 57 mg/dL (8-26) Creatinine 10.2 mg/dL (0.7-1.3) Estimated GFR (Cockcroft-Gault) 6.5 Glucose Level 198 mg/dL (70-99) Calcium Level 8.4 mg/dL (8.5-10.1) Micro RUN DATE: 05/17/20 [facility] *LIVE* PAGE 1 RUN TIME: 926 Specimen Inquiry PATIENT: TIMO BALDERAS ACCT: [id number] LOC: [address] [place] [address] U: [id number] AGE/SX: 50/M ROOM: 404 RE05/13/[address]: KUSUM MITCHELL MD : [id number] BED: 1 DIS: STATUS: ADM IN TLOC: SPEC #: [id number] JOSE: 05/13/20 STATUS: COMP REQ #: [id number] RECD: 05/13/[address]: MEGHAN GASPAR APRN SOURCE: BLOOD ENTR: 05/14/20-[address] [facility] [address]: CLARIBEL HARTMAN SPDC: NON,STAFF ORDERED: BLD CULT - LC Procedure Result BLOOD CULTURE LC Final Final GRAM POSITIVE COCCI FINAL ID= [ENTEROCOCCUS FAECALIS] FINAL ID= [STAPHYLOCOCCUS AUREUS] ENTEROCOCCUS FAECALIS STAPHYLOCOCCUS AUREUS Streptomycin Synergy Screen S Gentamicin Synergy Screen S ANTIMICROBIAL SUSCEPTIBILITY Final Comment Comment POS REESE TYPE 38 ENTEROCOCCUS FAECALIS ANTIBIOTIC RESULT INTERPRETATION AMPICILLIN <=2 S DAPTOMYCIN 1 S LINEZOLID 2 S PENICILLIN 2 S VANCOMYCIN 2 S POS REESE TYPE 38 STAPHYLOCOCCUS AUREUS ANTIBIOTIC RESULT INTERPRETATION AZITHROMYCIN <=2 S CLINDAMYCIN 0.5 S CEFOXITIN SCREEN <=4 NEG CIPROFLOXACIN <=1 S CEFTAROLINE <=0.5 S DAPTOMYCIN <=0.5 S ERYTHROMYCIN <=0.25 S GENTAMICIN <=4 S LINEZOLID 2 S LEVOFLOXACIN <=1 S OXACILLIN 0.5 S PENICILLIN >2 Allan RIFAMPIN <=1 S TRIMETHOPRIM/SULFAMETHOXAZOLE <=0.5/9.5 S TETRACYCLINE <=4 S VANCOMYCIN 1 S Unless otherwise specified, Testing Performed by: RUN DATE: 05/17/20 [facility] [employer] [facility] LAB *LIVE* PAGE 2 RUN TIME: 926 Specimen Inquiry SPEC: [id number] PATIENT: KATHERIN BALDERASSHASHI Sneed [id number] (Continued) Procedure Result CONTINUED ON NEXT PAGE RUN DATE: 05/17/20 [facility] *LIVE* PAGE 3 RUN TIME: 09 Specimen Inquiry SPEC: [id number] PATIENT: TIMO BALDERAS [id number] (Continued) -------- ---- Procedure Result ANTIMICROBIAL SUSCEPTIBILITY Final (continued) [facility] [address] [place] [address] For Inquires, the Physician may contact the Microbiology department at [phone] 05/19 BC neg so far Objective: Assessment: 1. Sepsis from bacteremia. 2. Bacteremia, methicillin-sensitive Staphylococcus aureus and enterococcus bacteremia, source likely HDC catheter. s/p HDC catheter removal BENIGNO negative 3. End-stage renal disease, on hemodialysis. 4. History of cerebrovascular accident. 5. Encephalopathy. 6. Hypertension. 7. Anemia. 8. Smoking. 9. retirement resident. 10. COVID negative. Plan: Plan of Care Continue daptomycin renal dosing, May 17, 2020 Status post HDC catheter removal May 18, 2020 Follow-up repeat blood cultures negative so far BENIGNO negative Follow up labs and cultures. Continue supportive care. Maintain aspiration precaution. Discussed with nursing staff ADELINA ZABALA MD May 23, 2020 09:59
--- NOTE | 2020-05-23 10:28 | PDOC ---
[employer] PROGRESS NOTE Date of Service DOS: DATE: 05/23/20 TIME: 10:25 Chief Complaint Chief Complaint Altered mental status Metabolic encephalopathy Gram-positive chains bacteremia Sepsis PUI Elevated procalcitonin Severe malnutrition End-stage renal disease on hemodialysis Monday BUN 37 Cr 8.4 Hyperglycemia (glucose 303) Anemia Thrombocytosis History of Present Illness History of Present Illness 05/23/20 Patient seen and examined in dialysis room Patient resting peacefully Catheter not working as desired (325) Discussed with RN Charts reviewed 05/22/2020 Patient seen and examined Charts reviewed DWRN Patient eating and drinking comfortably 05/21/2020 Patient seen and examined in dialysis room Patient resting in bed pleasantly Afebrile Discussed with RN Discussed with case folder Charts reviewed 05/20/2020 Resting with no acute distress. Afebrile Renal progress note states stable on dialysis Discussed with RN Discussed with case folder Charts reviewed 05/19/2020 No acute events overnight. Afebrile. Continue antibiotic coverage with Rocephin and ampicillin. Appreciate infectious disease input in the care of this patient. Blood cultures growing Enterococcus faecalis and staph aureus, pansensitive. 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 Drain/Tubes Drains/Tubes 24 Fr LIJ schon temp dialysis cath 05/16/2020 Patient seen and evaluated bedside. No acute events overnight. He is afebrile. Will consult infectious disease due to positive blood cultures growing Enteroco ccus faecalis. He is receiving hemodialysis today. Discussed with RN. 05/15/2020 No acute events overnight. Patient is afebrile. Mental status is unchanged. Dialysis yesterday. HD catheter site is unchanged. Patient's chart, labs, images were reviewed and discussed with RN 05/14/2020 No acute events overnight. Patient is afebrile. Dialysis yesterday and tolerated well. No erythema on the HD catheter site. Patient's chart, labs, images were reviewed and discussed with RN 50-year-old male with past medical history of end-stage renal disease on hemodialysis Monday//Monday, who presents to the ER for evaluation of altered mental status. Patient is a resident of medical [place], where EMS reported he was also noted to have associated weakness and lethargy after breakfast this morning. Patient is nonverbal upon my evaluation, no answering any of my questions. No obvious source of encephalopathy or infection initially noted, except for elevated procalcitonin. He is afebrile breathing on room air. Due to some concerns of the etiology of AMS, patient will be admitted for further evaluation. Vitals/I&O Vitals/I&O: Vital Signs Date Time Temp Pulse Resp B/P (MAP) Pulse Ox O2 Delivery O2 Flow Rate FiO2 05/23/20 07:00 98.4 82 16 141/79 (99) 98 Room Air 98.4 I & O 05/22/20 05/22/20 05/23/20 15:00 23:00 07:00 Intake Total 420 ml 230 ml 290 ml Balance 420 ml 230 ml 290 ml Physical Exam Physical Exam: GENERAL: alert awake in no acute distress. HEENT: Normocephalic, atraumatic, anicteric. No thrush. NECK: Supple. RT Temp HDC LUNGS: Clear. HEART: S1, S2, no murmurs. CHEST WALL: Left chest wall HDC catheter removed ABDOMEN: Soft, nontender, nondistended. Bowel sounds present. EXTREMITIES: No edema, no cyanosis. DERMATOLOGIC: Warm, dry. No generalized rash. Multiple abrasions, not infected. CENTRAL NERVOUS SYSTEM: alert awake moves all 4 ext PSYCHIATRIC: Calm and cooperative. General: Alert, Cooperative, No acute distress Heart: Regular rate, Normal S1, Normal S2 Lungs: Clear Abdomen: Normal bowel sounds, Soft, No tenderness Extremities: No clubbing, No cyanosis Skin: No breakdown Labs Labs: Laboratory Tests Test 05/22/20 11:28 05/22/20 16:37 05/22/20 19:58 05/23/20 06:25 Glucose (Fingerstick) 214 mg/dL (70-99) 168 mg/dL (70-99) 303 mg/dL (70-99) Sodium Level 137 mmol/L (136-145) Potassium Level 5.8 mmol/L (3.5-5.1) Chloride Level 99 mmol/L (98-107) Carbon Dioxide Level 26 mmol/L (21-32) Anion Gap 12 (6-14) Blood Urea Nitrogen 57 mg/dL (8-26) Creatinine 10.2 mg/dL (0.7-1.3) Estimated GFR (Cockcroft-Gault) 6.5 Glucose Level 198 mg/dL (70-99) Calcium Level 8.4 mg/dL (8.5-10.1) Assessment and Plan Assessmemt and Plan Problems Medical Problems: (1) AMS (altered mental status) Status: Acute (2) Person under investigation for COVID-19 Status: Acute (3) Weakness generalized Status: Acute ASSESSMENT Altered mental status Metabolic encephalopathy Gram-positive chains bacteremia Sepsis PUI Elevated procalcitonin Severe malnutrition End-stage renal disease on hemodialysis Monday BUN 37 Cr 8.4 Hyperglycemia (glucose 303) Anemia Thrombocytosis PLAN Continue dialysis with temporary catheter Order labs Continue IV abx Plan for permanent catheter after negative cultures Renal Diet DVT ppx Home meds Trend labs Full code Comment Review of Relevant I have reviewed the following items ish (where applicable) has been applied. Justifications for Admission Other Justification AMS MARLO MERINO III DO May 23, 2020 10:27
[2020-05-23] MEDS: LISINOPRIL 20 MG TABLET PO SCH (13:13)
[2020-05-23] MEDS: ASPIRIN ENTERIC COATED 81 MG TABLET.DR. PO SCH (13:13)
[2020-05-23] MEDS: LACTOBACILLUS RHAMNOSUS GG 1 CAPSULE. PO SCH ×2 (13:14→21:57)
[2020-05-23] MEDS: CARVEDILOL 12.5 MG TABLET. PO SCH ×2 (13:14→17:00)
[2020-05-23 15:00] VITALS: BP 128/72
[2020-05-23] MEDS: DAPTOmycin (GENERIC) IVPB 450 MG in IV NORMAL SALINE 50ML 50 ML IV SCH (16:12)
--- NOTE | 2020-05-23 17:40 | PDOC ---
DATE OF SERVICE: DOS: DATE: 05/23/20 TIME: 17:38 SUBJECTIVE ROS Follow-up for ESRD on hemodialysis Monday Patient dialyzed earlier today. He does not report any problems at this time. CVS: no Orthopnea, no CP RESP: no SOB, no FLOREZ GI: no Nausea, no Vomiting : no Dysuria, no Urgency OBJECTIVE Vital Signs Vital Signs Date Time Temp Pulse Resp B/P (MAP) Pulse Ox O2 Delivery O2 Flow Rate FiO2 05/23/20 17:00 81 90/55 05/23/20 15:00 98.3 16 93 Room Air 98.3 I & 0 Intake and Output 05/23/20 07:00 Intake Total 940 ml Balance 940 ml Intake Oral 940 ml # Voids 1 # Bowel Movements 1 PHYSICAL EXAM Physical Exam GEN: Awake, Oriented x 1, In no distress EYES: Vision Unchanged, Conjunctiva Normal EN: No EN Drainage, Mucous Membranes moist NECK: no JVD, min JVP, Supple, no Thyromegaly CVS: S1S2, + Murmur, No Gallop, No Rub,no Edema RESP: no Rales, no Rhonchi,no Acc. Muscle Use GI: BS + ve, NO Bruit, Non Tender, Non Distended : no CVA tenderness, no Suprapubic Tenderness DIAGNOSIS/ASSESSMENT Assessment & Plan ESRD: Current fluid and E-lyte status does not necessitate emergent need for dialysis. Will re-evaluate for dialysis in the am and continue on TTSAt schedule. ANEMIA; Aranap as ordered, Transfuse with next HD as needed HTN: Current BP meds as reviewed. See orders for changes. BONE & MINERAL: Follow phosphorus levels and alter binder regimen as needed based on p.o. intake Infected tunneled dialysis catheter: Currently with temporary catheter in place. Permacath on Monday if cleared by infectious disease specialist. Unclear if he is a candidate for AV fistula creation while here. Hyperkalemia early this morning. Anticipate this to have resolved with today's dialysis COMMENT/RELEVANT DATA Meds Current Medications Medications (Trade) Dose Ordered Sig/Greta Start Time Stop Time Status Last Admin Dose Admin Acetaminophen (Tylenol) 650 mg PRN Q4HRS PRN 05/18/20 21:00 Al Hydroxide/Mg Hydroxide (Mylanta Plus Xs) 30 ml PRN Q3HRS PRN 05/13/20 20:30 Albumin Human 200 ml @ 200 mls/hr 1X PRN PRN 05/23/20 09:15 05/23/20 15:14 DC Amlodipine Besylate (Norvasc) 10 mg QMWF@0900 05/20/20 09:00 05/22/20 09:15 10 MG Ampicillin Sodium 2 gm/Sodium Chloride 100 ml @ 200 mls/hr Q12HR 05/15/20 09:00 05/17/20 10:14 DC 05/17/20 08:12 200 MLS/HR Aspirin (Ecotrin) 81 mg DAILY 05/19/20 09:00 05/23/20 13:13 81 MG Atorvastatin Calcium (Lipitor) 40 mg HS 05/18/20 21:00 05/22/20 20:38 40 MG Benzocaine (Hurricaine One) 2 spray 1X ONCE 05/21/20 13:15 05/21/20 13:16 DC 05/21/20 13:35 2 SPRAY Bisacodyl (Dulcolax Supp) 10 mg PRN DAILY PRN 05/13/20 20:30 Calcium Carbonate/ Glycine (Tums) 500 mg PRN Q3HRS PRN 05/13/20 20:30 Carvedilol (Coreg) 25 mg BIDWMEALS 05/19/20 08:00 05/23/20 13:14 25 MG Ceftriaxone Sodium (Rocephin) 2 gm Q12H 05/15/20 08:00 05/17/20 10:14 DC 05/17/20 08:12 2 GM Daptomycin 450 mg/ Sodium Chloride 50 ml @ 100 mls/hr Q48H 05/19/20 16:00 05/23/20 16:12 100 MLS/HR Darbepoetin Brian (ARANESP for DIALYSIS PTS) 60 mcg WEEKLYHS 05/14/20 21:00 05/21/20 20:16 60 MCG Dextrose (Dextrose 50%-Water Syringe) 12.5 gm PRN Q15MIN PRN 05/15/20 16:45 Enalaprilat (Vasotec Inj) 1.25 mg PRN Q6HRS PRN 05/19/20 13:15 Fentanyl Citrate (Fentanyl 2ml Vial) 100 mcg 1X ONCE 05/18/20 12:00 05/18/20 12:01 DC 05/18/20 12:26 100 MCG Gabapentin (Neurontin) 300 mg HS 05/18/20 21:00 05/22/20 20:38 300 MG Heparin Sodium (Porcine) (Heparin Sodium) 5,000 unit Q12HR 05/13/20 21:00 05/22/20 20:43 5,000 UNIT Hydralazine HCl (Apresoline) 50 mg TID 05/18/20 21:00 05/23/20 13:14 50 MG Info (PHARMACY MONITORING -- do not chart) 1 each PRN DAILY PRN 05/23/20 09:15 Insulin Glargine (Lantus Syringe) 7 unit QHS 05/18/20 21:00 05/22/20 20:43 7 UNIT Insulin Human Lispro (HumaLOG) 4 units 1X ONCE 05/15/20 21:30 05/15/20 21:31 DC 05/15/20 21:46 4 UNITS Iohexol (Omnipaque 240 Mg/ml) 50 ml 1X ONCE 05/18/20 12:15 05/18/20 12:16 DC 05/18/20 12:25 10 ML Lactobacillus Rhamnosus (Culturelle) 1 cap BID 05/15/20 21:00 05/23/20 13:14 1 CAP Lidocaine HCl (Buffered Lidocaine 1%) 3 ml 1X ONCE 05/18/20 12:00 05/18/20 12:01 DC 05/18/20 12:26 3 ML Lidocaine HCl (Glydo (Lidocaine) Jelly) 1 hiren 1X ONCE 05/21/20 13:15 05/21/20 13:56 DC Lidocaine HCl (Viscous Lidocaine) 15 ml 1X ONCE 05/21/20 13:15 05/21/20 13:16 DC 05/21/20 13:35 15 ML Lidocaine HCl (Xylocaine 2% Topical 30gm Tube) 1 hiren 1X ONCE 05/21/20 13:15 05/21/20 13:16 DC 05/21/20 13:35 1 HIREN Lidocaine/ Epinephrine (LIDOCAINE 1%-EPI 1:100,000 Multi-Dose) 20 ml 1X ONCE 05/18/20 12:15 05/18/20 12:16 DC 05/18/20 12:25 7 ML Lisinopril (Prinivil) 20 mg DAILY 05/18/20 20:48 05/23/20 13:13 20 MG Magnesium Hydroxide (Milk Of Magnesia) 2,400 mg PRN Q12HR PRN 05/13/20 20:30 Midazolam HCl (Versed) 2 mg 1X ONCE 05/18/20 12:00 05/18/20 12:01 DC 05/18/20 12:26 2 MG Morphine Sulfate (Morphine Sulfate) 4 mg PRN Q2HR PRN 05/13/20 19:30 05/14/20 19:29 DC Ondansetron HCl (Zofran) 4 mg PRN Q6HRS PRN 05/13/20 20:30 05/14/20 21:19 4 MG Propofol (Diprivan) 200 mg STK-MED ONCE 05/21/20 13:30 05/21/20 13:30 DC Sodium Chloride 1,000 ml @ 400 mls/hr Q2H30M PRN 05/23/20 09:15 05/23/20 21:14 Sodium Chloride (Normal Saline Flush) 10 ml 1X PRN PRN 05/23/20 09:15 05/24/20 09:14 Tramadol HCl (Ultram) 50 mg PRN Q6HRS PRN 05/13/20 20:30 Zolpidem Tartrate (Ambien) 5 mg 1X PRN PRN 05/20/20 20:45 05/20/20 20:43 5 MG Lab Laboratory Tests Test 05/22/20 19:58 05/23/20 06:25 05/23/20 07:33 05/23/20 12:59 Glucose (Fingerstick) 303 mg/dL (70-99) 200 mg/dL (70-99) 160 mg/dL (70-99) Sodium Level 137 mmol/L (136-145) Potassium Level 5.8 mmol/L (3.5-5.1) Chloride Level 99 mmol/L (98-107) Carbon Dioxide Level 26 mmol/L (21-32) Anion Gap 12 (6-14) Blood Urea Nitrogen 57 mg/dL (8-26) Creatinine 10.2 mg/dL (0.7-1.3) Estimated GFR (Cockcroft-Gault) 6.5 Glucose Level 198 mg/dL (70-99) Calcium Level 8.4 mg/dL (8.5-10.1) Test 05/23/20 17:13 Glucose (Fingerstick) 180 mg/dL (70-99) Results All relevant outside records, renal labs, imaging studies, telemetry/EKG's were reviewed. Justicifation of Admission Dx: Justifications for Admission: Justification of Admission Dx: Yes Comminuty Aquired Pneumonia: Bactermia Altered Mental Status: Altered Mental Status DEXTER ZABALA MD May 23, 2020 17:40
[2020-05-23 19:30] VITALS: BP 114/64
[2020-05-23] MEDS: ATORVASTATIN CALCIUM 40 MG TABLET. PO SCH (21:57)
[2020-05-23] MEDS: GABAPENTIN 300 MG CAPSULE. PO SCH (21:57)
[2020-05-23] MEDS ORDERED: INSULIN LISPRO 300 UNITS/3 ML VIAL. SQ ONE (22:00)
[2020-05-23] MEDS: INSULIN GLARGINE SYRINGE. SQ SCH (22:01)
[2020-05-23 22:45] VITALS: BP 122/71
[2020-05-24 03:35] VITALS: BP 122/71
[2020-05-24 07:00] VITALS: BP 123/73
[2020-05-24] MEDS: IV NORMAL SALINE 1000ML BAG 1,000 ML IV SCH ×2 (07:17→21:45)
[2020-05-24] MEDS: LACTOBACILLUS RHAMNOSUS GG 1 CAPSULE. PO SCH ×2 (08:22→20:40)
[2020-05-24] MEDS: LISINOPRIL 20 MG TABLET PO SCH (08:23)
[2020-05-24] MEDS: ASPIRIN ENTERIC COATED 81 MG TABLET.DR. PO SCH (08:23)
[2020-05-24] MEDS: CARVEDILOL 12.5 MG TABLET. PO SCH ×2 (08:24→17:00)
[2020-05-24 08:28] LABS: BASO # 0.1 x10^3/uL (0.0-0.2); BASO % 1 % (0-3); EOS # 0.2 x10^3/uL (0.0-0.7); EOS % 2 % (0-3); HEMATOCRIT 28.6 % (39.0-53.0); HEMOGLOBIN 9.3 g/dL (13.0-17.5); LYMPH # 2.5 x10^3/uL (1.0-4.8); LYMPH % 24 % (24-48); MEAN CORPUSCULAR HEMOGLOBIN 27 pg (25-35); MEAN CORPUSCULAR HGB CONC 32 g/dL (31-37); MEAN CORPUSCULAR VOLUME 84 fL (79-100); MONO # 0.8 x10^3/uL (0.0-1.1); MONO % 8 % (0-9); NEUT # 6.8 x10^3/uL (1.8-7.7); NEUT % 66 % (31-73); PLATELET COUNT 403 x10^3/uL (140-400); RED BLOOD COUNT 3.42 x10^6/uL (4.30-5.70); RED CELL DISTRIBUTION WIDTH 16.6 % (11.5-14.5); WHITE BLOOD COUNT 10.3 x10^3/uL (4.0-11.0)
[2020-05-24] MEDS: HEPARIN for SUB-Q USE 5,000 UNIT/ML VIAL. SQ SCH ×2 (08:28→20:39)
[2020-05-24] MEDS: INSULIN LISPRO 300 UNITS/3 ML VIAL. SQ SCH ×3 (08:29→17:00)
[2020-05-24 08:50] LABS: CALCIUM 8.6 mg/dL (8.5-10.1); GFR 8.6
--- NOTE | 2020-05-24 09:57 | PDOC ---
Infectious Disease Note Subjective: Subjective Pt seen in dialysis unit says feels ok Vital Signs: Vital Signs Vital Signs Date Time Temp Pulse Resp B/P (MAP) Pulse Ox O2 Delivery O2 Flow Rate FiO2 05/24/20 08:24 78 123/73 05/24/20 07:00 98.1 18 100 Room Air 98.1 Physical Exam: PHYSICAL EXAM GENERAL: alert awake in no acute distress. HEENT: Normocephalic, atraumatic, anicteric. No thrush. NECK: Supple. RT Temp HDC LUNGS: Clear. HEART: S1, S2, no murmurs. CHEST WALL: Left chest wall HDC catheter removed ABDOMEN: Soft, nontender, nondistended. Bowel sounds present. EXTREMITIES: No edema, no cyanosis. DERMATOLOGIC: Warm, dry. No generalized rash. Multiple abrasions, not infected. CENTRAL NERVOUS SYSTEM: alert awake moves all 4 ext PSYCHIATRIC: Calm and cooperative. Medications: Inpatient Meds: Current Medications Medications (Trade) Dose Ordered Sig/Greta Start Time Stop Time Status Last Admin Dose Admin Acetaminophen (Tylenol) 650 mg PRN Q4HRS PRN 05/18/20 21:00 Al Hydroxide/Mg Hydroxide (Mylanta Plus Xs) 30 ml PRN Q3HRS PRN 05/13/20 20:30 Albumin Human 200 ml @ 200 mls/hr 1X PRN PRN 05/23/20 09:15 05/23/20 15:14 DC Amlodipine Besylate (Norvasc) 10 mg QMWF@0900 05/20/20 09:00 05/22/20 09:15 10 MG Ampicillin Sodium 2 gm/Sodium Chloride 100 ml @ 200 mls/hr Q12HR 05/15/20 09:00 05/17/20 10:14 DC 05/17/20 08:12 200 MLS/HR Aspirin (Ecotrin) 81 mg DAILY 05/19/20 09:00 05/24/20 08:23 81 MG Atorvastatin Calcium (Lipitor) 40 mg HS 05/18/20 21:00 05/23/20 21:57 40 MG Benzocaine (Hurricaine One) 2 spray 1X ONCE 05/21/20 13:15 05/21/20 13:16 DC 05/21/20 13:35 2 SPRAY Bisacodyl (Dulcolax Supp) 10 mg PRN DAILY PRN 05/13/20 20:30 Calcium Carbonate/ Glycine (Tums) 500 mg PRN Q3HRS PRN 05/13/20 20:30 Carvedilol (Coreg) 25 mg BIDWMEALS 05/19/20 08:00 05/24/20 08:24 25 MG Ceftriaxone Sodium (Rocephin) 2 gm Q12H 05/15/20 08:00 05/17/20 10:14 DC 05/17/20 08:12 2 GM Daptomycin 450 mg/ Sodium Chloride 50 ml @ 100 mls/hr Q48H 05/19/20 16:00 05/23/20 16:12 100 MLS/HR Darbepoetin Brian (ARANESP for DIALYSIS PTS) 60 mcg WEEKLYHS 05/14/20 21:00 05/21/20 20:16 60 MCG Dextrose (Dextrose 50%-Water Syringe) 12.5 gm PRN Q15MIN PRN 05/15/20 16:45 Enalaprilat (Vasotec Inj) 1.25 mg PRN Q6HRS PRN 05/19/20 13:15 Fentanyl Citrate (Fentanyl 2ml Vial) 100 mcg 1X ONCE 05/18/20 12:00 05/18/20 12:01 DC 05/18/20 12:26 100 MCG Gabapentin (Neurontin) 300 mg HS 05/18/20 21:00 05/23/20 21:57 300 MG Heparin Sodium (Porcine) (Heparin Sodium) 5,000 unit Q12HR 05/13/20 21:00 05/24/20 08:28 5,000 UNIT Hydralazine HCl (Apresoline) 50 mg TID 05/18/20 21:00 05/24/20 08:23 50 MG Info (PHARMACY MONITORING -- do not chart) 1 each PRN DAILY PRN 05/23/20 09:15 Insulin Glargine (Lantus Syringe) 7 unit QHS 05/18/20 21:00 05/23/20 22:01 7 UNIT Insulin Human Lispro (HumaLOG) 2 units 1X ONCE 05/23/20 22:00 05/23/20 22:01 DC 05/23/20 22:02 2 UNITS Iohexol (Omnipaque 240 Mg/ml) 50 ml 1X ONCE 05/18/20 12:15 05/18/20 12:16 DC 05/18/20 12:25 10 ML Lactobacillus Rhamnosus (Culturelle) 1 cap BID 05/15/20 21:00 05/24/20 08:22 1 CAP Lidocaine HCl (Buffered Lidocaine 1%) 3 ml 1X ONCE 05/18/20 12:00 05/18/20 12:01 DC 05/18/20 12:26 3 ML Lidocaine HCl (Glydo (Lidocaine) Jelly) 1 hiren 1X ONCE 05/21/20 13:15 05/21/20 13:56 DC Lidocaine HCl (Viscous Lidocaine) 15 ml 1X ONCE 05/21/20 13:15 05/21/20 13:16 DC 05/21/20 13:35 15 ML Lidocaine HCl (Xylocaine 2% Topical 30gm Tube) 1 hiren 1X ONCE 05/21/20 13:15 05/21/20 13:16 DC 05/21/20 13:35 1 HIREN Lidocaine/ Epinephrine (LIDOCAINE 1%-EPI 1:100,000 Multi-Dose) 20 ml 1X ONCE 05/18/20 12:15 05/18/20 12:16 DC 05/18/20 12:25 7 ML Lisinopril (Prinivil) 20 mg DAILY 05/18/20 20:48 05/24/20 08:23 20 MG Magnesium Hydroxide (Milk Of Magnesia) 2,400 mg PRN Q12HR PRN 05/13/20 20:30 Midazolam HCl (Versed) 2 mg 1X ONCE 05/18/20 12:00 05/18/20 12:01 DC 05/18/20 12:26 2 MG Morphine Sulfate (Morphine Sulfate) 4 mg PRN Q2HR PRN 05/13/20 19:30 05/14/20 19:29 DC Ondansetron HCl (Zofran) 4 mg PRN Q6HRS PRN 05/13/20 20:30 05/14/20 21:19 4 MG Propofol (Diprivan) 200 mg STK-MED ONCE 05/21/20 13:30 05/21/20 13:30 DC Sodium Chloride 1,000 ml @ 400 mls/hr Q2H30M PRN 05/23/20 09:15 05/23/20 21:14 DC Sodium Chloride (Normal Saline Flush) 10 ml 1X PRN PRN 05/23/20 09:15 05/24/20 09:14 DC Tramadol HCl (Ultram) 50 mg PRN Q6HRS PRN 05/13/20 20:30 Zolpidem Tartrate (Ambien) 5 mg 1X PRN PRN 05/20/20 20:45 05/20/20 20:43 5 MG Labs: Lab Laboratory Tests Test 05/23/20 12:59 05/23/20 17:13 05/23/20 20:45 05/24/20 06:40 Glucose (Fingerstick) 160 mg/dL (70-99) 180 mg/dL (70-99) 207 mg/dL (70-99) White Blood Count 10.3 x10^3/uL (4.0-11.0) Red Blood Count 3.42 x10^6/uL (4.30-5.70) Hemoglobin 9.3 g/dL (13.0-17.5) Hematocrit 28.6 % (39.0-53.0) Mean Corpuscular Volume 84 fL (79-100) Mean Corpuscular Hemoglobin 27 pg (25-35) Mean Corpuscular Hemoglobin Concent 32 g/dL (31-37) Red Cell Distribution Width 16.6 % (11.5-14.5) Platelet Count 403 x10^3/uL (140-400) Neutrophils (%) (Auto) 66 % (31-73) Lymphocytes (%) (Auto) 24 % (24-48) Monocytes (%) (Auto) 8 % (0-9) Eosinophils (%) (Auto) 2 % (0-3) Basophils (%) (Auto) 1 % (0-3) Neutrophils # (Auto) 6.8 x10^3/uL (1.8-7.7) Lymphocytes # (Auto) 2.5 x10^3/uL (1.0-4.8) Monocytes # (Auto) 0.8 x10^3/uL (0.0-1.1) Eosinophils # (Auto) 0.2 x10^3/uL (0.0-0.7) Basophils # (Auto) 0.1 x10^3/uL (0.0-0.2) Sodium Level 136 mmol/L (136-145) Potassium Level 5.0 mmol/L (3.5-5.1) Chloride Level 98 mmol/L (98-107) Carbon Dioxide Level 27 mmol/L (21-32) Anion Gap 11 (6-14) Blood Urea Nitrogen 48 mg/dL (8-26) Creatinine 8.0 mg/dL (0.7-1.3) Estimated GFR (Cockcroft-Gault) 8.6 Glucose Level 149 mg/dL (70-99) Calcium Level 8.6 mg/dL (8.5-10.1) Test 05/24/20 07:15 Glucose (Fingerstick) 164 mg/dL (70-99) Micro RUN DATE: 05/17/20 [facility] *LIVE* PAGE 1 RUN TIME: 926 Specimen Inquiry PATIENT: SHERRIETIMO Sneed ACCT: [id number] LOC: [address] [place] [address] U: [id number] AGE/SX: 50/M ROOM: 404 RE05/13/[address]: KUSUM MITCHELL MD : 1970 BED: 1 DIS: STATUS: ADM IN TLOC: SPEC #: [id number] JOSE: 05/13/20 STATUS: COMP REQ #: [id number] RECD: 05/13/[address]: MEGHAN GASPAR APRN SOURCE: BLOOD ENTR: 05/14/[address]: CL[facility]IBEL HARTMAN [facility] ORDERED: BLD CULT - LC Procedure Result BLOOD CULTURE LC Final Final GRAM POSITIVE COCCI FINAL ID= [ENTEROCOCCUS FAECALIS] FINAL ID= [STAPHYLOCOCCUS AUREUS] ENTEROCOCCUS FAECALIS STAPHYLOCOCCUS AUREUS Streptomycin Synergy Screen S Gentamicin Synergy Screen S ANTIMICROBIAL SUSCEPTIBILITY Final Comment Comment POS REESE TYPE 38 ENTEROCOCCUS FAECALIS ANTIBIOTIC RESULT INTERPRETATION AMPICILLIN <=2 S DAPTOMYCIN 1 S LINEZOLID 2 S PENICILLIN 2 S VANCOMYCIN 2 S POS REESE TYPE 38 STAPHYLOCOCCUS AUREUS ANTIBIOTIC RESULT INTERPRETATION AZITHROMYCIN <=2 S CLINDAMYCIN 0.5 S CEFOXITIN SCREEN <=4 NEG CIPROFLOXACIN <=1 S CEFTAROLINE <=0.5 S DAPTOMYCIN <=0.5 S ERYTHROMYCIN <=0.25 S GENTAMICIN <=4 S LINEZOLID 2 S LEVOFLOXACIN <=1 S OXACILLIN 0.5 S PENICILLIN >2 Allan RIFAMPIN <=1 S TRIMETHOPRIM/SULFAMETHOXAZOLE <=0.5/9.5 S TETRACYCLINE <=4 S VANCOMYCIN 1 S Unless otherwise specified, Testing Performed by: RUN DATE: 05/17/20 [facility] *LIVE* PAGE 2 RUN TIME: 926 Specimen Inquiry SPEC: [id number] PATIENT: TIMO BALDERAS [id number] (Continued) Procedure Result CONTINUED ON NEXT PAGE RUN DATE: 05/17/20 [facility] *LIVE* PAGE 3 RUN TIME: 926 Specimen Inquiry SPEC: [id number] PATIENT: TIMO BALDERAS Naren [id number] (Continued) -- Procedure Result ANTIMICROBIAL SUSCEPTIBILITY Final (continued) [facility] [address] [place] [address] For Inquires, the Physician may contact the Microbiology department at [phone] 05/19 BC neg so far Objective: Assessment: 1. Sepsis from bacteremia. 2. Bacteremia, methicillin-sensitive Staphylococcus aureus and enterococcus bacteremia, source likely HDC catheter. s/p HDC catheter removal BENIGNO negative 3. End-stage renal disease, on hemodialysis. 4. History of cerebrovascular accident. 5. Encephalopathy. 6. Hypertension. 7. Anemia. 8. Smoking. 9. long-term resident. 10. COVID negative. Plan: Plan of Care Continue daptomycin renal dosing, May 17, 2020 Status post HDC catheter removal May 18, 2020 Follow-up repeat blood cultures negative BENIGNO negative Ok to proceed with permanent hdc, d/w dr Mittal Discussed with nursing staff ADELINA ZABALA MD May 24, 2020 09:57
--- NOTE | 2020-05-24 10:58 | PDOC ---
[employer] PROGRESS NOTE Date of Service DOS: DATE: 05/24/20 TIME: 10:55 Chief Complaint Chief Complaint Altered mental status Metabolic encephalopathy Gram-positive chains bacteremia Sepsis PUI Elevated procalcitonin Severe malnutrition End-stage renal disease on hemodialysis Monday BUN 48 Cr 8.0 Hyperglycemia (glucose 149) Anemia Thrombocytosis History of Present Illness History of Present Illness 05/24/2020 Patient seen and examined at bedside today Patient resting peacefully Discussed with RN Charts reviewed 05/23/20 Patient seen and examined in dialysis room Patient resting peacefully Catheter not working as desired (325) Discussed with RN Charts reviewed 05/22/2020 Patient seen and examined Charts reviewed DWRN Patient eating and drinking comfortably 05/21/2020 Patient seen and examined in dialysis room Patient resting in bed pleasantly Afebrile Discussed with RN Discussed with case specialist Charts reviewed 05/20/2020 Resting with no acute distress. Afebrile Renal progress note states stable on dialysis Discussed with RN Discussed with case specialist Charts reviewed 05/19/2020 No acute events overnight. Afebrile. Continue antibiotic coverage with Rocephin and ampicillin. Appreciate infectious disease input in the care of is patient. Blood cultures growing Enterococcus faecalis and staph aureus, pansensitive. 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 Drain/Tubes Drains/Tubes 24 Fr LIJ schon temp dialysis cath 05/16/2020 Patient seen and evaluated bedside. No acute events overnight. He is afebrile. Will consult infectious disease due to positive blood cultures growing Enterococcus faecalis. He is receiving hemodialysis today. Discussed with RN. 05/15/2020 No acute events overnight. Patient is afebrile. Mental status is unchanged. Dialysis yesterday. HD catheter site is unchanged. Patient's chart, labs, images were reviewed and discussed with RN 05/14/2020 No acute events overnight. Patient is afebrile. Dialysis yesterday and tolerated well. No erythema on the HD catheter site. Patient's chart, labs, images were reviewed and discussed with RN 50-year-old male with past medical history of end-stage renal disease on hemodialysis Monday//Monday, who presents to the ER for evaluation of altered mental status. Patient is a resident of [facility], where EMS reported he was also noted to have associated weakness and lethargy after breakfast this morning. Patient is nonverbal upon my evaluation, no answering any of my questions. No obvious source of encephalopathy or infection initially noted, except for elevated procalcitonin. He is afebrile breathing on room air. Due to some concerns of the etiology of AMS, patient will be admitted for further evaluation. Vitals/I&O Vitals/I&O: Vital Signs Date Time Temp Pulse Resp B/P (MAP) Pulse Ox O2 Delivery O2 Flow Rate FiO2 05/24/20 08:24 78 123/73 05/24/20 08:00 Room Air 05/24/20 07:00 98.1 18 100 98.1 I & O 05/23/20 05/23/20 05/24/20 15:00 23:00 07:00 Intake Total 240 ml 720 ml Balance 240 ml 720 ml Physical Exam Physical Exam: GENERAL: alert awake in no acute distress. HEENT: Normocephalic, atraumatic, anicteric. No thrush. NECK: Supple. RT Temp HDC LUNGS: Clear. HEART: S1, S2, no murmurs. CHEST WALL: Left chest wall HDC catheter removed ABDOMEN: Soft, nontender, nondistended. Bowel sounds present. EXTREMITIES: No edema, no cyanosis. DERMATOLOGIC: Warm, dry. No generalized rash. Multiple abrasions, not infected. CENTRAL NERVOUS SYSTEM: alert awake moves all 4 ext PSYCHIATRIC: Calm and cooperative. General: Alert, Cooperative, No acute distress Heart: Regular rate, Normal S1, Normal S2 Lungs: Clear Abdomen: Normal bowel sounds, Soft, No tenderness Extremities: No clubbing, No cyanosis Skin: No breakdown Labs Labs: Laboratory Tests Test 05/23/20 12:59 05/23/20 17:13 05/23/20 20:45 05/24/20 06:40 Glucose (Fingerstick) 160 mg/dL (70-99) 180 mg/dL (70-99) 207 mg/dL (70-99) White Blood Count 10.3 x10^3/uL (4.0-11.0) Red Blood Count 3.42 x10^6/uL (4.30-5.70) Hemoglobin 9.3 g/dL (13.0-17.5) Hematocrit 28.6 % (39.0-53.0) Mean Corpuscular Volume 84 fL (79-100) Mean Corpuscular Hemoglobin 27 pg (25-35) Mean Corpuscular Hemoglobin Concent 32 g/dL (31-37) Red Cell Distribution Width 16.6 % (11.5-14.5) Platelet Count 403 x10^3/uL (140-400) Neutrophils (%) (Auto) 66 % (31-73) Lymphocytes (%) (Auto) 24 % (24-48) Monocytes (%) (Auto) 8 % (0-9) Eosinophils (%) (Auto) 2 % (0-3) Basophils (%) (Auto) 1 % (0-3) Neutrophils # (Auto) 6.8 x10^3/uL (1.8-7.7) Lymphocytes # (Auto) 2.5 x10^3/uL (1.0-4.8) Monocytes # (Auto) 0.8 x10^3/uL (0.0-1.1) Eosinophils # (Auto) 0.2 x10^3/uL (0.0-0.7) Basophils # (Auto) 0.1 x10^3/uL (0.0-0.2) Sodium Level 136 mmol/L (136-145) Potassium Level 5.0 mmol/L (3.5-5.1) Chloride Level 98 mmol/L (98-107) Carbon Dioxide Level 27 mmol/L (21-32) Anion Gap 11 (6-14) Blood Urea Nitrogen 48 mg/dL (8-26) Creatinine 8.0 mg/dL (0.7-1.3) Estimated GFR (Cockcroft-Gault) 8.6 Glucose Level 149 mg/dL (70-99) Calcium Level 8.6 mg/dL (8.5-10.1) Test 05/24/20 07:15 Glucose (Fingerstick) 164 mg/dL (70-99) Assessment and Plan Assessmemt and Plan Problems Medical Problems: (1) AMS (altered mental status) Status: Acute (2) Person under investigation for COVID-19 Status: Acute (3) Weakness generalized Status: Acute ASSESSMENT Altered mental status Metabolic encephalopathy Gram-positive chains bacteremia Sepsis PUI Elevated procalcitonin Severe malnutrition End-stage renal disease on hemodialysis Monday BUN 48 Cr 8.0 Hyperglycemia (glucose 149) Anemia Thrombocytosis PLAN Continue dialysis Monday Plan to switch to permanent HD but need ID approval Trend labs DVT ppx Home meds Full code Comment Review of Relevant I have reviewed the following items ish (where applicable) has been applied. Medications: Current Medications Medications (Trade) Dose Ordered Sig/Greta Route PRN Reason Start Time Stop Time Status Last Admin Dose Admin Insulin Human Lispro (HumaLOG) 2 units 1X ONCE SQ 05/23/20 22:00 05/23/20 22:01 DC 05/23/20 22:02 Justifications for Admission Other Justification MARLO NI III DO May 24, 2020 10:58
[2020-05-24 11:00] VITALS: BP 130/72
[2020-05-24 15:00] VITALS: BP 132/76
[2020-05-24 19:00] VITALS: BP 148/76
[2020-05-24] MEDS: ATORVASTATIN CALCIUM 40 MG TABLET. PO SCH (20:41)
[2020-05-24] MEDS: GABAPENTIN 300 MG CAPSULE. PO SCH (20:41)
[2020-05-24] MEDS: INSULIN GLARGINE SYRINGE. SQ SCH (20:55)
[2020-05-24 23:33] VITALS: BP 129/71
[2020-05-25] VITALS (11 sets, daily range): BP systolic 119–152; BP diastolic 62–102
[2020-05-25 07:58] LABS: BASO # 0.1 x10^3/uL (0.0-0.2); BASO % 1 % (0-3); EOS # 0.2 x10^3/uL (0.0-0.7); EOS % 3 % (0-3); HEMATOCRIT 27.9 % (39.0-53.0); LYMPH # 2.1 x10^3/uL (1.0-4.8); LYMPH % 25 % (24-48); MEAN CORPUSCULAR HEMOGLOBIN 27 pg (25-35); MEAN CORPUSCULAR HGB CONC 32 g/dL (31-37); MEAN CORPUSCULAR VOLUME 83 fL (79-100); MONO # 0.8 x10^3/uL (0.0-1.1); MONO % 9 % (0-9); NEUT # 5.2 x10^3/uL (1.8-7.7); NEUT % 62 % (31-73); PLATELET COUNT 413 x10^3/uL (140-400); RED BLOOD COUNT 3.35 x10^6/uL (4.30-5.70); RED CELL DISTRIBUTION WIDTH 16.8 % (11.5-14.5); WHITE BLOOD COUNT 8.3 x10^3/uL (4.0-11.0)
[2020-05-25] MEDS: INSULIN LISPRO 300 UNITS/3 ML VIAL. SQ SCH ×3 (08:00→17:21)
[2020-05-25 08:12] LABS: CALCIUM 8.4 mg/dL (8.5-10.1); CREATININE 10.1 mg/dL (0.7-1.3); GFR 6.6; POTASSIUM 5.5 mmol/L (3.5-5.1)
[2020-05-25] MEDS: CARVEDILOL 12.5 MG TABLET. PO SCH ×2 (08:42→17:04)
[2020-05-25] MEDS: HEPARIN for SUB-Q USE 5,000 UNIT/ML VIAL. SQ SCH ×2 (09:00→22:03)
[2020-05-25] MEDS: LISINOPRIL 20 MG TABLET PO SCH (09:00)
[2020-05-25] MEDS: LACTOBACILLUS RHAMNOSUS GG 1 CAPSULE. PO SCH ×2 (09:00→21:55)
[2020-05-25] MEDS: ASPIRIN ENTERIC COATED 81 MG TABLET.DR. PO SCH (09:00)
--- NOTE | 2020-05-25 10:46 | PDOC ---
Infectious Disease Note Subjective Subjective feeling good, has no complaints ROS ROS no n/v/d/sob Vital Sign Vital Signs Vital Signs Date Time Temp Pulse Resp B/P (MAP) Pulse Ox O2 Delivery O2 Flow Rate FiO2 05/25/20 08:42 79 128/74 05/25/20 07:00 97.9 18 91 Room Air 97.9 Physical Exam PHYSICAL EXAM GENERAL: alert awake in no acute distress. HEENT: Normocephalic, atraumatic, anicteric. No thrush. NECK: Supple. RT Temp HDC LUNGS: Clear. HEART: S1, S2, no murmurs. CHEST WALL: Left chest wall HDC catheter removed ABDOMEN: Soft, nontender, nondistended. Bowel sounds present. EXTREMITIES: No edema, no cyanosis. DERMATOLOGIC: Warm, dry. No generalized rash. Multiple abrasions, not infected. CENTRAL NERVOUS SYSTEM: alert awake moves all 4 ext PSYCHIATRIC: Calm and cooperative. Labs Lab Laboratory Tests Test 05/24/20 10:51 05/24/20 16:16 05/24/20 19:34 05/25/20 06:20 Glucose (Fingerstick) 197 mg/dL (70-99) 156 mg/dL (70-99) 136 mg/dL (70-99) White Blood Count 8.3 x10^3/uL (4.0-11.0) Red Blood Count 3.35 x10^6/uL (4.30-5.70) Hemoglobin 9.0 g/dL (13.0-17.5) Hematocrit 27.9 % (39.0-53.0) Mean Corpuscular Volume 83 fL (79-100) Mean Corpuscular Hemoglobin 27 pg (25-35) Mean Corpuscular Hemoglobin Concent 32 g/dL (31-37) Red Cell Distribution Width 16.8 % (11.5-14.5) Platelet Count 413 x10^3/uL (140-400) Neutrophils (%) (Auto) 62 % (31-73) Lymphocytes (%) (Auto) 25 % (24-48) Monocytes (%) (Auto) 9 % (0-9) Eosinophils (%) (Auto) 3 % (0-3) Basophils (%) (Auto) 1 % (0-3) Neutrophils # (Auto) 5.2 x10^3/uL (1.8-7.7) Lymphocytes # (Auto) 2.1 x10^3/uL (1.0-4.8) Monocytes # (Auto) 0.8 x10^3/uL (0.0-1.1) Eosinophils # (Auto) 0.2 x10^3/uL (0.0-0.7) Basophils # (Auto) 0.1 x10^3/uL (0.0-0.2) Sodium Level 134 mmol/L (136-145) Potassium Level 5.5 mmol/L (3.5-5.1) Chloride Level 96 mmol/L (98-107) Carbon Dioxide Level 26 mmol/L (21-32) Anion Gap 12 (6-14) Blood Urea Nitrogen 62 mg/dL (8-26) Creatinine 10.1 mg/dL (0.7-1.3) Estimated GFR (Cockcroft-Gault) 6.6 Glucose Level 173 mg/dL (70-99) Calcium Level 8.4 mg/dL (8.5-10.1) Test 05/25/20 07:25 Glucose (Fingerstick) 176 mg/dL (70-99) Micro BC neg 05/19 Objective Assessment 1. Sepsis from bacteremia. 2. Bacteremia, methicillin-sensitive Staphylococcus aureus and enterococcus bacteremia, source likely HDC catheter. s/p HDC catheter removal BENIGNO negative 3. End-stage renal disease, on hemodialysis. 4. History of cerebrovascular accident. 5. Encephalopathy. 6. Hypertension. 7. Anemia. 8. Smoking. 9. half-way resident. 10. COVID negative. Plan Plan of Care Continue daptomycin renal dosing, May 17, 2020 Status post HDC catheter removal May 18, 2020 Follow-up repeat blood cultures negative BENIGNO negative Ok to proceed with permanent hdc, d/w dr Mittal Discussed with nursing staff MAJOR ZABALA MD May 25, 2020 10:46
[2020-05-25] MEDS: IV NORMAL SALINE 1000ML BAG 1,000 ML IV SCH (11:05)
[2020-05-25] MEDS ORDERED: LIDOCAINE 1%/EPI 1:100,000 20 ML VIAL. ONE (13:24)
[2020-05-25] MEDS ORDERED: fentaNYL PF VIAL 100 MCG/2 ML VIAL ONE (13:42)
[2020-05-25] MEDS ORDERED: MIDAZOLAM HCL/PF 2 MG/2 ML VIAL. ONE (13:42)
--- NOTE | 2020-05-25 13:56 | PDOC ---
DATE OF SERVICE DATE: 05/25/20 TIME: 13:56 SUBJECTIVE ROS Stable OBJECTIVE Vital Signs Vital Signs Date Time Temp Pulse Resp B/P (MAP) Pulse Ox O2 Delivery O2 Flow Rate FiO2 05/25/20 11:00 98.0 82 18 122/70 (87) 90 Room Air 98.0 I & 0 Intake and Output 05/25/20 07:00 Intake Total 840 ml Output Total 250 ml Balance 590 ml Intake Oral 840 ml Output Urine Total 250 ml PHYSICAL EXAM Physical Exam GENERAL: no acute distress. HEENT: Normocephalic, atraumatic, anicteric. No thrush. NECK: Supple. LUNGS: Clear. HEART: S1, S2, no murmurs. CHEST WALL: Left chest wall HDC catheter ABDOMEN: Soft, nontender, nondistended. Bowel sounds present. EXTREMITIES: No edema, no cyanosis. DERMATOLOGIC: No generalized rash. Multiple abrasions, NEURO Grossly normal DIAGNOSIS/ASSESSMENT Assessment & Plan ESRD On HD TTS N indication for HD today Access- s/p Infected tunneled dialysis catheter removed and placement of temp LIJ dialysis cath 05/18/2020 Perma cath placement today Sepsis from bacteremia- methicillin-sensitive Staphylococcus aureus and enterococcus bacteremia, source likely HDC catheter.Catheter removed this am. ID following . BENIGNO scheduled for today History of cerebrovascular accident. Encephalopathy. Hypertension. Smoking. COMMENT/RELEVANT DATA Meds Current Medications Medications (Trade) Dose Ordered Sig/Greta Start Time Stop Time Status Last Admin Dose Admin Acetaminophen (Tylenol) 650 mg PRN Q4HRS PRN 05/18/20 21:00 Al Hydroxide/Mg Hydroxide (Mylanta Plus Xs) 30 ml PRN Q3HRS PRN 05/13/20 20:30 Albumin Human 200 ml @ 200 mls/hr 1X PRN PRN 05/23/20 09:15 05/23/20 15:14 DC Amlodipine Besylate (Norvasc) 10 mg QMWF@0900 05/20/20 09:00 05/22/20 09:15 10 MG Ampicillin Sodium 2 gm/Sodium Chloride 100 ml @ 200 mls/hr Q12HR 05/15/20 09:00 05/17/20 10:14 DC 05/17/20 08:12 200 MLS/HR Aspirin (Ecotrin) 81 mg DAILY 05/19/20 09:00 05/24/20 08:23 81 MG Atorvastatin Calcium (Lipitor) 40 mg HS 05/18/20 21:00 05/24/20 20:41 40 MG Benzocaine (Hurricaine One) 2 spray 1X ONCE 05/21/20 13:15 05/21/20 13:16 DC 05/21/20 13:35 2 SPRAY Bisacodyl (Dulcolax Supp) 10 mg PRN DAILY PRN 05/13/20 20:30 Calcium Carbonate/ Glycine (Tums) 500 mg PRN Q3HRS PRN 05/13/20 20:30 Carvedilol (Coreg) 25 mg BIDWMEALS 05/19/20 08:00 05/25/20 08:42 25 MG Ceftriaxone Sodium (Rocephin) 2 gm Q12H 05/15/20 08:00 05/17/20 10:14 DC 05/17/20 08:12 2 GM Daptomycin 450 mg/ Sodium Chloride 50 ml @ 100 mls/hr Q48H 05/19/20 16:00 05/23/20 16:12 100 MLS/HR Darbepoetin Brian (ARANESP for DIALYSIS PTS) 60 mcg WEEKLYHS 05/14/20 21:00 05/21/20 20:16 60 MCG Dextrose (Dextrose 50%-Water Syringe) 12.5 gm PRN Q15MIN PRN 05/15/20 16:45 Enalaprilat (Vasotec Inj) 1.25 mg PRN Q6HRS PRN 05/19/20 13:15 Fentanyl Citrate (Fentanyl 2ml Vial) 100 mcg STK-MED ONCE 05/25/20 13:42 05/25/20 13:42 DC Gabapentin (Neurontin) 300 mg HS 05/18/20 21:00 05/24/20 20:41 300 MG Heparin Sodium (Porcine) (Heparin Sodium) 5,000 unit Q12HR 05/13/20 21:00 05/24/20 20:39 5,000 UNIT Hydralazine HCl (Apresoline) 50 mg TID 05/18/20 21:00 05/24/20 20:41 50 MG Info (PHARMACY MONITORING -- do not chart) 1 each PRN DAILY PRN 05/23/20 09:15 Insulin Glargine (Lantus Syringe) 7 unit QHS 05/18/20 21:00 05/24/20 20:55 7 UNIT Insulin Human Lispro (HumaLOG) 2 units 1X ONCE 05/23/20 22:00 05/23/20 22:01 DC 05/23/20 22:02 2 UNITS Iohexol (Omnipaque 240 Mg/ml) 50 ml 1X ONCE 05/18/20 12:15 05/18/20 12:16 DC 05/18/20 12:25 10 ML Lactobacillus Rhamnosus (Culturelle) 1 cap BID 05/15/20 21:00 05/24/20 20:40 1 CAP Lidocaine HCl (Buffered Lidocaine 1%) 3 ml 1X ONCE 05/18/20 12:00 05/18/20 12:01 DC 05/18/20 12:26 3 ML Lidocaine HCl (Glydo (Lidocaine) Jelly) 1 hiren 1X ONCE 05/21/20 13:15 05/21/20 13:56 DC Lidocaine HCl (Viscous Lidocaine) 15 ml 1X ONCE 05/21/20 13:15 05/21/20 13:16 DC 05/21/20 13:35 15 ML Lidocaine HCl (Xylocaine 2% Topical 30gm Tube) 1 hiren 1X ONCE 05/21/20 13:15 05/21/20 13:16 DC 05/21/20 13:35 1 HIREN Lidocaine/ Epinephrine (LIDOCAINE 1%-EPI 1:100,000 Multi-Dose) 20 ml STK-MED ONCE 05/25/20 13:24 05/25/20 13:25 DC Lisinopril (Prinivil) 20 mg DAILY 05/18/20 20:48 05/24/20 08:23 20 MG Magnesium Hydroxide (Milk Of Magnesia) 2,400 mg PRN Q12HR PRN 05/13/20 20:30 Midazolam HCl (Versed) 2 mg STK-MED ONCE 05/25/20 13:42 05/25/20 13:42 DC Morphine Sulfate (Morphine Sulfate) 4 mg PRN Q2HR PRN 05/13/20 19:30 05/14/20 19:29 DC Ondansetron HCl (Zofran) 4 mg PRN Q6HRS PRN 05/13/20 20:30 05/14/20 21:19 4 MG Propofol (Diprivan) 200 mg STK-MED ONCE 05/21/20 13:30 05/21/20 13:30 DC Sodium Chloride 1,000 ml @ 400 mls/hr Q2H30M PRN 05/23/20 09:15 05/23/20 21:14 DC Sodium Chloride (Normal Saline Flush) 10 ml 1X PRN PRN 05/23/20 09:15 05/24/20 09:14 DC Tramadol HCl (Ultram) 50 mg PRN Q6HRS PRN 05/13/20 20:30 Zolpidem Tartrate (Ambien) 5 mg 1X PRN PRN 05/20/20 20:45 05/20/20 20:43 5 MG Lab Laboratory Tests Test 05/24/20 16:16 05/24/20 19:34 05/25/20 06:20 05/25/20 07:25 Glucose (Fingerstick) 156 mg/dL (70-99) 136 mg/dL (70-99) 176 mg/dL (70-99) White Blood Count 8.3 x10^3/uL (4.0-11.0) Red Blood Count 3.35 x10^6/uL (4.30-5.70) Hemoglobin 9.0 g/dL (13.0-17.5) Hematocrit 27.9 % (39.0-53.0) Mean Corpuscular Volume 83 fL (79-100) Mean Corpuscular Hemoglobin 27 pg (25-35) Mean Corpuscular Hemoglobin Concent 32 g/dL (31-37) Red Cell Distribution Width 16.8 % (11.5-14.5) Platelet Count 413 x10^3/uL (140-400) Neutrophils (%) (Auto) 62 % (31-73) Lymphocytes (%) (Auto) 25 % (24-48) Monocytes (%) (Auto) 9 % (0-9) Eosinophils (%) (Auto) 3 % (0-3) Basophils (%) (Auto) 1 % (0-3) Neutrophils # (Auto) 5.2 x10^3/uL (1.8-7.7) Lymphocytes # (Auto) 2.1 x10^3/uL (1.0-4.8) Monocytes # (Auto) 0.8 x10^3/uL (0.0-1.1) Eosinophils # (Auto) 0.2 x10^3/uL (0.0-0.7) Basophils # (Auto) 0.1 x10^3/uL (0.0-0.2) Sodium Level 134 mmol/L (136-145) Potassium Level 5.5 mmol/L (3.5-5.1) Chloride Level 96 mmol/L (98-107) Carbon Dioxide Level 26 mmol/L (21-32) Anion Gap 12 (6-14) Blood Urea Nitrogen 62 mg/dL (8-26) Creatinine 10.1 mg/dL (0.7-1.3) Estimated GFR (Cockcroft-Gault) 6.6 Glucose Level 173 mg/dL (70-99) Calcium Level 8.4 mg/dL (8.5-10.1) Test 05/25/20 11:26 Glucose (Fingerstick) 167 mg/dL (70-99) Results All relevant outside records, renal labs, imaging studies, telemetry/EKG's were reviewed. Justicifation of Admission Dx: Justifications for Admission: Justification of Admission Dx: Yes Comminuty Aquired Pneumonia: Bactermia Altered Mental Status: Altered Mental Status SOCO JACOBS MD May 25, 2020 13:56
[2020-05-25] MEDS ORDERED: LIDOCAINE 1%/EPI 1:100,000 20 ML VIAL. INJ ONE (14:00)
[2020-05-25] MEDS ORDERED: fentaNYL PF VIAL 100 MCG/2 ML VIAL IV ONE (14:00)
[2020-05-25] MEDS ORDERED: MIDAZOLAM HCL/PF 2 MG/2 ML VIAL. IV ONE (14:00)
--- NOTE | 2020-05-25 14:17 | PDOC ---
MODERATE SEDATION ASSESSMENT RISKS/ALTERNATIVES Risks/Alternatives Risks and alternatives of this type of sedation and procedure discussed with: RISK/ALTERNATIVES: Patient H & P ON CHART H & P H & P on chart and reviewed for co-morbid conditions and appropriate labs. H&P ON CHART: Yes STATUS PREG STATUS ASSESSED: Yes MEDS/ALLERGIES REVIEWED Meds/Allergies Reviewed Medications and Allergies including time and route of recently administered narcotics and sedatives. MEDS/ALLERGIES REVIEWED: Yes ASA RATING ASA RATING: III AIRWAY ASSESSMENT Airway Assessment Airway patency, oral function limitations, presence of caps, crowns, dentures, partials, and ability to extend neck assessed. AIRWAY ASSESSMENT: Yes MALLAMPATI SCORE MALLAMPATI SCORE: II PRE-SEDATION ASSESSMENT PRE-SEDATION ASSESSMENT: Yes DANNY PRECIADO MD May 25, 2020 14:17
--- NOTE | 2020-05-25 14:18 | PDOC ---
Exam Travel Counselor Travel Counselor Roque Chlorine Cell Tender Chlorine Cell Tender Catpatric Pre-Procedure Diagnosis Pre-Procedure Diagnosis ESRD Post-Procedure Diagnosis Post-Procedure Diagnosis same Procedure Performed Procedure Performed LIJ tunneled hemodialysis catheter placement Type of Anesthesia Type of Anesthesia Mod Sed Estimated Blood Loss EBL: 10 Specimens Specimans None Drain/Tubes Drains/Tubes 28 cm palindrome Condition of Patient Condition of Patient Stable Disposition Disposition Return to floor DANNY PRECIADO MD May 25, 2020 14:18
--- NOTE | 2020-05-25 14:26 | RAD ---
Conversion of left internal jugular temporary dialysis catheter to a tunneled hemodialysis catheter Indication: Longer term dialysis access needed Procedure: The procedure was explained in its entirety to the patient or the patients designated industrial relations representative by a member of the treatment team, including a discussion of the risks, benefits and commonly accepted alternatives to the procedure, as well as the expected consequences of no therapy whatsoever. Discussion of the risks included, but was not limited to, those that are most frequent and those that are rare but possibly severe or life-threatening, as well as the possibility of unforeseen complications. All elements of maximal sterile barrier technique including the use of a cap, mask, sterile gown, sterile gloves, large sterile sheet, appropriate hand hygiene, and 2% chlorhexidine for cutaneous antisepsis (or acceptable alternative antiseptic per current guidelines) were followed for this procedure. The pre-existing catheter was evaluated under fluoroscopy and found to be normal in position. A guidewire was advanced into the IVC. A 23 cm tip to cuff tunneled hemodialysis catheter was advanced from small dermatotomy, several centimeters inferior to the pre-existing catheter entry site, to the venotomy site. The pre-existing catheter was removed over the guidewire and a peel-away sheath placed. The new tunneled catheter was advanced through the peel-away sheath such that its tip was positioned in the proximal right atrium with the patient supine. The sheath was removed. The new catheter was found to flush and aspirate normally. Catheter was flushed, and secured in place. Sterile dressings were applied. No immediate complications were identified. FLUORO TIME: 2.9 MIN DOSE: 6 Gycm2 Moderate Sedation: 21 min Total fluoroscopy time: 2.9 min Dose area product: 6 Gycm2 The procedure was performed under conscious sedation including continuous cardiopulmonary monitoring via dedicated sedation nurse. [id number] sedation time: 21 minutes Impression: Conversion of a left internal jugular temporary dialysis catheter to a tunneled dialysis catheter
[2020-05-25] MEDS: DAPTOmycin (GENERIC) IVPB 450 MG in IV NORMAL SALINE 50ML 50 ML IV SCH (17:00)
--- NOTE | 2020-05-25 18:27 | PDOC ---
PROGRESS NOTES Date of Service: DATE: 05/25/20 TIME: 17:52 Chief Complaint Chief Complaint Altered mental status resolved toxic encephalopathy resolved secondary to bacteremia Gram-positive chains bacteremia methicillin-sensitive Staphylococcus aureus and enterococcus bacteremia, source likely HDC catheter. s/p HDC catheter removal on 05/24/2020 BENIGNO negative Sepsis present on admission now resolved PUI Elevated procalcitonin secondary to bacteremia improved Severe malnutrition End-stage renal disease on hemodialysis Monday BUN 48 Cr 8.0 Hyperglycemia (glucose 149) Anemia Thrombocytosis Plan: will ask ID for recommenations regarding antibiotic therapy and duration currently on Daptomycin which was started on 05/17/2020 hoepfully discharge in the am History of Present Illness History of Present Illness 05/25/2020 No acute events reported overnight, case discussed with nursing staff patient in no acute distress no complaints during my visit Wanting to be discharged Plan of care explained detail 05/24/2020 Patient seen and examined at bedside today Patient resting peacefully Discussed with RN Charts reviewed 05/23/20 Patient seen and examined in dialysis room Patient resting peacefully Catheter not working as desired (325) Discussed with RN Charts reviewed 05/22/2020 Patient seen and examined Charts reviewed DWRN Patient eating and drinking comfortably 05/21/2020 Patient seen and examined in dialysis room Patient resting in bed pleasantly Afebrile Discussed with RN Discussed with family caseworker Charts reviewed 05/20/2020 Resting with no acute distress. Afebrile Renal progress note states stable on dialysis Discussed with RN Discussed with family caseworker Charts reviewed 05/19/2020 No acute events overnight. Afebrile. Continue antibiotic coverage with Rocephin and ampicillin. Appreciate infectious disease input in the care of this patient. Blood cultures growing Enterococcus faecalis and staph aureus, pansensitive. 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 Drain/Tubes Drains/Tubes 24 Fr LIJ schon temp dialysis cath 05/16/2020 Patient seen and evaluated bedside. No acute events overnight. He is afebrile. Will consult infectious disease due to positive blood cultures growing Enterococcus faecalis. He is receiving hemodialysis today. Discussed with RN. 05/15/2020 No acute events overnight. Patient is afebrile. Mental status is unchanged. Dialysis yesterday. HD catheter site is unchanged. Patient's chart, labs, images were reviewed and discussed with RN 05/14/2020 No acute events overnight. Patient is afebrile. Dialysis yesterday and tolerated well. No erythema on the HD catheter site. Patient's chart, labs, images were reviewed and discussed with RN 50-year-old male with past medical history of end-stage renal disease on hemodia lysis Monday//Monday, who presents to the ER for evaluation of altered mental status. Patient is a resident of [facility], where EMS reported he was also noted to have associated weakness and lethargy after breakfast this morning. Patient is nonverbal upon my evaluation, no answering any of my questions. No obvious source of encephalopathy or infection initially noted, except for elevated procalcitonin. He is afebrile breathing on room air. Due to some concerns of the etiology of AMS, patient will be admitted for further evaluation. Vitals Vitals Vital Signs Date Time Temp Pulse Resp B/P (MAP) Pulse Ox O2 Delivery O2 Flow Rate FiO2 05/25/20 17:04 72 121/76 05/25/20 15:30 96 Room Air 05/25/20 15:00 18 05/25/20 14:25 98.0 98.0 05/25/20 14:14 2.0 Physical Exam Physical Exam GENERAL: alert awake in no acute distress. HEENT: Normocephalic, atraumatic, anicteric. No thrush. NECK: Supple. RT Temp HDC LUNGS: Clear. HEART: S1, S2, no murmurs. CHEST WALL: Left chest wall HDC catheter removed ABDOMEN: Soft, nontender, nondistended. Bowel sounds present. EXTREMITIES: No edema, no cyanosis. DERMATOLOGIC: Warm, dry. No generalized rash. Multiple abrasions, not infected. CENTRAL NERVOUS SYSTEM: alert awake moves all 4 ext PSYCHIATRIC: Calm and cooperative. General: Alert, Cooperative, No acute distress Heart: Regular rate, Normal S1, Normal S2 Lungs: Clear Abdomen: Normal bowel sounds, Soft, No tenderness Extremities: No clubbing, No cyanosis Skin: No breakdown Labs LABS Laboratory Tests Test 05/24/20 19:34 05/25/20 06:20 05/25/20 07:25 05/25/20 11:26 Glucose (Fingerstick) 136 mg/dL (70-99) 176 mg/dL (70-99) 167 mg/dL (70-99) White Blood Count 8.3 x10^3/uL (4.0-11.0) Red Blood Count 3.35 x10^6/uL (4.30-5.70) Hemoglobin 9.0 g/dL (13.0-17.5) Hematocrit 27.9 % (39.0-53.0) Mean Corpuscular Volume 83 fL (79-100) Mean Corpuscular Hemoglobin 27 pg (25-35) Mean Corpuscular Hemoglobin Concent 32 g/dL (31-37) Red Cell Distribution Width 16.8 % (11.5-14.5) Platelet Count 413 x10^3/uL (140-400) Neutrophils (%) (Auto) 62 % (31-73) Lymphocytes (%) (Auto) 25 % (24-48) Monocytes (%) (Auto) 9 % (0-9) Eosinophils (%) (Auto) 3 % (0-3) Basophils (%) (Auto) 1 % (0-3) Neutrophils # (Auto) 5.2 x10^3/uL (1.8-7.7) Lymphocytes # (Auto) 2.1 x10^3/uL (1.0-4.8) Monocytes # (Auto) 0.8 x10^3/uL (0.0-1.1) Eosinophils # (Auto) 0.2 x10^3/uL (0.0-0.7) Basophils # (Auto) 0.1 x10^3/uL (0.0-0.2) Sodium Level 134 mmol/L (136-145) Potassium Level 5.5 mmol/L (3.5-5.1) Chloride Level 96 mmol/L (98-107) Carbon Dioxide Level 26 mmol/L (21-32) Anion Gap 12 (6-14) Blood Urea Nitrogen 62 mg/dL (8-26) Creatinine 10.1 mg/dL (0.7-1.3) Estimated GFR (Cockcroft-Gault) 6.6 Glucose Level 173 mg/dL (70-99) Calcium Level 8.4 mg/dL (8.5-10.1) Test 05/25/20 16:31 Glucose (Fingerstick) 169 mg/dL (70-99) Review of Systems Review of Systems Review of systems pertinent as per HPI otherwise 14 point review of system is negative Assessment and Plan Assessmemt and Plan Problems Medical Problems: (1) AMS (altered mental status) Status: Acute (2) Person under investigation for COVID-19 Status: Acute (3) Weakness generalized Status: Acute Comment Review of Relevant I have reviewed the following items ish (where applicable) has been applied. Labs Laboratory Tests Test 05/23/20 20:45 05/24/20 06:40 05/24/20 07:15 05/24/20 10:51 Glucose (Fingerstick) 207 mg/dL (70-99) 164 mg/dL (70-99) 197 mg/dL (70-99) White Blood Count 10.3 x10^3/uL (4.0-11.0) Red Blood Count 3.42 x10^6/uL (4.30-5.70) Hemoglobin 9.3 g/dL (13.0-17.5) Hematocrit 28.6 % (39.0-53.0) Mean Corpuscular Volume 84 fL (79-100) Mean Corpuscular Hemoglobin 27 pg (25-35) Mean Corpuscular Hemoglobin Concent 32 g/dL (31-37) Red Cell Distribution Width 16.6 % (11.5-14.5) Platelet Count 403 x10^3/uL (140-400) Neutrophils (%) (Auto) 66 % (31-73) Lymphocytes (%) (Auto) 24 % (24-48) Monocytes (%) (Auto) 8 % (0-9) Eosinophils (%) (Auto) 2 % (0-3) Basophils (%) (Auto) 1 % (0-3) Neutrophils # (Auto) 6.8 x10^3/uL (1.8-7.7) Lymphocytes # (Auto) 2.5 x10^3/uL (1.0-4.8) Monocytes # (Auto) 0.8 x10^3/uL (0.0-1.1) Eosinophils # (Auto) 0.2 x10^3/uL (0.0-0.7) Basophils # (Auto) 0.1 x10^3/uL (0.0-0.2) Sodium Level 136 mmol/L (136-145) Potassium Level 5.0 mmol/L (3.5-5.1) Chloride Level 98 mmol/L (98-107) Carbon Dioxide Level 27 mmol/L (21-32) Anion Gap 11 (6-14) Blood Urea Nitrogen 48 mg/dL (8-26) Creatinine 8.0 mg/dL (0.7-1.3) Estimated GFR (Cockcroft-Gault) 8.6 Glucose Level 149 mg/dL (70-99) Calcium Level 8.6 mg/dL (8.5-10.1) Test 05/24/20 16:16 05/24/20 19:34 05/25/20 06:20 05/25/20 07:25 Glucose (Fingerstick) 156 mg/dL (70-99) 136 mg/dL (70-99) 176 mg/dL (70-99) White Blood Count 8.3 x10^3/uL (4.0-11.0) Red Blood Count 3.35 x10^6/uL (4.30-5.70) Hemoglobin 9.0 g/dL (13.0-17.5) Hematocrit 27.9 % (39.0-53.0) Mean Corpuscular Volume 83 fL (79-100) Mean Corpuscular Hemoglobin 27 pg (25-35) Mean Corpuscular Hemoglobin Concent 32 g/dL (31-37) Red Cell Distribution Width 16.8 % (11.5-14.5) Platelet Count 413 x10^3/uL (140-400) Neutrophils (%) (Auto) 62 % (31-73) Lymphocytes (%) (Auto) 25 % (24-48) Monocytes (%) (Auto) 9 % (0-9) Eosinophils (%) (Auto) 3 % (0-3) Basophils (%) (Auto) 1 % (0-3) Neutrophils # (Auto) 5.2 x10^3/uL (1.8-7.7) Lymphocytes # (Auto) 2.1 x10^3/uL (1.0-4.8) Monocytes # (Auto) 0.8 x10^3/uL (0.0-1.1) Eosinophils # (Auto) 0.2 x10^3/uL (0.0-0.7) Basophils # (Auto) 0.1 x10^3/uL (0.0-0.2) Sodium Level 134 mmol/L (136-145) Potassium Level 5.5 mmol/L (3.5-5.1) Chloride Level 96 mmol/L (98-107) Carbon Dioxide Level 26 mmol/L (21-32) Anion Gap 12 (6-14) Blood Urea Nitrogen 62 mg/dL (8-26) Creatinine 10.1 mg/dL (0.7-1.3) Estimated GFR (Cockcroft-Gault) 6.6 Glucose Level 173 mg/dL (70-99) Calcium Level 8.4 mg/dL (8.5-10.1) Test 05/25/20 11:26 05/25/20 16:31 Glucose (Fingerstick) 167 mg/dL (70-99) 169 mg/dL (70-99) Laboratory Tests Test 05/24/20 19:34 05/25/20 06:20 05/25/20 07:25 05/25/20 11:26 Glucose (Fingerstick) 136 mg/dL (70-99) 176 mg/dL (70-99) 167 mg/dL (70-99) White Blood Count 8.3 x10^3/uL (4.0-11.0) Red Blood Count 3.35 x10^6/uL (4.30-5.70) Hemoglobin 9.0 g/dL (13.0-17.5) Hematocrit 27.9 % (39.0-53.0) Mean Corpuscular Volume 83 fL (79-100) Mean Corpuscular Hemoglobin 27 pg (25-35) Mean Corpuscular Hemoglobin Concent 32 g/dL (31-37) Red Cell Distribution Width 16.8 % (11.5-14.5) Platelet Count 413 x10^3/uL (140-400) Neutrophils (%) (Auto) 62 % (31-73) Lymphocytes (%) (Auto) 25 % (24-48) Monocytes (%) (Auto) 9 % (0-9) Eosinophils (%) (Auto) 3 % (0-3) Basophils (%) (Auto) 1 % (0-3) Neutrophils # (Auto) 5.2 x10^3/uL (1.8-7.7) Lymphocytes # (Auto) 2.1 x10^3/uL (1.0-4.8) Monocytes # (Auto) 0.8 x10^3/uL (0.0-1.1) Eosinophils # (Auto) 0.2 x10^3/uL (0.0-0.7) Basophils # (Auto) 0.1 x10^3/uL (0.0-0.2) Sodium Level 134 mmol/L (136-145) Potassium Level 5.5 mmol/L (3.5-5.1) Chloride Level 96 mmol/L (98-107) Carbon Dioxide Level 26 mmol/L (21-32) Anion Gap 12 (6-14) Blood Urea Nitrogen 62 mg/dL (8-26) Creatinine 10.1 mg/dL (0.7-1.3) Estimated GFR (Cockcroft-Gault) 6.6 Glucose Level 173 mg/dL (70-99) Calcium Level 8.4 mg/dL (8.5-10.1) Test 05/25/20 16:31 Glucose (Fingerstick) 169 mg/dL (70-99) Microbiology 05/19/20 Blood Culture - Final, Complete NO GROWTH AFTER 5 DAYS 05/18/20 Gram Stain - Final, Complete 05/18/20 Aerobic Culture - Final, Complete 05/13/20 Urine Culture - Final, Complete Medications Current Medications Sodium Chloride 1,000 ml @ 1,000 mls/hr 1X ONCE IV ; Start 05/13/20 at 17:15; Stop 05/13/20 at 18:14; Status Cancel Ondansetron HCl (Zofran) 4 mg PRN Q8HRS PRN IV NAUSEA/VOMITING; Start 05/13/20 at 19:30; Stop 05/14/20 at 19:29; Status DC Morphine Sulfate (Morphine Sulfate) 4 mg PRN Q2HR PRN IV PAIN; Start 05/13/20 at 19:30; Stop 05/14/20 at 19:29; Status DC Ondansetron HCl (Zofran) 4 mg PRN Q6HRS PRN IVP NAUSEA/VOMITING Last administered on 05/14/20at 21:19; Start 05/13/20 at 20:30 Al Hydroxide/Mg Hydroxide (Mylanta Plus Xs) 30 ml PRN Q3HRS PRN PO HEARTBURN / GAS; Start 05/13/20 at 20:30 Calcium Carbonate/ Glycine (Tums) 500 mg PRN Q3HRS PRN PO UPSET STOMACH; Start 05/13/20 at 20:30 Acetaminophen (Tylenol) 650 mg PRN Q6HRS PRN PO Headaches, Temp > 101.5F; Start 05/13/20 at 20:30; Stop 05/19/20 at 11:38; Status DC Magnesium Hydroxide (Milk Of Magnesia) 2,400 mg PRN Q12HR PRN PO CONSTIPATION; Start 05/13/20 at 20:30 Bisacodyl (Dulcolax Supp) 10 mg PRN DAILY PRN [place] CONSTIPATION; Start 05/13/20 at 20:30 Heparin Sodium (Porcine) (Heparin Sodium) 5,000 unit Q12HR SQ Last administered on 05/24/20at 20:39; Start 05/13/20 at 21:00 Tramadol HCl (Ultram) 50 mg PRN Q6HRS PRN PO MODERATE TO SEVERE PAIN; Start 05/13/20 at 20:30 Darbepoetin Brian (ARANESP for DIALYSIS PTS) 60 mcg WEEKLYHS SQ Last administered on 05/21/20at 20:16; Start 05/14/20 at 21:00 Sodium Chloride 1,000 ml @ 1,000 mls/hr Q1H PRN IV hypotension; Start 05/14/20 at 13:00; Stop 05/14/20 at 18:59; Status DC Albumin Human 200 ml @ 200 mls/hr 1X PRN PRN IV Hypotension; Start 05/14/20 at 13:00; Stop 05/14/20 at 18:59; Status DC Sodium Chloride 1,000 ml @ 400 mls/hr Q2H30M PRN IV PATENCY; Start 05/14/20 at 13:00; Stop 05/15/20 at 00:59; Status DC Info (PHARMACY MONITORING -- do not chart) 1 each PRN DAILY PRN MC SEE COMMENTS; Start 05/14/20 at 13:00; Status Cancel Info (PHARMACY MONITORING -- do not chart) 1 each PRN DAILY PRN MC SEE COMMENTS; Start 05/14/20 at 13:00; Stop 05/14/20 at 13:11; Status DC Ampicillin Sodium 2 gm/Sodium Chloride 100 ml @ 200 mls/hr Q12HR IV Last administered on 05/17/20at 08:12; Start 05/15/20 at 09:00; Stop 05/17/20 at 10:14; Status DC Ceftriaxone Sodium (Rocephin) 2 gm Q12H IVP Last administered on 05/17/20at 08:12; Start 05/15/20 at 08:00; Stop 05/17/20 at 10:14; Status DC Lactobacillus Rhamnosus (Culturelle) 1 cap BID PO Last administered on 05/24/20at 20:40; Start 05/15/20 at 21:00 Insulin Human Lispro (HumaLOG) 0-7 UNITS TIDWMEALS SQ Last administered on 05/25/20at 17:21; Start 05/15/20 at 17:00 Dextrose (Dextrose 50%-Water Syringe) 12.5 gm PRN Q15MIN PRN IV SEE COMMENTS; Start 05/15/20 at 16:45 Insulin Human Lispro (HumaLOG) 4 units 1X ONCE SQ Last administered on 05/15/20at 21:46; Start 05/15/20 at 21:30; Stop 05/15/20 at 21:31; Status DC Sodium Chloride 1,000 ml @ 1,000 mls/hr Q1H PRN IV hypotension; Start 05/16/20 at 09:00; Stop 05/16/20 at 16:00; Status DC Sodium Chloride 1,000 ml @ 400 mls/hr Q2H30M PRN IV PATENCY; Start 05/16/20 at 09:00; Stop 05/16/20 at 16:00; Status DC Info (PHARMACY MONITORING -- do not chart) 1 each PRN DAILY PRN MC SEE COMMENTS; Start 05/16/20 at 08:45; Status UNV Daptomycin 450 mg/ Sodium Chloride 50 ml @ 100 mls/hr 1X ONCE IV Last adm inistered on 05/17/20at 15:36; Start 05/17/20 at 16:00; Stop 05/17/20 at 16:29; Status DC Daptomycin 450 mg/ Sodium Chloride 50 ml @ 100 mls/hr Q48H IV Last administered on 05/25/20at 17:00; Start 05/19/20 at 16:00 Lidocaine HCl (Buffered Lidocaine 1%) 3 ml STK-MED ONCE .ROUTE ; Start 05/18/20 at 11:19; Stop 05/18/20 at 11:19; Status DC Lidocaine HCl (Buffered Lidocaine 1%) 3 ml STK-MED ONCE .ROUTE ; Start 05/18/20 at 11:19; Stop 05/18/20 at 11:19; Status DC Midazolam HCl (Versed) 2 mg STK-MED ONCE .ROUTE ; Start 05/18/20 at 11:35; Stop 05/18/20 at 11:35; Status DC Fentanyl Citrate (Fentanyl 2ml Vial) 100 mcg STK-MED ONCE .ROUTE ; Start 05/18/20 at 11:35; Stop 05/18/20 at 11:35; Status DC Lidocaine HCl (Buffered Lidocaine 1%) 3 ml 1X ONCE IJ Last administered on 05/18/20at 12:26; Start 05/18/20 at 12:00; Stop 05/18/20 at 12:01; Status DC Midazolam HCl (Versed) 2 mg 1X ONCE IV Last administered on 05/18/20at 12:26; Start 05/18/20 at 12:00; Stop 05/18/20 at 12:01; Status DC Fentanyl Citrate (Fentanyl 2ml Vial) 100 mcg 1X ONCE IV Last administered on 05/18/20at 12:26; Start 05/18/20 at 12:00; Stop 05/18/20 at 12:01; Status DC Iohexol (Omnipaque 240 Mg/ml) 50 ml STK-MED ONCE .ROUTE ; Start 05/18/20 at 12:05; Stop 05/18/20 at 12:05; Status DC Iohexol (Omnipaque 240 Mg/ml) 50 ml 1X ONCE IV Last administered on 05/18/20at 12:25; Start 05/18/20 at 12:15; Stop 05/18/20 at 12:16; Status DC Lidocaine/ Epinephrine (LIDOCAINE 1%-EPI 1:100,000 Multi-Dose) 20 ml STK-MED ONCE .ROUTE ; Start 05/18/20 at 12:07; Stop 05/18/20 at 12:08; Status DC Lidocaine/ Epinephrine (LIDOCAINE 1%-EPI 1:100,000 Multi-Dose) 20 ml 1X ONCE INJ Last administered on 05/18/20at 12:25; Start 05/18/20 at 12:15; Stop 05/18/20 at 12:16; Status DC Amlodipine Besylate (Norvasc) 10 mg QMWF@0900 PO Last administered on 05/22/20 09:15; Start 05/20/20 at 09:00 Atorvastatin Calcium (Lipitor) 40 mg HS PO Last administered on 05/24/20 20:41; Start 05/18/20 at 21:00 Carvedilol (Coreg) 25 mg BIDWMEALS PO Last administered on 05/25/20 17:04; Start 05/19/20 at 08:00 Gabapentin (Neurontin) 300 mg HS PO Last administered on 05/24/20 20:41; Start 05/18/20 at 21:00 Hydralazine HCl (Apresoline) 50 mg TID PO Last administered on 05/25/20 14:49; Start 05/18/20 at 21:00 Lisinopril (Prinivil) 20 mg DAILY PO ; Start 05/19/20 at 09:00; Stop 05/18/20 at 20:49; Status DC Insulin Glargine (Lantus Syringe) 7 unit QHS SQ Last administered on 05/24/20 20:55; Start 05/18/20 at 21:00 Lisinopril (Prinivil) 20 mg DAILY PO Last administered on 05/24/20 08:23; Start 05/18/20 at 20:48 Acetaminophen (Tylenol) 650 mg PRN Q4HRS PRN PO MILD PAIN 1-3; Start 05/18/20 at 21:00 Aspirin (Ecotrin) 81 mg DAILY PO Last administered on 05/24/20 08:23; Start 05/19/20 at 09:00 Info (PHARMACY MONITORING -- do not chart) 1 each PRN DAILY PRN MC SEE COMMENTS; Start 05/19/20 at 07:30; Status Cancel Info (PHARMACY MONITORING -- do not chart) 1 each PRN DAILY PRN MC SEE COMMENTS; Start 05/19/20 at 07:30; Status UNV Enalaprilat (Vasotec Inj) 1.25 mg PRN Q6HRS PRN IVP HYPERTENSION; Start 05/19/20 at 13:15 Zolpidem Tartrate (Ambien) 5 mg 1X PRN PO INSOMNIA; Start 05/20/20 at 20:30; Status Cancel Zolpidem Tartrate (Ambien) 5 mg 1X PRN PRN PO INSOMNIA Last administered on 05/20/20at 20:43; Start 05/20/20 at 20:45 Sodium Chloride 1,000 ml @ 1,000 mls/hr Q1H PRN IV hypotension; Start 05/21/20 at 07:30; Stop 05/21/20 at 13:29; Status DC Albumin Human 200 ml @ 200 mls/hr 1X PRN PRN IV Hypotension; Start 05/21/20 at 07:30; Stop 05/21/20 at 13:29; Status DC Sodium Chloride 1,000 ml @ 400 mls/hr Q2H30M PRN IV PATENCY; Start 05/21/20 at 07:30; Stop 05/21/20 at 19:29; Status DC Info (PHARMACY MONITORING -- do not chart) 1 each PRN DAILY PRN MC SEE COMMENTS; Start 05/21/20 at 07:30; Status Cancel Info (PHARMACY MONITORING -- do not chart) 1 each PRN DAILY PRN MC SEE COMMENTS; Start 05/21/20 at 07:30; Status Cancel Benzocaine (Hurricaine One) 2 spray 1X ONCE MM Last administered on 05/21/20at 13:35; Start 05/21/20 at 13:15; Stop 05/21/20 at 13:16; Status DC Lidocaine HCl (Viscous Lidocaine) 15 ml 1X ONCE SWSW Last administered on 05/21/20at 13:35; Start 05/21/20 at 13:15; Stop 05/21/20 at 13:16; Status DC Lidocaine HCl (Glydo (Lidocaine) Jelly) 1 krystina 1X ONCE MM ; Start 05/21/20 at 13:15; Stop 05/21/20 at 13:56; Status DC Lidocaine HCl (Xylocaine 2% Topical 30gm Tube) 1 krystina 1X ONCE TP Last administered on 05/21/20at 13:35; Start 05/21/20 at 13:15; Stop 05/21/20 at 13:16; Status DC Propofol (Diprivan) 200 mg STK-MED ONCE IV ; Start 05/21/20 at 13:30; Stop 05/21/20 at 13:30; Status DC Sodium Chloride 1,000 ml @ 75 mls/hr Q93H41C IV Last administered on 05/21/20at 13:15; Start 05/21/20 at 13:45 Sodium Chloride 1,000 ml @ 1,000 mls/hr Q1H PRN IV hypotension; Start 05/23/20 at 09:15; Stop 05/23/20 at 15:14; Status DC Albumin Human 200 ml @ 200 mls/hr 1X PRN PRN IV Hypotension; Start 05/23/20 at 09:15; Stop 05/23/20 at 15:14; Status DC Sodium Chloride (Normal Saline Flush) 10 ml 1X PRN PRN IV AP catheter pack; Start 05/23/20 at 09:15; Stop 05/24/20 at 09:14; Status DC Sodium Chloride (Normal Saline Flush) 10 ml 1X PRN PRN IV LOGISTICS SOLUTION MANAGER catheter pack; Start 05/23/20 at 09:15; Stop 05/24/20 at 09:14; Status DC Sodium Chloride 1,000 ml @ 400 mls/hr Q2H30M PRN IV PATENCY; Start 05/23/20 at 09:15; Stop 05/23/20 at 21:14; Status DC Info (PHARMACY MONITORING -- do not chart) 1 each PRN DAILY PRN MC SEE COMMENTS; Start 05/23/20 at 09:15; Stop 05/25/20 at 11:16; Status DC Info (PHARMACY MONITORING -- do not chart) 1 each PRN DAILY PRN MC SEE COMMENTS; Start 05/23/20 at 09:15 Insulin Human Lispro (HumaLOG) 2 units 1X ONCE SQ Last administered on 05/23/20at 22:02; Start 05/23/20 at 22:00; Stop 05/23/20 at 22:01; Status DC Lidocaine/ Epinephrine (LIDOCAINE 1%-EPI 1:100,000 Multi-Dose) 20 ml STK-MED ONCE .ROUTE ; Start 05/25/20 at 13:24; Stop 05/25/20 at 13:25; Status DC Midazolam HCl (Versed) 2 mg STK-MED ONCE .ROUTE ; Start 05/25/20 at 13:42; Stop 05/25/20 at 13:42; Status DC Fentanyl Citrate (Fentanyl 2ml Vial) 100 mcg STK-MED ONCE .ROUTE ; Start 05/25/20 at 13:42; Stop 05/25/20 at 13:42; Status DC Midazolam HCl (Versed) 2 mg 1X ONCE IV Last administered on 05/25/20at 14:13; Start 05/25/20 at 14:00; Stop 05/25/20 at 14:01; Status DC Fentanyl Citrate (Fentanyl 2ml Vial) 100 mcg 1X ONCE IV Last administered on 05/25/20at 14:14; Start 05/25/20 at 14:00; Stop 05/25/20 at 14:01; Status DC Lidocaine/ Epinephrine (LIDOCAINE 1%-EPI 1:100,000 Multi-Dose) 20 ml 1X ONCE INJ Last administered on 05/25/20at 14:09; Start 05/25/20 at 14:00; Stop 05/25/20 at 14:01; Status DC Active Scripts Active Carvedilol (Carvedilol) 12.5 Mg Tablet 25 Mg PO BIDWMEALS Reported Zinc Oxide 56.7 Gm Oint...g. 1 Krystina TP BID scrotal area Tylenol (Acetaminophen) 325 Mg Tablet 1-2 Tab PO Q4HRS PRN Senna Laxative (Sennosides) 8.6 Mg Tablet 1 Tab PO BID PRN 30 Days Polyethylene Glycol 3350 2,500 Gm Powder 17 Gm PO DAILY PRN 30 Days Norvasc (Amlodipine Besylate) 10 Mg Tablet 10 Mg PO QMWF Lisinopril 20 Mg Tablet 1 Tab PO DAILY Lantus Solostar (Insulin Glargine,Hum.rec.anlog) 100 Unit/1 Ml Insuln.pen 7 Unit SQ QHS Hydralazine Hcl 50 Mg Tablet 1 Tab PO TID Humalog (Insulin Lispro) 100 Unit/1 Ml Vial 8 Unit SQ TIDWMEALS hold FOR GLUCOSE BELOW 110 AND CALL IF OVER 400 Calcium Acetate 667 Mg Tablet 2 Tab PO TID 30 Days [Benzocaine Gel 10%] 1 Krystina PO Q6HRS PRN for toothache Aspirin Ec (Aspirin) 81 Mg Tablet.dr 1 Tab PO DAILY Gabapentin (Gabapentin) 100 Mg Capsule 300 Mg PO HS Atorvastatin Calcium 40 Mg Tablet 40 Mg PO HS Vitals/I & O Vital Sign - Last 24 Hours 05/24/20 05/24/20 05/24/20 05/24/20 19:00 19:35 20:41 23:33 Temp 98.6 96.7 98.6 96.7 Pulse 74 78 78 Resp 18 18 B/P (MAP) 148/76 (100) 139/77 129/71 (90) Pulse Ox 98 97 O2 Delivery Room Air Room Air Room Air 05/25/20 05/25/20 05/25/20 05/25/20 03:00 07:00 08:10 08:42 Temp 98.5 97.9 98.5 97.9 Pulse 76 79 79 Resp 16 18 B/P (MAP) 148/85 (106) 128/74 (92) 128/74 Pulse Ox 95 91 O2 Delivery Room Air Room Air Room Air O2 Flow Rate 2.0 05/25/20 05/25/20 05/25/20 05/25/20 11:00 14:14 14:14 14:25 Temp 98.0 98.0 98.0 98.0 Pulse 82 70 72 Resp 18 21 18 18 B/P (MAP) 122/70 (87) 152/87 (108) Pulse Ox 90 100 100 99 O2 Delivery Room Air Nasal Cannula Nasal Cannula Room Air O2 Flow Rate 2.0 2.0 05/25/20 05/25/20 05/25/20 05/25/20 14:45 14:49 15:00 15:15 Pulse 72 71 70 71 Resp 18 B/P (MAP) 140/81 (100) 140/81 141/80 (100) 125/78 (94) Pulse Ox 97 97 97 O2 Delivery Room Air Room Air Room Air 05/25/20 05/25/20 15:30 17:04 Pulse 72 72 B/P (MAP) 121/76 (91) 121/76 Pulse Ox 96 O2 Delivery Room Air Intake and Output 05/24/20 05/24/20 05/25/20 15:00 23:00 07:00 Intake Total 150 ml 450 ml 240 ml Output Total 250 ml Balance 150 ml 450 ml -10 ml Justicifation of Admission Dx: Justifications for Admission: Justification of Admission Dx: Yes Comminuty Aquired Pneumonia: Bactermia Altered Mental Status: Altered Mental Status GWEN RAMOS MD May 25, 2020 18:27
[2020-05-25] MEDS: ATORVASTATIN CALCIUM 40 MG TABLET. PO SCH (21:56)
[2020-05-25] MEDS: GABAPENTIN 300 MG CAPSULE. PO SCH (21:56)
[2020-05-25] MEDS: INSULIN GLARGINE SYRINGE. SQ SCH (22:03)
[2020-05-26] MEDS: IV NORMAL SALINE 1000ML BAG 1,000 ML IV SCH (00:14)
[2020-05-26 03:00] VITALS: BP 114/60
[2020-05-26 07:00] VITALS: BP 123/74
[2020-05-26] MEDS: INSULIN LISPRO 300 UNITS/3 ML VIAL. SQ SCH ×2 (08:00→12:00)
[2020-05-26] MEDS: CARVEDILOL 12.5 MG TABLET. PO SCH (08:00)
[2020-05-26] MEDS ORDERED: ALBUMIN HUMAN 25% 200 ML IV PRN (08:15)
[2020-05-26] MEDS ORDERED: DIALYSIS PATIENT. MC PRN ×2 (08:15)
[2020-05-26] MEDS ORDERED: IV NORMAL SALINE 1000ML BAG 1,000 ML IV PRN ×2 (08:15)
[2020-05-26 08:19] LABS: BASO # 0.1 x10^3/uL (0.0-0.2); BASO % 2 % (0-3); EOS # 0.1 x10^3/uL (0.0-0.7); EOS % 2 % (0-3); HEMATOCRIT 26.9 % (39.0-53.0); HEMOGLOBIN 8.6 g/dL (13.0-17.5); LYMPH # 1.8 x10^3/uL (1.0-4.8); LYMPH % 24 % (24-48); MEAN CORPUSCULAR HEMOGLOBIN 27 pg (25-35); MEAN CORPUSCULAR HGB CONC 32 g/dL (31-37); MEAN CORPUSCULAR VOLUME 83 fL (79-100); MONO # 0.5 x10^3/uL (0.0-1.1); MONO % 7 % (0-9); NEUT # 4.9 x10^3/uL (1.8-7.7); NEUT % 65 % (31-73); PLATELET COUNT 407 x10^3/uL (140-400); RED BLOOD COUNT 3.24 x10^6/uL (4.30-5.70); RED CELL DISTRIBUTION WIDTH 16.2 % (11.5-14.5); WHITE BLOOD COUNT 7.6 x10^3/uL (4.0-11.0)
[2020-05-26 08:33] LABS: CALCIUM 8.3 mg/dL (8.5-10.1); CREATININE 11.8 mg/dL (0.7-1.3); GFR 5.5; POTASSIUM 5.7 mmol/L (3.5-5.1)
[2020-05-26] MEDS: LACTOBACILLUS RHAMNOSUS GG 1 CAPSULE. PO SCH (09:00)
[2020-05-26] MEDS: ASPIRIN ENTERIC COATED 81 MG TABLET.DR. PO SCH (09:00)
[2020-05-26] MEDS: HEPARIN for SUB-Q USE 5,000 UNIT/ML VIAL. SQ SCH (09:00)
[2020-05-26] MEDS: LISINOPRIL 20 MG TABLET PO SCH (09:00)
--- NOTE | 2020-05-26 09:45 | PDOC ---
Infectious Disease Note Subjective Subjective feeling good, has no complaints ROS ROS No nausea vomiting diarrhea Vital Sign Vital Signs Vital Signs Date Time Temp Pulse Resp B/P (MAP) Pulse Ox O2 Delivery O2 Flow Rate FiO2 05/26/20 07:00 98.0 69 18 123/74 (90) 93 Room Air 98.0 05/25/20 14:14 2.0 Physical Exam PHYSICAL EXAM GENERAL: alert awake in no acute distress. HEENT: Normocephalic, atraumatic, anicteric. No thrush. NECK: Supple. RT Temp HDC LUNGS: Clear. HEART: S1, S2, no murmurs. CHEST WALL: Left chest wall HDC catheter removed ABDOMEN: Soft, nontender, nondistended. Bowel sounds present. EXTREMITIES: No edema, no cyanosis. DERMATOLOGIC: Warm, dry. No generalized rash. Multiple abrasions, not infected. CENTRAL NERVOUS SYSTEM: alert awake moves all 4 ext PSYCHIATRIC: Calm and cooperative. Labs Lab Laboratory Tests Test 05/25/20 11:26 05/25/20 16:31 05/25/20 20:36 05/26/20 07:54 Glucose (Fingerstick) 167 mg/dL (70-99) 169 mg/dL (70-99) 142 mg/dL (70-99) 109 mg/dL (70-99) White Blood Count 7.6 x10^3/uL (4.0-11.0) Red Blood Count 3.24 x10^6/uL (4.30-5.70) Hemoglobin 8.6 g/dL (13.0-17.5) Hematocrit 26.9 % (39.0-53.0) Mean Corpuscular Volume 83 fL (79-100) Mean Corpuscular Hemoglobin 27 pg (25-35) Mean Corpuscular Hemoglobin Concent 32 g/dL (31-37) Red Cell Distribution Width 16.2 % (11.5-14.5) Platelet Count 407 x10^3/uL (140-400) Neutrophils (%) (Auto) 65 % (31-73) Lymphocytes (%) (Auto) 24 % (24-48) Monocytes (%) (Auto) 7 % (0-9) Eosinophils (%) (Auto) 2 % (0-3) Basophils (%) (Auto) 2 % (0-3) Neutrophils # (Auto) 4.9 x10^3/uL (1.8-7.7) Lymphocytes # (Auto) 1.8 x10^3/uL (1.0-4.8) Monocytes # (Auto) 0.5 x10^3/uL (0.0-1.1) Eosinophils # (Auto) 0.1 x10^3/uL (0.0-0.7) Basophils # (Auto) 0.1 x10^3/uL (0.0-0.2) Sodium Level 135 mmol/L (136-145) Potassium Level 5.7 mmol/L (3.5-5.1) Chloride Level 98 mmol/L (98-107) Carbon Dioxide Level 24 mmol/L (21-32) Anion Gap 13 (6-14) Blood Urea Nitrogen 78 mg/dL (8-26) Creatinine 11.8 mg/dL (0.7-1.3) Estimated GFR (Cockcroft-Gault) 5.5 Glucose Level 102 mg/dL (70-99) Calcium Level 8.3 mg/dL (8.5-10.1) Micro BC neg 05/19 Objective Assessment 1. Sepsis from bacteremia. 2. Bacteremia, methicillin-sensitive Staphylococcus aureus and enterococcus May 13 bacteremia, source likely HDC catheter. s/p HDC catheter removal BENIGNO negative 3. End-stage renal disease, on hemodialysis. 4. History of cerebrovascular accident. 5. Encephalopathy. 6. Hypertension. 7. Anemia. 8. Smoking. 9. retirement resident. 10. COVID negative. Plan Plan of Care Continue daptomycin renal dosing, May 17, 2020,, for 4 weeks Status post HDC catheter removal May 18, 2020 Follow-up repeat blood cultures negative BENIGNO negative Ok to proceed with permanent hdc, d/w dr Mittal Discussed with nursing staff Follow-up with me in 2 weeks MAJOR ZABALA MD May 26, 2020 09:45
[2020-05-26] MEDS ORDERED: DAPT350V IV (10:02)
--- NOTE | 2020-05-26 10:04 | SNU/HH DC ---
DISCHARGE ORDERS DISCHARGE INFORMATION: DISCHARGE DATE: May 26, 2020 FINAL DIAGNOSIS Problems Medical Problems: (1) AMS (altered mental status) Status: Acute (2) Person under investigation for COVID-19 Status: Acute (3) Weakness generalized Status: Acute CONDITION ON DISCHARGE: Stable CODE STATUS: Code Status: Full FDC: SNF STAY <30 DAYS: Yes POST DISCHARGE ORDERS: ACTIVITY ORDERS: Activity as tolerated WEIGHT BEARING STATUS: As tolerated WOUND/INCISION CARE: No wound care needed CHECKS AFTER DISCHARGE: CHECKS AFTER DISCHARGE: Check blood press - daily, Check blood sugar, ac/hs COMMENTS: IJ/chest TREATMENT/EQUIPMENT ORDERS: ADAPTIVE EQUIPMENT NEEDED: None DISCHARGE MEDICATIONS: Home Meds Active Scripts Daptomycin (Daptomycin) 350 Mg Vial, 450 MG IV Q48H for bacteremia for 28 Days, EACH Prov:GWEN RAMOS MD 05/26/20 Carvedilol (CARVEDILOL ) 12.5 Mg Tablet, 25 MG PO BIDWMEALS for htn, #120 TAB Prov:CHRIS NUNEZ MD 01/19/19 Reported Medications Zinc Oxide (ZINC OXIDE) 56.7 Gm Oint...g., 1 DANIEL TP BID for skin condition, MISC scrotal area 05/14/20 Acetaminophen (TYLENOL) 325 Mg Tablet, 1-2 TAB PO Q4HRS PRN for PAIN, #60 TAB 2 Refills 05/14/20 Sennosides (SENNA LAXATIVE) 8.6 Mg Tablet, 1 TAB PO BID PRN for CONSTIPATION for 30 Days, #60 TAB 0 Refills 05/14/20 Polyethylene Glycol 3350 (POLYETHYLENE GLYCOL 3350) 2,500 Gm Powder, 17 GM PO DAILY PRN for CONSTIPATION for 30 Days, #527 GM 0 Refills 05/14/20 Amlodipine Besylate (NORVASC) 10 Mg Tablet, 10 MG PO QMWF for HTN, TAB 05/14/20 Lisinopril (LISINOPRIL) 20 Mg Tablet, 1 TAB PO DAILY for HTN, #30 TAB 5 Refills 05/14/20 Insulin Glargine,Hum.rec.anlog (LANTUS SOLOSTAR) 100 Unit/1 Ml Insuln.pen, 7 UNIT SQ QHS for DM, #15 ML 3 Refills 05/14/20 Hydralazine Hcl (HYDRALAZINE HCL) 50 Mg Tablet, 1 TAB PO TID for htn, #90 TAB 5 Refills 05/14/20 Insulin Lispro (HUMALOG) 100 Unit/1 Ml Vial, 8 UNIT SQ TIDWMEALS for dm, VIAL hold FOR GLUCOSE BELOW 110 AND CALL IF OVER 400 05/14/20 Calcium Acetate (CALCIUM ACETATE) 667 Mg Tablet, 2 TAB PO TID for KIDNEY DISEASE for 30 Days, #180 TAB 0 Refills 05/14/20 [Benzocaine Gel 10%] No Conflict Check, 1 DANIEL PO Q6HRS PRN for PAIN for toothache 05/14/20 Aspirin (ASPIRIN EC) 81 Mg Tablet.dr, 1 TAB PO DAILY for hyperlipidemia, #30 TAB 3 Refills 05/14/20 Gabapentin (GABAPENTIN ) 100 Mg Capsule, 300 MG PO HS for NEUROGENIC PAIN, CAP 12/09/18 Atorvastatin Calcium (ATORVASTATIN CALCIUM) 40 Mg Tablet, 40 MG PO HS for FOR CHOLESTEROL, #30 TAB 0 Refills 10/25/17 GWEN RAMOS MD May 26, 2020 10:04
--- NOTE | 2020-05-26 10:10 | PDOC ---
DATE OF SERVICE DATE: 05/26/20 TIME: 10:10 SUBJECTIVE ROS Stable , seen on dialysis, without any complaints OBJECTIVE Vital Signs Vital Signs Date Time Temp Pulse Resp B/P (MAP) Pulse Ox O2 Delivery O2 Flow Rate FiO2 05/26/20 08:00 Room Air 2.0 05/26/20 07:00 98.0 69 18 123/74 (90) 93 98.0 I & 0 Intake and Output 05/26/20 07:00 Intake Total 680 ml Output Total 0 ml Balance 680 ml Intake Oral 680 ml Output Urine Total 0 ml PHYSICAL EXAM Physical Exam GENERAL: no acute distress. HEENT: Normocephalic, atraumatic, anicteric. No thrush. NECK: Supple. LUNGS: Clear. HEART: S1, S2, no murmurs. CHEST WALL: Left chest wall HDC catheter ABDOMEN: Soft, nontender, nondistended. Bowel sounds present. EXTREMITIES: No edema, no cyanosis. DERMATOLOGIC: No generalized rash. Multiple abrasions, NEURO Grossly normal DIAGNOSIS/ASSESSMENT Assessment & Plan ESRD On HD TTS Seen on HD, tolerating well, continue as ordered, Harrison Guerrero Access- s/p Infected tunneled dialysis catheter removed and placement of temp LIJ dialysis cath 05/18/2020 Perma cath on 05/25/2020 Sepsis from bacteremia- methicillin-sensitive Staphylococcus aureus and enterococcus bacteremia, source likely HDC catheter.Catheter removed this am. ID following . BENIGNO scheduled for today History of cerebrovascular accident. Encephalopathy. Hypertension. Smoking. COMMENT/RELEVANT DATA Meds Current Medications Medications (Trade) Dose Ordered Sig/Greta Start Time Stop Time Status Last Admin Dose Admin Acetaminophen (Tylenol) 650 mg PRN Q4HRS PRN 05/18/20 21:00 Al Hydroxide/Mg Hydroxide (Mylanta Plus Xs) 30 ml PRN Q3HRS PRN 05/13/20 20:30 Albumin Human 200 ml @ 200 mls/hr 1X PRN PRN 05/26/20 08:15 05/26/20 14:14 Amlodipine Besylate (Norvasc) 10 mg QMWF@0900 05/20/20 09:00 05/22/20 09:15 10 MG Ampicillin Sodium 2 gm/Sodium Chloride 100 ml @ 200 mls/hr Q12HR 05/15/20 09:00 05/17/20 10:14 DC 05/17/20 08:12 200 MLS/HR Aspirin (Ecotrin) 81 mg DAILY 05/19/20 09:00 05/24/20 08:23 81 MG Atorvastatin Calcium (Lipitor) 40 mg HS 05/18/20 21:00 05/25/20 21:56 40 MG Benzocaine (Hurricaine One) 2 spray 1X ONCE 05/21/20 13:15 05/21/20 13:16 DC 05/21/20 13:35 2 SPRAY Bisacodyl (Dulcolax Supp) 10 mg PRN DAILY PRN 05/13/20 20:30 Calcium Carbonate/ Glycine (Tums) 500 mg PRN Q3HRS PRN 05/13/20 20:30 Carvedilol (Coreg) 25 mg BIDWMEALS 05/19/20 08:00 05/25/20 17:04 25 MG Ceftriaxone Sodium (Rocephin) 2 gm Q12H 05/15/20 08:00 05/17/20 10:14 DC 05/17/20 08:12 2 GM Daptomycin 450 mg/ Sodium Chloride 50 ml @ 100 mls/hr Q48H 05/19/20 16:00 05/25/20 17:00 100 MLS/HR Darbepoetin Brian (ARANESP for DIALYSIS PTS) 60 mcg WEEKLYHS 05/14/20 21:00 05/21/20 20:16 60 MCG Dextrose (Dextrose 50%-Water Syringe) 12.5 gm PRN Q15MIN PRN 05/15/20 16:45 Enalaprilat (Vasotec Inj) 1.25 mg PRN Q6HRS PRN 05/19/20 13:15 Fentanyl Citrate (Fentanyl 2ml Vial) 100 mcg 1X ONCE 05/25/20 14:00 05/25/20 14:01 DC 05/25/20 14:14 50 MCG Gabapentin (Neurontin) 300 mg HS 05/18/20 21:00 05/25/20 21:56 300 MG Heparin Sodium (Porcine) (Heparin Sodium) 5,000 unit Q12HR 05/13/20 21:00 05/25/20 22:03 5,000 UNIT Hydralazine HCl (Apresoline) 50 mg TID 05/18/20 21:00 05/25/20 21:56 50 MG Info (PHARMACY MONITORING -- do not chart) 1 each PRN DAILY PRN 05/26/20 08:15 Insulin Glargine (Lantus Syringe) 7 unit QHS 05/18/20 21:00 05/25/20 22:03 7 UNIT Insulin Human Lispro (HumaLOG) 2 units 1X ONCE 05/23/20 22:00 05/23/20 22:01 DC 05/23/20 22:02 2 UNITS Iohexol (Omnipaque 240 Mg/ml) 50 ml 1X ONCE 05/18/20 12:15 05/18/20 12:16 DC 05/18/20 12:25 10 ML Lactobacillus Rhamnosus (Culturelle) 1 cap BID 05/15/20 21:00 05/25/20 21:55 1 CAP Lidocaine HCl (Buffered Lidocaine 1%) 3 ml 1X ONCE 05/18/20 12:00 05/18/20 12:01 DC 05/18/20 12:26 3 ML Lidocaine HCl (Glydo (Lidocaine) Jelly) 1 hiren 1X ONCE 05/21/20 13:15 05/21/20 13:56 DC Lidocaine HCl (Viscous Lidocaine) 15 ml 1X ONCE 05/21/20 13:15 05/21/20 13:16 DC 05/21/20 13:35 15 ML Lidocaine HCl (Xylocaine 2% Topical 30gm Tube) 1 hiren 1X ONCE 05/21/20 13:15 05/21/20 13:16 DC 05/21/20 13:35 1 HIREN Lidocaine/ Epinephrine (LIDOCAINE 1%-EPI 1:100,000 Multi-Dose) 20 ml 1X ONCE 05/25/20 14:00 05/25/20 14:01 DC 05/25/20 14:09 15 ML Lisinopril (Prinivil) 20 mg DAILY 05/18/20 20:48 05/24/20 08:23 20 MG Magnesium Hydroxide (Milk Of Magnesia) 2,400 mg PRN Q12HR PRN 05/13/20 20:30 Midazolam HCl (Versed) 2 mg 1X ONCE 05/25/20 14:00 05/25/20 14:01 DC 05/25/20 14:13 2 MG Morphine Sulfate (Morphine Sulfate) 4 mg PRN Q2HR PRN 05/13/20 19:30 05/14/20 19:29 DC Ondansetron HCl (Zofran) 4 mg PRN Q6HRS PRN 05/13/20 20:30 05/14/20 21:19 4 MG Propofol (Diprivan) 200 mg STK-MED ONCE 05/21/20 13:30 05/21/20 13:30 DC Sodium Chloride 1,000 ml @ 400 mls/hr Q2H30M PRN 05/26/20 08:15 05/26/20 20:14 Sodium Chloride (Normal Saline Flush) 10 ml 1X PRN PRN 05/23/20 09:15 05/24/20 09:14 DC Tramadol HCl (Ultram) 50 mg PRN Q6HRS PRN 05/13/20 20:30 Zolpidem Tartrate (Ambien) 5 mg 1X PRN PRN 05/20/20 20:45 05/20/20 20:43 5 MG Lab Laboratory Tests Test 05/25/20 11:26 05/25/20 16:31 05/25/20 20:36 05/26/20 07:54 Glucose (Fingerstick) 167 mg/dL (70-99) 169 mg/dL (70-99) 142 mg/dL (70-99) 109 mg/dL (70-99) White Blood Count 7.6 x10^3/uL (4.0-11.0) Red Blood Count 3.24 x10^6/uL (4.30-5.70) Hemoglobin 8.6 g/dL (13.0-17.5) Hematocrit 26.9 % (39.0-53.0) Mean Corpuscular Volume 83 fL (79-100) Mean Corpuscular Hemoglobin 27 pg (25-35) Mean Corpuscular Hemoglobin Concent 32 g/dL (31-37) Red Cell Distribution Width 16.2 % (11.5-14.5) Platelet Count 407 x10^3/uL (140-400) Neutrophils (%) (Auto) 65 % (31-73) Lymphocytes (%) (Auto) 24 % (24-48) Monocytes (%) (Auto) 7 % (0-9) Eosinophils (%) (Auto) 2 % (0-3) Basophils (%) (Auto) 2 % (0-3) Neutrophils # (Auto) 4.9 x10^3/uL (1.8-7.7) Lymphocytes # (Auto) 1.8 x10^3/uL (1.0-4.8) Monocytes # (Auto) 0.5 x10^3/uL (0.0-1.1) Eosinophils # (Auto) 0.1 x10^3/uL (0.0-0.7) Basophils # (Auto) 0.1 x10^3/uL (0.0-0.2) Sodium Level 135 mmol/L (136-145) Potassium Level 5.7 mmol/L (3.5-5.1) Chloride Level 98 mmol/L (98-107) Carbon Dioxide Level 24 mmol/L (21-32) Anion Gap 13 (6-14) Blood Urea Nitrogen 78 mg/dL (8-26) Creatinine 11.8 mg/dL (0.7-1.3) Estimated GFR (Cockcroft-Gault) 5.5 Glucose Level 102 mg/dL (70-99) Calcium Level 8.3 mg/dL (8.5-10.1) Results All relevant outside records, renal labs, imaging studies, telemetry/EKG's were reviewed. Justicifation of Admission Dx: Justifications for Admission: Justification of Admission Dx: Yes Comminuty Aquired Pneumonia: Bactermia Altered Mental Status: Altered Mental Status SOCO JACOBS MD May 26, 2020 10:10
--- NOTE | 2020-05-26 10:18 | PDOC3 ---
Discharge Summary Visit Information Date of Admission: May 13, 2020 Date of Discharge: May 26, 2020 Admitting Diagnosis Comment: Altered mental status PUI Elevated procalcitonin Severe malnutrition End-stage renal disease on hemodialysis Final Diagnosis Problems Medical Problems: (1) AMS (altered mental status) Status: Acute (2) Person under investigation for COVID-19 ruled out Status: Acute (3) Weakness generalized secondary to multiple comorbidities and severe deconditioning Status: Acute Altered mental status resolved toxic encephalopathy resolved secondary to bacteremia Gram-positive chains bacteremia methicillin-sensitive Staphylococcus aureus and enterococcus bacteremia, source likely HDC catheter. s/p HDC catheter removal on 05/24/2020 BENIGNO negative Sepsis present on admission now resolved PUI Elevated procalcitonin secondary to bacteremia improved Severe malnutrition End-stage renal disease on hemodialysis Monday BUN 48 Cr 8.0 Hyperglycemia (glucose 149) Anemia Thrombocytosis Brief Hospital Course Allergies Allergies Coded Allergies Type Severity Reaction Last Updated Verified No Known Drug Allergies 05/21/20 No Vital Signs Vital Signs Date Time Temp Pulse Resp B/P (MAP) Pulse Ox O2 Delivery O2 Flow Rate FiO2 05/26/20 08:00 Room Air 2.0 05/26/20 07:00 98.0 69 18 123/74 (90) 93 98.0 Lab Results Laboratory Tests Test 05/24/20 10:51 05/24/20 16:16 05/24/20 19:34 05/25/20 06:20 Glucose (Fingerstick) 197 mg/dL (70-99) 156 mg/dL (70-99) 136 mg/dL (70-99) White Blood Count 8.3 x10^3/uL (4.0-11.0) Red Blood Count 3.35 x10^6/uL (4.30-5.70) Hemoglobin 9.0 g/dL (13.0-17.5) Hematocrit 27.9 % (39.0-53.0) Mean Corpuscular Volume 83 fL (79-100) Mean Corpuscular Hemoglobin 27 pg (25-35) Mean Corpuscular Hemoglobin Concent 32 g/dL (31-37) Red Cell Distribution Width 16.8 % (11.5-14.5) Platelet Count 413 x10^3/uL (140-400) Neutrophils (%) (Auto) 62 % (31-73) Lymphocytes (%) (Auto) 25 % (24-48) Monocytes (%) (Auto) 9 % (0-9) Eosinophils (%) (Auto) 3 % (0-3) Basophils (%) (Auto) 1 % (0-3) Neutrophils # (Auto) 5.2 x10^3/uL (1.8-7.7) Lymphocytes # (Auto) 2.1 x10^3/uL (1.0-4.8) Monocytes # (Auto) 0.8 x10^3/uL (0.0-1.1) Eosinophils # (Auto) 0.2 x10^3/uL (0.0-0.7) Basophils # (Auto) 0.1 x10^3/uL (0.0-0.2) Sodium Level 134 mmol/L (136-145) Potassium Level 5.5 mmol/L (3.5-5.1) Chloride Level 96 mmol/L (98-107) Carbon Dioxide Level 26 mmol/L (21-32) Anion Gap 12 (6-14) Blood Urea Nitrogen 62 mg/dL (8-26) Creatinine 10.1 mg/dL (0.7-1.3) Estimated GFR (Cockcroft-Gault) 6.6 Glucose Level 173 mg/dL (70-99) Calcium Level 8.4 mg/dL (8.5-10.1) Test 05/25/20 07:25 05/25/20 11:26 05/25/20 16:31 05/25/20 20:36 Glucose (Fingerstick) 176 mg/dL (70-99) 167 mg/dL (70-99) 169 mg/dL (70-99) 142 mg/dL (70-99) Test 05/26/20 07:54 White Blood Count 7.6 x10^3/uL (4.0-11.0) Red Blood Count 3.24 x10^6/uL (4.30-5.70) Hemoglobin 8.6 g/dL (13.0-17.5) Hematocrit 26.9 % (39.0-53.0) Mean Corpuscular Volume 83 fL (79-100) Mean Corpuscular Hemoglobin 27 pg (25-35) Mean Corpuscular Hemoglobin Concent 32 g/dL (31-37) Red Cell Distribution Width 16.2 % (11.5-14.5) Platelet Count 407 x10^3/uL (140-400) Neutrophils (%) (Auto) 65 % (31-73) Lymphocytes (%) (Auto) 24 % (24-48) Monocytes (%) (Auto) 7 % (0-9) Eosinophils (%) (Auto) 2 % (0-3) Basophils (%) (Auto) 2 % (0-3) Neutrophils # (Auto) 4.9 x10^3/uL (1.8-7.7) Lymphocytes # (Auto) 1.8 x10^3/uL (1.0-4.8) Monocytes # (Auto) 0.5 x10^3/uL (0.0-1.1) Eosinophils # (Auto) 0.1 x10^3/uL (0.0-0.7) Basophils # (Auto) 0.1 x10^3/uL (0.0-0.2) Sodium Level 135 mmol/L (136-145) Potassium Level 5.7 mmol/L (3.5-5.1) Chloride Level 98 mmol/L (98-107) Carbon Dioxide Level 24 mmol/L (21-32) Anion Gap 13 (6-14) Blood Urea Nitrogen 78 mg/dL (8-26) Creatinine 11.8 mg/dL (0.7-1.3) Estimated GFR (Cockcroft-Gault) 5.5 Glucose Level 102 mg/dL (70-99) Glucose (Fingerstick) 109 mg/dL (70-99) Calcium Level 8.3 mg/dL (8.5-10.1) Laboratory Tests Test 05/25/20 11:26 05/25/20 16:31 05/25/20 20:36 05/26/20 07:54 Glucose (Fingerstick) 167 mg/dL (70-99) 169 mg/dL (70-99) 142 mg/dL (70-99) 109 mg/dL (70-99) White Blood Count 7.6 x10^3/uL (4.0-11.0) Red Blood Count 3.24 x10^6/uL (4.30-5.70) Hemoglobin 8.6 g/dL (13.0-17.5) Hematocrit 26.9 % (39.0-53.0) Mean Corpuscular Volume 83 fL (79-100) Mean Corpuscular Hemoglobin 27 pg (25-35) Mean Corpuscular Hemoglobin Concent 32 g/dL (31-37) Red Cell Distribution Width 16.2 % (11.5-14.5) Platelet Count 407 x10^3/uL (140-400) Neutrophils (%) (Auto) 65 % (31-73) Lymphocytes (%) (Auto) 24 % (24-48) Monocytes (%) (Auto) 7 % (0-9) Eosinophils (%) (Auto) 2 % (0-3) Basophils (%) (Auto) 2 % (0-3) Neutrophils # (Auto) 4.9 x10^3/uL (1.8-7.7) Lymphocytes # (Auto) 1.8 x10^3/uL (1.0-4.8) Monocytes # (Auto) 0.5 x10^3/uL (0.0-1.1) Eosinophils # (Auto) 0.1 x10^3/uL (0.0-0.7) Basophils # (Auto) 0.1 x10^3/uL (0.0-0.2) Sodium Level 135 mmol/L (136-145) Potassium Level 5.7 mmol/L (3.5-5.1) Chloride Level 98 mmol/L (98-107) Carbon Dioxide Level 24 mmol/L (21-32) Anion Gap 13 (6-14) Blood Urea Nitrogen 78 mg/dL (8-26) Creatinine 11.8 mg/dL (0.7-1.3) Estimated GFR (Cockcroft-Gault) 5.5 Glucose Level 102 mg/dL (70-99) Calcium Level 8.3 mg/dL (8.5-10.1) Brief Hospital Course In short patient admitted initially person under investigation fortunately not the patient had a negative PCR for coronavirus. Patient did have a catheter related bloodstream infection with the culprit being most likely his dialysis catheter. This was exchanged after his bacteremia was cleared and repeat blood cultures remain negative. The patient underwent a BENIGNO with negative results we will request a consultation for a midline anticipation for his discharge later in the day so he can continue with his regimen of daptomycin 450 mg nightly for 48 hours adjusted for renal dysfunction. This was discussed with infectious disease rewards consultant prior to discharge greater than 35 minutes were spent in the discharge process with the patient in counseling coordination of care and arrangements for a safe discharge back to [facility] 05/25/2020 No acute events reported overnight, case discussed with nursing staff patient in no acute distress no complaints during my visit Wanting to be discharged Plan of care explained detail 05/24/2020 Patient seen and examined at bedside today Patient resting peacefully Discussed with RN Charts reviewed 05/23/20 Patient seen and examined in dialysis room Patient resting peacefully Catheter not working as desired (325) Discussed with RN Charts reviewed 05/22/2020 Patient seen and examined Charts reviewed DWRN Patient eating and drinking comfortably 05/21/2020 Patient seen and examined in dialysis room Patient resting in bed pleasantly Afebrile Discussed with RN Discussed with supervisor case loading Charts reviewed 05/20/2020 Resting with no acute distress. Afebrile Renal progress note states stable on dialysis Discussed with RN Discussed with supervisor case loading Charts reviewed 05/19/2020 No acute events overnight. Afebrile. Continue antibiotic coverage with Rocephin and ampicillin. Appreciate infectious disease input in the care of this patient. Blood cultures growing Enterococcus faecalis and staph aureus, pansensitive. 05/16/2020 Patient seen and evaluated bedside. No acute events overnight. He is afebrile. Will consult infectious disease due to positive blood cultures growing Enterococcus faecalis. He is receiving hemodialysis today. Discussed with RN. 05/15/2020 No acute events overnight. Patient is afebrile. Mental status is unchanged. Dialysis yesterday. HD catheter site is unchanged. Patient's chart, labs, images were reviewed and discussed with RN 05/14/2020 No acute events overnight. Patient is afebrile. Dialysis yesterday and tolerated well. No erythema on the HD catheter site. Patient's chart, labs, images were reviewed and discussed with RN 50-year-old male with past medical history of end-stage renal disease on hemodialysis Monday//Monday, who presents to the ER for evaluation of altered mental status. Patient is a resident of [facility], where EMS reported he was also noted to have associated weakness and lethargy after breakfast this morning. Patient is nonverbal upon my evaluation, no answering any of my questions. No obvious source of encephalopathy or infection initially noted, except for elevated procalcitonin. He is afebrile breathing on room air. Due to some concerns of the etiology of AMS, patient will be admitted for further evaluation. GENERAL: alert awake in no acute distress. HEENT: Normocephalic, atraumatic, anicteric. No thrush. NECK: Supple. RT Temp HDC LUNGS: Clear. HEART: S1, S2, no murmurs. CHEST WALL: Left chest wall HDC catheter removed ABDOMEN: Soft, nontender, nondistended. Bowel sounds present. EXTREMITIES: No edema, no cyanosis. DERMATOLOGIC: Warm, dry. No generalized rash. Multiple abrasions, not infected. CENTRAL NERVOUS SYSTEM: alert awake moves all 4 ext PSYCHIATRIC: Calm and cooperative. Assessment Assessment MAGING REPORT Signed PATIENT: TIMO BALDERASOUNT: [id number] : 1970 LOCATION: [address] [place] [address] AGE: 50 SEX: M EXAM STATUS: ADM IN ORD. 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 [id number]-oizp sedation time was 46 min Clinical Indication: Infected left internal jugular tunneled hemodialysis catheter Sterility: All elements of maximal sterile barrier technique including the use of a cap, mask, sterile gown, sterile gloves, large sterile sheet, appropriate hand hygiene, and 2% chlorhexidine for cutaneous antisepsis (or acceptable alternative antiseptic per current guidelines) were followed for this procedure. Consent: The procedure was explained in its entirety to the patient or the patients designated lead generation representative by a member of the treatment team, including a discussion of the risks, benefits and commonly accepted alternatives to the procedure, as well as the expected consequences of no therapy whatsoever. Discussion of the risks included, but was not limited to, those that are most frequent and those that are rare but possibly severe or life-threatening, as well as the possibility of unforeseen complications. Technique and Findings: Following informed consent, the patient was prepped and draped in the usual sterile fashion. Ultrasound interrogation of the right neck revealed patency of the right internal jugular vein with what appear by ultrasound to be chronic, partially occlusive thrombus more inferiorly behind the clavicle. The vein was accessed using micropuncture technique and over the guidewire would not advance centrally. 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 Filling collateral vessels noted. Given this, the left internal jugular vein was accessed using an identical fashion over the guidewire was successfully advanced into the IVC. The pre-existing catheter was removed with traction alone. The wire was exchanged for a new sterile wire into the IVC. Following dilatation a 24 cm temporary dialysis catheter was placed such the catheter tip was the cavoatrial junction. Catheter was found to flush and aspirate normally. Catheter was secured in place. Sterile dressings were applied. No immediate complications were identified. Impression: 1. Removal of left internal jugular tunneled hemodialysis catheter . Catheter tip was sent for culture. 2.Placement of a left internal jugular temporary dialysis catheter 3. 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 Normal left ventricular systolic function. No significant valvular disease. No evidence of a vegetation. Full report to follow. SULY JUAREZ MD May 21, 2020 15:30 SIGNED BY: SULY JUAREZ MD DATE: 05/21/20 1530 cc: CLARIBEL HARTMAN; SULY JUAREZ MD; KUSUM MITCHELL MD~[id number] 101 Name: TIMO BALDERAS Acct: [id number] : 1970 Visit Date: Discharge Information Condition at Discharge: Improved Follow Up: Weeks Disposition/Orders: D/C to Another Facility Scheduled Amlodipine Besylate (Norvasc) 10 Mg Tablet, 10 MG PO QMWF for HTN, (Reported) Entered as Reported by: DARREN MARTINEZ on 05/14/20338 Last Action: Continued on 05/18/202030 by DONELL KAMARA Aspirin (Aspirin Ec) 81 Mg Tablet.dr, 1 TAB PO DAILY for hyperlipidemia, #30 Ref 3 (Reported) Entered as Reported by: DARREN MARTINEZ on 05/14/20338 Last Action: Continued on 05/18/202048 by DONELL KAMARA Atorvastatin Calcium (Atorvastatin Calcium) 40 Mg Tablet, 40 MG PO HS for FOR CHOLESTEROL, #30 Ref 0 (Reported) Entered as Reported by: Shelbie Duran John on 10/25/17 1239 Last Action: Continued on 05/18/202030 by DONELL KAMARA Calcium Acetate (Calcium Acetate) 667 Mg Tablet, 2 TAB PO TID for KIDNEY DISEASE for 30 Days, #180 Ref 0 (Reported) Entered as Reported by: DARREN MARTINEZ on 05/14/20338 Last Action: New Order on 05/14/20338 by DARREN MARTINEZ Carvedilol (Carvedilol ) 12.5 Mg Tablet, 25 MG PO BIDWMEALS for htn, #120 Prescribed by: CHRIS NUNEZ on 01/19/19 1008 Last Action: Continued on 05/18/202030 by DONELL KAMARA Daptomycin (Daptomycin) 350 Mg Vial, 450 MG IV Q48H for bacteremia for 28 Days Prescribed by: GWEN RAMOS MD on 05/26/20 1002 Gabapentin (Gabapentin ) 100 Mg Capsule, 300 MG PO HS for NEUROGENIC PAIN, (Reported) Entered as Reported by: ABELARDO RIVERA on 12/09/187 Last Action: Continued on 05/18/202030 by DONELL KAMARA Hydralazine Hcl (Hydralazine Hcl) 50 Mg Tablet, 1 TAB PO TID for htn, #90 Ref 5 (Reported) Entered as Reported by: DARREN MARTINEZ on 05/14/20338 Last Action: Continued on 05/18/202030 by DONELL KAMARA Insulin Glargine,Hum.rec.anlog (Lantus Solostar) 100 Unit/1 Ml Insuln.pen, 7 UNIT SQ QHS for DM, #15 Ref 3 (Reported) Entered as Reported by: DARREN MARTINEZ on 05/14/20338 Last Action: Converted on 05/18/202030 by DONELL KAMARA Insulin Lispro (Humalog) 100 Unit/1 Ml Vial, 8 UNIT SQ TIDWMEALS for dm, (Reported) hold FOR GLUCOSE BELOW 110 AND CALL IF OVER 400 Entered as Reported by: DARREN MARTINEZ on 05/14/20338 Last Action: New Order on 05/14/20338 by DARREN MARTINEZ Lisinopril (Lisinopril) 20 Mg Tablet, 1 TAB PO DAILY for HTN, #30 Ref 5 (Reported) Entered as Reported by: DARREN MARTINEZ on 05/14/20338 Last Action: Continued on 05/18/202030 by DONELL KAMARA Zinc Oxide (Zinc Oxide) 56.7 Gm Oint...g., 1 DANIEL TP BID for skin condition, (Reported) scrotal area Entered as Reported by: DARREN MARTINEZ on 05/14/20338 Last Action: New Order on 05/14/20338 by DARREN MARTINEZ Scheduled PRN Acetaminophen (Tylenol) 325 Mg Tablet, 1-2 TAB PO Q4HRS PRN for PAIN, #60 Ref 2 (Reported) Entered as Reported by: DARREN MARTINEZ on 05/14/20338 Last Action: Continued on 05/18/202048 by DONELL KAMARA Polyethylene Glycol 3350 (Polyethylene Glycol 3350) 2,500 Gm Powder, 17 GM PO DAILY PRN for CONSTIPATION for 30 Days, #527 Ref 0 (Reported) Entered as Reported by: DARREN MARTINEZ on 05/14/20338 Last Action: New Order on 05/14/20338 by DARREN MARTINEZ Sennosides (Senna Laxative) 8.6 Mg Tablet, 1 TAB PO BID PRN for CONSTIPATION for 30 Days, #60 Ref 0 (Reported) Entered as Reported by: DARREN MARTINEZ on 05/14/20338 Last Action: New Order on 05/14/20338 by DARREN MARTINEZ [Benzocaine Gel 10%] , 1 DANIEL PO Q6HRS PRN for PAIN, (Reported) for toothache Entered as Reported by: DARREN MARTINEZ on 05/14/20338 Last Action: New Order on 05/14/20338 by DARREN MARTINEZ Justicifation of Admission Dx: Justifications for Admission: Justification of Admission Dx: Yes Comminuty Aquired Pneumonia: Bactermia Altered Mental Status: Altered Mental Status GWEN RAMOS MD May 26, 2020 10:18
[2020-05-26 12:20] VITALS: BP 101/59
--- NOTE | 2020-05-26 13:52 | NUR ---
[facility] back to [facility], report called to [facility] packed personal possessions. Transport arrived from [facility] to take pt. No concerns noted at this time.
--- NOTE | 2020-05-26 19:03 | CARD ---
MR#: [id number] Date of Study: 05/21/2020 Ordering Physician: ADELINA ZABALA, Referring Physician: ADELINA ZABALA, Tech: Brooks Drew RDCS APPROVED REPORT EXAM: Transesophageal echocardiogram with color flow Doppler. INDICATION Rule out subacute bacterial endocarditis RISK FACTORS Hypertension Reason For Test : Rule out endocarditis. PROCEDURE Type of Sedation : General Anesthesia Sedation was achieved with Propofol 150mg intravenously. Transesophageal probe was inserted and advanced into esophagus by Carroll Mike MD. The BENIGNO was performed without complications. Throughout the procedure, the blood pressure, pulse oximetry, cardiac rhythm, and rate were monitored . LEFT VENTRICLE The left ventricle is normal size. There is mild concentric left ventricular hypertrophy. The left ve ntricular systolic function is normal and the ejection fraction is within normal range. Left ventricu lar ejection fraction of 55 to 60%. There is normal LV segmental wall motion. RIGHT VENTRICLE The right ventricle is normal size. There is normal right ventricular wall thickness. The right ventr icular systolic function is normal. ATRIA The left atrium size is normal. The right atrium size is normal. The interatrial septum is intact wit h no evidence for an atrial septal defect or patent foramen ovale as noted on 2-D or Doppler imaging. AORTIC VALVE The aortic valve is normal in structure and function. Doppler and Color Flow revealed no significant aortic regurgitation. There is no significant aortic valvular stenosis. There is no aortic valvular v egetation. MITRAL VALVE The papillary muscles are thickened and calcified. There is no evidence of mitral valve prolapse. The re is no mitral valve stenosis. Doppler and Color-flow revealed mild mitral regurgitation. TRICUSPID VALVE The tricuspid valve is normal in structure and function. Doppler and Color Flow revealed trace tricus pid valve regurgitation. There is no tricuspid valve prolapse or vegetation. PULMONIC VALVE The pulmonary valve is normal in structure and function. Doppler and Color Flow revealed no pulmonic valvular regurgitation. Critical Notification Critical Value: No <Conclusion> The left ventricle is normal size. The left ventricular systolic function is normal and the ejection fraction is within normal range. Left ventricular ejection fraction of 55 to 60%. The aortic valve is normal in structure and function. Doppler and Color Flow revealed no significant aortic regurgitation. There is no significant aortic valvular stenosis. Doppler and Color-flow revealed mild mitral regurgitation. The papillary muscles are thickened and calcified. Doppler and Color Flow revealed trace tricuspid valve regurgitation. Doppler and Color Flow revealed no pulmonic valvular regurgitation. No evidence of vegetations on this study. Signed by : Carroll Mike MD Electronically Approved : 05/26/2020 19:02:53
== END 2020-05-26 14:07 | DRG 314 ==
LOC: ER 16:54 → ED HOLD 20:56 → 6 SOUTH 22:48 → 4 NORTH 05-14 18:02
PROVIDERS: ADMIT Family Medicine; ATTEND Family Medicine
PROC: 5A1D70Z Performance of Urinary Filtration, Intermittent, Less than 6 Hours Per Day (ICD-10-PCS; 2020-05-14)
PROC: 0JPTXXZ Removal of Tunneled Vascular Access Device from Trunk Subcutaneous Tissue and Fascia, External Approach (ICD-10-PCS; 2020-05-18)
PROC: 05HM33Z Insertion of Infusion Device into Right Internal Jugular Vein, Percutaneous Approach (ICD-10-PCS; 2020-05-18)
PROC: B543ZZA Ultrasonography of Right Jugular Veins, Guidance (ICD-10-PCS; 2020-05-18)
PROC: B24BZZ4 Ultrasonography of Heart with Aorta, Transesophageal (ICD-10-PCS; principal; 2020-05-21 13:30)
PROC: 05PYX3Z Removal of Infusion Device from Upper Vein, External Approach (ICD-10-PCS; 2020-05-25)
PROC: 02H633Z Insertion of Infusion Device into Right Atrium, Percutaneous Approach (ICD-10-PCS; 2020-05-25)
PROC: 0JH63XZ Insertion of Tunneled Vascular Access Device into Chest Subcutaneous Tissue and Fascia, Percutaneous Approach (ICD-10-PCS; 2020-05-25)
PROC: B5181ZA Fluoroscopy of Superior Vena Cava using Low Osmolar Contrast, Guidance (ICD-10-PCS; 2020-05-25)
PROC: 5A1D70Z Performance of Urinary Filtration, Intermittent, Less than 6 Hours Per Day (ICD-10-PCS; 2020-05-26)
DX: T80.212A Local infection due to central venous catheter, initial encounter (principal); A41.9 Sepsis, unspecified organism; N18.6 End stage renal disease; E43 Unspecified severe protein-calorie malnutrition; G92 Toxic encephalopathy; A41.01 Sepsis due to Methicillin susceptible Staphylococcus aureus; I12.0 Hypertensive chronic kidney disease with stage 5 chronic kidney disease or end stage renal disease; E87.1 Hypo-osmolality and hyponatremia; D64.9 Anemia, unspecified; E11.22 Type 2 diabetes mellitus with diabetic chronic kidney disease; E11.65 Type 2 diabetes mellitus with hyperglycemia; E78.00 Pure hypercholesterolemia, unspecified; E78.5 Hyperlipidemia, unspecified; F17.200 Nicotine dependence, unspecified, uncomplicated; Y83.8 Other surgical procedures as the cause of abnormal reaction of the patient, or of later complication, without mention of misadventure at the time of the procedure; E21.3 Hyperparathyroidism, unspecified; E11.42 Type 2 diabetes mellitus with diabetic polyneuropathy; M19.90 Unspecified osteoarthritis, unspecified site; E87.5 Hyperkalemia; Z68.25 Body mass index [BMI] 25.0-25.9, adult; Y92.89 Other specified places as the place of occurrence of the external cause; Z86.73 Personal history of transient ischemic attack (TIA), and cerebral infarction without residual deficits; Z99.2 Dependence on renal dialysis; Z20.822 Contact with and (suspected) exposure to COVID-19
CPT/HCPCS: 36415; 36556; 36581; 36589; 36590; 70450; 71045; 75827; 76937; 77001; 80048; 80053; 80307; 81001; 82140; 82550; 82962; 83605; 83735; 83880; 84145; 84443; 84484; 85025; 85027; 85610; 86140; 87040; 87070; 87077; 87086; 87186; 87205; 93005; 93312; 99152; 99153; C1750; C1769; C1892; C1894; J0290; J0696; J0878; J0882; J1644; J1815; J2250; J2405; J2704; J3010; J3490; J7030; P9046; Q9966; U0003; 97116-GP; 99285-25; G0378